=== PATIENT | male | born 1960 | race American Indian/Alaskan Native ===

== ENCOUNTER 2016-07-24 11:13 | Emergency (ER) | payer OTHER ==
[2016-07-24 11:13] VITALS: BMI 23.3
[2016-07-24 11:39] VITALS: BP 124/74; PULSE 81; RESP 16; TEMP 97; O2SAT 98
--- NOTE | 2016-07-24 11:40 | ED PDOC ---
HPI: General Adult Time Seen by Provider: 07/24/16 11:40 Chief Complaint (Nursing): Abnormal Skin Integrity Chief Complaint (Provider): rash History Per: Patient Additional Complaint(s): 56-year-old male with no past medical history presents to emergency department with itchy rash to both arms that he first noticed yesterday. 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 Patient states he has been using this new chemical for the past month and only developed a rash as of yesterday. Patient denies any use of any new soaps, lotions, detergents, perfumes, no new foods or dietary changes. No associated fever or chills, no associated shortness of breath or throat discomfort. Patient denies history of similar symptoms. Denies any recent travel. Past Medical History Reviewed: Historical Data, Nursing Documentation, Vital Signs Vital Signs: Last Vital Signs Temp 97.0 F L 07/24/16 11:34 Pulse 81 07/24/16 11:34 Resp 16 07/24/16 11:34 BP 124/74 07/24/16 11:34 Pulse Ox 98 07/24/16 12:03 - Medical History PMH: Hypercholesterolemia - Surgical History Surgical History: Appendectomy (about 25 years ago) - Family History Family History: States: No Known Family Hx - Living Arrangements Living Arrangements: With Family - Social History Current smoker - smoking cessation education provided: Yes Alcohol: None Drugs: Denies, Other - Home Medications Home Medications: Ambulatory Orders Medication Instructions Recorded Azithromycin [Zithromax Z-Juan] 250 mg PO DAILY #4 tab 08/18/15 Diphenhydramine HCl/Zinc Acet 1 gm TP ASDIR PRN #1 packet 07/24/16 [Benadryl Itch Stopping Crm] Prednisone 50 mg PO DAILY #5 tablet 07/24/16 - Allergies Allergies/Adverse Reactions: Allergies Allergy/AdvReac Type Severity Reaction Status Date / Time No Known Allergies Allergy Verified 02/11/14 16:43 Review of Systems ROS Statement: Except As Marked, All Systems Reviewed And Found Negative Constitutional: Negative for: Fever ENT: Negative for: Throat Pain, Throat Swelling Cardiovascular: Negative for: Chest Pain Respiratory: Negative for: Shortness of Breath, SOB with Exertion Skin: Positive for: Rash Physical Exam - Reviewed Nursing Documentation Reviewed: Yes Vital Signs Reviewed: Yes - Physical Exam Appears: Positive for: Well, Non-toxic, No Acute Distress Skin: Positive for: Rash (Urticarial rash on erythematous base noted to bilateral arms, no acute infection) Cardiovascular/Chest: Positive for: Regular Rate, Rhythm Respiratory: Positive for: Normal Breath Sounds Neurologic/Psych: Positive for: Alert, Oriented - ECG O2 Sat by Pulse Oximetry: 98 Pulse Ox Interpretation: Normal Medical Decision Making Medical Decision Making: Impression: Allergic rash Plan: Rx benadryl cream and prednisone. Patient was instructed to take meds as directed and use caution with further exposure to chemical that may be causing reaction. Patient was advised to follow up with PMD and/or employee health. Disposition - Clinical Impression Clinical Impression: Allergic dermatitis - Patient ED Disposition Is Patient to be Admitted: No Counseled Patient/Family Regarding: Diagnosis, Need For Followup, Rx Given - Disposition Referrals: [facility] [Outside] Disposition: Routine/Home Disposition Time: 11:57 Condition: STABLE Additional Instructions: Take rx meds as directed. Follow up with employee health in 1-2 days. Prescriptions: Diphenhydramine HCl/Zinc Acet [Benadryl Itch Stopping Crm] 1 gm TP ASDIR PRN #1 packet PRN Reason: Itching / Pruritus Prednisone 50 mg PO DAILY #5 tablet Instructions: Urticaria (ED) Forms: [facility] ED School/Work Excuse
== END 2016-07-24 12:10 | disposition home or self-care (01) ==
LOC: H.ER 11:13
DX: L23.9 Allergic contact dermatitis, unspecified cause (principal); E78.00 Pure hypercholesterolemia, unspecified

== ENCOUNTER 2018-06-10 20:57 | Inpatient (IN) | payer BC, OTHER ==
[2018-06-10 20:57] VITALS: BMI 23.3
[2018-06-10 21:47] LABS: BASO % 0.8 % (0.0-2.0); EOS % 0.4 % (0.0-4.0); HEMOGLOBIN 13.3 g/dL (12.0-18.0); LYMPH # 1.4 K/uL (1.0-4.3); LYMPH % 24.6 % (20.0-40.0); MEAN CELL VOLUME 94.9 fl (80.0-94.0); MEAN CORPUSCULAR HEMOGLOBIN 32.6 pg (27.0-31.0); MEAN CORPUSCULAR HGB CONC 34.3 g/dL (33.0-37.0); MEAN PLATELET VOLUME 8.4 fl (7.2-11.7); MONO # 0.5 K/uL (0.0-0.8); MONO % 8.1 % (0.0-10.0); NEUT # 3.8 K/uL (1.8-7.0); NEUT % 66.1 % (50.0-75.0); NRBC % 0.1 % (0.0-0.0); RBC 4.09 Mil/uL (4.40-5.90); RED CELL DISTRIBUTION WIDTH 16.2 % (11.5-14.5); WHITE BLOOD COUNT 5.7 K/uL (4.8-10.8)
[2018-06-10 21:57] LABS: ALB/GLOB RATIO 1.2 (1.0-2.1); ALT/SGPT 24 U/L (21-72); AST/SGOT 30 U/L (17-59); BLOOD UREA NITROGEN 12 mg/dl (9-20); CALCIUM 9.6 mg/dL (8.4-10.2); GFR NON-AFRICAN AMERICAN > 60; LIPASE 49 U/L (23-300)
--- NOTE | 2018-06-10 22:20 | ED PDOC ---
HPI: Abdomen Time Seen by Provider: 06/10/18 21:09 Chief Complaint (Nursing): Abdominal Pain History Per: Patient History/Exam Limitations: no limitations Onset/Duration Of Symptoms: Days Outside of [place] travel?: No Current Symptoms Are (Timing): Still Present Location Of Pain/Discomfort: Diffuse Associated Symptoms: denies: Fever, Chills, Nausea, Vomiting, Diarrhea, Loss Of Appetite Additional Complaint(s): 58 year old with PMHx of HLD, colon/gastric CA? (patient is an extremely poor historian with poor insight into past medical history), active smoking (1/2 PPD), appendicitis presenting with diffuse abdominal pain. States that he was diagnosed with "stomach cancer" years ago and had a surgery to remove "ulcers and his appendix" and was told that he did not require chemo or radiation. States he has had diffuse abdominal pain since yesterday but has maintained his appetite, wants to eat but states the pain is too great. Denies nausea, vomiting, abnormal stools, fevers, urinary symptoms, or any other symptoms. PMD: Dr. Edith Mendoza Past Medical History Reviewed: Historical Data, Nursing Documentation, Vital Signs Vital Signs: Last Vital Signs Temp 98.0 F 06/10/18 21:00 Pulse 55 L 06/10/18 21:00 Resp 16 06/10/18 21:00 BP 150/86 06/10/18 21:00 Pulse Ox 99 06/10/18 21:00 - Medical History PMH: Hypercholesterolemia Denies: Depression, Chronic Kidney Disease - Surgical History Surgical History: Appendectomy (about 25 years ago) - Family History Family History: States: Unknown Family Hx - Immunization History Hx Influenza Vaccination: Yes Hx Pneumococcal Vaccination: Yes - Home Medications Home Medications: Ambulatory Orders Medication Instructions Recorded Azithromycin [Zithromax Z-Juan] 250 mg PO DAILY #4 tab 08/18/15 Diphenhydramine HCl/Zinc Acet 1 gm TP ASDIR PRN #1 packet 07/24/16 [Benadryl Itch Stopping Crm] Prednisone 50 mg PO DAILY #5 tablet 07/24/16 - Allergies Allergies/Adverse Reactions: Allergies Allergy/AdvReac Type Severity Reaction Status Date / Time No Known Allergies Allergy Verified 06/10/18 21:00 Review of Systems ROS Statement: Except As Marked, All Systems Reviewed And Found Negative Gastrointestinal: Positive for: Abdominal Pain Physical Exam - Reviewed Nursing Documentation Reviewed: Yes Vital Signs Reviewed: Yes - Physical Exam Appears: Positive for: Well, Non-toxic, No Acute Distress Head Exam: Positive for: ATRAUMATIC, NORMAL INSPECTION, NORMOCEPHALIC Skin: Positive for: Normal Color, Warm, DRY Eye Exam: Positive for: EOMI, Normal appearance, PERRL ENT: Positive for: Normal ENT Inspection Neck: Positive for: Normal, Painless ROM Cardiovascular/Chest: Positive for: Regular Rate, Rhythm Respiratory: Positive for: CNT, Normal Breath Sounds Gastrointestinal/Abdominal: Positive for: Normal Exam, Soft, Tenderness (Diffusely tender abdomen with voluntary guarding), Guarding (Voluntary), Other (Muliple lower abdominal surgical scars) Back: Positive for: Normal Inspection Extremity: Positive for: Normal ROM Neurological/Psych: Positive for: Awake, Alert, Normal Tone - Laboratory Results Result Diagrams: 06/10/18 21:44 06/10/18 21:44 Lab Results: Total Bilirubin 0.6 mg/dl (0.2-1.3) 06/10/18 21:44 AST 30 U/L (17-59) 06/10/18 21:44 ALT 24 U/L (21-72) 06/10/18 21:44 Alkaline Phosphatase 99 U/L (38-126) 06/10/18 21:44 Total Protein 7.3 G/DL (6.3-8.2) 06/10/18 21:44 Albumin 4.0 g/dL (3.5-5.0) 06/10/18 21:44 Globulin 3.3 gm/dL (2.2-3.9) 06/10/18 21:44 Albumin/Globulin Ratio 1.2 (1.0-2.1) 06/10/18 21:44 Lipase 49 U/L (23-300) 06/10/18 21:44 - ECG O2 Sat by Pulse Oximetry: 99 Pulse Ox Interpretation: Normal Medical Decision Making Medical Decision Making: A/P: Hx of HLD, CA status post surgery presenting with abdominal pain --Patient appears well, vitals are stable --Concerned for possible recurrence of CA v. colitis v. diverticular disease v. sbo --Will get labs, CT, toradol for pain --Will continue to monitor 1114PM Name: ISIDRO DARBY Exam Date: Jun 10, 2018 10:29:22 PM EDT Modality Type: CT Description: CT - ABDOMEN AND PELVIS WITH CORONAL AND SAGITTAL MPRS Gender: M Laterality: Not applicable : 62 Referring Physician: Emergency Room direct number EXAM: CT Abdomen and Pelvis with IV contrast CLINICAL HISTORY: Abd pain. Hx of colon/gastric ca TECHNIQUE: Axial computed tomography images of the abdomen and pelvis with intravenous contrast. 225.82 mGy-cm CONTRAST: With; [id number] 90ML COMPARISON: Comparison is made to previous examination dated 05/11/2014. FINDINGS: LUNG BASES: The lung bases appear clear. No pleural effusions are seen. LIVER: A radiographically stable 1.1 cm round hypodense lesion is seen in the posterior right hepatic lobe. This is thought likely compatible with a cyst. Otherwise, unremarkable. GALLBLADDER AND BILE DUCTS: The gallbladder appears within normal limits. No radioopaque gallstones are seen. No biliary ductal dilatation is evident. PANCREAS: Unremarkable. SPLEEN: Unremarkable. ADRENAL GLANDS: A 1.8 x 1.8 cm solid mass is seen in the left adrenal gland thought compatible with a cortical adenoma. This appears to have remained radiographically stable. Unremarkable right adrenal gland. KIDNEYS, URETERS, AND BLADDER: The kidneys appear within normal limits. There is no hydronephrosis or hydroureter. No urinary calculi are seen. The urinary bladder appeared normal in size and configuration. STOMACH AND BOWEL: There appears to have been partial gastrectomy with gastrojejunal anastomosis performed since the prior examination. Additionally, there appears to have been prior surgical resection of the mid-lower ascending colon. Correlation with past known abdominal surgical history is needed. Mucosal wall thickening seen in the gastric remnant suggestive of a gastritis. Multiple loops of fluid distended small intestine are seen; measuring up to 3.8 cm in transverse diameter. Possible identification of a transition zone in the anterior right lower quadrant. These findings are thought compatible with ev olving mechanical small intestinal obstruction. Surgical consultation could be considered. APPENDIX: No evidence of acute appendicitis on CT examination. PERITONEUM: No free fluid. No free air. LYMPH NODES: No lymphadenopathy is evident. REPRODUCTIVE: Unremarkable as visualized. VASCULATURE: No evidence of abdominal aortic aneurysm. Minor atherosclerotic vascular plaquing noted. BONES: No aggressive appearing osseous lesion. No acute osseous pathology evident. IMPRESSION: 1. Evidence of evolving mechanical small intestinal obstruction. Possible identification of a transition zone in the anterior right lower quadrant. 2. Status post partial gastrectomy with gastrojejunal anastomosis. 3. Apparent previous surgical resection of the lower-mid ascending colon. Correlation with past known surgical history needed. 4. Evidence of gastritis involving the gastric remnant. 5. 1.8 cm likely stable cortical adenoma in the left adrenal gland. Electronically signed on Jun 10, 2018 11:14:24 PM EDT by: Selvin Conteh M.D., MBA Certified By ABR & CBC[employer] Fellowship Trained MRI and CT Specialist --Case discussed with Dr. Armas who recommends NPO, IVF, and NGT for vomiting, will see patient in AM --Spoke with Dr. Coon who accepts admission --president/gm production & live experiences paged --Results given to patient, advised that he is NPO Disposition - Clinical Impression Clinical Impression: Small bowel obstruction - Patient ED Disposition Is Patient to be Admitted: Yes Discussed With : Shaheen Armas Doctor Will See Patient In The: Hospital Counseled Patient/Family Regarding: Studies Performed, Diagnosis, Smoking Cessation - Disposition Disposition Time: 23:15 Condition: FAIR Forms: [employer] (Malaysian)
[2018-06-10] MEDS ORDERED: Sodium Chloride 0.9% 50 ML IV ONE (22:26)
[2018-06-10] MEDS ORDERED: Iohexol 300 100 ML IJ ONE (22:26)
[2018-06-10] MEDS ORDERED: Sodium Chloride 0.9% 1,000 ML IV STA (23:34)
[2018-06-11 01:19] LABS: URINE BILIRUBIN NEGATIVE (NEGATIVE); URINE BLOOD NEGATIVE (NEGATIVE); URINE CLARITY CLEAR (Clear); URINE COLOR YELLOW (YELLOW); URINE GLUCOSE (UA) NEG (NEGATIVE); URINE LEUKOCYTE ESTERASE NEG Leu/uL (Negative); URINE PROTEIN NEGATIVE (NEGATIVE); URINE UROBILINOGEN 0.2-1.0 mg/dL (0.2-1.0)
--- NOTE | 2018-06-11 02:00 | CP.PCM.CON ---
<Amandeep Quintanilla - Last Filed: 06/11/18 02:01> History of Present Illness - History of Present Illness History of Present Illness: General Surgery Consult Note for Dr. Armas Reason for consult: SBO 58 M with PMH that includes gastric and colon CA s/p resections and HLD presents to [facility] for complaint of abdominal pain. Patient was seen and evaluated in the ED. Patient states that his pain began yesterday. He states that he could not bear the pain anymore so he decided to come into the hospital. Patient reports that he usually goes to [place] because he works here at [facility] but he the pain was too much at the time. He denies nausea/vomting or fever/chills. He reports a BM and flatus last around 830 pm yesterday. He rates pain as moderate located in RLQ. He describes it as constant and aching. He reports anorexia. Eating drinking aggravates symptoms while rest alleviates them. Denies cp, SON, diarrhea, constipation, incontinence, numbness/tingling, or urinary symptoms. PMD: Dr. Edith Mendoza PMH: gastric and colon CA s/p resections, HLD PSH: gastric and colon resection for CA, surgery for ulcers, appendectomy ALL: NKDA Meds: as per EMR Social: smokes 1/2 pack/day for years (20+ pack year history), denies EtOH/illicit drug use Review of Systems - Review of Systems All systems: reviewed and no additional remarkable complaints except (as per HPI) Past Patient History - Infectious Disease Hx of Infectious Diseases: None - Past Medical History & Family History Past Medical History?: Yes - Past Social History Smoking Status: Light Smoker < 10 Cigarettes Daily - CARDIAC Hx Hypercholesterolemia: Yes - PULMONARY Hx Respiratory Disorders: No - NEUROLOGICAL Hx Neurological Disorder: No - HEENT Hx HEENT Problems: No - RENAL Hx Chronic Kidney Disease: No - ENDOCRINE/METABOLIC Hx Endocrine Disorders: No - HEMATOLOGICAL/ONCOLOGICAL Hx Cancer: Yes (Colon cancer) - INTEGUMENTARY Hx Dermatological Problems: No - MUSCULOSKELETAL/RHEUMATOLOGICAL Hx Falls: No - GASTROINTESTINAL Hx Gastrointestinal Disorders: Yes Other/Comment: "TOOK PART OF MY STOMACH". Colon cancer - GENITOURINARY/GYNECOLOGICAL Hx Genitourinary Disorders: No - PSYCHIATRIC Hx Depression: No - SURGICAL HISTORY Hx Appendectomy: Yes (about 25 years ago) - ANESTHESIA Hx Anesthesia: Yes Hx Anesthesia Reactions: No Hx Malignant Hyperthermia: No Meds Allergies/Adverse Reactions: Allergies Allergy/AdvReac Type Severity Reaction Status Date / Time No Known Allergies Allergy Verified 06/10/18 21:00 - Medications Medications: Current Medications Acetaminophen (Tylenol 325mg Tab) 650 mg PO Q4 PRN PRN Reason: Pain, Mild (1-3) Sodium Chloride (Sodium Chloride 0.9%) 1,000 mls @ 250 mls/hr IV .Q4H [facility] Stop: 06/11/18 03:33 Last Admin: 06/11/18 00:46 Dose: 250 mls/hr Potassium Chloride/Dextrose/Sod Cl (Potassium Chl 20 Meq In D5-1/2ns) 1,000 mls @ 110 mls/hr IV .Q9H6M [facility] Stop: 06/12/18 01:01 Ketorolac Tromethamine (Toradol) 30 mg IVP Q6 PRN PRN Reason: Pain, severe (8-10) Ketorolac Tromethamine (Toradol) 15 mg IVP Q6 PRN PRN Reason: Pain, moderate (4-7) Physical Exam - Constitutional Appears: Well, Non-toxic, No Acute Distress - Head Exam Head Exam: ATRAUMATIC, NORMOCEPHALIC - Eye Exam Eye Exam: EOMI, Normal appearance Pupil Exam: PERRL - ENT Exam ENT Exam: Mucous Membranes Moist - Neck Exam Neck exam: Positive for: Full Rom - Respiratory Exam Respiratory Exam: NORMAL BREATHING PATTERN - Cardiovascular Exam Cardiovascular Exam: Bradycardia - GI/Abdominal Exam GI & Abdominal Exam: Hypoactive Bowel Sounds, Soft, Tenderness (RLQ). absent: Distended, Firm, Guarding, Hernia, Rebound, Rigid Additional comments: vertical midline scar and RLQ scar from appendectomy - Rectal Exam Rectal Exam: Deferred - Extremities Exam Extremities exam: Positive for: normal capillary refill, pedal pulses present. Negative for: calf tenderness - Back Exam Back exam: absent: CVA tenderness (L), CVA tenderness (R) - Neurological Exam Neurological exam: Alert, CN II-XII Intact, Oriented x3 - Psychiatric Exam Psychiatric exam: Normal Affect, Normal Mood - Skin Skin Exam: Dry, Intact, Normal Color, Warm Results - Vital Signs Recent Vital Signs: Last Vital Signs Temp 97.7 F 06/11/18 01:00 Pulse 49 L 06/11/18 01:00 Resp 17 06/11/18 01:00 BP 116/66 06/11/18 01:00 Pulse Ox 100 06/11/18 01:00 - Labs Result Diagrams: 06/10/18 21:44 06/10/18 21:44 Labs: Laboratory Results - last 24 hr 06/10/18 06/10/18 06/11/18 21:44 21:44 00:49 WBC 5.7 RBC 4.09 L Hgb 13.3 Hct 38.8 MCV 94.9 H D MCH 32.6 H MCHC 34.3 RDW 16.2 H Plt Count 216 MPV 8.4 Neut % (Auto) 66.1 Lymph % (Auto) 24.6 Cherry % (Auto) 8.1 Eos % (Auto) 0.4 Baso % (Auto) 0.8 Neut # (Auto) 3.8 Lymph # (Auto) 1.4 Cherry # (Auto) 0.5 Eos # (Auto) 0.0 Baso # (Auto) 0.0 Sodium 139 Potassium 3.8 Chloride 99 Carbon Dioxide 28 Anion Gap 16 BUN 12 Creatinine 1.1 Est GFR ( Amer) > 60 Est GFR (Non-Af Amer) > 60 Random Glucose 84 Calcium 9.6 Total Bilirubin 0.6 AST 30 ALT 24 Alkaline Phosphatase 99 Total Protein 7.3 Albumin 4.0 Globulin 3.3 Albumin/Globulin Ratio 1.2 Lipase 49 Urine Color Yellow Urine Clarity Clear Urine pH 7.0 Ur Specific [place] 1.044 H Urine Protein Negative Urine Glucose (UA) Neg Urine Ketones Negative Urine Blood Negative Urine Nitrate Negative Urine Bilirubin Negative Urine Urobilinogen 0.2-1.0 Ur Leukocyte Esterase Neg Urine RBC (Auto) 2 Urine Microscopic WBC < 1 Assessment & Plan - Assessment and Plan (Free Text) Assessment: 58M with PMH that includes gastric and colon resection for CA and appendectomy presents for SBO Plan: -NPO -IVF -Pain control -Serial abd exams -Monitor for bowel function -NGT if develops nausea/vomiting -Discussed with Dr. Pawel Quintanilla PGY2 - Date & Time Date: 06/11/18 Time: 02:10 <Han Domínguez - Last Filed: 06/11/18 13:06> History of Present Illness - History of Present Illness History of Present Illness: Patient was seen and examined at the bedside. Agree with resident's note above. Patient reports flatus and a large bowel movement this morning, states that feels better. No nausea no vomiting. Meds - Medications Medications: Current Medications Acetaminophen (Tylenol 325mg Tab) 650 mg PO Q4 PRN PRN Reason: Pain, Mild (1-3) Last Admin: 06/11/18 12:32 Dose: 650 mg Potassium Chloride/Dextrose/Sod Cl (Potassium Chl 20 Meq In D5-1/2ns) 1,000 mls @ 110 mls/hr IV .Q9H6M [facility] Stop: 06/12/18 01:01 Last Admin: 06/11/18 12:23 Dose: 110 mls/hr Ketorolac Tromethamine (Toradol) 30 mg IVP Q6 PRN PRN Reason: Pain, severe (8-10) Last Admin: 06/11/18 06:43 Dose: 30 mg Ketorolac Tromethamine (Toradol) 15 mg IVP Q6 PRN PRN Reason: Pain, moderate (4-7) Pantoprazole Sodium (Protonix Inj) 40 mg IVP DAILY [facility] Last Admin: 06/11/18 08:19 Dose: 40 mg Physical Exam - GI/Abdominal Exam Additional comments: soft, NT, ND, BS+, no rebound, no guarding, well healed incisions from prior surgeries Results - Vital Signs Recent Vital Signs: Last Vital Signs Temp 98.1 F 06/11/18 11:54 Pulse 42 L 06/11/18 11:54 Resp 18 06/11/18 11:54 BP 151/77 H 06/11/18 11:54 Pulse Ox 100 06/11/18 11:54 - Labs Result Diagrams: 06/11/18 05:35 06/11/18 05:35 Labs: Laboratory Results - last 24 hr 06/10/18 06/10/18 06/11/18 21:44 21:44 00:49 WBC 5.7 RBC 4.09 L Hgb 13.3 Hct 38.8 MCV 94.9 H D MCH 32.6 H MCHC 34.3 RDW 16.2 H Plt Count 216 MPV 8.4 Neut % (Auto) 66.1 Lymph % (Auto) 24.6 Cherry % (Auto) 8.1 Eos % (Auto) 0.4 Baso % (Auto) 0.8 Neut # (Auto) 3.8 Lymph # (Auto) 1.4 Cherry # (Auto) 0.5 Eos # (Auto) 0.0 Baso # (Auto) 0.0 Sodium 139 Potassium 3.8 Chloride 99 Carbon Dioxide 28 Anion Gap 16 BUN 12 Creatinine 1.1 Est GFR ( Amer) > 60 Est GFR (Non-Af Amer) > 60 Random Glucose 84 Calcium 9.6 Phosphorus Magnesium Total Bilirubin 0.6 AST 30 ALT 24 Alkaline Phosphatase 99 Total Protein 7.3 Albumin 4.0 Globulin 3.3 Albumin/Globulin Ratio 1.2 Lipase 49 Urine Color Yellow Urine Clarity Clear Urine pH 7.0 Ur Specific [place] 1.044 H Urine Protein Negative Urine Glucose (UA) Neg Urine Ketones Negative Urine Blood Negative Urine Nitrate Negative Urine Bilirubin Negative Urine Urobilinogen 0.2-1.0 Ur Leukocyte Esterase Neg Urine RBC (Auto) 2 Urine Microscopic WBC < 1 06/11/18 06/11/18 05:35 05:35 WBC 5.0 RBC 4.03 L Hgb 13.1 Hct 39.0 MCV 96.7 H MCH 32.4 H MCHC 33.6 RDW 16.1 H Plt Count 200 MPV 8.6 Neut % (Auto) 58.7 Lymph % (Auto) 29.1 Cherry % (Auto) 10.2 H Eos % (Auto) 1.1 Baso % (Auto) 0.9 Neut # (Auto) 2.9 Lymph # (Auto) 1.5 Cherry # (Auto) 0.5 Eos # (Auto) 0.1 Baso # (Auto) 0.0 Sodium 139 Potassium 4.1 Chloride 103 Carbon Dioxide 24 Anion Gap 16 BUN 12 Creatinine 1.0 Est GFR ( Amer) > 60 Est GFR (Non-Af Amer) > 60 Random Glucose 93 Calcium 9.1 Phosphorus 3.1 Magnesium 2.2 Total Bilirubin 0.8 AST 25 ALT 20 L Alkaline Phosphatase 92 Total Protein 6.9 Albumin 3.7 Globulin 3.3 Albumin/Globulin Ratio 1.1 Lipase Urine Color Urine Clarity Urine pH Ur Specific [place] Urine Protein Urine Glucose (UA) Urine Ketones Urine Blood Urine Nitrate Urine Bilirubin Urine Urobilinogen Ur Leukocyte Esterase Urine RBC (Auto) Urine Microscopic WBC - Imaging and Cardiology CT scan - abdomen Status: Image reviewed by me, Report reviewed by me Assessment & Plan - Assessment and Plan (Free Text) Plan: - start clear liquid diet - IV fluids - Repeat labs in am - Will follow
[2018-06-11] MEDS: Potassium Ch 20mEq in D5-1/2NS 1,000 ML IV SCH ×2 (03:50→12:23)
--- NOTE | 2018-06-11 05:26 | CP.PCM.HP ---
<Renny Shepard - Last Filed: 06/11/18 05:10> History of Present Illness - History of Present Illness History of Present Illness: 58 y/o M with a PMHx of Colon cancer and S/P colon resection presented to ED complaining of severe kylie-umbilical abdominal pain that began last night (on 06/09/18). Pain is decribed as sharp/stabbing, was 8-9/10 intensity this morning, radiates to lower abdomen, aggravates with PO intake and NOT associated with nausea, vomiting or change in bowel movement. Last bowel movement last night which was soft ad normal. Pt tried [place]; however, pt was not able to tolerate pain and decided to come to ED. Pt afebrile, able to tolerate PO and passing gasses. Pt denies fever, chills, chest pain, SOB, diarrhea, constipation, rash. PCP: Dr. Edith Mendoza NKJOSE CARLOS Meds: none -PMHx: gastric and colon CA. Denies other chronic conditions. -PSHx: gastric and colon resection for CA. -SHx: smokes 1/2 ppd for many years. Denies alcohol or rec drugs. ED Course: --Vital signs: WNL except for bradycardia. --CBC, CMP and U/A unremarkable --CT Abdomen: evidence of evolving mechanical small intestinal obstruction, s/p resection od lower-mid ascending colon, gastritis. --Toradol 15mg given with improvement of pain. Present on Admission - Present on Admission Any Indicators Present on Admission: No Review of Systems - Constitutional Constitutional: absent: Anorexia, Chills, Headache - EENT Eyes: absent: Change in Vision Nose/Mouth/Throat: absent: Nasal Congestion, Nasal Discharge, Mouth Pain, Sore Throat, Neck Pain, Neck Mass - Cardiovascular Cardiovascular: absent: Chest Pain, Dyspnea, Edema, Palpitations - Respiratory Respiratory: absent: Cough, Dyspnea, Hemoptysis, Dyspnea on Exertion - Gastrointestinal Gastrointestinal: Abdominal Pain. absent: Constipation, Diarrhea, Dysphagia, Hematochezia, Nausea, Vomiting - Genitourinary Genitourinary: absent: Dysuria, Flank Pain, Hematuria - Neurological Neurological: absent: Abnormal Gait Past Patient History - Infectious Disease Hx of Infectious Diseases: None - Past Medical History & Family History Past Medical History?: Yes - Past Social History Smoking Status: Light Smoker < 10 Cigarettes Daily - CARDIAC Hx Hypercholesterolemia: Yes - PULMONARY Hx Respiratory Disorders: No - NEUROLOGICAL Hx Neurological Disorder: No - HEENT Hx HEENT Problems: No - RENAL Hx Chronic Kidney Disease: No - ENDOCRINE/METABOLIC Hx Endocrine Disorders: No - HEMATOLOGICAL/ONCOLOGICAL Hx Cancer: Yes (Colon cancer) - INTEGUMENTARY Hx Dermatological Problems: No - MUSCULOSKELETAL/RHEUMATOLOGICAL Hx Falls: No - GASTROINTESTINAL Hx Gastrointestinal Disorders: Yes Other/Comment: "TOOK PART OF MY STOMACH". Colon cancer - GENITOURINARY/GYNECOLOGICAL Hx Genitourinary Disorders: No - PSYCHIATRIC Hx Depression: No - SURGICAL HISTORY Hx Appendectomy: Yes (about 25 years ago) - ANESTHESIA Hx Anesthesia: Yes Hx Anesthesia Reactions: No Hx Malignant Hyperthermia: No Meds Allergies/Adverse Reactions: Allergies Allergy/AdvReac Type Severity Reaction Status Date / Time No Known Allergies Allergy Verified 06/10/18 21:00 Physical Exam - Constitutional Appears: Well, No Acute Distress - Head Exam Head Exam: ATRAUMATIC, NORMAL INSPECTION - Eye Exam Eye Exam: EOMI, Normal appearance - ENT Exam ENT Exam: Mucous Membranes Moist, Normal Oropharynx - Neck Exam Neck exam: Positive for: Full Rom, Normal Inspection. Negative for: Lymphadenopathy, Tenderness - Respiratory Exam Respiratory Exam: Clear to Auscultation Bilateral, NORMAL BREATHING PATTERN. absent: Rhonchi, Wheezes, Respiratory Distress, Stridor - Cardiovascular Exam Cardiovascular Exam: Bradycardia, +S1, +S2 - GI/Abdominal Exam GI & Abdominal Exam: Normal Bowel Sounds, Soft, Tenderness (on kylie-umbilical and lower quadrants. ). absent: Distended, Firm, Guarding, Rebound, Rigid - Extremities Exam Extremities exam: Positive for: full ROM, normal inspection. Negative for: calf tenderness - Back Exam Back exam: absent: CVA tenderness (L), CVA tenderness (R) - Neurological Exam Neurological exam: Alert, Oriented x3 Results - Vital Signs Recent Vital Signs: Last Vital Signs Temp 97.7 F 06/11/18 02:24 Pulse 43 L 06/11/18 02:24 Resp 18 06/11/18 02:24 BP 141/79 06/11/18 02:24 Pulse Ox 100 06/11/18 02:24 - Labs Result Diagrams: 06/10/18 21:44 06/10/18 21:44 Labs: Laboratory Results - last 24 hr 06/10/18 06/10/18 06/11/18 21:44 21:44 00:49 WBC 5.7 RBC 4.09 L Hgb 13.3 Hct 38.8 MCV 94.9 H D MCH 32.6 H MCHC 34.3 RDW 16.2 H Plt Count 216 MPV 8.4 Neut % (Auto) 66.1 Lymph % (Auto) 24.6 Andrew % (Auto) 8.1 Eos % (Auto) 0.4 Baso % (Auto) 0.8 Neut # (Auto) 3.8 Lymph # (Auto) 1.4 Andrew # (Auto) 0.5 Eos # (Auto) 0.0 Baso # (Auto) 0.0 Sodium 139 Potassium 3.8 Chloride 99 Carbon Dioxide 28 Anion Gap 16 BUN 12 Creatinine 1.1 Est GFR ( Amer) > 60 Est GFR (Non-Af Amer) > 60 Random Glucose 84 Calcium 9.6 Total Bilirubin 0.6 AST 30 ALT 24 Alkaline Phosphatase 99 Total Protein 7.3 Albumin 4.0 Globulin 3.3 Albumin/Globulin Ratio 1.2 Lipase 49 Urine Color Yellow Urine Clarity Clear Urine pH 7.0 Ur Specific [place] 1.044 H Urine Protein Negative Urine Glucose (UA) Neg Urine Ketones Negative Urine Blood Negative Urine Nitrate Negative Urine Bilirubin Negative Urine Urobilinogen 0.2-1.0 Ur Leukocyte Esterase Neg Urine RBC (Auto) 2 Urine Microscopic WBC < 1 Assessment & Plan - Assessment and Plan (Free Text) Assessment: 58 y/o M with a PMHx of Colon cancer and S/P colon resection was admitted for evaluation and management of partial SBO. --CT Abdomen: evidence of evolving mechanical smal intestinal obstruction, s/p resection od lower-mid ascending colon, gastritis. PLAN: >Partial SBO --Acute, afebrile with NO nausea. --Hx of colon resection --Pain management: Tylenol for mild, Toradol for moderate and severe. --NPO --IVF: D5-1/2NS-KCl 20mEQ at maintenance. --General surgery consult. --F/U recommendations from Gen Surgery. --F/U labs >DVT Prophylaxis --SCD's --No anticoagulation for now as per possible surgical procedure. Case discussed with Dr Shaggy Shepard PGY-2 - Date & Time Date: 06/11/18 Time: 01:55 <ClintKareen - Last Filed: 06/11/18 15:19> Results - Vital Signs Recent Vital Signs: Last Vital Signs Temp 98.1 F 06/11/18 11:54 Pulse 42 L 06/11/18 11:54 Resp 18 06/11/18 11:54 BP 151/77 H 06/11/18 11:54 Pulse Ox 100 06/11/18 11:54 - Labs Result Diagrams: 06/11/18 05:35 06/11/18 05:35 Labs: Laboratory Results - last 24 hr 06/10/18 06/10/18 06/11/18 21:44 21:44 00:49 WBC 5.7 RBC 4.09 L Hgb 13.3 Hct 38.8 MCV 94.9 H D MCH 32.6 H MCHC 34.3 RDW 16.2 H Plt Count 216 MPV 8.4 Neut % (Auto) 66.1 Lymph % (Auto) 24.6 Andrew % (Auto) 8.1 Eos % (Auto) 0.4 Baso % (Auto) 0.8 Neut # (Auto) 3.8 Lymph # (Auto) 1.4 Andrew # (Auto) 0.5 Eos # (Auto) 0.0 Baso # (Auto) 0.0 Sodium 139 Potassium 3.8 Chloride 99 Carbon Dioxide 28 Anion Gap 16 BUN 12 Creatinine 1.1 Est GFR ( Amer) > 60 Est GFR (Non-Af Amer) > 60 Random Glucose 84 Calcium 9.6 Phosphorus Magnesium Total Bilirubin 0.6 AST 30 ALT 24 Alkaline Phosphatase 99 Total Protein 7.3 Albumin 4.0 Globulin 3.3 Albumin/Globulin Ratio 1.2 Lipase 49 Urine Color Yellow Urine Clarity Clear Urine pH 7.0 Ur Specific [place] 1.044 H Urine Protein Negative Urine Glucose (UA) Neg Urine Ketones Negative Urine Blood Negative Urine Nitrate Negative Urine Bilirubin Negative Urine Urobilinogen 0.2-1.0 Ur Leukocyte Esterase Neg Urine RBC (Auto) 2 Urine Microscopic WBC < 1 06/11/18 06/11/18 05:35 05:35 WBC 5.0 RBC 4.03 L Hgb 13.1 Hct 39.0 MCV 96.7 H MCH 32.4 H MCHC 33.6 RDW 16.1 H Plt Count 200 MPV 8.6 Neut % (Auto) 58.7 Lymph % (Auto) 29.1 Andrew % (Auto) 10.2 H Eos % (Auto) 1.1 Baso % (Auto) 0.9 Neut # (Auto) 2.9 Lymph # (Auto) 1.5 Andrew # (Auto) 0.5 Eos # (Auto) 0.1 Baso # (Auto) 0.0 Sodium 139 Potassium 4.1 Chloride 103 Carbon Dioxide 24 Anion Gap 16 BUN 12 Creatinine 1.0 Est GFR ( Amer) > 60 Est GFR (Non-Af Amer) > 60 Random Glucose 93 Calcium 9.1 Phosphorus 3.1 Magnesium 2.2 Total Bilirubin 0.8 AST 25 ALT 20 L Alkaline Phosphatase 92 Total Protein 6.9 Albumin 3.7 Globulin 3.3 Albumin/Globulin Ratio 1.1 Lipase Urine Color Urine Clarity Urine pH Ur Specific [place] Urine Protein Urine Glucose (UA) Urine Ketones Urine Blood Urine Nitrate Urine Bilirubin Urine Urobilinogen Ur Leukocyte Esterase Urine RBC (Auto) Urine Microscopic WBC Addendum Addendum: 06/11/18 15:18 Pt seen and examined with resident Abd Pain better , still with some tenderness, no N/V, pt had BM this am Will; start Clear Liquid diet this afternoon will observe overnight , poss d/c in am if pt tolerates diet
[2018-06-11 06:12] LABS: BASO % 0.9 % (0.0-2.0); EOS # 0.1 K/uL (0.0-0.7); EOS % 1.1 % (0.0-4.0); HEMOGLOBIN 13.1 g/dL (12.0-18.0); LYMPH # 1.5 K/uL (1.0-4.3); LYMPH % 29.1 % (20.0-40.0); MEAN CELL VOLUME 96.7 fl (80.0-94.0); MEAN CORPUSCULAR HEMOGLOBIN 32.4 pg (27.0-31.0); MEAN CORPUSCULAR HGB CONC 33.6 g/dL (33.0-37.0); MEAN PLATELET VOLUME 8.6 fl (7.2-11.7); MONO # 0.5 K/uL (0.0-0.8); MONO % 10.2 % (0.0-10.0); NEUT # 2.9 K/uL (1.8-7.0); NEUT % 58.7 % (50.0-75.0); NRBC % 0.1 % (0.0-0.0); RBC 4.03 Mil/uL (4.40-5.90); RED CELL DISTRIBUTION WIDTH 16.1 % (11.5-14.5)
[2018-06-11 06:35] LABS: ALB/GLOB RATIO 1.1 (1.0-2.1); ALBUMIN 3.7 g/dL (3.5-5.0); ALT/SGPT 20 U/L (21-72); AST/SGOT 25 U/L (17-59); BLOOD UREA NITROGEN 12 mg/dl (9-20); CALCIUM 9.1 mg/dL (8.4-10.2); GFR NON-AFRICAN AMERICAN > 60
--- NOTE | 2018-06-11 17:39 | CT ---
Date of service: 06/10/2018 PROCEDURE: CT Abdomen and Pelvis with contrast HISTORY: hx of colon/gastric CA presenting with abd pain COMPARISON: 05/11/2014 TECHNIQUE: Contrast dose: 90 mL Omnipaque 300 Radiation dose: Total exam DLP = 225.82 mGy-cm. This CT exam was performed using one or more of the following dose reduction techniques: Automated exposure control, adjustment of the mA and/or kV according to patient size, and/or use of iterative reconstruction technique. FINDINGS: LOWER THORAX: Unremarkable. LIVER: Normal size, contour and attenuation. Stable 12 mm low-density mass posterior right lobe of liver. No biliary dilatation. GALLBLADDER AND BILE DUCTS: Unremarkable. PANCREAS: Unremarkable. No gross lesion or ductal dilatation. SPLEEN: Unremarkable. ADRENALS: Unremarkable. No mass. KIDNEYS AND URETERS: Two small rounded low-density masses in left kidney, 1.3 cm upper pole and 1.1 cm mid renal. Likely cysts. No right renal mass. No calculus or hydronephrosis. VASCULATURE: Unremarkable. No aortic aneurysm. There is atherosclerotic calcification of the abdominal aorta. BOWEL: Status post partial gastrectomy with gastrojejunostomy. Evidence of prior small bowel anastomosis in the left upper quadrant of the abdomen. Dilated loops of small bowel are seen possibly reflecting mechanical bowel obstruction. There are collapsed loops of distal ileum identified. Questionable point of transition in the midline abdomen at the level of the umbilicus, series 3, image 85. However, this is not certain on the basis of this examination. APPENDIX: Not identified. No secondary findings. PERITONEUM: Trace ascites. No pneumoperitoneum. LYMPH NODES: Unremarkable. No enlarged lymph nodes. BLADDER: Unremarkable. REPRODUCTIVE: Unremarkable prostate. BONES: No acute fracture. OTHER FINDINGS: None. IMPRESSION: Suspected mechanical small-bowel obstruction. Questionable point of transition is identified as above at the level of the umbilicus in the midline abdomen. Status post partial gastrectomy with gastrojejunostomy and additional small bowel anastomosis in the left upper quadrant. Additional minor findings as above. The preliminary findings for this examination were reported by [facility] at 11:14 p.m. on 06/10/2018. There is concurrence of this report with the preliminary findings. However, there is no evidence of adrenal adenoma on the basis of this examination.
[2018-06-12] MEDS: Potassium Ch 20mEq in D5-1/2NS 1,000 ML IV SCH (00:20)
[2018-06-12] MEDS ORDERED: EnalaprilAT 1.25 mg/ml Inj IVP ONE (05:22)
[2018-06-12 06:34] LABS: BLOOD UREA NITROGEN 8 mg/dl (9-20); GFR NON-AFRICAN AMERICAN > 60
[2018-06-12 06:46] LABS: BASO % 0.3 % (0.0-2.0); EOS % 0.5 % (0.0-4.0); HEMOGLOBIN 14.2 g/dL (12.0-18.0); LYMPH # 0.8 K/uL (1.0-4.3); LYMPH % 20.1 % (20.0-40.0); MEAN CELL VOLUME 96.4 fl (80.0-94.0); MEAN CORPUSCULAR HEMOGLOBIN 32.5 pg (27.0-31.0); MEAN CORPUSCULAR HGB CONC 33.7 g/dL (33.0-37.0); MEAN PLATELET VOLUME 8.9 fl (7.2-11.7); MONO # 0.5 K/uL (0.0-0.8); MONO % 11.6 % (0.0-10.0); NEUT # 2.8 K/uL (1.8-7.0); NEUT % 67.5 % (50.0-75.0); NRBC % 0.3 % (0.0-0.0); RBC 4.36 Mil/uL (4.40-5.90); RED CELL DISTRIBUTION WIDTH 16.2 % (11.5-14.5); WHITE BLOOD COUNT 4.2 K/uL (4.8-10.8)
--- NOTE | 2018-06-12 07:04 | CP.PCM.PCO ---
Addendum Addendum: 06/12/18 06:57 58 y/o M developed nausea at 1 am, Zofran was administered. The newswriter was again called around 5:45am due to patient vomiting clear yellow liquid, non-bloody. Pt complained of nausea but denied abdominal pain, epigastric burning pain or acid reflux. Vital signs showed bradycardia and elevated BP. On physical exam, abdomen is distended, tender diffusely, decreased bowel sounds. Another dose of IV Zofran administered, NPO ordered, and Obstructive series ordered. Considering NGT placement if abnormal x-rays.
[2018-06-12] MEDS ORDERED: Chlorhexidine Gluconate 1 APPL/PKT TP ONE ×3 (07:52→18:58)
[2018-06-12] MEDS: Lactated Ringer's 1,000 ML IV SCH (09:45)
[2018-06-12] MEDS: EnalaprilAT 1.25 mg/ml Inj IV SCH ×2 (09:45→21:46)
--- NOTE | 2018-06-12 09:58 | RAD ---
Date of service: 06/12/2018 HISTORY: nausea/vomting, SBO COMPARISON: 06/10/2018 CT abdomen and pelvis report noted tower director image noted. FINDINGS: BOWEL: Interval increased in number of small bowel dilated loops for example now in the right lower abdomen. The number and conspicuity of small bowel dilated loops in the left upper abdomen and left lateral abdomen have also increased with the prior tower director image. The prior right upper quadrant dilated small bowel loop is similar. Surgical clips in the epigastric region noted in the right upper quadrant. BONES: Right lateral bridging osteophyte L3-4. OTHER FINDINGS: Multiple central pelvic high [id number] some may be phleboliths. Their origin and clinical significance of all of them is however unclear. Nasogastric tube with more vertical course--likely relating to prior history of gas partial gastrectomy and gastrojejunostomy. IMPRESSION: Interval progressive number of dilated small bowel loops-a progressive small-bowel obstruction is suspect. Please note the prior CT abdomen and pelvic report regarding mention of this. Comments: Study marked for PA review .
--- NOTE | 2018-06-12 10:04 | CP.PCM.PN ---
Subjective - Date & Time of Evaluation Date of Evaluation: 06/12/18 Time of Evaluation: 10:00 - Subjective Subjective: pt seen at bedside, resting comfortably in no acute distress. Pt was started on clear liquids but overnight pt developed multiple episodes of bilious vomiting. Pt made NPO currently with NGT in place with bilous drainage. Pt reports abd ominal discomfort, nausea but is passing flatus and had BM this morning. GEN: awake, alert, NAD HEENT: NC/AT, EOMI, NGT in place with bilious drainage resp: no acute respiratory distress abd: soft, mild distention, minimal discomfort to mid abdomen on deep palpation, no rebound or guarding, no hernias or mass -NPO -IVF -monitor NGT output -repeat KUB in am -repeat labs in am -will continue to monitor clinically no acute intervention Objective - Vital Signs/Intake and Output Vital Signs (last 24 hours): Temp Pulse Resp BP Pulse Ox 97.1 F L 49 L 18 177/81 H 100 06/12/18 08:27 06/12/18 08:27 06/12/18 08:27 06/12/18 09:45 06/12/18 08:27 - Medications Medications: Current Medications Acetaminophen (Tylenol 325mg Tab) 650 mg PO Q4 PRN PRN Reason: Pain, Mild (1-3) Last Admin: 06/11/18 12:32 Dose: 650 mg Enalaprilat (Vasotec Iv) 2.5 mg IV Q12 [facility] Last Admin: 06/12/18 09:45 Dose: 2.5 mg Lactated Ringer's (Lactated Ringer's) 1,000 mls @ 125 mls/hr IV .Q8H [facility] Last Admin: 06/12/18 09:45 Dose: 125 mls/hr Morphine Sulfate (Morphine) 2 mg IVP Q4 PRN PRN Reason: Pain, Mild (1-3) Last Admin: 06/12/18 09:45 Dose: 2 mg Morphine Sulfate (Morphine) 4 mg IVP Q4 PRN PRN Reason: Pain, moderate (4-7) Morphine Sulfate (Morphine) 6 mg IVP Q4 PRN PRN Reason: Pain, severe (8-10) Pantoprazole Sodium (Protonix Inj) 40 mg IVP DAILY [facility] Last Admin: 06/12/18 09:46 Dose: 40 mg - Labs Labs: 06/12/18 05:45 06/12/18 05:45
--- NOTE | 2018-06-12 11:19 | CP.PCM.PN ---
<KayKelsey - Last Filed: 06/12/18 11:53> Subjective - Date & Time of Evaluation Date of Evaluation: 06/12/18 Time of Evaluation: 11:17 - Subjective Subjective: 58 y/o M with a PMHx of Colon cancer and S/P colon resection seen and evaluated at bedside complaining of severe kylie-umbilical abdominal pain that began on 06/09/18. Patient states the pain is now controlled with pain medications. Last bowel movement was this morning and states it was regular. States he had a cup of tea yesterday and had expericing vomiting after. Denies any other complains. Objective - Vital Signs/Intake and Output Vital Signs (last 24 hours): Temp Pulse Resp BP Pulse Ox 97.1 F L 49 L 18 177/81 H 100 06/12/18 08:27 06/12/18 08:27 06/12/18 08:27 06/12/18 09:45 06/12/18 08:27 - Medications Medications: Current Medications Acetaminophen (Tylenol 325mg Tab) 650 mg PO Q4 PRN PRN Reason: Pain, Mild (1-3) Last Admin: 06/11/18 12:32 Dose: 650 mg Enalaprilat (Vasotec Iv) 2.5 mg IV Q12 [facility] Last Admin: 06/12/18 09:45 Dose: 2.5 mg Lactated Ringer's (Lactated Ringer's) 1,000 mls @ 125 mls/hr IV .Q8H [facility] Last Admin: 06/12/18 09:45 Dose: 125 mls/hr Morphine Sulfate (Morphine) 2 mg IVP Q4 PRN PRN Reason: Pain, Mild (1-3) Last Admin: 06/12/18 09:45 Dose: 2 mg Morphine Sulfate (Morphine) 4 mg IVP Q4 PRN PRN Reason: Pain, moderate (4-7) Morphine Sulfate (Morphine) 6 mg IVP Q4 PRN PRN Reason: Pain, severe (8-10) Pantoprazole Sodium (Protonix Inj) 40 mg IVP DAILY [facility] Last Admin: 06/12/18 09:46 Dose: 40 mg - Labs Labs: 06/12/18 05:45 06/12/18 05:45 - Constitutional Appears: Well, Non-toxic, No Acute Distress - Head Exam Head Exam: ATRAUMATIC, NORMOCEPHALIC - Eye Exam Eye Exam: Normal appearance Pupil Exam: NORMAL ACCOMODATION - ENT Exam ENT Exam: Mucous Membranes Moist Additional comments: NG tube noted - Respiratory Exam Respiratory Exam: NORMAL BREATHING PATTERN - Cardiovascular Exam Cardiovascular Exam: REGULAR RHYTHM, +S1, +S2 - Neurological Exam Neurological Exam: Alert, Awake, Oriented x3 - Psychiatric Exam Psychiatric exam: Normal Affect - Skin Skin Exam: Normal Color Assessment and Plan - Assessment and Plan (Free Text) Assessment: 58 y/o M with a PMHx of Colon cancer and S/P colon resection was admitted for evaluation and management of partial SBO. --CT Abdomen: evidence of evolving mechanical smal intestinal obstruction, s/p resection old lower-mid ascending colon, gastritis. Patient advised to start with clear liquids after a period of NPO. However, patient had experienced vomitng and NG tube was placed. Plan: >Partial SBO --Acute, afebrile with vomiting --Hx of colon resection --Pain management: Tylenol for mild, Toradol for moderate and severe. -- X-ray of abdomen:progressive small bowel obstruction --CT Abdomen: evidence of evolving mechanical small intestinal obstruction, s/p resection od lower-mid ascending colon, gastritis. --NPO --IVF: D5-1/2NS-KCl 20mEQ at maintenance. --General surgery consult.; appreciate recs --NG tube intact --f/u on obstructive series Hypertension --IV vasotec >DVT Prophylaxis --SCD's <Kareen Jaramillo - Last Filed: 06/12/18 17:23> Objective - Vital Signs/Intake and Output Vital Signs (last 24 hours): Temp Pulse Resp BP Pulse Ox 97.3 F L 51 L 18 168/79 H 99 06/12/18 16:20 06/12/18 16:20 06/12/18 16:20 06/12/18 16:20 06/12/18 16:20 - Medications Medications: Current Medications Acetaminophen (Tylenol 325mg Tab) 650 mg PO Q4 PRN PRN Reason: Pain, Mild (1-3) Last Admin: 06/11/18 12:32 Dose: 650 mg Enalaprilat (Vasotec Iv) 2.5 mg IV Q12 [facility] Last Admin: 06/12/18 09:45 Dose: 2.5 mg Hydralazine HCl (Apresoline) 10 mg IV Q6 PRN PRN Reason: Systolic Blood Pressure Lactated Ringer's (Lactated Ringer's) 1,000 mls @ 125 mls/hr IV .Q8H [facility] Last Admin: 06/12/18 09:45 Dose: 125 mls/hr Morphine Sulfate (Morphine) 2 mg IVP Q4 PRN PRN Reason: Pain, Mild (1-3) Last Admin: 06/12/18 09:45 Dose: 2 mg Morphine Sulfate (Morphine) 4 mg IVP Q4 PRN PRN Reason: Pain, moderate (4-7) Morphine Sulfate (Morphine) 6 mg IVP Q4 PRN PRN Reason: Pain, severe (8-10) Ondansetron HCl (Zofran Inj) 4 mg IVP Q4 PRN PRN Reason: Nausea/Vomiting Pantoprazole Sodium (Protonix Inj) 40 mg IVP DAILY [facility] Last Admin: 06/12/18 09:46 Dose: 40 mg - Labs Labs: 06/12/18 05:45 06/12/18 05:45 Attending/Attestation - Attestation I have personally seen and examined this patient.: Yes I have fully participated in the care of the patient.: Yes I have reviewed all pertinent clinical information, including history, physical exam and plan: Yes Notes (Text): Diagnoses: 1.SBO 2. HTN - Pt vomited this am - unable to tolerate PO diet though had BM yesterday - worsening SBO on KUB - Keep NPO - NGT inserted this am -Hydralazine 10 mg IV for BP greater than 175 syst - start Vasotec IV Bid
[2018-06-12] MEDS: Morphine 4 MG/ML VIAL IVP PRN ×2 (17:33→22:53)
[2018-06-12] MEDS ORDERED: Benzocaine/Menthol (Cepacol) Lozenge PO PRN (19:05)
[2018-06-12] MEDS ORDERED: Phenol 1.4% Throat Spray MT PRN (19:05)
[2018-06-13] MEDS: Lactated Ringer's 1,000 ML IV SCH ×3 (02:55→16:52)
[2018-06-13 06:04] LABS: INR 1.2; PROTHROMBIN TIME 13.5 Seconds (9.8-13.1)
[2018-06-13 06:07] LABS: PARTIAL THROMBOPLASTIN TIME 33.6 Seconds (25.6-37.1)
[2018-06-13 06:16] LABS: BASO % 0.2 % (0.0-2.0); LYMPH # 0.3 K/uL (1.0-4.3); MEAN CELL VOLUME 95.8 fl (80.0-94.0); MEAN CORPUSCULAR HEMOGLOBIN 32.7 pg (27.0-31.0); MEAN CORPUSCULAR HGB CONC 34.1 g/dL (33.0-37.0); MEAN PLATELET VOLUME 9.1 fl (7.2-11.7); MONO # 0.7 K/uL (0.0-0.8); NEUT # 2.2 K/uL (1.8-7.0); NEUT % 69.1 % (50.0-75.0); NRBC % 0.1 % (0.0-0.0); PLATELET COUNT 227 K/uL (130-400); RBC 4.59 Mil/uL (4.40-5.90); RED CELL DISTRIBUTION WIDTH 16.1 % (11.5-14.5)
[2018-06-13 06:18] LABS: BLOOD UREA NITROGEN 12 mg/dl (9-20); CALCIUM 9.4 mg/dL (8.4-10.2); GFR NON-AFRICAN AMERICAN > 60
[2018-06-13 06:19] LABS: LYMPH % 9.6 % (20.0-40.0); MONO % 21.1 % (0.0-10.0); WHITE BLOOD COUNT 3.2 K/uL (4.8-10.8)
[2018-06-13 08:57] LABS: BANDS 7 % (0-2); BASOPHIL 1 % (0-2); LYMPHOCYTE 11 % (20-50); MONOCYTE 22 % (0-10); NEUTROPHIL 59 % (42-75); TOTAL CELLS COUNTED 100
[2018-06-13 08:58] LABS: PLATELET ESTIMATE NORMAL (NORMAL)
[2018-06-13] MEDS: EnalaprilAT 1.25 mg/ml Inj IV SCH (09:00)
[2018-06-13 09:06] LABS: ANISOCYTOSIS SLIGHT; LARGE PLATELETS PRESENT; TEARDROP CELLS SLIGHT
--- NOTE | 2018-06-13 09:54 | CP.PCM.PN ---
Subjective - Date & Time of Evaluation Date of Evaluation: 06/13/18 Time of Evaluation: 09:47 - Subjective Subjective: pt seen at bedside, pt continues to report abdominal pain more localized to right lower quadrant. Pt remains NPO with NGT in place draining bilious output. Pt afebrle, hemodynamically stable. PT states he is passing flatus. NGT: 1100cc/bilious gen: awake, alert, NAD, afebrile HEENT: NC/AT, EOMI, PERRLA no acute respiratory distress abd: soft, distended, tenderness to RLQ, no peritoneal signs a/p 58yo M with abdominal distention with partial sbo -clinically pts abdominal exam is benign -cont NGT -will order SBS - check for transition point - Objective - Vital Signs/Intake and Output Vital Signs (last 24 hours): Temp Pulse Resp BP Pulse Ox 98.4 F 71 20 176/83 H 96 06/13/18 08:38 06/13/18 08:38 06/13/18 08:38 06/13/18 09:00 06/13/18 08:38 - Medications Medications: Current Medications Acetaminophen (Tylenol 325mg Tab) 650 mg PO Q4 PRN PRN Reason: Pain, Mild (1-3) Last Admin: 06/11/18 12:32 Dose: 650 mg Benzocaine/Menthol (Cepacol Sore Throat) 1 patt PO Q2 PRN PRN Reason: Sore Throat Enalaprilat (Vasotec Iv) 2.5 mg IV Q12 [facility] Last Admin: 06/13/18 09:00 Dose: 2.5 mg Hydralazine HCl (Apresoline) 10 mg IV Q6 PRN PRN Reason: Systolic Blood Pressure Lactated Ringer's (Lactated Ringer's) 1,000 mls @ 125 mls/hr IV .Q8H [facility] Last Admin: 06/13/18 08:56 Dose: Not Given Morphine Sulfate (Morphine) 2 mg IVP Q4 PRN PRN Reason: Pain, Mild (1-3) Last Admin: 06/12/18 09:45 Dose: 2 mg Morphine Sulfate (Morphine) 4 mg IVP Q4 PRN PRN Reason: Pain, moderate (4-7) Last Admin: 06/12/18 22:53 Dose: 4 mg Morphine Sulfate (Morphine) 6 mg IVP Q4 PRN PRN Reason: Pain, severe (8-10) Ondansetron HCl (Zofran Inj) 4 mg IVP Q4 PRN PRN Reason: Nausea/Vomiting Last Admin: 06/12/18 17:34 Dose: 4 mg Pantoprazole Sodium (Protonix Inj) 40 mg IVP DAILY [facility] Last Admin: 06/13/18 08:58 Dose: 40 mg Phenol/Menthol (Phenaseptic 1.4% Throat [place]) 1 spry MT Q2 PRN PRN Reason: Sore Throat - Labs Labs: 06/13/18 05:20 06/13/18 05:20 PT 13.5 Seconds (9.8-13.1) H 06/13/18 05:20 INR 1.2 06/13/18 05:20 APTT 33.6 Seconds (25.6-37.1) 06/13/18 05:20
[2018-06-13] MEDS ORDERED: Barium Sulfate Susp 0.1% w/v, 0.1% w/w 450 mL Bottle PO ONE (10:09)
--- NOTE | 2018-06-13 10:51 | RAD ---
Date of service: 06/13/2018 HISTORY: Partial SBO COMPARISON: Comparison made with abdominal radiographs 06/12/2018. FINDINGS: BOWEL: Distal aspect in situ NGT is visible within the mid abdomen. There are multiple loops of distended air-filled small bowel which may represent partial and or intermittent small bowel obstruction. There are multiple metallic clips seen in the mid abdomen. BONES: Normal. OTHER FINDINGS: None. IMPRESSION: Findings consistent with partial and or intermittent small bowel obstruction.. In situ NGT.
--- NOTE | 2018-06-13 12:10 | CP.PCM.PN ---
Subjective - Date & Time of Evaluation Date of Evaluation: 06/13/18 Time of Evaluation: 12:08 - Subjective Subjective: 58 y/o M with a PMHx of Colon cancer and S/P colon resection seen and evaluated at bedside complaining of severe kylie-umbilical abdominal pain that began on 06/09/18. Patient states the pain is now controlled with pain medications. Adm its to being NPO. Objective - Vital Signs/Intake and Output Vital Signs (last 24 hours): Temp Pulse Resp BP Pulse Ox 98.4 F 71 20 176/83 H 96 06/13/18 08:38 06/13/18 08:38 06/13/18 08:38 06/13/18 09:00 06/13/18 08:38 - Medications Medications: Current Medications Acetaminophen (Tylenol 325mg Tab) 650 mg PO Q4 PRN PRN Reason: Pain, Mild (1-3) Last Admin: 06/11/18 12:32 Dose: 650 mg Benzocaine/Menthol (Cepacol Sore Throat) 1 patt PO Q2 PRN PRN Reason: Sore Throat Enalaprilat (Vasotec) 2.5 mg IV Q12 [facility] Hydralazine HCl (Apresoline) 10 mg IV Q6 PRN PRN Reason: Systolic Blood Pressure Lactated Ringer's (Lactated Ringer's) 1,000 mls @ 125 mls/hr IV .Q8H [facility] Last Admin: 06/13/18 08:56 Dose: Not Given Morphine Sulfate (Morphine) 2 mg IVP Q4 PRN PRN Reason: Pain, Mild (1-3) Last Admin: 06/12/18 09:45 Dose: 2 mg Morphine Sulfate (Morphine) 4 mg IVP Q4 PRN PRN Reason: Pain, moderate (4-7) Last Admin: 06/12/18 22:53 Dose: 4 mg Morphine Sulfate (Morphine) 6 mg IVP Q4 PRN PRN Reason: Pain, severe (8-10) Ondansetron HCl (Zofran Inj) 4 mg IVP Q4 PRN PRN Reason: Nausea/Vomiting Last Admin: 06/12/18 17:34 Dose: 4 mg Pantoprazole Sodium (Protonix Inj) 40 mg IVP DAILY [facility] Last Admin: 06/13/18 08:58 Dose: 40 mg Phenol/Menthol (Phenaseptic 1.4% Throat [place]) 1 spry MT Q2 PRN PRN Reason: Sore Throat - Labs Labs: 06/13/18 05:20 06/13/18 05:20 PT 13.5 Seconds (9.8-13.1) H 06/13/18 05:20 INR 1.2 06/13/18 05:20 APTT 33.6 Seconds (25.6-37.1) 06/13/18 05:20 - Constitutional Appears: Well, Non-toxic, No Acute Distress - Head Exam Head Exam: ATRAUMATIC, NORMOCEPHALIC - Eye Exam Eye Exam: Normal appearance Pupil Exam: NORMAL ACCOMODATION - ENT Exam ENT Exam: Mucous Membranes Moist - Respiratory Exam Respiratory Exam: NORMAL BREATHING PATTERN - Cardiovascular Exam Cardiovascular Exam: REGULAR RHYTHM, +S1, +S2 - GI/Abdominal Exam GI & Abdominal Exam: Tenderness, Normal Bowel Sounds - Neurological Exam Neurological Exam: Alert, Awake - Psychiatric Exam Psychiatric exam: Normal Affect Assessment and Plan - Assessment and Plan (Free Text) Assessment: 58 y/o M with a PMHx of Colon cancer and S/P colon resection was admitted for evaluation and management of partial SBO. --CT Abdomen: evidence of evolving mechanical smal intestinal obstruction, s/p resection old lower-mid ascending colon, gastritis. Patient advised to start with clear liquids after a period of NPO. However, patient had experienced vomitng and NG tube was placed. Plan: >Partial SBO --Acute, afebrile with vomiting --Hx of colon resection --Pain management: Tylenol for mild, Toradol for moderate and severe. -- X-ray of abdomen:progressive small bowel obstruction --CT Abdomen: evidence of evolving mechanical small intestinal obstruction, s/p resection od lower-mid ascending colon, gastritis. --NPO --IVF: D5-1/2NS-KCl 20mEQ at maintenance. --General surgery consult.; appreciate recs -->clinically pts abdominal exam is benign, cont NGT, will order SBS - check for transition point --NG tube intact --f/u on obstructive series , KUB Hypertension --IV vasotec >DVT Prophylaxis --SCD's
[2018-06-13] MEDS: Enalaprilat 2.5 MG/2 ML IV SCH (21:37)
[2018-06-14] MEDS: Lactated Ringer's 1,000 ML IV SCH ×4 (01:27→19:43)
[2018-06-14 06:38] LABS: BLOOD UREA NITROGEN 20 mg/dl (9-20); CALCIUM 9.6 mg/dL (8.4-10.2); GFR NON-AFRICAN AMERICAN > 60
--- NOTE | 2018-06-14 06:46 | CP.PCM.PN ---
Subjective - Date & Time of Evaluation Date of Evaluation: 06/14/18 Time of Evaluation: 08:53 - Subjective Subjective: Patient seen and examined this morning at bedside. Patient reported hiccups that interrupted sleep but resolved w/ medication. Patient also reports improvement of abdominal pain and distension. Patient reporting gas and bowel movements. NGT remains in place and drained 1150 overnight. Patient denies headaches, chest pain, or dyspnea. Objective - Vital Signs/Intake and Output Vital Signs (last 24 hours): Temp Pulse Resp BP Pulse Ox 99 F 104 H 18 138/80 97 06/14/18 05:27 06/14/18 05:27 06/14/18 05:27 06/14/18 05:27 06/14/18 05:27 Intake and Output: 06/13/18 06/14/18 18:59 06:59 Intake Total 2310 Output Total 2925 Balance -615 - Medications Medications: Current Medications Acetaminophen (Tylenol 325mg Tab) 650 mg PO Q4 PRN PRN Reason: Pain, Mild (1-3) Last Admin: 06/11/18 12:32 Dose: 650 mg Acetaminophen (Tylenol 325mg Tab) 650 mg PO Q4 PRN PRN Reason: Fever >100.4 F Last Admin: 06/13/18 21:38 Dose: 650 mg Benzocaine/Menthol (Cepacol Sore Throat) 1 patt PO Q2 PRN PRN Reason: Sore Throat Last Admin: 06/14/18 04:39 Dose: 1 patt Enalaprilat (Vasotec) 2.5 mg IV Q12 [facility] Last Admin: 06/13/18 21:37 Dose: 2.5 mg Hydralazine HCl (Apresoline) 10 mg IV Q6 PRN PRN Reason: Systolic Blood Pressure Lactated Ringer's (Lactated Ringer's) 1,000 mls @ 125 mls/hr IV .Q8H [facility] Last Admin: 06/14/18 01:27 Dose: 125 mls/hr Morphine Sulfate (Morphine) 2 mg IVP Q4 PRN PRN Reason: Pain, Mild (1-3) Last Admin: 06/12/18 09:45 Dose: 2 mg Morphine Sulfate (Morphine) 4 mg IVP Q4 PRN PRN Reason: Pain, moderate (4-7) Last Admin: 06/12/18 22:53 Dose: 4 mg Morphine Sulfate (Morphine) 6 mg IVP Q4 PRN PRN Reason: Pain, severe (8-10) Ondansetron HCl (Zofran Inj) 4 mg IVP Q4 PRN PRN Reason: Nausea/Vomiting Last Admin: 06/12/18 17:34 Dose: 4 mg Pantoprazole Sodium (Protonix Inj) 40 mg IVP DAILY [facility] Last Admin: 06/13/18 08:58 Dose: 40 mg Phenol/Menthol (Phenaseptic 1.4% Throat [place]) 1 spry MT Q2 PRN PRN Reason: Sore Throat - Labs Labs: 06/13/18 05:20 06/14/18 04:30 PT 13.5 Seconds (9.8-13.1) H 06/13/18 05:20 INR 1.2 06/13/18 05:20 APTT 33.6 Seconds (25.6-37.1) 06/13/18 05:20 - Constitutional Appears: Non-toxic, No Acute Distress - Head Exam Head Exam: ATRAUMATIC, NORMAL INSPECTION, NORMOCEPHALIC - Eye Exam Eye Exam: EOMI, Normal appearance, PERRL - ENT Exam ENT Exam: Mucous Membranes Moist - Respiratory Exam Respiratory Exam: Clear to Ausculation Bilateral, NORMAL BREATHING PATTERN. absent: Decreased Breath Sounds, Rales, Rhonchi, Wheezes, Respiratory Distress - Cardiovascular Exam Cardiovascular Exam: REGULAR RHYTHM, RRR, +S1, +S2. absent: Tachycardia - GI/Abdominal Exam GI & Abdominal Exam: Soft, Tenderness (on deep palpation), Hypoactive Bowel Sounds (improved). absent: Distended, Firm, Guarding, Rigid - Extremities Exam Extremities Exam: absent: Calf Tenderness, Pedal Edema, Tenderness - Neurological Exam Neurological Exam: Alert, Awake, Oriented x3 - Skin Skin Exam: Dry, Intact, Normal Color, Warm Assessment and Plan - Assessment and Plan (Free Text) Assessment: 58 y/o man w/ PMH of gastric and colon cancer and S/P partial gastrectomy (gastro-jejunal) w/ brian-en-y reconstruction admitted for evaluation and management of partial SBO Plan: Partial SBO - afebrile but had temperature of 101 F last night, - Hx of colon resection - XR abdomen 06/14/2018: residual but dilute oral contrast material is present within distended proximal small bowel consistent w/ small bowel obstruction - f/u small bowel series - XR abdomen 06/12/2018:progressive small bowel obstruction - CT Abdomen 06/10/2018: evidence of evolving mechanical small intestinal obstruction, s/p resection of lower-mid ascending colon, gastritis - maintain NPO - IVF: LR @ 125 mL/hr - General surgery consult, Dr. Armas, recommendations appreciated - NG tube intact and in place, monitor output - zofran 4 mg Iv Q4h prn for nausea - protonix 40 mg IV daily - monitor for acute changes Pain management - morphine 2 mg IV Q4h prn for mild - morphine 4 mg IV Q4h prn for moderate - morphine 6 mg IV Q4h prn for severe Hypertension - Vasotec 2.5 mg IV Q12h - hydralazine 10 mg Iv Q6h prn DVT Prophylaxis - SCDs
[2018-06-14 06:56] LABS: BASO % 0.1 % (0.0-2.0); HEMOGLOBIN 15.1 g/dL (12.0-18.0); LYMPH # 0.3 K/uL (1.0-4.3); LYMPH % 6.3 % (20.0-40.0); MEAN CELL VOLUME 94.8 fl (80.0-94.0); MEAN CORPUSCULAR HEMOGLOBIN 32.8 pg (27.0-31.0); MEAN CORPUSCULAR HGB CONC 34.5 g/dL (33.0-37.0); MEAN PLATELET VOLUME 9.6 fl (7.2-11.7); MONO % 23.4 % (0.0-10.0); NEUT # 2.9 K/uL (1.8-7.0); NEUT % 70.2 % (50.0-75.0); NRBC % 0.4 % (0.0-0.0); PLATELET COUNT 215 K/uL (130-400); RBC 4.62 Mil/uL (4.40-5.90); RED CELL DISTRIBUTION WIDTH 16.1 % (11.5-14.5); WHITE BLOOD COUNT 4.1 K/uL (4.8-10.8)
--- NOTE | 2018-06-14 07:14 | CP.PCM.PN ---
<Willis Sparks - Last Filed: 06/14/18 07:12> Subjective - Date & Time of Evaluation Date of Evaluation: 06/14/18 Time of Evaluation: 07:12 - Subjective Subjective: General Surgery Progress Note For Dr. Domínguez This 58M was seen and examined this AM at bedside, overnight the pt had a tmax of 101. His NGT was slighly displaced during transport to imaging and the nurse readvanced the NGT to 60cm. Overnight NGT output was 1000c. He denies chest pain or SOB. He reports that he had multiple BM and flatus. He reports less distentio n of his abdomen. Objective - Vital Signs/Intake and Output Vital Signs (last 24 hours): Temp Pulse Resp BP Pulse Ox 99 F 104 H 18 138/80 97 06/14/18 05:27 06/14/18 05:27 06/14/18 05:27 06/14/18 05:27 06/14/18 05:27 Intake and Output: 06/14/18 06/14/18 06:59 18:59 Intake Total 2310 Output Total 2925 Balance -615 - Medications Medications: Current Medications Acetaminophen (Tylenol 325mg Tab) 650 mg PO Q4 PRN PRN Reason: Pain, Mild (1-3) Last Admin: 06/11/18 12:32 Dose: 650 mg Acetaminophen (Tylenol 325mg Tab) 650 mg PO Q4 PRN PRN Reason: Fever >100.4 F Last Admin: 06/13/18 21:38 Dose: 650 mg Benzocaine/Menthol (Cepacol Sore Throat) 1 patt PO Q2 PRN PRN Reason: Sore Throat Last Admin: 06/14/18 04:39 Dose: 1 patt Enalaprilat (Vasotec) 2.5 mg IV Q12 [facility] Last Admin: 06/13/18 21:37 Dose: 2.5 mg Hydralazine HCl (Apresoline) 10 mg IV Q6 PRN PRN Reason: Systolic Blood Pressure Lactated Ringer's (Lactated Ringer's) 1,000 mls @ 125 mls/hr IV .Q8H [facility] Last Admin: 06/14/18 01:27 Dose: 125 mls/hr Morphine Sulfate (Morphine) 2 mg IVP Q4 PRN PRN Reason: Pain, Mild (1-3) Last Admin: 06/12/18 09:45 Dose: 2 mg Morphine Sulfate (Morphine) 4 mg IVP Q4 PRN PRN Reason: Pain, moderate (4-7) Last Admin: 06/12/18 22:53 Dose: 4 mg Morphine Sulfate (Morphine) 6 mg IVP Q4 PRN PRN Reason: Pain, severe (8-10) Ondansetron HCl (Zofran Inj) 4 mg IVP Q4 PRN PRN Reason: Nausea/Vomiting Last Admin: 06/12/18 17:34 Dose: 4 mg Pantoprazole Sodium (Protonix Inj) 40 mg IVP DAILY [facility] Last Admin: 06/13/18 08:58 Dose: 40 mg Phenol/Menthol (Phenaseptic 1.4% Throat [place]) 1 spry MT Q2 PRN PRN Reason: Sore Throat - Labs Labs: 06/13/18 05:20 06/14/18 04:30 PT 13.5 Seconds (9.8-13.1) H 06/13/18 05:20 INR 1.2 06/13/18 05:20 APTT 33.6 Seconds (25.6-37.1) 06/13/18 05:20 - Constitutional Appears: Non-toxic, Toxic - Head Exam Head Exam: ATRAUMATIC, NORMOCEPHALIC - Eye Exam Eye Exam: EOMI - ENT Exam ENT Exam: Mucous Membranes Moist - Respiratory Exam Respiratory Exam: NORMAL BREATHING PATTERN - Cardiovascular Exam Cardiovascular Exam: REGULAR RHYTHM - GI/Abdominal Exam GI & Abdominal Exam: Soft. absent: Distended, Firm, Guarding, Rigid, Tenderness - Neurological Exam Neurological Exam: Alert, Awake - Psychiatric Exam Psychiatric exam: Normal Affect, Normal Mood - Skin Skin Exam: Dry, Intact Assessment and Plan - Assessment and Plan (Free Text) Assessment: 58M with partial SBO NPO KUB IVF Repleat electrolytes PRN F/U AM labs Monitor NGT Output Further recs per Dr. Domínguez <Han Domínguez - Last Filed: 06/14/18 19:44> Subjective - Date & Time of Evaluation Time of Evaluation: 19:00 - Subjective Subjective: Patient was seen and examined at the bedside. Agree with resident's note above. Currently denies any abdominal pain, passing flatus and having bowel movements as per patient. Small bowel series results noted. Objective - Vital Signs/Intake and Output Vital Signs (last 24 hours): Temp Pulse Resp BP Pulse Ox 99.9 F H 119 H 20 133/78 96 06/14/18 17:00 06/14/18 16:49 06/14/18 16:49 06/14/18 16:49 06/14/18 16:49 - Medications Medications: Current Medications Acetaminophen (Tylenol 325mg Tab) 650 mg PO Q4 PRN PRN Reason: Fever >100.4 F Last Admin: 06/13/18 21:38 Dose: 650 mg Benzocaine/Menthol (Cepacol Sore Throat) 1 patt PO Q2 PRN PRN Reason: Sore Throat Last Admin: 06/14/18 04:39 Dose: 1 patt Enalaprilat (Vasotec) 2.5 mg IV Q12 [facility] Last Admin: 06/14/18 10:27 Dose: 2.5 mg Hydralazine HCl (Apresoline) 10 mg IV Q6 PRN PRN Reason: Systolic Blood Pressure Lactated Ringer's (Lactated Ringer's) 1,000 mls @ 125 mls/hr IV .Q8H [facility] Last Admin: 06/14/18 10:24 Dose: 125 mls/hr Meropenem 1 gm/ Sodium (Chloride) 100 mls @ 100 mls/hr IVPB Q8 [facility]; Protocol Last Admin: 06/14/18 16:58 Dose: 100 mls/hr Morphine Sulfate (Morphine) 2 mg IVP Q4 PRN PRN Reason: Pain, Mild (1-3) Last Admin: 06/12/18 09:45 Dose: 2 mg Morphine Sulfate (Morphine) 4 mg IVP Q4 PRN PRN Reason: Pain, moderate (4-7) Last Admin: 06/14/18 16:12 Dose: 4 mg Morphine Sulfate (Morphine) 6 mg IVP Q4 PRN PRN Reason: Pain, severe (8-10) Ondansetron HCl (Zofran Inj) 4 mg IVP Q4 PRN PRN Reason: Nausea/Vomiting Last Admin: 06/12/18 17:34 Dose: 4 mg Pantoprazole Sodium (Protonix Inj) 40 mg IVP DAILY [facility] Last Admin: 06/14/18 10:25 Dose: 40 mg Phenol/Menthol (Phenaseptic 1.4% Throat [place]) 1 spry MT Q2 PRN PRN Reason: Sore Throat - Labs Labs: 06/14/18 04:30 06/14/18 04:30 PT 13.5 Seconds (9.8-13.1) H 06/13/18 05:20 INR 1.2 06/13/18 05:20 APTT 33.6 Seconds (25.6-37.1) 06/13/18 05:20 - GI/Abdominal Exam Additional comments: soft, NT, distended, BS+, no rebound, no guarding, well healed scars from prior surgeries Assessment and Plan - Assessment and Plan (Free Text) Plan: - Keep NPO - IV fluid hydration - NG tube to wall suction - Repeat KUB in am - Repeat labs in am - If no improvement will do Exploratory Laparotomy on 06/16/18 - Will follow closely
[2018-06-14 09:48] LABS: ANISOCYTOSIS SLIGHT; BANDS 3 % (0-2); LARGE PLATELETS PRESENT; LYMPHOCYTE 8 % (20-50); MONOCYTE 24 % (0-10); MYELOCYTE 1 % (0-0); NEUTROPHIL 64 % (42-75); PLATELET ESTIMATE NORMAL (NORMAL); TOTAL CELLS COUNTED 100; TOXIC GRANULATION PRESENT
--- NOTE | 2018-06-14 10:22 | RAD ---
Date of service: 06/14/2018 HISTORY: SBO COMPARISON: Correlation made with small-bowel series 06/13/2018 TECHNIQUE: 1 view obtained. FINDINGS: BOWEL: Residual but dilute oral contrast material is present within distended proximal small bowel consistent with small-bowel obstruction.. Also again seen is a distended comma shaped air-filled loop of bowel in the right mid abdomen in situ NGT tip is again seen overlying the mid abdomen BONES: Normal. OTHER FINDINGS: None. IMPRESSION: Residual but dilute oral contrast material is present within distended proximal small bowel consistent with small-bowel obstruction.. Also again seen is a distended comma shaped air-filled loop of bowel in the right mid abdomen. In situ NGT as above
--- NOTE | 2018-06-14 10:24 | RAD ---
Date of service: 06/14/2018 HISTORY: fever, NGT COMPARISON: Comparison chest 09/16/2015 TECHNIQUE: 1 view obtained. FINDINGS: In situ NGT, tip of which lies left parasagittal mid abdomen. LUNGS: No active pulmonary disease. PLEURA: No significant pleural effusion identified, no pneumothorax apparent. CARDIOVASCULAR: No aortic atherosclerotic calcification present. Normal cardiac size. No pulmonary vascular congestion. OSSEOUS STRUCTURES: No significant abnormalities. VISUALIZED UPPER ABDOMEN: Residual but dilute oral contrast material is present within distended loops of proximal small bowel OTHER FINDINGS: None. IMPRESSION: No active disease.
[2018-06-14] MEDS: Enalaprilat 2.5 MG/2 ML IV SCH ×2 (10:27→21:23)
[2018-06-14] MEDS ORDERED: Piperacillin/Tazobact 3.375 GM in Sodium Chloride 0.9% 100 ML IVPB SCH (15:00)
--- NOTE | 2018-06-14 15:51 | RAD ---
Date of service: 06/13/2018 PROCEDURE: Small-bowel series HISTORY: Bowel obstruction COMPARISON: Following professor of kinesiology films of the abdomen, are oral contrast material was TECHNIQUE: Infrastructure Architect films of the abdomen performed. Limited study as patient vomited some of the oral barium suspension. Multiple interval overhead radiographic images were obtained. This study was carried out for 1 hr and 30 min and portable films performed at 4 hr 40 min (at 3 p.m.) and additional delayed portable images at nearly 10 hr (at 10 p.m.). FINDINGS: Apparent partial gastrectomy with distention of the residual gastric remnant. Significant reflux of contrast material into the esophagus noted on overhead radiographic images.. Early imaging demonstrates distended proximal loops of jejunum within the left abdomen. Delayed imaging demonstrated no further passage of diluted contrast material into the distal small bowel or colon consistent with small-bowel obstruction. IMPRESSION: Partial gastrectomy. Findings consistent with small-bowel obstruction as above
[2018-06-14] MEDS: Morphine 4 MG/ML VIAL IVP PRN (16:12)
[2018-06-14] MEDS: Meropenem 1 GM in Sodium Chloride 0.9% 100 ML IVPB SCH (16:58)
[2018-06-15] MEDS: Morphine 4 MG/ML VIAL IVP PRN ×2 (00:08→04:21)
[2018-06-15] MEDS: Meropenem 1 GM in Sodium Chloride 0.9% 100 ML IVPB SCH ×2 (00:10→09:16)
[2018-06-15] MEDS: Lactated Ringer's 1,000 ML IV SCH ×8 (04:24→19:59)
[2018-06-15 06:44] LABS: HEMOGLOBIN 14.8 g/dL (12.0-18.0); MEAN CELL VOLUME 95.3 fl (80.0-94.0); MEAN CORPUSCULAR HEMOGLOBIN 32.7 pg (27.0-31.0); MEAN CORPUSCULAR HGB CONC 34.3 g/dL (33.0-37.0); RBC 4.52 Mil/uL (4.40-5.90); WHITE BLOOD COUNT 3.3 K/uL (4.8-10.8)
[2018-06-15 06:58] LABS: ALB/GLOB RATIO 1.1 (1.0-2.1); ALBUMIN 3.7 g/dL (3.5-5.0); ALT/SGPT 25 U/L (21-72); AST/SGOT 61 U/L (17-59); BLOOD UREA NITROGEN 23 mg/dl (9-20); CALCIUM 9.1 mg/dL (8.4-10.2); GFR NON-AFRICAN AMERICAN 57
--- NOTE | 2018-06-15 06:58 | CP.PCM.PCO ---
Physician Communication Note - Physician Communication Note Physician Communication Note: possible OR this afternoon, keep NPO, hold AC
--- NOTE | 2018-06-15 08:27 | CP.PCM.PN ---
Subjective - Date & Time of Evaluation Date of Evaluation: 06/15/18 Time of Evaluation: 08:00 - Subjective Subjective: Patient seen and examined this morning at bedside. Patient reports no flatus and increased abdominal distension and discomfort. Patient reporting gas and bowel movements. NGT remains in place and drained 1450 overnight. Patient seen by surgery, plan for OR today. Patient denies headaches, chest pain, or dyspnea. Objective - Vital Signs/Intake and Output Vital Signs (last 24 hours): Temp Pulse Resp BP Pulse Ox 99.7 F H 130 H 18 128/83 95 06/15/18 05:28 06/15/18 05:28 06/15/18 05:28 06/15/18 05:28 06/15/18 05:28 Intake and Output: 06/15/18 06/15/18 06:59 18:59 Intake Total 3700 Output Total 3925 Balance -225 - Medications Medications: Current Medications Acetaminophen (Tylenol 325mg Tab) 650 mg PO Q4 PRN PRN Reason: Fever >100.4 F Last Admin: 06/13/18 21:38 Dose: 650 mg Benzocaine/Menthol (Cepacol Sore Throat) 1 patt PO Q2 PRN PRN Reason: Sore Throat Last Admin: 06/14/18 04:39 Dose: 1 patt Enalaprilat (Vasotec) 2.5 mg IV Q12 [facility] Last Admin: 06/14/18 21:23 Dose: 2.5 mg Hydralazine HCl (Apresoline) 10 mg IV Q6 PRN PRN Reason: Systolic Blood Pressure Lactated Ringer's (Lactated Ringer's) 1,000 mls @ 125 mls/hr IV .Q8H [facility] Last Admin: 06/15/18 04:24 Dose: 125 mls/hr Meropenem 1 gm/ Sodium (Chloride) 100 mls @ 100 mls/hr IVPB Q8 [facility]; Protocol Last Admin: 06/15/18 00:10 Dose: 100 mls/hr Lactated Ringer's (Lactated Ringer's) 1,000 mls @ 999 mls/hr IV .Q1H1M [facility] Last Admin: 06/15/18 06:17 Dose: 999 mls/hr Morphine Sulfate (Morphine) 2 mg IVP Q4 PRN PRN Reason: Pain, Mild (1-3) Last Admin: 06/12/18 09:45 Dose: 2 mg Morphine Sulfate (Morphine) 4 mg IVP Q4 PRN PRN Reason: Pain, moderate (4-7) Last Admin: 06/15/18 04:21 Dose: 4 mg Morphine Sulfate (Morphine) 6 mg IVP Q4 PRN PRN Reason: Pain, severe (8-10) Ondansetron HCl (Zofran Inj) 4 mg IVP Q4 PRN PRN Reason: Nausea/Vomiting Last Admin: 06/12/18 17:34 Dose: 4 mg Pantoprazole Sodium (Protonix Inj) 40 mg IVP DAILY [facility] Last Admin: 06/14/18 10:25 Dose: 40 mg Phenol/Menthol (Phenaseptic 1.4% Throat [place]) 1 spry MT Q2 PRN PRN Reason: Sore Throat - Labs Labs: 06/15/18 06:00 06/15/18 06:00 PT 13.5 Seconds (9.8-13.1) H 06/13/18 05:20 INR 1.2 06/13/18 05:20 APTT 33.6 Seconds (25.6-37.1) 06/13/18 05:20 - Constitutional Appears: Non-toxic, No Acute Distress - Head Exam Head Exam: ATRAUMATIC, NORMAL INSPECTION, NORMOCEPHALIC - Eye Exam Eye Exam: EOMI, Normal appearance, PERRL - ENT Exam ENT Exam: Mucous Membranes Moist - Neck Exam Neck Exam: Full ROM. absent: Tenderness - Respiratory Exam Respiratory Exam: Clear to Ausculation Bilateral, NORMAL BREATHING PATTERN. absent: Decreased Breath Sounds, Rales, Rhonchi, Wheezes, Respiratory Distress - Cardiovascular Exam Cardiovascular Exam: Tachycardia, REGULAR RHYTHM, +S1, +S2 - GI/Abdominal Exam GI & Abdominal Exam: Distended, Guarding, Tenderness, Hypoactive Bowel Sounds. absent: Rigid - Extremities Exam Extremities Exam: absent: Calf Tenderness, Pedal Edema, Tenderness - Neurological Exam Neurological Exam: Alert, Awake, Oriented x3 - Skin Skin Exam: Dry, Intact, Normal Color, Warm Assessment and Plan - Assessment and Plan (Free Text) Assessment: 58 y/o man w/ PMH of gastric and colon cancer and S/P partial gastrectomy (gastro-jejunal) w/ brian-en-y reconstruction admitted for evaluation and management of partial SBO Plan: Partial SBO - had low grade fever temperatures yesterday and this morning - Hx of colon resection - XR abdomen 06/14/2018: residual but dilute oral contrast material is present within distended proximal small bowel consistent w/ small bowel obstruction - f/u small bowel series - XR abdomen 06/12/2018:progressive small bowel obstruction - CT Abdomen 06/10/2018: evidence of evolving mechanical small intestinal obstruction, s/p resection of lower-mid ascending colon, gastritis - maintain NPO - IVF: LR @ 125 mL/hr - General surgery consult, Dr. Armas, recommendations appreciated - NG tube intact and in place, monitor output - zofran 4 mg Iv Q4h prn for nausea - protonix 40 mg IV daily - monitor for acute changes - Plan for OR today Pain management - morphine 2 mg IV Q4h prn for mild - morphine 4 mg IV Q4h prn for moderate - morphine 6 mg IV Q4h prn for severe Hypertension - Vasotec 2.5 mg IV Q12h - hydralazine 10 mg Iv Q6h prn DVT Prophylaxis - SCDs
[2018-06-15] MEDS: Enalaprilat 2.5 MG/2 ML IV SCH ×2 (09:28→22:17)
--- NOTE | 2018-06-15 10:56 | RAD ---
Date of service: 06/15/2018 HISTORY: sbo COMPARISON: None available. TECHNIQUE: 1 view obtained. FINDINGS: BOWEL: Further dilution of oral contrast material within distended loop of small bowel left abdomen. Additional distended air-filled loops are present. Findings consistent with small-bowel obstruction. In situ NGT. BONES: Normal. OTHER FINDINGS: None. IMPRESSION: Findings consistent with small-bowel obstruction.
[2018-06-15] MEDS ORDERED: Bupivacaine 0.5% Inj(30mL) ONE (11:32)
[2018-06-15] MEDS ORDERED: Succinylcholine Chloride 20 mg/ml Syr (5 ml) IV ONE (11:38)
[2018-06-15] MEDS ORDERED: Etomidate 20 mg/10ml Inj IV ONE (11:38)
[2018-06-15] MEDS ORDERED: Rocuronium 10 mg/ml (5 ml) ONE (11:55)
[2018-06-15] MEDS ORDERED: Phenylephrine 10 mg/ml Inj ONE (12:45)
--- NOTE | 2018-06-15 13:40 | PCM.SURG1 ---
Surgeon's Initial Post Op Note - Surgeon's Notes Surgeon: Dr Domínguez Commercial Door Installer: Dr Napoles [id number] Type of Anesthesia: General Endo Anesthesia Administered By: Dr Cain Pre-Operative Diagnosis: small bowel obstruction Operative Findings: multiple adhesions, transition point in RLQ Post-Operative Diagnosis: adhesive small bowel obstruction Operation Performed: exploratory laparotomy. lysis of adhesions. small bowel resection w/ primary anastamosis Specimen/Specimens Removed: small bowel w/ stricture Estimated Blood Loss: EBL {In ML}: 25 Blood Products Given: N/A Drains Used: No Drains Post-Op Condition: Good Date of Surgery/Procedure: 06/15/18 Time of Surgery/Procedure: 13:41
[2018-06-15] MEDS ORDERED: Neostigmine 1:1000 (1 mg/ml) Inj ONE (13:44)
[2018-06-15] MEDS ORDERED: HYDROmorphone 0.5 mg/0.5 ml ISec IVP PRN (14:03)
[2018-06-15] MEDS ORDERED: DiphenhydrAMINE 50 mg/ml Inj IVP PRN (14:06)
[2018-06-15] MEDS ORDERED: Naloxone 0.4 mg/ml Inj (Adult) IVP PRN (14:06)
--- NOTE | 2018-06-15 14:12 | CP.PCM.CON ---
History of Present Illness - History of Present Illness History of Present Illness: 58 M with PMH that includes gastric and colon CA s/p resections and HLD presents to [facility] for complaint of abdominal pain. He was taken to the OR this am Results noted - s/p lysis of adhesions PMH: gastric and colon CA s/p resections, HLD PSH: gastric and colon resection for CA, surgery for ulcers, appendectomy ALL: NKDA Meds: as per EMR Social: smokes 1/2 pack/day for years (20+ pack year history), denies EtOH/illicit drug use Review of Systems - Review of Systems All systems: reviewed and no additional remarkable complaints except - Constitutional Constitutional: As Per HPI - EENT Eyes: absent: As Per HPI, Blind Spots, Blurred Vision, Change in Vision, Decreased Night Vision, Diplopia, Discharge, Dry Eye, Exophthalmos, Floaters, Irritation, Itchy Eyes, Loss of Peripheral Vision, Pain, Photophobia, Requires Corrective Lenses, Sees Flashes, Spots in Vision, Tunnel Vision, Other Visual Disturbances, Loss of Vision, Other Ears: absent: As Per HPI, Decreased Hearing, Ear Discharge, Ear Pain, Tinnitus, Abnormal Hearing, Disequilibrium, Dizziness, Other Nose/Mouth/Throat: absent: As Per HPI, Epistaxis, Nasal Congestion, Nasal Discharge, Nasal Obstruction, Nasal Trauma, Nose Pain, Post Nasal Drip, Sinus Pain, Sinus Pressure, Bleeding Gums, Change in Voice, Dental Pain, Dry Mouth, Dysphagia, Halitosis, Hoarsness, Lip Swelling, Mouth Lesions, Mouth Pain, Odynophagia, Sore Throat, Throat Swelling, Tongue Swelling, Facial Pain, Neck Pain, Neck Mass, Other - Cardiovascular Cardiovascular: absent: As Per HPI, Acrocyanosis, Chest Pain, Chest Pain at Rest, Chest Pain with Activity, Claudication, Diaphoresis, Dyspnea, Dyspnea on Exertion, Edema, Irregular Heart Rhythm, Pain Radiating to Arm/Neck/Jaw, Leg Edema, Leg Ulcers, Lightheadedness, Orthopnea, Palpitations, Paroxysmal Noct urnal Dyspnea, Pedal Edema, Radiating Pain, Rapid Heart Rate, Slow Heart Rate, Syncope, Other - Respiratory Respiratory: absent: As Per HPI, Cough, Dyspnea, Hemoptysis, Dyspnea on Exertion, Wheezing, Snoring, Stridor, Pain on Inspiration, Chest Congestion, Excessive Mucous Production, Change in Mucous Color, Pain with Coughing, Other - Gastrointestinal Gastrointestinal: As Per HPI, Abdominal Pain - Genitourinary Genitourinary: absent: As Per HPI, Change in Urinary Stream, Difficulty Urinating, Dysuria, Flank Pain, Hematuria, Pyuria, Nocturia, Urinary Incontinence, Urinary Frequency, Urinary Hesitance, Urinary Urgency, Voiding Freq/Small Amts, Freq UTI, Hx Renal/Bladder Calculi, Hx /Renal Surgery, Bladder Distension, Other - Musculoskeletal Musculoskeletal: absent: As Per HPI, Abnormal Gait, Arthralgias, Atrophy, Back Pain, Deformity, Joint Swelling, Limited Range of Motion, Loss of Height, Muscle Cramps, Muscle Weakness, Myalgias, Neck Pain, Numbness, Radiating Pain into Limb, Stiffness, Tingling, Other - Integumentary Integumentary: absent: As Per HPI, Acne, Alopecia, Bleeding Lesions, Change in Hair, Change in Nails, Change in Pigmentation, Changing Lesions, Dry Skin, Erythema, Furuncle, Hirsutism, Lesions, New Lesions, Non-Healing Lesions, Photosensitivity, Pruritus, Rash, Skin Pain, Skin Ulcer, Sores, Striae, Swelling, Unusual Bruising, Wounds, Jaundice, Other - Neurological Neurological: absent: As Per HPI, Abnormal Gait, Abnormal Hearing, Abnormal Movements, Abnormal Speech, Behavioral Changes, Burning Sensations, Confusion, Convulsions, Disequilibrium, Dizziness, Numbness, Focal Weakness, Frequent Falls, Headaches, Lack of Coordination, Loss of Vision, Memory Loss, Paresthesias, Radicular Pain, Restless Legs, Sensory Deficit, Syncope, Tingling, Tremor, Vertigo, Weakness, Other Visual Disturbances, Other - Psychiatric Psychiatric: absent: As Per HPI, Abnormal Sleep Pattern, Anhedonia, Anxiety, Auditory Hallucinations, Behavioral Changes, Change in Appetite, Change in Libido, Confusion, Depression, Difficulty Concentrating, Hallucinations, Homicidal Ideation, Hopelessness, Irritability, Memory Loss, Mood Swings, Panic Attacks, Paranoia, Suicidal Ideation, Visual Hallucinations, Tactile Hallucinations, Other - Endocrine Endocrine: absent: As Per HPI, Change in Body Appearance, Change in Libido, Cold Intolorance, Deepening of Voice, Excessive Sweating, Fatigue, Flushing, Heat Intolorance, Increase in Ring/Shoe/Hat Size, Palpitations, Polydipsia, Polyphagia, Polyuria, Other - Hematologic/Lymphatic Hematologic: absent: As Per HPI, Easy Bleeding, Easy Bruising, Lymphadenopathy, Other Past Patient History - Infectious Disease Hx of Infectious Diseases: None - Past Medical History & Family History Past Medical History?: Yes - Past Social History Smoking Status: Light Smoker < 10 Cigarettes Daily - CARDIAC Hx Hypercholesterolemia: Yes - PULMONARY Hx Respiratory Disorders: No - NEUROLOGICAL Hx Neurological Disorder: No - HEENT Hx HEENT Problems: No - RENAL Hx Chronic Kidney Disease: No - ENDOCRINE/METABOLIC Hx Endocrine Disorders: No - HEMATOLOGICAL/ONCOLOGICAL Hx Cancer: Yes (Colon cancer) - INTEGUMENTARY Hx Dermatological Problems: No - MUSCULOSKELETAL/RHEUMATOLOGICAL Hx Falls: No - GASTROINTESTINAL Hx Gastrointestinal Disorders: Yes Other/Comment: "TOOK PART OF MY STOMACH". Colon cancer - GENITOURINARY/GYNECOLOGICAL Hx Genitourinary Disorders: No - PSYCHIATRIC Hx Depression: No - SURGICAL HISTORY Hx Appendectomy: Yes (about 25 years ago) - ANESTHESIA Hx Anesthesia: Yes Hx Anesthesia Reactions: No Hx Malignant Hyperthermia: No Meds Allergies/Adverse Reactions: Allergies Allergy/AdvReac Type Severity Reaction Status Date / Time No Known Allergies Allergy Verified 06/10/18 21:00 - Medications Medications: Current Medications Acetaminophen (Tylenol 325mg Tab) 650 mg PO Q4 PRN PRN Reason: Fever >100.4 F Last Admin: 06/13/18 21:38 Dose: 650 mg Benzocaine/Menthol (Cepacol Sore Throat) 1 patt PO Q2 PRN PRN Reason: Sore Throat Last Admin: 06/14/18 04:39 Dose: 1 patt Diphenhydramine HCl (Benadryl) 25 mg IVP Q6 PRN PRN Reason: Itching / Pruritus Enalaprilat (Vasotec) 2.5 mg IV Q12 [facility] Last Admin: 06/15/18 09:28 Dose: 2.5 mg Hydralazine HCl (Apresoline) 10 mg IV Q6 PRN PRN Reason: Systolic Blood Pressure Hydromorphone HCl (Dilaudid) 0.5 mg IVP Q10M PRN PRN Reason: Pain, severe (8-10) Stop: 06/15/18 16:04 Hydromorphone HCl (Dilaudid 0.2 Mg/Ml Pillowcase Cutter) 0 mg IV PRN PRN; Protocol PRN Reason: Pain, severe (8-10) Lactated Ringer's (Lactated Ringer's) 1,000 mls @ 125 mls/hr IV .Q8H [facility] Last Admin: 06/15/18 09:14 Dose: 125 mls/hr Meropenem 1 gm/ Sodium (Chloride) 100 mls @ 100 mls/hr IVPB Q8 [facility]; Protocol Last Admin: 06/15/18 09:16 Dose: 100 mls/hr Lactated Ringer's (Lactated Ringer's) 1,000 mls @ 999 mls/hr IV .Q1H1M [facility] Last Admin: 06/15/18 12:01 Dose: Not Given Lactated Ringer's (Lactated Ringer's) 1,000 mls @ 100 mls/hr IV .Q10H [facility] Meperidine HCl (Demerol) 12.5 mg IVP Q5M PRN PRN Reason: Shivering/Rigor Naloxone HCl (Narcan) 0.1 mg IVP Q2M PRN PRN Reason: Excess sedation Ondansetron HCl (Zofran Inj) 4 mg IVP Q4 PRN PRN Reason: Nausea/Vomiting Last Admin: 06/12/18 17:34 Dose: 4 mg Ondansetron HCl (Zofran Inj) 4 mg IVP ONCE PRN PRN Reason: Nausea/Vomiting Stop: 06/15/18 16:04 Ondansetron HCl (Zofran Inj) 4 mg IVP Q8 PRN PRN Reason: Nausea/Vomiting Pantoprazole Sodium (Protonix Inj) 40 mg IVP DAILY [facility] Last Admin: 06/15/18 09:18 Dose: 40 mg Phenol/Menthol (Phenaseptic 1.4% Throat Veyo) 1 spry MT Q2 PRN PRN Reason: Sore Throat Physical Exam - Constitutional Appears: Chronically Ill - Head Exam Head Exam: NORMOCEPHALIC - Eye Exam Eye Exam: absent: Scleral icterus - ENT Exam ENT Exam: Mucous Membranes Dry - Neck Exam Neck exam: Negative for: Lymphadenopathy - Respiratory Exam Respiratory Exam: Decreased Breath Sounds - Cardiovascular Exam Cardiovascular Exam: REGULAR RHYTHM, +S1, +S2 - GI/Abdominal Exam GI & Abdominal Exam: Diminished Bowel Sounds, Distended, Guarding - Rectal Exam Rectal Exam: Deferred - Exam Exam: NORMAL INSPECTION - Extremities Exam Extremities exam: Negative for: pedal edema - Back Exam Back exam: absent: CVA tenderness (L), CVA tenderness (R) - Neurological Exam Neurological exam: Alert, CN II-XII Intact - Skin Skin Exam: Dry Results - Vital Signs Recent Vital Signs: Last Vital Signs Temp 99.5 F 06/15/18 08:31 Pulse 114 H 06/15/18 08:31 Resp 21 06/15/18 08:31 BP 131/81 06/15/18 08:31 Pulse Ox 94 L 06/15/18 08:31 - Labs Result Diagrams: 06/15/18 19:37 06/15/18 19:37 Labs: Laboratory Results - last 24 hr 06/15/18 06/15/18 06:00 06:00 WBC 3.3 L RBC 4.52 Hgb 14.8 Hct 43.1 MCV 95.3 H MCH 32.7 H MCHC 34.3 RDW 16.0 H Plt Count 234 Sodium 138 Potassium 3.7 Chloride 99 Carbon Dioxide 27 Anion Gap 16 BUN 23 H Creatinine 1.3 Est GFR ( Amer) > 60 Est GFR (Non-Af Amer) 57 Random Glucose 102 Calcium 9.1 Phosphorus 2.8 Magnesium 2.2 Total Bilirubin 2.4 H AST 61 H D ALT 25 Alkaline Phosphatase 77 Total Protein 7.1 Albumin 3.7 Globulin 3.4 Albumin/Globulin Ratio 1.1 Assessment & Plan (1) Small bowel obstruction Status: Acute - Assessment and Plan (Free Text) Assessment: s/p lysis of adhesions IV antibiotics, wound care and nutritional support await Path
[2018-06-15] MEDS ORDERED: Lactated Ringer's 1,000 ML IV SCH (14:15)
[2018-06-15] MEDS ORDERED: Metoprolol 1 mg/ml Inj ONE (14:38)
[2018-06-15] MEDS ORDERED: Metoprolol 1 mg/ml Inj IVP STA (14:40)
[2018-06-15] MEDS ORDERED: Lactated Ringer's 1,000 ML IV ONE (16:10)
[2018-06-15] MEDS ORDERED: Amiodarone 150mg/3 ml vial ONE (16:58)
[2018-06-15] MEDS ORDERED: Amiodarone 900 MG in Dextrose 5% In Water 500 ML IV SCH (17:00)
--- NOTE | 2018-06-15 17:08 | CP.PCM.PCO ---
Additional Comments - Additional Comments Additional Comments: Patient seen s/p ex-lap, adhesion removal, resection. Patient on DENT[facility] CERAMIST for pain. Patient lethargic from anesthesia. Patient found to be tachy in 160s and febrile. Patient SVT on tele monitor. Patient given tylenol [place]. Patient given 6 adenosine with no abation of SVT, given another 6 mg adenosine w/o change, remains in 160s. Patient given adenosine 12 mg with momentary decrease of heart rate to 90s but then returned to 160s in a few seconds. patient then given bolus of amiodarone 150 mg. Heart raate remained elevated. Patient to be started on amiodarone drip and transferred to ICU.
--- NOTE | 2018-06-15 17:58 | CP.CCUPN ---
CCU Subjective - Physician Review Events Since Last Encounter (Free Text): 58 male with history of gastric and colon cancer s/p partial gastrectomy with brian -en- y resection was admitted with SBO, patient s/p exploratory laprotomy today with lysis of adhesions, small bowel resection with primary anastomosis. Patient with fever and tachycardia post op. CCU Objective - Vital Signs / Intake & Output Vital Signs (Last 4 hours): Vital Signs Temp Pulse Resp BP Pulse Ox 06/15/18 16:10 100.1 F H 147 H 18 121/79 98 06/15/18 15:55 148 H 18 123/77 99 06/15/18 15:40 143 H 18 121/76 99 06/15/18 15:25 136 H 18 113/71 98 06/15/18 15:10 133 H 18 117/73 97 06/15/18 14:55 125 H 18 128/77 98 06/15/18 14:40 152 H 18 136/77 99 06/15/18 14:25 153 H 18 138/80 98 06/15/18 14:10 160 H 16 117/53 L 98 06/15/18 13:55 96.0 F L 16 120/77 97 Intake and Output (Last 8hrs): Intake & Output 06/15/18 06/15/18 06/15/18 06:59 14:59 22:59 Intake Total 2350 2375 700 Output Total 2150 575 310 Balance 200 1800 390 Intake: IV 2250 2375 700 Intake, Piggyback 100 Output: Gastric Drainage 10 Gastric Amount 1450 250 Nares 1450 250 Urine 700 325 300 Urine, Voided 700 175 - Physical Exam Head: Positive for: Atraumatic, Normocephalic Pupils: Positive for: PERRL Extroacular Muscles: Positive for: EOMI Conjunctiva: Positive for: Normal Mouth: Positive for: Dry Pharnyx: Positive for: Normal Nose (External): Positive for: Atraumatic Neck: Positive for: Normal Range of Motion Respiratory/Chest: Positive for: Clear to Auscultation Cardiovascular: Positive for: Tachycardic Abdomen: Positive for: Other (dressing) Upper Extremity: Positive for: Normal Inspection Lower Extremity: Positive for: Normal Inspection Psychiatric: Positive for: Alert - Medications Active Medications: Active Medications Generic Name Dose Route Start Last Admin Trade Name Freq PRN Reason Stop Dose Admin Acetaminophen 650 mg 06/13/18 20:56 06/13/18 21:38 Tylenol 325mg Tab PO 650 mg Q4 PRN Administration Fever >100.4 F Acetaminophen 650 mg 06/15/18 16:42 Tylenol 650 Mg Supp RI ONCE PRN Fever >100.4 F Benzocaine/Menthol 1 patt 06/12/18 19:05 06/14/18 04:39 Cepacol Sore Throat PO 1 patt Q2 PRN Administration Sore Throat Diphenhydramine HCl 25 mg 06/15/18 14:06 Benadryl IVP Q6 PRN Itching / Pruritus Enalaprilat 2.5 mg 06/13/18 21:00 06/15/18 09:28 Vasotec IV 2.5 mg Q12 [facility] Administration Hydralazine HCl 10 mg 06/12/18 17:12 Apresoline IV Q6 PRN Systolic Blood Pressure Hydromorphone HCl 0 mg 06/15/18 14:06 06/15/18 15:53 Dilaudid 0.2 Mg/Ml Lumber Press Operator IV 0 mg PRN PRN Administration Pain, severe (8-10) Protocol Lactated Ringer's 1,000 mls @ 125 mls/hr 06/12/18 09:15 06/15/18 15:30 Lactated Ringer's IV 500 mls .Q8H [facility] Administration Meropenem 1 gm/ Sodium 100 mls @ 100 mls/hr 06/14/18 15:13 06/15/18 09:16 Chloride IVPB 100 mls/hr Q8 [facility] Administration Protocol Amiodarone HCl 150 mg/ 103 mls @ 618 mls/hr 06/15/18 16:56 Dextrose IVPB 06/15/18 17:05 ONCE ONE Protocol 15 MG/MIN Amiodarone HCl 900 mg/ 518 mls @ 34.53 mls/hr 06/15/18 17:06 Dextrose IVPB .Q15H1M [facility] Protocol 1 MG/MIN Amiodarone HCl 150 mg/ 103 mls @ 618 mls/hr 06/15/18 17:00 Dextrose IVPB 06/15/18 17:09 ONCE ONE Protocol 15 MG/MIN Amiodarone HCl 900 mg/ 518 mls @ 34.53 mls/hr 06/15/18 17:00 Dextrose IV .Q15H1M [facility] Protocol 1 MG/MIN Naloxone HCl 0.1 mg 06/15/18 14:06 Narcan IVP Q2M PRN Excess sedation Ondansetron HCl 4 mg 06/15/18 14:06 Zofran Inj IVP Q8 PRN Nausea/Vomiting Pantoprazole Sodium 40 mg 06/11/18 09:00 06/15/18 09:18 Protonix Inj IVP 40 mg DAILY [facility] Administration Phenol/Menthol 1 spry 06/12/18 19:05 Phenaseptic 1.4% Throat Leblanc MT Q2 PRN Sore Throat - Patient Studies Lab Studies: Microbiology Studies 06/13/18 06:00 Blood Culture - Preliminary Blood Gram Negative Shun Gram Stain - Final Lab Studies 06/15/18 06/15/18 Range/Units 06:00 06:00 WBC 3.3 L (4.8-10.8) K/uL RBC 4.52 (4.40-5.90) Mil/uL Hgb 14.8 (12.0-18.0) g/dL Hct 43.1 (35.0-51.0) % MCV 95.3 H (80.0-94.0) fl MCH 32.7 H (27.0-31.0) pg MCHC 34.3 (33.0-37.0) g/dL RDW 16.0 H (11.5-14.5) % Plt Count 234 (130-400) K/uL Sodium 138 (132-148) mmol/l Potassium 3.7 (3.6-5.0) MMOL/L Chloride 99 (98-107) mmol/L Carbon Dioxide 27 (22-30) mmol/L Anion Gap 16 (10-20) BUN 23 H (9-20) mg/dl Creatinine 1.3 (0.8-1.5) mg/dl Est GFR ( Amer) > 60 Est GFR (Non-Af Amer) 57 Random Glucose 102 (75-110) mg/dL Calcium 9.1 (8.4-10.2) mg/dL Phosphorus 2.8 (2.5-4.5) mg/dl Magnesium 2.2 (1.6-2.3) MG/DL Total Bilirubin 2.4 H (0.2-1.3) mg/dl AST 61 H D (17-59) U/L ALT 25 (21-72) U/L Alkaline Phosphatase 77 (38-126) U/L Total Protein 7.1 (6.3-8.2) G/DL Albumin 3.7 (3.5-5.0) g/dL Globulin 3.4 (2.2-3.9) gm/dL Albumin/Globulin Ratio 1.1 (1.0-2.1) Laboratory Results - last 24 hr 06/15/18 06/15/18 06:00 06:00 WBC 3.3 L RBC 4.52 Hgb 14.8 Hct 43.1 MCV 95.3 H MCH 32.7 H MCHC 34.3 RDW 16.0 H Plt Count 234 Sodium 138 Potassium 3.7 Chloride 99 Carbon Dioxide 27 Anion Gap 16 BUN 23 H Creatinine 1.3 Est GFR ( Amer) > 60 Est GFR (Non-Af Amer) 57 Random Glucose 102 Calcium 9.1 Phosphorus 2.8 Magnesium 2.2 Total Bilirubin 2.4 H AST 61 H D ALT 25 Alkaline Phosphatase 77 Total Protein 7.1 Albumin 3.7 Globulin 3.4 Albumin/Globulin Ratio 1.1 Radiology Impressions: Radiology Impressions Abdomen X-Ray 06/15/18 07:00 IMPRESSION: Findings consistent with small-bowel obstruction. Critical Care Progress Note - Nutrition Nutrition: Nutrition Category Date Time Status NPO Diet [DIET] Diets 06/12/18 Breakfast Active Assessment/Plan - Assessment and Plan (Free Text) Assessment: A/P 58 male with history of gastric and colon cancer s/p partial gastrectomy with brian -en- y resection was admitted with SBO, patient s/p exploratory laprotomy today with lysis of adhesions, small bowel resection with primary anastomosis. Patient with fever and tachycardia post op, sepsis, respiratory insufficiency - IV fluid - Antibiotics - ID follow up - Pain control - Fever control - Surgery follow up - DVT prophylaxis Critical care 35 min
[2018-06-15 20:12] LABS: BASO % 0.2 % (0.0-2.0); EOS % 0.7 % (0.0-4.0); HEMOGLOBIN 14.9 g/dL (12.0-18.0); LYMPH # 0.5 K/uL (1.0-4.3); LYMPH % 9.8 % (20.0-40.0); MEAN CELL VOLUME 94.1 fl (80.0-94.0); MEAN CORPUSCULAR HEMOGLOBIN 32.5 pg (27.0-31.0); MEAN CORPUSCULAR HGB CONC 34.5 g/dL (33.0-37.0); MEAN PLATELET VOLUME 8.9 fl (7.2-11.7); MONO % 0.5 % (0.0-10.0); NEUT # 4.1 K/uL (1.8-7.0); NEUT % 88.8 % (50.0-75.0); NRBC % 0.2 % (0.0-0.0); RBC 4.57 Mil/uL (4.40-5.90); RED CELL DISTRIBUTION WIDTH 16.2 % (11.5-14.5); WHITE BLOOD COUNT 4.6 K/uL (4.8-10.8)
[2018-06-15 20:23] LABS: ALBUMIN 2.9 g/dL (3.5-5.0); CALCIUM 8.7 mg/dL (8.4-10.2)
[2018-06-15] MEDS: Amiodarone 450 MG in Sodium Chloride 0.9% 250 ML IVPB SCH (20:33)
[2018-06-15 20:34] LABS: CK-MB 3.19 ng/mL (0.0-3.38); TROPONIN I 0.027 ng/mL (0.00-0.120)
--- NOTE | 2018-06-16 01:19 | OP ---
PROCEDURE DATE: 06/15/2018 PREOPERATIVE DIAGNOSIS: Small bowel obstruction. POSTOPERATIVE DIAGNOSES: Small bowel obstruction, intra-abdominal adhesions, and internal hernia. PROCEDURE: Exploratory laparotomy, extensive lysis of adhesions, and small bowel resection. SURGEON: Han Domínguez MD. MODELING AGENT: Yosvany Napoles DO, surgical pathologist. ANESTHESIA: General endotracheal intubation. IV FLUIDS: Crystalloids. ESTIMATED BLOOD LOSS: 25 mL. INTRAOPERATIVE FINDINGS: Small bowel obstruction secondary to adhesive band causing internal hernia. SPECIMEN: Small bowel. BRIEF HISTORY: Mr. Hanley is a very pleasant 58-year-old gentleman who came to the hospital, complaining of nausea, vomiting, and abdominal pain, and upon further investigation, the patient was found to have small bowel obstruction. However, during the time of hospitalization, the patient kept on passing flatus and having bowel movements. So the small bowel series were obtained. Small bowel series showed failure of propagation of the contrast to the colon. Subsequent to that, the patient's status began to deteriorate. So he was taken to the operating room for above-stated procedure. All the risks and benefits of the procedure were explained to the patient. With the patient having a full understanding of all the risks and benefits involved, informed consent was obtained, and the patient was taken to the operating room for above-stated procedure. DESCRIPTION OF PROCEDURE: The patient was brought into the operating room and placed supine on the operating room table. Bilateral Flowtron boots were applied to the patient's lower extremities. After successful induction of anesthesia and successful endotracheal intubation by the anesthesia team, the patient's abdomen was prepped with ChloraPrep stick and draped in a standard surgical fashion. Prior to that, a Amado catheter was inserted into the patient's urinary bladder. Once the patient was prepped and draped in a standard surgical fashion, time-out was called in the room, and everyone in the room were in agreement. Using a #10 blade scalpel knife, approximately 15 cm incision was made in a midline in longitudinal fashion going straight through the prior scar from prior surgery. Subsequent to that, dissection was carried down with electrical cautery until the fascial layer was encountered. Fascia was transected with electrocautery and the peritoneal layer was encountered. Peritoneum was clamped with two clamps and transected with Metzenbaum scissors. At this point in time, the patient's abdominal cavity was entered. Upon entrance to the abdominal cavity, we encountered multiple adhesions of the small bowel to the anterior abdominal wall that were taken bluntly with finger dissection as well as sharply with Metzenbaum scissors. Once the small bowel was freed up, we began to inspect the small bowel coming all the way from the ligament of Treitz. We encountered jejunal duodenal anastomosis from prior reconstruction after the gastrectomy, and subsequent to that, we encountered area of multiple intra-abdominal adhesions that were taken down once again bluntly with finger dissection and sharply with Metzenbaum scissors as well as with impact LigaSure device. We spent about 40 minutes on lysis of adhesions. Once this was accomplished and his whole bowel was freed up, there appear to be an adhesive band that cause an internal hernia that was freed up. Bowel was freed up, there appear to be a pretty significant rent on the small bowel that appeared to be necrotic. So at this point in time, the area was decided to be resected. Two small nicks were made in mesentery proximal to this area and distal, and Gini clamp was placed through the proximal mesenteric defect, and subsequent to that, blue load 75 mm BISHNU stapler was inserted through the mesenteric defect and the staple was fired. Now attention was turned to the distal end of the area of interest. Gini clamp was placed through prior mesenteric defect, and another 75 mm blue load BISHNU was inserted through the mesenteric defect and the staple was fired as well. The piece of the small bowel that was resected measured about 3 cm, and the mesentery of the small bowel was taken with impact LigaSure device, and once the piece of small bowel was completely freed up, it was passed off to the [facility] as a specimen. At this point in time, the bowel was run all the way down to the ileocecal valve releasing adhesive bands on the way of getting to the ileocecal valve. Once the entire small bowel was inspected, the two ends of the bowel proximal and distal were approximated in the [id number] fashion with 3-0 silk suture on SH needle. Once this was accomplished, two enterotomies were made, one in the proximal and one in the distal end. Subsequent to that, two Allis clamps were placed inside the lumen of the bowel, and another 75 mm blue load BISHNU stapler was fired across the bowel. At this point in time, the defect of the bowel was closed with TA 60 blue load, and at this point in time, an anastomosis was inspected. It appeared to be satisfactory. There appeared to be no oozing or blood at the anastomotic line. At this point in time, the bowel was reduced back to the abdominal cavity. The patient's abdominal cavity was copiously irrigated and the fluid was suctioned out in the right lower quadrant, right side of the abdomen and left lower quadrant, left side of the abdomen. Once this was accomplished, two Wellington clamps were placed on both ends of the fascia and fascial layer was closed with #1 loop PDS, one from above, one from below, and tight in the middle. At this point in time, the patient's wound was washed and dried and skin was approximated with petros. The patient was successfully extubated by the anesthesia team, transferred to a stretcher, and taken to the recovery room in a stable condition. At the end of the procedure, all instrument counts, needles, and sponges were correct. Han Domínguez MD MTDD
[2018-06-16] MEDS: Meropenem 1 GM in Sodium Chloride 0.9% 100 ML IVPB SCH ×3 (02:28→17:01)
[2018-06-16] MEDS: Amiodarone 450 MG in Sodium Chloride 0.9% 250 ML IVPB SCH ×2 (02:36→09:25)
[2018-06-16 05:44] LABS: HEMOGLOBIN 14.3 g/dL (12.0-18.0); MEAN CELL VOLUME 95.1 fl (80.0-94.0); MEAN CORPUSCULAR HGB CONC 34.7 g/dL (33.0-37.0); RBC 4.32 Mil/uL (4.40-5.90); RED CELL DISTRIBUTION WIDTH 16.3 % (11.5-14.5)
[2018-06-16 05:57] LABS: ALBUMIN 2.9 g/dL (3.5-5.0); CALCIUM 8.4 mg/dL (8.4-10.2)
[2018-06-16 06:25] LABS: WHITE BLOOD COUNT 9.2 K/uL (4.8-10.8)
[2018-06-16] MEDS: Lactated Ringer's 1,000 ML IV SCH ×3 (06:33→21:16)
--- NOTE | 2018-06-16 08:23 | CP.PCM.PN ---
<Amandeep Quintanilla - Last Filed: 06/16/18 08:27> Subjective - Date & Time of Evaluation Date of Evaluation: 06/16/18 Time of Evaluation: 08:23 - Subjective Subjective: General Surgery Note for Dr. Domínguez Patient seen and examined at bedside in ICU. No acute event overnight. Patient is s/p ex-lap with lysis of adhesions, small bowel resection an dprimary anastamosis POD#1. Patient states pain is controlled. Denies fever/chills or nausea/vomiting. Patient had SVT yesterday after OR. He was given metoprolol and amiodarone. He remains tachycardic in 100s. NGT with 700cc of thick bilious output. urine output was ~2000 cc/24hrs. He reports passing flatus but no BM. Objective - Vital Signs/Intake and Output Vital Signs (last 24 hours): Temp Pulse Resp BP Pulse Ox 98.5 F 99 H 14 121/66 98 06/16/18 08:00 06/16/18 08:00 06/16/18 08:00 06/16/18 08:00 06/16/18 08:00 Intake and Output: 06/16/18 06/16/18 06:59 18:59 Intake Total 3100 Output Total 900 Balance 2200 - Medications Medications: Current Medications Acetaminophen (Tylenol 325mg Tab) 650 mg PO Q4 PRN PRN Reason: Fever >100.4 F Last Admin: 06/13/18 21:38 Dose: 650 mg Acetaminophen (Tylenol 650 Mg Supp) 650 mg [place] ONCE PRN PRN Reason: Fever >100.4 F Benzocaine/Menthol (Cepacol Sore Throat) 1 patt PO Q2 PRN PRN Reason: Sore Throat Last Admin: 06/14/18 04:39 Dose: 1 patt Diphenhydramine HCl (Benadryl) 25 mg IVP Q6 PRN PRN Reason: Itching / Pruritus Enalaprilat (Vasotec) 2.5 mg IV Q12 [facility] Last Admin: 06/15/18 22:17 Dose: Not Given Hydralazine HCl (Apresoline) 10 mg IV Q6 PRN PRN Reason: Systolic Blood Pressure Hydromorphone HCl (Dilaudid 0.2 Mg/Ml Cinnamon Grinder) 0 mg IV PRN PRN; Protocol PRN Reason: Pain, severe (8-10) Last Admin: 06/15/18 15:53 Dose: 0 mg Lactated Ringer's (Lactated Ringer's) 1,000 mls @ 125 mls/hr IV .Q8H [facility] Last Admin: 06/16/18 06:33 Dose: 125 mls/hr Meropenem 1 gm/ Sodium (Chloride) 100 mls @ 100 mls/hr IVPB Q8 [facility]; Protocol Last Admin: 06/16/18 02:28 Dose: 100 mls/hr Amiodarone HCl 450 mg/ Sodium (Chloride) 259 mls @ 34.53 mls/hr IVPB .Q7H31M [facility]; Protocol Last Admin: 06/16/18 02:36 Dose: 34.53 mls/hr Naloxone HCl (Narcan) 0.1 mg IVP Q2M PRN PRN Reason: Excess sedation Ondansetron HCl (Zofran Inj) 4 mg IVP Q8 PRN PRN Reason: Nausea/Vomiting Pantoprazole Sodium (Protonix Inj) 40 mg IVP DAILY [facility] Last Admin: 06/15/18 09:18 Dose: 40 mg Phenol/Menthol (Phenaseptic 1.4% Throat Reeder) 1 spry MT Q2 PRN PRN Reason: Sore Throat - Labs Labs: 06/16/18 05:31 06/16/18 05:31 PT 13.5 Seconds (9.8-13.1) H 06/13/18 05:20 INR 1.2 06/13/18 05:20 APTT 33.6 Seconds (25.6-37.1) 06/13/18 05:20 - Constitutional Appears: No Acute Distress - Head Exam Head Exam: ATRAUMATIC, NORMOCEPHALIC - Eye Exam Eye Exam: EOMI, Normal appearance Pupil Exam: PERRL - ENT Exam ENT Exam: Mucous Membranes Moist - Respiratory Exam Respiratory Exam: NORMAL BREATHING PATTERN - Cardiovascular Exam Cardiovascular Exam: Tachycardia - GI/Abdominal Exam GI & Abdominal Exam: Distended (mild), Soft, Tenderness, Normal Bowel Sounds. absent: Firm, Guarding, Rigid, Rebound Additional comments: dressing clean dry and intact - Extremities Exam Extremities Exam: Normal Capillary Refill - Back Exam Back Exam: absent: CVA tenderness (L), CVA tenderness (R) - Neurological Exam Neurological Exam: Alert, Awake, CN II-XII Intact, Oriented x3 - Psychiatric Exam Psychiatric exam: Normal Affect, Normal Mood - Skin Skin Exam: Dry, Intact, Normal Color, Warm Assessment and Plan - Assessment and Plan (Free Text) Assessment: 58 M who presented with SBO s/p ex-lap with lysis of adhesions, small bowel resection an dprimary anastamosis POD#1 Plan: -NPO may have small sips and chips to wet mouth -Gum and hard candy for bowel stimulation -IVF -IV antibiotics -Pain control -NGT to low intermittent suction -Strict I's & O's -Anti-emetics PRN -Monitor for bowel function -Replace NGT output 1:1 with LR -amiodarone drip -Further recommendations as per Dr. Sang Quintanilla PGY2 <Han Domínguez - Last Filed: 06/16/18 10:28> Subjective - Date & Time of Evaluation Time of Evaluation: 09:35 - Subjective Subjective: Patient was seen and examined at the bedside. Agree with resident's note above. Objective - Vital Signs/Intake and Output Vital Signs (last 24 hours): Temp Pulse Resp BP Pulse Ox 98.5 F 103 H 22 127/78 98 06/16/18 08:00 06/16/18 10:00 06/16/18 10:00 06/16/18 10:00 06/16/18 10:00 Intake and Output: 06/16/18 06/16/18 06:59 18:59 Intake Total 3100 287 Output Total 900 1025 Balance 2200 -738 - Medications Medications: Current Medications Acetaminophen (Tylenol 325mg Tab) 650 mg PO Q4 PRN PRN Reason: Fever >100.4 F Last Admin: 06/13/18 21:38 Dose: 650 mg Acetaminophen (Tylenol 650 Mg Supp) 650 mg [place] ONCE PRN PRN Reason: Fever >100.4 F Benzocaine/Menthol (Cepacol Sore Throat) 1 patt PO Q2 PRN PRN Reason: Sore Throat Last Admin: 06/14/18 04:39 Dose: 1 patt Diphenhydramine HCl (Benadryl) 25 mg IVP Q6 PRN PRN Reason: Itching / Pruritus Enalaprilat (Vasotec) 2.5 mg IV Q12 [facility] Last Admin: 06/15/18 22:17 Dose: Not Given Enoxaparin Sodium (Lovenox) 40 mg SC DAILY [facility]; Protocol Hydralazine HCl (Apresoline) 10 mg IV Q6 PRN PRN Reason: Systolic Blood Pressure Hydromorphone HCl (Dilaudid 0.2 Mg/Ml Cinnamon Grinder) 0 mg IV PRN PRN; Protocol PRN Reason: Pain, severe (8-10) Last Admin: 06/15/18 15:53 Dose: 0 mg Lactated Ringer's (Lactated Ringer's) 1,000 mls @ 125 mls/hr IV .Q8H [facility] Last Admin: 06/16/18 06:33 Dose: 125 mls/hr Meropenem 1 gm/ Sodium (Chloride) 100 mls @ 100 mls/hr IVPB Q8 [facility]; Protocol Last Admin: 06/16/18 02:28 Dose: 100 mls/hr Amiodarone HCl 450 mg/ Sodium (Chloride) 259 mls @ 34.53 mls/hr IVPB .Q7H31M [facility]; Protocol Last Admin: 06/16/18 09:25 Dose: Not Given Naloxone HCl (Narcan) 0.1 mg IVP Q2M PRN PRN Reason: Excess sedation Ondansetron HCl (Zofran Inj) 4 mg IVP Q8 PRN PRN Reason: Nausea/Vomiting Pantoprazole Sodium (Protonix Inj) 40 mg IVP DAILY [facility] Last Admin: 06/16/18 09:05 Dose: 40 mg Phenol/Menthol (Phenaseptic 1.4% Throat Reeder) 1 spry MT Q2 PRN PRN Reason: Sore Throat - Labs Labs: 06/16/18 05:31 06/16/18 05:31 PT 13.5 Seconds (9.8-13.1) H 06/13/18 05:20 INR 1.2 06/13/18 05:20 APTT 33.6 Seconds (25.6-37.1) 06/13/18 05:20 - GI/Abdominal Exam Additional comments: soft, kylie-incisional tenderness, distended, hypoactive bowel sounds, no rebound, no guarding, dressing dry, clean, intact, well healed scar from prior appendectomy Assessment and Plan - Assessment and Plan (Free Text) Plan: - NG tube continuous wall suction - IV fluid resuscitation - Repeat labs in am - Continue care as per medical and ICU teams - Will follow
--- NOTE | 2018-06-16 09:31 | CARD ---
APPROVED REPORT Date of service: 06/16/2018 EKG Measurement Heart [id number] <Conclusion> Normal sinus rhythm Poor R wave progression in Precordial leads Abnormal ECG
[2018-06-16] MEDS ORDERED: Enoxaparin 40 mg Syringe SC SCH (09:45)
--- NOTE | 2018-06-16 11:05 | CP.PCM.PN ---
Subjective - Date & Time of Evaluation Date of Evaluation: 06/16/18 Time of Evaluation: 08:00 - Subjective Subjective: awake alert c/o pain ngt in place Objective - Vital Signs/Intake and Output Vital Signs (last 24 hours): Temp Pulse Resp BP Pulse Ox 98.5 F 103 H 22 127/78 98 06/16/18 08:00 06/16/18 10:00 06/16/18 10:00 06/16/18 10:00 06/16/18 10:00 Intake and Output: 06/16/18 06/16/18 06:59 18:59 Intake Total 3100 287 Output Total 900 1025 Balance 2200 -738 - Medications Medications: Current Medications Acetaminophen (Tylenol 325mg Tab) 650 mg PO Q4 PRN PRN Reason: Fever >100.4 F Last Admin: 06/13/18 21:38 Dose: 650 mg Acetaminophen (Tylenol 650 Mg Supp) 650 mg [place] ONCE PRN PRN Reason: Fever >100.4 F Benzocaine/Menthol (Cepacol Sore Throat) 1 patt PO Q2 PRN PRN Reason: Sore Throat Last Admin: 06/14/18 04:39 Dose: 1 patt Diphenhydramine HCl (Benadryl) 25 mg IVP Q6 PRN PRN Reason: Itching / Pruritus Enalaprilat (Vasotec) 2.5 mg IV Q12 [facility] Last Admin: 06/15/18 22:17 Dose: Not Given Enoxaparin Sodium (Lovenox) 40 mg SC DAILY [facility]; Protocol Hydralazine HCl (Apresoline) 10 mg IV Q6 PRN PRN Reason: Systolic Blood Pressure Hydromorphone HCl (Dilaudid 0.2 Mg/Ml Crtt) 0 mg IV PRN PRN; Protocol PRN Reason: Pain, severe (8-10) Last Admin: 06/15/18 15:53 Dose: 0 mg Lactated Ringer's (Lactated Ringer's) 1,000 mls @ 125 mls/hr IV .Q8H [facility] Last Admin: 06/16/18 06:33 Dose: 125 mls/hr Meropenem 1 gm/ Sodium (Chloride) 100 mls @ 100 mls/hr IVPB Q8 [facility]; Protocol Last Admin: 06/16/18 02:28 Dose: 100 mls/hr Amiodarone HCl 450 mg/ Sodium (Chloride) 259 mls @ 34.53 mls/hr IVPB .Q7H31M [facility]; Protocol Last Admin: 06/16/18 09:25 Dose: Not Given Naloxone HCl (Narcan) 0.1 mg IVP Q2M PRN PRN Reason: Excess sedation Ondansetron HCl (Zofran Inj) 4 mg IVP Q8 PRN PRN Reason: Nausea/Vomiting Pantoprazole Sodium (Protonix Inj) 40 mg IVP DAILY [facility] Last Admin: 06/16/18 09:05 Dose: 40 mg Phenol/Menthol (Phenaseptic 1.4% Throat [place]) 1 spry MT Q2 PRN PRN Reason: Sore Throat - Labs Labs: 06/16/18 05:31 06/16/18 05:31 PT 13.5 Seconds (9.8-13.1) H 06/13/18 05:20 INR 1.2 06/13/18 05:20 APTT 33.6 Seconds (25.6-37.1) 06/13/18 05:20 - Constitutional Appears: Non-toxic, No Acute Distress - Head Exam Head Exam: NORMOCEPHALIC - Eye Exam Eye Exam: absent: Scleral icterus - ENT Exam ENT Exam: Mucous Membranes Dry - Respiratory Exam Respiratory Exam: Decreased Breath Sounds - Cardiovascular Exam Cardiovascular Exam: REGULAR RHYTHM - GI/Abdominal Exam GI & Abdominal Exam: Distended, Tenderness - Rectal Exam Rectal Exam: Deferred - Exam Exam: NORMAL INSPECTION Assessment and Plan (1) Small bowel obstruction Status: Acute - Assessment and Plan (Free Text) Assessment: s/p lysis of adhesions await path report Plan: Blood cultures + for Enterobacter
--- NOTE | 2018-06-16 11:07 | CP.PCM.PN ---
<KayKelsey - Last Filed: 06/16/18 11:05> Subjective - Date & Time of Evaluation Date of Evaluation: 06/16/18 Time of Evaluation: 11:05 - Subjective Subjective: Patient seen and examined this morning at bedside. Patient reports no flatus and increased abdominal distension and discomfort. Patient reporting gas, denies bowel movement. NGT remains in place and drained 900cc overnight. Patient denies headaches, chest pain, or dyspnea. Objective - Vital Signs/Intake and Output Vital Signs (last 24 hours): Temp Pulse Resp BP Pulse Ox 98.5 F 103 H 22 127/78 98 06/16/18 08:00 06/16/18 10:00 06/16/18 10:00 06/16/18 10:00 06/16/18 10:00 Intake and Output: 06/16/18 06/16/18 06:59 18:59 Intake Total 3100 287 Output Total 900 1025 Balance 2200 -738 - Medications Medications: Current Medications Acetaminophen (Tylenol 325mg Tab) 650 mg PO Q4 PRN PRN Reason: Fever >100.4 F Last Admin: 06/13/18 21:38 Dose: 650 mg Acetaminophen (Tylenol 650 Mg Supp) 650 mg [place] ONCE PRN PRN Reason: Fever >100.4 F Benzocaine/Menthol (Cepacol Sore Throat) 1 patt PO Q2 PRN PRN Reason: Sore Throat Last Admin: 06/14/18 04:39 Dose: 1 patt Diphenhydramine HCl (Benadryl) 25 mg IVP Q6 PRN PRN Reason: Itching / Pruritus Enalaprilat (Vasotec) 2.5 mg IV Q12 [facility] Last Admin: 06/15/18 22:17 Dose: Not Given Enoxaparin Sodium (Lovenox) 40 mg SC DAILY [facility]; Protocol Hydralazine HCl (Apresoline) 10 mg IV Q6 PRN PRN Reason: Systolic Blood Pressure Hydromorphone HCl (Dilaudid 0.2 Mg/Ml [employer]) 0 mg IV PRN PRN; Protocol PRN Reason: Pain, severe (8-10) Last Admin: 06/15/18 15:53 Dose: 0 mg Lactated Ringer's (Lactated Ringer's) 1,000 mls @ 125 mls/hr IV .Q8H [facility] Last Admin: 06/16/18 06:33 Dose: 125 mls/hr Meropenem 1 gm/ Sodium (Chloride) 100 mls @ 100 mls/hr IVPB Q8 [facility]; Protocol Last Admin: 06/16/18 02:28 Dose: 100 mls/hr Amiodarone HCl 450 mg/ Sodium (Chloride) 259 mls @ 34.53 mls/hr IVPB .Q7H31M [facility]; Protocol Last Admin: 06/16/18 09:25 Dose: Not Given Naloxone HCl (Narcan) 0.1 mg IVP Q2M PRN PRN Reason: Excess sedation Ondansetron HCl (Zofran Inj) 4 mg IVP Q8 PRN PRN Reason: Nausea/Vomiting Pantoprazole Sodium (Protonix Inj) 40 mg IVP DAILY [facility] Last Admin: 06/16/18 09:05 Dose: 40 mg Phenol/Menthol (Phenaseptic 1.4% Throat [place]) 1 spry MT Q2 PRN PRN Reason: Sore Throat - Labs Labs: 06/16/18 05:31 06/16/18 05:31 PT 13.5 Seconds (9.8-13.1) H 06/13/18 05:20 INR 1.2 06/13/18 05:20 APTT 33.6 Seconds (25.6-37.1) 06/13/18 05:20 - Constitutional Appears: Well, Non-toxic, No Acute Distress - Head Exam Head Exam: ATRAUMATIC, NORMOCEPHALIC - Eye Exam Eye Exam: Normal appearance Pupil Exam: NORMAL ACCOMODATION - ENT Exam ENT Exam: Mucous Membranes Moist - Respiratory Exam Respiratory Exam: NORMAL BREATHING PATTERN - Cardiovascular Exam Cardiovascular Exam: REGULAR RHYTHM, +S1, +S2 - GI/Abdominal Exam GI & Abdominal Exam: Distended, Hypoactive Bowel Sounds - Neurological Exam Neurological Exam: Alert, Awake, Oriented x3 - Psychiatric Exam Psychiatric exam: Normal Affect Assessment and Plan - Assessment and Plan (Free Text) Assessment: 58 y/o man w/ PMH of gastric and colon cancer and S/P partial gastrectomy (gastro-jejunal) w/ brian-en-y reconstruction admitted for evaluation and management of partial SB Plan: Partial SBO - afebrile - Hx of colon resection - XR abdomen 06/14/2018: residual but dilute oral contrast material is present within distended proximal small bowel consistent w/ small bowel obstruction - f/u small bowel series - XR abdomen 06/12/2018:progressive small bowel obstruction - CT Abdomen 06/10/2018: evidence of evolving mechanical small intestinal obstruction, s/p resection of lower-mid ascending colon, gastritis - maintain NPO - IVF: LR @ 125 mL/hr - General surgery consult, Dr. Armas, recommendations appreciated - NG tube intact and in place, monitor output-900 cc this morning - zofran 4 mg Iv Q4h prn for nausea - protonix 40 mg IV daily - monitor for acute changes - Incentive spirometer Pain management - morphine 2 mg IV Q4h prn for mild - morphine 4 mg IV Q4h prn for moderate - morphine 6 mg IV Q4h prn for severe Hypertension - Vasotec 2.5 mg IV Q12h - hydralazine 10 mg Iv Q6h prn DVT Prophylaxis - lovenox 40 mg SC QD <Kareen Jaramillo - Last Filed: 06/16/18 17:30> Objective - Vital Signs/Intake and Output Vital Signs (last 24 hours): Temp Pulse Resp BP Pulse Ox 99.1 F 102 H 20 145/85 99 06/16/18 16:00 06/16/18 16:00 06/16/18 16:00 06/16/18 16:00 06/16/18 16:00 Intake and Output: 06/16/18 06/16/18 06:59 18:59 Intake Total 3100 1237 Output Total 900 1235 Balance 2200 2 - Medications Medications: Current Medications Acetaminophen (Tylenol 325mg Tab) 650 mg PO Q4 PRN PRN Reason: Fever >100.4 F Last Admin: 06/13/18 21:38 Dose: 650 mg Acetaminophen (Tylenol 650 Mg Supp) 650 mg [place] ONCE PRN PRN Reason: Fever >100.4 F Benzocaine/Menthol (Cepacol Sore Throat) 1 patt PO Q2 PRN PRN Reason: Sore Throat Last Admin: 06/14/18 04:39 Dose: 1 patt Diphenhydramine HCl (Benadryl) 25 mg IVP Q6 PRN PRN Reason: Itching / Pruritus Enalaprilat (Vasotec) 2.5 mg IV Q12 [facility] Last Admin: 06/15/18 22:17 Dose: Not Given Enoxaparin Sodium (Lovenox) 40 mg SC DAILY [facility]; Protocol Hydralazine HCl (Apresoline) 10 mg IV Q6 PRN PRN Reason: Systolic Blood Pressure Lactated Ringer's (Lactated Ringer's) 1,000 mls @ 125 mls/hr IV .Q8H [facility] Last Admin: 06/16/18 11:12 Dose: 125 mls/hr Meropenem 1 gm/ Sodium (Chloride) 100 mls @ 100 mls/hr IVPB Q8 [facility]; Protocol Last Admin: 06/16/18 17:01 Dose: 100 mls/hr Amiodarone HCl 450 mg/ Sodium (Chloride) 259 mls @ 34.53 mls/hr IVPB .Q7H31M [facility] ; Protocol Last Admin: 06/16/18 09:25 Dose: Not Given Naloxone HCl (Narcan) 0.1 mg IVP Q2M PRN PRN Reason: Excess sedation Ondansetron HCl (Zofran Inj) 4 mg IVP Q8 PRN PRN Reason: Nausea/Vomiting Pantoprazole Sodium (Protonix Inj) 40 mg IVP DAILY [facility] Last Admin: 06/16/18 09:05 Dose: 40 mg Phenol/Menthol (Phenaseptic 1.4% Throat [place]) 1 spry MT Q2 PRN PRN Reason: Sore Throat - Labs Labs: 06/16/18 05:31 06/16/18 05:31 PT 13.5 Seconds (9.8-13.1) H 06/13/18 05:20 INR 1.2 06/13/18 05:20 APTT 33.6 Seconds (25.6-37.1) 06/13/18 05:20 Attending/Attestation - Attestation I have personally seen and examined this patient.: Yes I have fully participated in the care of the patient.: Yes I have reviewed all pertinent clinical information, including history, physical exam and plan: Yes Notes (Text): Diagnoses: 1. SBO sec to Adhesions s/p Adhesiolysis and Bowel Resection 2. Sinus Tachycardia 3. Sepsis due to SBO with Enterobacter bacteremia - HR better today -still with large amount of drainage from the NGT -NPO - cont IV Meropenem, ID following pt
[2018-06-16] MEDS ORDERED: Enoxaparin 60 mg Syringe SC SCH (15:00)
--- NOTE | 2018-06-16 16:18 | CP.CCUPN ---
CCU Subjective - Physician Review Events Since Last Encounter (Free Text): 06/16/18 16:17 alert, feels weak, has post-op pain. CCU Objective - Vital Signs / Intake & Output Vital Signs (Last 4 hours): Vital Signs Pulse Resp BP Pulse Ox 06/16/18 15:00 96 H 06/16/18 14:00 100 H 18 138/79 98 06/16/18 13:00 99 H 23 128/70 98 Intake and Output (Last 8hrs): Intake & Output 06/16/18 06/16/18 06/16/18 06:59 14:59 22:59 Intake Total 1999 1237 Output Total 900 1235 Balance 1100 2 Weight 140 lb 12.8 oz Intake: IV 1750 1037 Intake, Piggyback 250 200 Output: Gastric Amount 300 Nares 300 Drainage 700 Right Lower Abdomen 700 Urine 600 535 Urine, Voided 600 535 - Physical Exam Head: Positive for: Atraumatic, Normocephalic Pupils: Positive for: PERRL Extroacular Muscles: Positive for: EOMI Conjunctiva: Positive for: Normal Mouth: Positive for: Dry Pharnyx: Positive for: Normal Nose (External): Positive for: Atraumatic Neck: Positive for: Normal Range of Motion Respiratory/Chest: Positive for: Clear to Auscultation Cardiovascular: Positive for: Tachycardic Abdomen: Positive for: Tenderness, Other (dressing). Negative for: Distention, Normal Bowel Sounds (decreased), Rebound, Guarding Upper Extremity: Positive for: Normal Inspection Lower Extremity: Positive for: Normal Inspection Skin: Positive for: Warm Psychiatric: Positive for: Alert - Medications Active Medications: Active Medications Generic Name Dose Route Start Last Admin Trade Name Freq PRN Reason Stop Dose Admin Acetaminophen 650 mg 06/13/18 20:56 06/13/18 21:38 Tylenol 325mg Tab PO 650 mg Q4 PRN Administration Fever >100.4 F Acetaminophen 650 mg 06/15/18 16:42 Tylenol 650 Mg Supp [place] ONCE PRN Fever >100.4 F Benzocaine/Menthol 1 patt 06/12/18 19:05 06/14/18 04:39 Cepacol Sore Throat PO 1 patt Q2 PRN Administration Sore Throat Diphenhydramine HCl 25 mg 06/15/18 14:06 Benadryl IVP Q6 PRN Itching / Pruritus Enalaprilat 2.5 mg 06/13/18 21:00 06/15/18 22:17 Vasotec IV Not Given Q12 [facility] Enoxaparin Sodium 40 mg 06/16/18 15:00 Lovenox SC DAILY [facility] Protocol Hydralazine HCl 10 mg 06/12/18 17:12 Apresoline IV Q6 PRN Systolic Blood Pressure Lactated Ringer's 1,000 mls @ 125 mls/hr 06/12/18 09:15 06/16/18 11:12 Lactated Ringer's IV 125 mls/hr .Q8H [facility] Administration Meropenem 1 gm/ Sodium 100 mls @ 100 mls/hr 06/14/18 15:13 06/16/18 11:11 Chloride IVPB 100 mls/hr Q8 [facility] Administration Protocol Amiodarone HCl 450 mg/ Sodium 259 mls @ 34.53 mls/hr 06/15/18 17:06 06/16/18 09:25 Chloride IVPB Not Given .Q7H31M [facility] Protocol 1 MG/MIN Naloxone HCl 0.1 mg 06/15/18 14:06 Narcan IVP Q2M PRN Excess sedation Ondansetron HCl 4 mg 06/15/18 14:06 Zofran Inj IVP Q8 PRN Nausea/Vomiting Pantoprazole Sodium 40 mg 06/11/18 09:00 06/16/18 09:05 Protonix Inj IVP 40 mg DAILY [facility] Administration Phenol/Menthol 1 spry 06/12/18 19:05 Phenaseptic 1.4% Throat [place] Q2 PRN Sore Throat - Patient Studies Lab Studies: Microbiology Studies 06/13/18 06:00 Blood Culture - Final Blood Enterobacter Aerogenes Gram Stain - Final 06/14/18 10:00 Urine Culture - Final Urine,Clean Catch No Growth (<1,000 CFU/ML) Lab Studies 06/16/18 06/16/18 06/16/18 Range/Units 05:35 05:31 05:31 WBC 9.2 D (4.8-10.8) K/uL RBC 4.32 L (4.40-5.90) Mil/uL Hgb 14.3 (12.0-18.0) g/dL Hct 41.1 (35.0-51.0) % MCV 95.1 H (80.0-94.0) fl MCH 33.0 H (27.0-31.0) pg MCHC 34.7 (33.0-37.0) g/dL RDW 16.3 H (11.5-14.5) % Plt Count 263 (130-400) K/uL MPV (7.2-11.7) fl Neut % (Auto) (50.0-75.0) % Lymph % (Auto) (20.0-40.0) % [place] % (Auto) (0.0-10.0) % Eos % (Auto) (0.0-4.0) % Baso % (Auto) (0.0-2.0) % Neut # (Auto) (1.8-7.0) K/uL Lymph # (Auto) (1.0-4.3) K/uL [place] # (Auto) (0.0-0.8) K/uL Eos # (Auto) (0.0-0.7) K/uL Baso # (Auto) (0.0-0.2) K/uL Sodium 141 (132-148) mmol/l Potassium 4.0 (3.6-5.0) MMOL/L Chloride 102 (98-107) mmol/L Carbon Dioxide 29 (22-30) mmol/L Anion Gap 14 (10-20) BUN 28 H (9-20) mg/dl Creatinine 1.5 (0.8-1.5) mg/dl Est GFR ( Amer) 58 Est GFR (Non-Af Amer) 48 Random Glucose 95 (75-110) mg/dL Lactic Acid 4.1 H* (0.7-2.1) mmol/L Calcium 8.4 (8.4-10.2) mg/dL Phosphorus 3.8 (2.5-4.5) mg/dl Magnesium 2.4 H (1.6-2.3) MG/DL Total Bilirubin 3.9 H (0.2-1.3) mg/dl AST 92 H D (17-59) U/L ALT 27 (21-72) U/L Alkaline Phosphatase 71 (38-126) U/L CK-MB (Mass) (0.0-3.38) ng/mL Troponin I (0.00-0.120) ng/mL Total Protein 6.0 L (6.3-8.2) G/DL Albumin 2.9 L (3.5-5.0) g/dL Globulin 3.1 (2.2-3.9) gm/dL Albumin/Globulin Ratio 1.0 (1.0-2.1) 06/15/18 06/15/18 06/15/18 Range/Units 19:37 19:37 19:37 WBC 4.6 L (4.8-10.8) K/uL RBC 4.57 (4.40-5.90) Mil/uL Hgb 14.9 (12.0-18.0) g/dL Hct 43.0 (35.0-51.0) % MCV 94.1 H (80.0-94.0) fl MCH 32.5 H (27.0-31.0) pg MCHC 34.5 (33.0-37.0) g/dL RDW 16.2 H (11.5-14.5) % Plt Count 253 (130-400) K/uL MPV 8.9 (7.2-11.7) fl Neut % (Auto) 88.8 H (50.0-75.0) % Lymph % (Auto) 9.8 L (20.0-40.0) % [place] % (Auto) 0.5 (0.0-10.0) % Eos % (Auto) 0.7 (0.0-4.0) % Baso % (Auto) 0.2 (0.0-2.0) % Neut # (Auto) 4.1 (1.8-7.0) K/uL Lymph # (Auto) 0.5 L (1.0-4.3) K/uL [place] # (Auto) 0.0 (0.0-0.8) K/uL Eos # (Auto) 0.0 (0.0-0.7) K/uL Baso # (Auto) 0.0 (0.0-0.2) K/uL Sodium 139 (132-148) mmol/l Potassium 3.9 (3.6-5.0) MMOL/L Chloride 103 (98-107) mmol/L Carbon Dioxide 27 (22-30) mmol/L Anion Gap 13 (10-20) BUN 29 H (9-20) mg/dl Creatinine 1.6 H (0.8-1.5) mg/dl Est GFR ( Amer) 54 Est GFR (Non-Af Amer) 45 Random Glucose 103 (75-110) mg/dL Lactic Acid (0.7-2.1) mmol/L Calcium 8.7 (8.4-10.2) mg/dL Phosphorus (2.5-4.5) mg/dl Magnesium (1.6-2.3) MG/DL Total Bilirubin 3.9 H (0.2-1.3) mg/dl AST 69 H (17-59) U/L ALT 25 (21-72) U/L Alkaline Phosphatase 56 (38-126) U/L CK-MB (Mass) 3.19 (0.0-3.38) ng/mL Troponin I 0.0270 (0.00-0.120) ng/mL Total Protein 5.8 L (6.3-8.2) G/DL Albumin 2.9 L D (3.5-5.0) g/dL Globulin 2.9 (2.2-3.9) gm/dL Albumin/Globulin Ratio 1.0 (1.0-2.1) Laboratory Results - last 24 hr 06/15/18 06/15/18 06/15/18 19:37 19:37 19:37 WBC 4.6 L RBC 4.57 Hgb 14.9 Hct 43.0 MCV 94.1 H MCH 32.5 H MCHC 34.5 RDW 16.2 H Plt Count 253 MPV 8.9 Neut % (Auto) 88.8 H Lymph % (Auto) 9.8 L [place] % (Auto) 0.5 Eos % (Auto) 0.7 Baso % (Auto) 0.2 Neut # (Auto) 4.1 Lymph # (Auto) 0.5 L [place] # (Auto) 0.0 Eos # (Auto) 0.0 Baso # (Auto) 0.0 Sodium 139 Potassium 3.9 Chloride 103 Carbon Dioxide 27 Anion Gap 13 BUN 29 H Creatinine 1.6 H Est GFR ( Amer) 54 Est GFR (Non-Af Amer) 45 Random Glucose 103 Lactic Acid Calcium 8.7 Phosphorus Magnesium Total Bilirubin 3.9 H AST 69 H ALT 25 Alkaline Phosphatase 56 CK-MB (Mass) 3.19 Troponin I 0.0270 Total Protein 5.8 L Albumin 2.9 L D Globulin 2.9 Albumin/Globulin Ratio 1.0 06/16/18 06/16/18 06/16/18 05:31 05:31 05:35 WBC 9.2 D RBC 4.32 L Hgb 14.3 Hct 41.1 MCV 95.1 H MCH 33.0 H MCHC 34.7 RDW 16.3 H Plt Count 263 MPV Neut % (Auto) Lymph % (Auto) [place] % (Auto) Eos % (Auto) Baso % (Auto) Neut # (Auto) Lymph # (Auto) [place] # (Auto) Eos # (Auto) Baso # (Auto) Sodium 141 Potassium 4.0 Chloride 102 Carbon Dioxide 29 Anion Gap 14 BUN 28 H Creatinine 1.5 Est GFR ( Amer) 58 Est GFR (Non-Af Amer) 48 Random Glucose 95 Lactic Acid 4.1 H* Calcium 8.4 Phosphorus 3.8 Magnesium 2.4 H Total Bilirubin 3.9 H AST 92 H D ALT 27 Alkaline Phosphatase 71 CK-MB (Mass) Troponin I Total Protein 6.0 L Albumin 2.9 L Globulin 3.1 Albumin/Globulin Ratio 1.0 EKG/Cardiology Studies: Cardiology / EKG Studies 06/16/18 EKG [ELECTROCARDIOGRAM] Routine Comment: Mode Of Transportation: Reason For Exam: tachycardia Review of Systems - Review of Systems All systems: reviewed and no additional remarkable complaints except - Gastrointestinal Gastrointestinal: Abdominal Pain Critical Care Progress Note - Nutrition Nutrition: Nutrition Category Date Time Status NPO Diet [DIET] Diets 06/12/18 Breakfast Active Assessment/Plan (1) Small bowel obstruction Assessment and plan: 58yo M. PMHx of gastric CA s/p partial gastrectomy with brian-en-y, colon CA s/p resection. p/w SBO, underwent ex-lap with CHUCK and SBR with primary anastamosis. Neuro: alert and oriented. Pulm: no acute issues, breathing spontaneously on room air CV: hemodynamically stable Hem: no acute issues Renal: no acute issues, urine output wnl. lactate high, will monitor. LR@125, adequate for NGT output. Endo: no acute issues GI: NPO ID: sepsis from recent SBO, continue Meropenem. DVT proph - lovenox GI proph - protonix IV love for strict I/O's during acute illness Code status - full code Critical Care time spent 35 minutes Multi-disciplinary rounds were performed with house staff, nursing, speech therapy, respiratory therapy, pharmacy and nutrition with integrated input from the primary team/attending and other consulting services. The documented time is cumulative and includes review of patient data/exams/labs/chart review and examination of the patient on rounds and throughout the day; time is exclusive of any procedures or teaching time. Current Visit: Yes Status: Acute
[2018-06-16] MEDS: Enoxaparin 40 mg Syringe SC SCH (17:43)
[2018-06-16] MEDS ORDERED: DiphenhydrAMINE 50 mg/ml Inj IVP STA (21:01)
[2018-06-16] MEDS ORDERED: DiphenhydrAMINE 50 mg/ml Inj ONE (21:02)
[2018-06-17] MEDS: Meropenem 1 GM in Sodium Chloride 0.9% 100 ML IVPB SCH ×3 (00:48→16:15)
[2018-06-17 05:17] LABS: MEAN CELL VOLUME 93.6 fl (80.0-94.0); MEAN CORPUSCULAR HEMOGLOBIN 32.3 pg (27.0-31.0); MEAN CORPUSCULAR HGB CONC 34.6 g/dL (33.0-37.0); RBC 3.65 Mil/uL (4.40-5.90); RED CELL DISTRIBUTION WIDTH 16.6 % (11.5-14.5); WHITE BLOOD COUNT 8.9 K/uL (4.8-10.8)
[2018-06-17 05:32] LABS: ALBUMIN 2.7 g/dL (3.5-5.0); ALT/SGPT 45 U/L (21-72); AST/SGOT 123 U/L (17-59); BLOOD UREA NITROGEN 21 mg/dl (9-20); CALCIUM 8.8 mg/dL (8.4-10.2); GFR NON-AFRICAN AMERICAN > 60
[2018-06-17 05:48] LABS: HEMOGLOBIN 11.8 g/dL (12.0-18.0)
[2018-06-17] MEDS: Lactated Ringer's 1,000 ML IV SCH ×2 (06:19→16:14)
--- NOTE | 2018-06-17 07:59 | CP.PCM.PN ---
<Amandeep Quintanilla - Last Filed: 06/17/18 08:31> Subjective - Date & Time of Evaluation Date of Evaluation: 06/17/18 Time of Evaluation: 07:00 - Subjective Subjective: eneral Surgery Note for Dr. Domínguez Patient seen and examined at bedside in ICU. No acute event overnight. Patient is s/p ex-lap with lysis of adhesions, small bowel resection and primary anastamosis POD#2. Patient states pain is controlled. Denies fever/chills or nausea/vomiting. He is NPO still with NGT to low intermittent suction. NGT with 300cc/24hr of bilious output. Urine output was 1450 cc/24hrs. He continues to pass flatus but no BM yet. Objective - Vital Signs/Intake and Output Vital Signs (last 24 hours): Temp Pulse Resp BP Pulse Ox 99.5 F 86 21 139/77 100 06/17/18 04:00 06/17/18 06:00 06/17/18 06:00 06/17/18 06:00 06/17/18 06:00 Intake and Output: 06/17/18 06/17/18 06:59 18:59 Intake Total 1225 250 Output Total 950 1750 Balance 275 -1500 - Medications Medications: Current Medications Acetaminophen (Tylenol 325mg Tab) 650 mg PO Q4 PRN PRN Reason: Fever >100.4 F Last Admin: 06/13/18 21:38 Dose: 650 mg Acetaminophen (Tylenol 650 Mg Supp) 650 mg [place] ONCE PRN PRN Reason: Fever >100.4 F Benzocaine/Menthol (Cepacol Sore Throat) 1 patt PO Q2 PRN PRN Reason: Sore Throat Last Admin: 06/14/18 04:39 Dose: 1 patt Diphenhydramine HCl (Benadryl) 25 mg IVP Q6 PRN PRN Reason: Itching / Pruritus Enalaprilat (Vasotec) 2.5 mg IV Q12 [facility] Last Admin: 06/15/18 22:17 Dose: Not Given Enoxaparin Sodium (Lovenox) 40 mg SC DAILY [facility]; Protocol Last Admin: 06/16/18 17:43 Dose: 40 mg Hydralazine HCl (Apresoline) 10 mg IV Q6 PRN PRN Reason: Systolic Blood Pressure Lactated Ringer's (Lactated Ringer's) 1,000 mls @ 125 mls/hr IV .Q8H ON LICENSE OF [facility] Last Admin: 06/17/18 06:19 Dose: 125 mls/hr Meropenem 1 gm/ Sodium (Chloride) 100 mls @ 100 mls/hr IVPB Q8 ON LICENSE OF [facility]; Protocol Last Admin: 06/17/18 00:48 Dose: 100 mls/hr Amiodarone HCl 450 mg/ Sodium (Chloride) 259 mls @ 34.53 mls/hr IVPB .Q7H31M ON LICENSE OF [facility]; Protocol Last Admin: 06/16/18 09:25 Dose: Not Given Morphine Sulfate (Morphine) 2 mg IVP Q6 PRN PRN Reason: Pain, moderate (4-7) Last Admin: 06/17/18 07:43 Dose: 2 mg Naloxone HCl (Narcan) 0.1 mg IVP Q2M PRN PRN Reason: Excess sedation Ondansetron HCl (Zofran Inj) 4 mg IVP Q8 PRN PRN Reason: Nausea/Vomiting Last Admin: 06/17/18 03:57 Dose: 4 mg Pantoprazole Sodium (Protonix Inj) 40 mg IVP DAILY ON [facility] OF [facility] Last Admin: 06/16/18 09:05 Dose: 40 mg Phenol/Menthol (Phenaseptic 1.4% Throat [place]) 1 spry MT Q2 PRN PRN Reason: Sore Throat - Labs Labs: 06/17/18 05:08 06/17/18 05:08 PT 13.5 Seconds (9.8-13.1) H 06/13/18 05:20 INR 1.2 06/13/18 05:20 APTT 33.6 Seconds (25.6-37.1) 06/13/18 05:20 - Additional Findings Additional findings: - Constitutional Appears: No Acute Distress - Head Exam Head Exam: ATRAUMATIC, NORMOCEPHALIC - Eye Exam Eye Exam: EOMI, Normal appearance Pupil Exam: PERRL - ENT Exam ENT Exam: Mucous Membranes Moist - Respiratory Exam Respiratory Exam: NORMAL BREATHING PATTERN - Cardiovascular Exam Cardiovascular Exam: RRR - GI/Abdominal Exam GI & Abdominal Exam: Distended (mild), Soft, Tenderness, Normal Bowel Sounds. absent: Firm, Guarding, Rigid, Rebound Additional comments: dressing clean dry and intact - Extremities Exam Extremities Exam: Normal Capillary Refill - Back Exam Back Exam: absent: CVA tenderness (L), CVA tenderness (R) - Neurological Exam Neurological Exam: Alert, Awake, CN II-XII Intact, Oriented x3 - Psychiatric Exam Psychiatric exam: Normal Affect, Normal Mood - Skin Skin Exam: Dry, Intact, Normal Color, Warm Assessment and Plan - Assessment and Plan (Free Text) Assessment: 58 M who presented with SBO s/p ex-lap with lysis of adhesions, small bowel resection an dprimary anastamosis POD#2 Plan: -NPO may have small sips and chips to wet mouth -Gum and hard candy for bowel stimulation -IVF -IV antibiotics -Pain control -NGT to low intermittent suction -Strict I's & O's -Anti-emetics PRN -Monitor for bowel function -Replace NGT output 1:1 with LR -Medical management as per ICU -Further recommendations as per Dr. Sang Quintanilla PGY2 <Todd Reynaga - Last Filed: 06/17/18 11:22> Objective - Vital Signs/Intake and Output Vital Signs (last 24 hours): Temp Pulse Resp BP Pulse Ox 99.0 F 95 H 12 139/81 96 06/17/18 08:00 06/17/18 10:00 06/17/18 10:00 06/17/18 10:00 06/17/18 10:00 Intake and Output: 06/17/18 06/17/18 06:59 18:59 Intake Total 1225 520 Output Total 950 1750 Balance 275 -1230 - Medications Medications: Current Medications Acetaminophen (Tylenol 325mg Tab) 650 mg PO Q4 PRN PRN Reason: Fever >100.4 F Last Admin: 06/13/18 21:38 Dose: 650 mg Acetaminophen (Tylenol 650 Mg Supp) 650 mg [place] ONCE PRN PRN Reason: Fever >100.4 F Benzocaine/Menthol (Cepacol Sore Throat) 1 patt PO Q2 PRN PRN Reason: Sore Throat Last Admin: 06/14/18 04:39 Dose: 1 patt Diphenhydramine HCl (Benadryl) 25 mg IVP Q6 PRN PRN Reason: Itching / Pruritus Enalaprilat (Vasotec) 2.5 mg IV Q12 [facility] Last Admin: 06/15/18 22:17 Dose: Not Given Enoxaparin Sodium (Lovenox) 40 mg SC DAILY ON LICENSE OF [facility]; Protocol Last Admin: 06/17/18 10:04 Dose: 40 mg Hydralazine HCl (Apresoline) 10 mg IV Q6 PRN PRN Reason: Systolic Blood Pressure Lactated Ringer's (Lactated Ringer's) 1,000 mls @ 125 mls/hr IV .Q8H ON LICENSE OF [facility] Last Admin: 06/17/18 06:19 Dose: 125 mls/hr Meropenem 1 gm/ Sodium (Chloride) 100 mls @ 100 mls/hr IVPB Q8 [facility]; Protocol Last Admin: 06/17/18 08:22 Dose: 100 mls/hr Amiodarone HCl 450 mg/ Sodium (Chloride) 259 mls @ 34.53 mls/hr IVPB .Q7H31M ON LICENSE OF [facility]; Protocol Last Admin: 06/16/18 09:25 Dose: Not Given Potassium Chloride (Potassium Chloride 20 Meq/100 Ml) 100 mls @ 50 mls/hr IVPB Q2 ON LICENSE OF [facility] Stop: 06/17/18 13:59 Last Admin: 06/17/18 10:04 Dose: 50 mls/hr Morphine Sulfate (Morphine) 2 mg IVP Q6 PRN PRN Reason: Pain, moderate (4-7) Last Admin: 06/17/18 07:43 Dose: 2 mg Naloxone HCl (Narcan) 0.1 mg IVP Q2M PRN PRN Reason: Excess sedation Ondansetron HCl (Zofran Inj) 4 mg IVP Q8 PRN PRN Reason: Nausea/Vomiting Last Admin: 06/17/18 03:57 Dose: 4 mg Pantoprazole Sodium (Protonix Inj) 40 mg IVP DAILY ON LICENSE OF [facility] Last Admin: 06/17/18 08:22 Dose: 40 mg Phenol/Menthol (Phenaseptic 1.4% Throat [place]) 1 spry MT Q2 PRN PRN Reason: Sore Throat - Labs Labs: 06/17/18 05:08 06/17/18 05:08 PT 13.5 Seconds (9.8-13.1) H 06/13/18 05:20 INR 1.2 06/13/18 05:20 APTT 33.6 Seconds (25.6-37.1) 06/13/18 05:20 Assessment and Plan - Assessment and Plan (Free Text) Plan: pt seen at bedside, no overnight events. Pt remains NPO with NGT in place draining about 2400cc in 24hrs. Adequate urine output. abd: soft, mild distention, midline incision with petros in place c/d/i, appropriate incisional tenderness, -pain control -IVF -NGT -ice chips ok -IV abx -monitor urine output -replete K -repeat labs in am
[2018-06-17] MEDS: Enoxaparin 40 mg Syringe SC SCH (10:04)
[2018-06-17] MEDS: Potassium Chloride 20 mEq 100 ML IVPB SCH ×3 (10:04→13:10)
--- NOTE | 2018-06-17 10:53 | CP.PCM.PN ---
<Kelsey Kay - Last Filed: 06/17/18 10:37> Subjective - Date & Time of Evaluation Date of Evaluation: 06/17/18 Time of Evaluation: 10:37 - Subjective Subjective: Patient seen and examined this morning at bedside. Patient reports no flatus and increased abdominal distension and discomfort. Patient reporting gas, denies bowel movement. NGT remains in place and drained 400cc overnight. Patient denies headaches, chest pain, or dyspnea Objective - Vital Signs/Intake and Output Vital Signs (last 24 hours): Temp Pulse Resp BP Pulse Ox 99.0 F 80 16 131/79 99 06/17/18 08:00 06/17/18 08:00 06/17/18 08:00 06/17/18 08:00 06/17/18 08:00 Intake and Output: 06/17/18 06/17/18 06:59 18:59 Intake Total 1225 250 Output Total 950 1750 Balance 275 -1500 - Medications Medications: Current Medications Acetaminophen (Tylenol 325mg Tab) 650 mg PO Q4 PRN PRN Reason: Fever >100.4 F Last Admin: 06/13/18 21:38 Dose: 650 mg Acetaminophen (Tylenol 650 Mg Supp) 650 mg [place] ONCE PRN PRN Reason: Fever >100.4 F Benzocaine/Menthol (Cepacol Sore Throat) 1 patt PO Q2 PRN PRN Reason: Sore Throat Last Admin: 06/14/18 04:39 Dose: 1 patt Diphenhydramine HCl (Benadryl) 25 mg IVP Q6 PRN PRN Reason: Itching / Pruritus Enalaprilat (Vasotec) 2.5 mg IV Q12 [facility] Last Admin: 06/15/18 22:17 Dose: Not Given Enoxaparin Sodium (Lovenox) 40 mg SC DAILY [facility]; Protocol Last Admin: 06/17/18 10:04 Dose: 40 mg Hydralazine HCl (Apresoline) 10 mg IV Q6 PRN PRN Reason: Systolic Blood Pressure Lactated Ringer's (Lactated Ringer's) 1,000 mls @ 125 mls/hr IV .Q8H [facility] Last Admin: 06/17/18 06:19 Dose: 125 mls/hr Meropenem 1 gm/ Sodium (Chloride) 100 mls @ 100 mls/hr IVPB Q8 [facility]; Protocol Last Admin: 06/17/18 08:22 Dose: 100 mls/hr Amiodarone HCl 450 mg/ Sodium (Chloride) 259 mls @ 34.53 mls/hr IVPB .Q7H31M [facility]; Protocol Last Admin: 06/16/18 09:25 Dose: Not Given Potassium Chloride (Potassium Chloride 20 Meq/100 Ml) 100 mls @ 50 mls/hr IVPB Q2 [facility] Stop: 06/17/18 13:59 Last Admin: 06/17/18 10:04 Dose: 50 mls/hr Morphine Sulfate (Morphine) 2 mg IVP Q6 PRN PRN Reason: Pain, moderate (4-7) Last Admin: 06/17/18 07:43 Dose: 2 mg Naloxone HCl (Narcan) 0.1 mg IVP Q2M PRN PRN Reason: Excess sedation Ondansetron HCl (Zofran Inj) 4 mg IVP Q8 PRN PRN Reason: Nausea/Vomiting Last Admin: 06/17/18 03:57 Dose: 4 mg Pantoprazole Sodium (Protonix Inj) 40 mg IVP DAILY [facility] Last Admin: 06/17/18 08:22 Dose: 40 mg Phenol/Menthol (Phenaseptic 1.4% Throat [place]) 1 spry [place] Q2 PRN PRN Reason: Sore Throat - Labs Labs: 06/17/18 05:08 06/17/18 05:08 PT 13.5 Seconds (9.8-13.1) H 06/13/18 05:20 INR 1.2 06/13/18 05:20 APTT 33.6 Seconds (25.6-37.1) 06/13/18 05:20 - Constitutional Appears: Well, Non-toxic, No Acute Distress - Head Exam Head Exam: ATRAUMATIC, NORMOCEPHALIC - Eye Exam Eye Exam: Normal appearance Pupil Exam: NORMAL ACCOMODATION - ENT Exam ENT Exam: Mucous Membranes Moist Additional comments: NG tube intact - Neurological Exam Neurological Exam: Alert, Awake, Oriented x3 Assessment and Plan - Assessment and Plan (Free Text) Assessment: 58 y/o man w/ PMH of gastric and colon cancer and S/P partial gastrectomy (gastro-jejunal) w/ brian-en-y reconstruction admitted for evaluation and management of partial SB. S/p ex-lap with lysis of adhesions, small bowel resection and primary anastamosis POD#2 Plan: Partial SBO - afebrile - Hx of colon resection - XR abdomen 06/14/2018: residual but dilute oral contrast material is present within distended proximal small bowel consistent w/ small bowel obstruction - f/u small bowel series - XR abdomen 06/12/2018:progressive small bowel obstruction - CT Abdomen 06/10/2018: evidence of evolving mechanical small intestinal obstruction, s/p resection of lower-mid ascending colon, gastritis - maintain NPO - IVF: LR @ 125 mL/hr - General surgery consult, Dr. Armas, recommendations appreciated-s/p ex-lap with lysis of adhesions, small bowel resection and primary anastamosis POD#2. Continue NPO small sips of ice to wet mouth, gum and candy for bowel movement - NG tube intact and in place, monitor output-400 cc this morning - zofran 4 mg Iv Q4h prn for nausea - protonix 40 mg IV daily - monitor for acute changes - Incentive spirometer - love catheter d/c Pain management - morphine 2 mg IV Q4h prn for mild - morphine 4 mg IV Q4h prn for moderate - morphine 6 mg IV Q4h prn for severe Hypertension - Vasotec 2.5 mg IV Q12h - hydralazine 10 mg Iv Q6h prn DVT Prophylaxis - lovenox 40 mg SC QD <Kareen Jaramillo - Last Filed: 06/17/18 15:29> Objective - Vital Signs/Intake and Output Vital Signs (last 24 hours): Temp Pulse Resp BP Pulse Ox 98.9 F 93 H 16 140/78 100 06/17/18 12:00 06/17/18 14:00 06/17/18 14:00 06/17/18 14:00 06/17/18 14:00 Intake and Output: 06/17/18 06/17/18 06:59 18:59 Intake Total 1225 1695 Output Total 950 1950 Balance 275 -255 - Medications Medications: Current Medications Acetaminophen (Tylenol 325mg Tab) 650 mg PO Q4 PRN PRN Reason: Fever >100.4 F Last Admin: 06/13/18 21:38 Dose: 650 mg Acetaminophen (Tylenol 650 Mg Supp) 650 mg [place] ONCE PRN PRN Reason: Fever >100.4 F Benzocaine/Menthol (Cepacol Sore Throat) 1 patt PO Q2 PRN PRN Reason: Sore Throat Last Admin: 06/14/18 04:39 Dose: 1 patt Diphenhydramine HCl (Benadryl) 25 mg IVP Q6 PRN PRN Reason: Itching / Pruritus Enalaprilat (Vasotec) 2.5 mg IV Q12 [facility] Last Admin: 06/15/18 22:17 Dose: Not Given Enoxaparin Sodium (Lovenox) 40 mg SC DAILY [facility]; Protocol Last Admin: 06/17/18 10:04 Dose: 40 mg Hydralazine HCl (Apresoline) 10 mg IV Q6 PRN PRN Reason: Systolic Blood Pressure Lactated Ringer's (Lactated Ringer's) 1,000 mls @ 125 mls/hr IV .Q8H [facility] Last Admin: 06/17/18 06:19 Dose: 125 mls/hr Meropenem 1 gm/ Sodium (Chloride) 100 mls @ 100 mls/hr IVPB Q8 [facility]; Protocol Last Admin: 06/17/18 08:22 Dose: 100 mls/hr Amiodarone HCl 450 mg/ Sodium (Chloride) 259 mls @ 34.53 mls/hr IVPB .Q7H31M [facility]; Protocol Last Admin: 06/16/18 09:25 Dose: Not Given Potassium Chloride (Potassium Chloride 10 Meq/100 Ml) 100 mls @ 100 mls/hr IVPB Q1 [facility] Stop: 06/17/18 15:59 Morphine Sulfate (Morphine) 2 mg IVP Q6 PRN PRN Reason: Pain, moderate (4-7) Last Admin: 06/17/18 07:43 Dose: 2 mg Naloxone HCl (Narcan) 0.1 mg IVP Q2M PRN PRN Reason: Excess sedation Ondansetron HCl (Zofran Inj) 4 mg IVP Q8 PRN PRN Reason: Nausea/Vomiting Last Admin: 06/17/18 03:57 Dose: 4 mg Pantoprazole Sodium (Protonix Inj) 40 mg IVP DAILY [facility] Last Admin: 06/17/18 08:22 Dose: 40 mg Phenol/Menthol (Phenaseptic 1.4% Throat Castor) 1 spry MT Q2 PRN PRN Reason: Sore Throat - Labs Labs: 06/17/18 05:08 06/17/18 05:08 PT 13.5 Seconds (9.8-13.1) H 06/13/18 05:20 INR 1.2 06/13/18 05:20 APTT 33.6 Seconds (25.6-37.1) 06/13/18 05:20 Attending/Attestation - Attestation I have personally seen and examined this patient.: Yes I have fully participated in the care of the patient.: Yes I have reviewed all pertinent clinical information, including history, physical exam and plan: Yes Notes (Text): Diagnoses: 1. SBO sec to Adhesions s/p Adhesiolysis and Bowel Resection 2. Sinus Tachycardia 3. Sepsis due to SBO with Enterobacter bacteremia - HR controlled -350 ml drainage from the NGT overnight -NPO - cont IV Meropenem, ID and Surgery following pt - rpt Blood c/s
[2018-06-17] MEDS: Potassium CL 10mEq/100ml 100 ML IVPB SCH ×2 (14:05→15:00)
--- NOTE | 2018-06-17 23:38 | PN ---
DATE: 06/17/2018 SUBJECTIVE: The patient is in ICU bed 432. Time spent 35 minutes. The patient is seen and evaluated at the bedside. Past medical, surgical, family and social history are reviewed. Case was discussed in multidisciplinary ICU rounds this morning. A 58-year-old male with history of gastric CA, status post partial gastrectomy with Rachel-en-Y colon CA, status post resection, admitted with a small bowel obstruction. Underwent exploratory laparotomy with lysis of adhesions and small bowel resection with primary anastomosis, extubated in the recovery room. Postop day 1. Overnight normotensive, afebrile. Telemetry sinus rhythm. This morning alert, awake, out of bed to chair. NG tube in place draining bilious drainage, oxygen supplement 2 liters, pulse oximetry over 94%. PHYSICAL EXAMINATION: VITAL SIGNS: Temperature 99.4, heart rate 90 regular, blood pressure 153/87, mean arterial pressure 109, respiratory rate 17, thoracoabdominal. Intake 1270, output 1750, negative balance -480. HEAD, EYES, EARS, NOSE, THROAT: Pupils are reactive. Conjunctivae pink. Sclerae white. Oral mucosa moist. NECK: Supple. CHEST: Bilateral breath sounds, diminished in intensity. Clear to auscultation. HEART: Rhythm regular. S1, S2 normal. ABDOMEN: Bowel sounds present. Mild tenderness at the site of incision. EXTREMITIES: Trace edema. DP palpable. Capillary refill less than 2 seconds. NEUROLOGIC: Nonfocal. LABORATORY DATA: WBC 8.9, hemoglobin 11.8, hematocrit 34.2, platelet count at 217. PT 13.5, INR 1.2, PTT 33.6. SMA-7: Sodium 145, potassium 3.5, chloride 103, CO2 of 31, blood urea nitrogen 21, creatinine 1.1, random glucose 79, lactic acid of 0.8, calcium 8.8, total bilirubin 5, AST 123, ALT 45, alkaline phosphatase 69, total protein 5.6, albumin at 2.7. Urinalysis negative. Microbiology blood culture positive for Enterobacter aerogenes. Nasal smear MRSA negative. Urine culture no growth reported. EKG done on 06/16/2018, heart rate 97, normal sinus rhythm, poor R-wave progression in the precordial leads. IMPRESSION: Neuro: Alert and awake, oriented to name, place and time. Pulmonary: No acute issues, on oxygen supplement, bibasilar atelectasis. Continue incentive spirometry. Cardiovascular: Hemodynamically stable, tachycardia resolved. Hematology: Hemoglobin and hematocrit within normal limits. No leukocytosis. Normal platelet count. Renal: Elevated BUN secondary to intravascular volume depletion, hypokalemia, on potassium supplement. Endo: No acute issues. Gastrointestinal: Start clear liquids as tolerated. The patient has flatus, but normal movement. Continue feeding as tolerated. Infectious Disease: Likely peritonitis with blood culture positive for Enterobacter, sensitive to meropenem. Continue deep venous thrombosis prophylaxis. Gastrointestinal prophylaxis with Protonix. Maintain [place] for strict intake output. CODE STATUS: FULL. Encourage incentive spirometry to prevent postop atelectasis. Abdulkadir Ochoa MD
[2018-06-18] MEDS: Meropenem 1 GM in Sodium Chloride 0.9% 100 ML IVPB SCH ×2 (00:31→12:11)
[2018-06-18] MEDS: Lactated Ringer's 1,000 ML IV SCH (01:30)
[2018-06-18 06:04] LABS: HEMOGLOBIN 11.7 g/dL (12.0-18.0); MEAN CORPUSCULAR HEMOGLOBIN 32.5 pg (27.0-31.0); MEAN CORPUSCULAR HGB CONC 35.5 g/dL (33.0-37.0); RBC 3.59 Mil/uL (4.40-5.90); RED CELL DISTRIBUTION WIDTH 16.3 % (11.5-14.5); WHITE BLOOD COUNT 8.3 K/uL (4.8-10.8)
[2018-06-18 06:11] LABS: MEAN CELL VOLUME 91.5 fl (80.0-94.0)
[2018-06-18 06:39] LABS: ALB/GLOB RATIO 0.9 (1.0-2.1); ALBUMIN 2.9 g/dL (3.5-5.0); ALT/SGPT 46 U/L (21-72); AST/SGOT 109 U/L (17-59); BLOOD UREA NITROGEN 20 mg/dl (9-20); GFR NON-AFRICAN AMERICAN > 60
[2018-06-18] MEDS ORDERED: Potassium Phosphate 30 MMOLE in Sodium Chloride 0.9% 250 ML IV ONE (09:25)
[2018-06-18] MEDS: Enoxaparin 40 mg Syringe SC SCH (09:33)
--- NOTE | 2018-06-18 09:55 | CP.PCM.PN ---
<PhillipLeslie Kenroy - Last Filed: 06/18/18 11:25> Subjective - Date & Time of Evaluation Date of Evaluation: 06/18/18 Time of Evaluation: 09:49 - Subjective Subjective: General Surgery Pt seen and examined this AM. He reports he began to have hiccups today but otherwise feels like he is getting better. (-) Chest pain. He continues to have a NGT in place and denies any n/v. (+) flatus, (+) small soft dark BM yesterday. He would like to have the NGT removed today if possible. Pt reports being OOB yesterday. He has not been using his IS. Afebrile. Labs and vitals noted. Low Phos noted, corrected by medicine. T bili remains elevated. Total NGT output in 24 hours 1250ml as per documentation. Additional 100ml this AM of bilious output over the last 2.5 hours at bedside. PE Gen: Pt laying in bed in NAD Skin: warm and dry HENT: (+) NGT, bilious drainage is thick and not draining sufficiently in cannister. Cardio: s1s2 RRR Lungs: CTA bilaterally in anterior lung thibodeaux Abd: Soft, (+) distended, (+) stapled incision c/d/i, (-) rebound A/P SBO s/p ex-lap with lysis of adhesions, small bowel resection and primary anastamosis POD#3 Keep NGT today Order entered for abdominal xray to evaluate tip of NGT Monitor bowel function Continue IVF Monitor labs Phos corrected by medicine Objective - Vital Signs/Intake and Output Vital Signs (last 24 hours): Temp Pulse Resp BP Pulse Ox 98.4 F 80 18 148/77 95 06/18/18 08:15 06/18/18 08:15 06/18/18 08:15 06/18/18 08:15 06/18/18 08:15 Intake and Output: 06/18/18 06/18/18 06:59 18:59 Intake Total 1875 Output Total 2150 Balance -275 - Medications Medications: Current Medications Acetaminophen (Tylenol 325mg Tab) 650 mg PO Q4 PRN PRN Reason: Fever >100.4 F Last Admin: 06/13/18 21:38 Dose: 650 mg Acetaminophen (Tylenol 650 Mg Supp) 650 mg [place] ONCE PRN PRN Reason: Fever >100.4 F Benzocaine/Menthol (Cepacol Sore Throat) 1 patt PO Q2 PRN PRN Reason: Sore Throat Last Admin: 06/14/18 04:39 Dose: 1 patt Diphenhydramine HCl (Benadryl) 25 mg IVP Q6 PRN PRN Reason: Itching / Pruritus Enalaprilat (Vasotec) 2.5 mg IV Q12 [facility] Last Admin: 06/15/18 22:17 Dose: Not Given Enoxaparin Sodium (Lovenox) 40 mg SC DAILY [facility]; Protocol Last Admin: 06/18/18 09:33 Dose: 40 mg Hydralazine HCl (Apresoline) 10 mg IV Q6 PRN PRN Reason: Systolic Blood Pressure Lactated Ringer's (Lactated Ringer's) 1,000 mls @ 125 mls/hr IV .Q8H [facility] Last Admin: 06/18/18 01:30 Dose: 125 mls/hr Meropenem 1 gm/ Sodium (Chloride) 100 mls @ 100 mls/hr IVPB Q8 [facility]; Protocol Last Admin: 06/18/18 00:31 Dose: 100 mls/hr Potassium Phosphate 30 mmole/ (Sodium Chloride) 260 mls @ 65 mls/hr IV ONCE ONE Stop: 06/18/18 13:24 Morphine Sulfate (Morphine) 2 mg IVP Q6 PRN PRN Reason: Pain, moderate (4-7) Last Admin: 06/18/18 04:08 Dose: 2 mg Naloxone HCl (Narcan) 0.1 mg IVP Q2M PRN PRN Reason: Excess sedation Ondansetron HCl (Zofran Inj) 4 mg IVP Q8 PRN PRN Reason: Nausea/Vomiting Last Admin: 06/18/18 00:38 Dose: 4 mg Pantoprazole Sodium (Protonix Inj) 40 mg IVP DAILY [facility] Last Admin: 06/18/18 09:33 Dose: 40 mg Phenol/Menthol (Phenaseptic 1.4% Throat [place]) 1 spry MT Q2 PRN PRN Reason: Sore Throat - Labs Labs: 06/18/18 05:25 06/18/18 05:25 PT 13.5 Seconds (9.8-13.1) H 06/13/18 05:20 INR 1.2 06/13/18 05:20 APTT 33.6 Seconds (25.6-37.1) 06/13/18 05:20 <Han Domínguez - Last Filed: 06/18/18 11:30> Subjective - Date & Time of Evaluation Time of Evaluation: 11:00 - Subjective Subjective: Patient was seen and examined at the bedside. Agree with note above. Objective - Vital Signs/Intake and Output Vital Signs (last 24 hours): Temp Pulse Resp BP Pulse Ox 98.4 F 80 18 148/77 95 06/18/18 08:15 06/18/18 08:15 06/18/18 08:15 06/18/18 08:15 06/18/18 08:15 Intake and Output: 06/18/18 06/18/18 06:59 18:59 Intake Total 1875 Output Total 2150 Balance -275 - Medications Medications: Current Medications Acetaminophen (Tylenol 325mg Tab) 650 mg PO Q4 PRN PRN Reason: Fever >100.4 F Last Admin: 06/13/18 21:38 Dose: 650 mg Acetaminophen (Tylenol 650 Mg Supp) 650 mg FL ONCE PRN PRN Reason: Fever >100.4 F Benzocaine/Menthol (Cepacol Sore Throat) 1 patt PO Q2 PRN PRN Reason: Sore Throat Last Admin: 06/14/18 04:39 Dose: 1 patt Diphenhydramine HCl (Benadryl) 25 mg IVP Q6 PRN PRN Reason: Itching / Pruritus Enalaprilat (Vasotec) 2.5 mg IV Q12 [facility] Last Admin: 06/15/18 22:17 Dose: Not Given Enoxaparin Sodium (Lovenox) 40 mg SC DAILY [facility]; Protocol Last Admin: 06/18/18 09:33 Dose: 40 mg Hydralazine HCl (Apresoline) 10 mg IV Q6 PRN PRN Reason: Systolic Blood Pressure Lactated Ringer's (Lactated Ringer's) 1,000 mls @ 125 mls/hr IV .Q8H [facility] Last Admin: 06/18/18 01:30 Dose: 125 mls/hr Meropenem 1 gm/ Sodium (Chloride) 100 mls @ 100 mls/hr IVPB Q8 [facility]; Protocol Last Admin: 06/18/18 00:31 Dose: 100 mls/hr Potassium Phosphate 30 mmole/ (Sodium Chloride) 260 mls @ 65 mls/hr IV ONCE ONE Stop: 06/18/18 13:24 Morphine Sulfate (Morphine) 2 mg IVP Q6 PRN PRN Reason: Pain, moderate (4-7) Last Admin: 06/18/18 04:08 Dose: 2 mg Naloxone HCl (Narcan) 0.1 mg IVP Q2M PRN PRN Reason: Excess sedation Ondansetron HCl (Zofran Inj) 4 mg IVP Q8 PRN PRN Reason: Nausea/Vomiting Last Admin: 06/18/18 00:38 Dose: 4 mg Pantoprazole Sodium (Protonix Inj) 40 mg IVP DAILY [facility] Last Admin: 06/18/18 09:33 Dose: 40 mg Phenol/Menthol (Phenaseptic 1.4% Throat [place]) 1 spry MT Q2 PRN PRN Reason: Sore Throat - Labs Labs: 06/18/18 05:25 06/18/18 05:25 PT 13.5 Seconds (9.8-13.1) H 06/13/18 05:20 INR 1.2 06/13/18 05:20 APTT 33.6 Seconds (25.6-37.1) 06/13/18 05:20
--- NOTE | 2018-06-18 11:15 | CP.PCM.PN ---
<Kelsey Kay - Last Filed: 06/18/18 11:11> Subjective - Date & Time of Evaluation Date of Evaluation: 06/18/18 Time of Evaluation: 11:11 - Subjective Subjective: Patient seen and examined this morning at bedside. Patient reports no flatus and increased abdominal distension and discomfort. Patient reporting gas, denies bowel movement. Patient states he has been having hiccups. NGT remains in place and drained 400cc overnight. Patient denies headaches, chest pain, or dyspnea Objective - Vital Signs/Intake and Output Vital Signs (last 24 hours): Temp Pulse Resp BP Pulse Ox 98.4 F 80 18 148/77 95 06/18/18 08:15 06/18/18 08:15 06/18/18 08:15 06/18/18 08:15 06/18/18 08:15 Intake and Output: 06/18/18 06/18/18 06:59 18:59 Intake Total 1875 Output Total 2150 Balance -275 - Medications Medications: Current Medications Acetaminophen (Tylenol 325mg Tab) 650 mg PO Q4 PRN PRN Reason: Fever >100.4 F Last Admin: 06/13/18 21:38 Dose: 650 mg Acetaminophen (Tylenol 650 Mg Supp) 650 mg [place] ONCE PRN PRN Reason: Fever >100.4 F Benzocaine/Menthol (Cepacol Sore Throat) 1 patt PO Q2 PRN PRN Reason: Sore Throat Last Admin: 06/14/18 04:39 Dose: 1 patt Diphenhydramine HCl (Benadryl) 25 mg IVP Q6 PRN PRN Reason: Itching / Pruritus Enalaprilat (Vasotec) 2.5 mg IV Q12 [facility] Last Admin: 06/15/18 22:17 Dose: Not Given Enoxaparin Sodium (Lovenox) 40 mg SC DAILY [facility]; Protocol Last Admin: 06/18/18 09:33 Dose: 40 mg Hydralazine HCl (Apresoline) 10 mg IV Q6 PRN PRN Reason: Systolic Blood Pressure Lactated Ringer's (Lactated Ringer's) 1,000 mls @ 125 mls/hr IV .Q8H [facility] Last Admin: 06/18/18 01:30 Dose: 125 mls/hr Meropenem 1 gm/ Sodium (Chloride) 100 mls @ 100 mls/hr IVPB Q8 [facility]; Protocol Last Admin: 06/18/18 00:31 Dose: 100 mls/hr Potassium Phosphate 30 mmole/ (Sodium Chloride) 260 mls @ 65 mls/hr IV ONCE ONE Stop: 06/18/18 13:24 Morphine Sulfate (Morphine) 2 mg IVP Q6 PRN PRN Reason: Pain, moderate (4-7) Last Admin: 06/18/18 04:08 Dose: 2 mg Naloxone HCl (Narcan) 0.1 mg IVP Q2M PRN PRN Reason: Excess sedation Ondansetron HCl (Zofran Inj) 4 mg IVP Q8 PRN PRN Reason: Nausea/Vomiting Last Admin: 06/18/18 00:38 Dose: 4 mg Pantoprazole Sodium (Protonix Inj) 40 mg IVP DAILY [facility] Last Admin: 06/18/18 09:33 Dose: 40 mg Phenol/Menthol (Phenaseptic 1.4% Throat [place]) 1 spry MT Q2 PRN PRN Reason: Sore Throat - Labs Labs: 06/18/18 05:25 06/18/18 05:25 PT 13.5 Seconds (9.8-13.1) H 06/13/18 05:20 INR 1.2 06/13/18 05:20 APTT 33.6 Seconds (25.6-37.1) 06/13/18 05:20 - Constitutional Appears: Well, Non-toxic, No Acute Distress - Head Exam Head Exam: ATRAUMATIC, NORMOCEPHALIC - Eye Exam Eye Exam: Normal appearance Pupil Exam: NORMAL ACCOMODATION - ENT Exam ENT Exam: Mucous Membranes Moist Additional comments: NG tube intact- 400 cc output - Respiratory Exam Respiratory Exam: Clear to Ausculation Bilateral, NORMAL BREATHING PATTERN - Cardiovascular Exam Cardiovascular Exam: REGULAR RHYTHM, +S1, +S2 - GI/Abdominal Exam GI & Abdominal Exam: Hypoactive Bowel Sounds - Neurological Exam Neurological Exam: Alert, Awake, Oriented x3 - Psychiatric Exam Psychiatric exam: Normal Affect Assessment and Plan - Assessment and Plan (Free Text) Assessment: 58 y/o man w/ PMH of gastric and colon cancer and S/P partial gastrectomy (gastro-jejunal) w/ brian-en-y reconstruction admitted for evaluation and managem ent of partial SB. S/p ex-lap with lysis of adhesions, small bowel resection and primary anastamosis POD#3 Plan: Partial SBO - afebrile - Hx of colon resection - XR abdomen 06/14/2018: residual but dilute oral contrast material is present within distended proximal small bowel consistent w/ small bowel obstruction - f/u small bowel series - XR abdomen 06/12/2018:progressive small bowel obstruction - CT Abdomen 06/10/2018: evidence of evolving mechanical small intestinal obstruction, s/p resection of lower-mid ascending colon, gastritis - maintain NPO - IVF: LR @ 125 mL/hr - General surgery consult, Dr. Armas, recommendations appreciated-s/p ex-lap with lysis of adhesions, small bowel resection and primary anastamosis POD#3. Continue NPO small sips of ice to wet mouth, gum and candy for bowel movement - NG tube intact and in place, monitor output-400 cc this morning - zofran 4 mg Iv Q4h prn for nausea - protonix 40 mg IV daily - monitor for acute changes - Incentive spirometer - love catheter d/c Pain management - morphine 2 mg IV Q4h prn for mild - morphine 4 mg IV Q4h prn for moderate - morphine 6 mg IV Q4h prn for severe Hypertension - Vasotec 2.5 mg IV Q12h - hydralazine 10 mg Iv Q6h prn DVT Prophylaxis - lovenox 40 mg SC QD <Kareen Jaramillo - Last Filed: 06/18/18 13:14> Objective - Vital Signs/Intake and Output Vital Signs (last 24 hours): Temp Pulse Resp BP Pulse Ox 99.2 F 78 18 155/75 H 96 06/18/18 12:01 06/18/18 12:01 06/18/18 12:01 06/18/18 12:01 06/18/18 12:01 Intake and Output: 06/18/18 06/18/18 06:59 18:59 Intake Total 1875 Output Total 2150 Balance -275 - Medications Medications: Current Medications Acetaminophen (Tylenol 325mg Tab) 650 mg PO Q4 PRN PRN Reason: Fever >100.4 F Last Admin: 06/13/18 21:38 Dose: 650 mg Acetaminophen (Tylenol 650 Mg Supp) 650 mg [place] ONCE PRN PRN Reason: Fever >100.4 F Benzocaine/Menthol (Cepacol Sore Throat) 1 patt PO Q2 PRN PRN Reason: Sore Throat Last Admin: 06/14/18 04:39 Dose: 1 patt Diphenhydramine HCl (Benadryl) 25 mg IVP Q6 PRN PRN Reason: Itching / Pruritus Enalaprilat (Vasotec) 2.5 mg IV Q12 [facility] Last Admin: 06/15/18 22:17 Dose: Not Given Enoxaparin Sodium (Lovenox) 40 mg SC DAILY [facility]; Protocol Last Admin: 06/18/18 09:33 Dose: 40 mg Hydralazine HCl (Apresoline) 10 mg IV Q6 PRN PRN Reason: Systolic Blood Pressure Lactated Ringer's (Lactated Ringer's) 1,000 mls @ 125 mls/hr IV .Q8H [facility] Last Admin: 06/18/18 01:30 Dose: 125 mls/hr Meropenem 1 gm/ Sodium (Chloride) 100 mls @ 100 mls/hr IVPB Q8 [facility]; Protocol Last Admin: 06/18/18 12:11 Dose: 100 mls/hr Potassium Phosphate 30 mmole/ (Sodium Chloride) 260 mls @ 65 mls/hr IV ONCE ONE Stop: 06/18/18 13:24 Last Admin: 06/18/18 12:11 Dose: 65 mls/hr Morphine Sulfate (Morphine) 2 mg IVP Q6 PRN PRN Reason: Pain, moderate (4-7) Last Admin: 06/18/18 12:11 Dose: 2 mg Naloxone HCl (Narcan) 0.1 mg IVP Q2M PRN PRN Reason: Excess sedation Ondansetron HCl (Zofran Inj) 4 mg IVP Q8 PRN PRN Reason: Nausea/Vomiting Last Admin: 06/18/18 00:38 Dose: 4 mg Pantoprazole Sodium (Protonix Inj) 40 mg IVP DAILY [facility] Last Admin: 06/18/18 09:33 Dose: 40 mg Phenol/Menthol (Phenaseptic 1.4% Throat [place]) 1 spry MT Q2 PRN PRN Reason: Sore Throat - Labs Labs: 06/18/18 05:25 06/18/18 05:25 PT 13.5 Seconds (9.8-13.1) H 03/22/19 05:20 INR 1.2 06/13/18 05:20 APTT 33.6 Seconds (25.6-37.1) 06/13/18 05:20 Attending/Attestation - Attestation I have personally seen and examined this patient.: Yes I have fully participated in the care of the patient.: Yes I have reviewed all pertinent clinical information, including history, physical exam and plan: Yes Notes (Text): Diagnoses: 1. SBO sec to Adhesions s/p Adhesiolysis and Bowel Resection 2. Sinus Tachycardia 3. Sepsis due to SBO with Enterobacter bacteremia 4. Hypophosphatemia - HR controlled -1250ml drainage from the NGT 24 hrs -keep NPO - cont IV Meropenem - ID and Surgery following pt - rpt Blood c/s -replete KPhos 30mmol IV
--- NOTE | 2018-06-18 11:26 | CP.PCM.PN ---
Subjective - Date & Time of Evaluation Date of Evaluation: 06/18/18 Time of Evaluation: 08:00 - Subjective Subjective: alert awake NGT in place Objective - Vital Signs/Intake and Output Vital Signs (last 24 hours): Temp Pulse Resp BP Pulse Ox 98.4 F 80 18 148/77 95 06/18/18 08:15 06/18/18 08:15 06/18/18 08:15 06/18/18 08:15 06/18/18 08:15 Intake and Output: 06/18/18 06/18/18 06:59 18:59 Intake Total 1875 Output Total 2150 Balance -275 - Medications Medications: Current Medications Acetaminophen (Tylenol 325mg Tab) 650 mg PO Q4 PRN PRN Reason: Fever >100.4 F Last Admin: 06/13/18 21:38 Dose: 650 mg Acetaminophen (Tylenol 650 Mg Supp) 650 mg DE ONCE PRN PRN Reason: Fever >100.4 F Benzocaine/Menthol (Cepacol Sore Throat) 1 patt PO Q2 PRN PRN Reason: Sore Throat Last Admin: 06/14/18 04:39 Dose: 1 patt Diphenhydramine HCl (Benadryl) 25 mg IVP Q6 PRN PRN Reason: Itching / Pruritus Enalaprilat (Vasotec) 2.5 mg IV Q12 [facility] Last Admin: 06/15/18 22:17 Dose: Not Given Enoxaparin Sodium (Lovenox) 40 mg SC DAILY [facility]; Protocol Last Admin: 06/18/18 09:33 Dose: 40 mg Hydralazine HCl (Apresoline) 10 mg IV Q6 PRN PRN Reason: Systolic Blood Pressure Lactated Ringer's (Lactated Ringer's) 1,000 mls @ 125 mls/hr IV .Q8H [facility] Last Admin: 06/18/18 01:30 Dose: 125 mls/hr Meropenem 1 gm/ Sodium (Chloride) 100 mls @ 100 mls/hr IVPB Q8 [facility]; Protocol Last Admin: 06/18/18 00:31 Dose: 100 mls/hr Potassium Phosphate 30 mmole/ (Sodium Chloride) 260 mls @ 65 mls/hr IV ONCE ONE Stop: 06/18/18 13:24 Morphine Sulfate (Morphine) 2 mg IVP Q6 PRN PRN Reason: Pain, moderate (4-7) Last Admin: 06/18/18 04:08 Dose: 2 mg Naloxone HCl (Narcan) 0.1 mg IVP Q2M PRN PRN Reason: Excess sedation Ondansetron HCl (Zofran Inj) 4 mg IVP Q8 PRN PRN Reason: Nausea/Vomiting Last Admin: 06/18/18 00:38 Dose: 4 mg Pantoprazole Sodium (Protonix Inj) 40 mg IVP DAILY [facility] Last Admin: 06/18/18 09:33 Dose: 40 mg Phenol/Menthol (Phenaseptic 1.4% Throat [place]) 1 spry MT Q2 PRN PRN Reason: Sore Throat - Labs Labs: 06/18/18 05:25 06/18/18 05:25 PT 13.5 Seconds (9.8-13.1) H 06/13/18 05:20 INR 1.2 06/13/18 05:20 APTT 33.6 Seconds (25.6-37.1) 06/13/18 05:20 - Constitutional Appears: No Acute Distress - Head Exam Head Exam: ATRAUMATIC, NORMAL INSPECTION, NORMOCEPHALIC - Eye Exam Eye Exam: EOMI, Normal appearance, PERRL Pupil Exam: NORMAL ACCOMODATION, PERRL - ENT Exam ENT Exam: Mucous Membranes Moist, Normal Exam - Neck Exam Neck Exam: Full ROM, Normal Inspection. absent: Lymphadenopathy - Respiratory Exam Respiratory Exam: Clear to Ausculation Bilateral, NORMAL BREATHING PATTERN - Cardiovascular Exam Cardiovascular Exam: REGULAR RHYTHM, +S1, +S2. absent: Murmur - GI/Abdominal Exam GI & Abdominal Exam: Distended, Soft, Tenderness, Diminished Bowel Sounds - Rectal Exam Rectal Exam: Deferred - Exam Exam: NORMAL INSPECTION - Extremities Exam Extremities Exam: Full ROM, Normal Capillary Refill, Normal Inspection. absent: Joint Swelling, Pedal Edema - Back Exam Back Exam: NORMAL INSPECTION - Neurological Exam Neurological Exam: Alert, Awake, CN II-XII Intact, Normal Gait, Oriented x3 - Psychiatric Exam Psychiatric exam: Normal Affect, Normal Mood - Skin Skin Exam: Dry, Intact, Normal Color, Warm Assessment and Plan (1) Small bowel obstruction Status: Acute - Assessment and Plan (Free Text) Assessment: await path report Bacteremia- cont IV antiibiotics
[2018-06-19] MEDS: Meropenem 1 GM in Sodium Chloride 0.9% 100 ML IVPB SCH ×4 (01:11→17:26)
[2018-06-19] MEDS: Lactated Ringer's 1,000 ML IV SCH (01:12)
[2018-06-19 05:42] LABS: HEMOGLOBIN 12.2 g/dL (12.0-18.0); MEAN CELL VOLUME 92.5 fl (80.0-94.0); MEAN CORPUSCULAR HEMOGLOBIN 32.4 pg (27.0-31.0); MEAN CORPUSCULAR HGB CONC 35.1 g/dL (33.0-37.0); MEAN PLATELET VOLUME 8.8 fl (7.2-11.7); PLATELET COUNT 269 K/uL (130-400); RBC 3.78 Mil/uL (4.40-5.90); RED CELL DISTRIBUTION WIDTH 16.3 % (11.5-14.5); WHITE BLOOD COUNT 9.3 K/uL (4.8-10.8)
[2018-06-19 05:43] LABS: BASO % 0.2 % (0.0-2.0); EOS % 0.5 % (0.0-4.0); LYMPH # 0.7 K/uL (1.0-4.3); LYMPH % 7.2 % (20.0-40.0); MONO # 0.4 K/uL (0.0-0.8); MONO % 4.7 % (0.0-10.0); NEUT # 8.1 K/uL (1.8-7.0); NEUT % 87.4 % (50.0-75.0); NRBC % 0.1 % (0.0-0.0)
[2018-06-19 05:48] LABS: ALBUMIN 3.1 g/dL (3.5-5.0); ALT/SGPT 51 U/L (21-72); AST/SGOT 81 U/L (17-59); BLOOD UREA NITROGEN 20 mg/dl (9-20); GFR NON-AFRICAN AMERICAN > 60
[2018-06-19 06:18] LABS: LYMPHOCYTE 7 % (20-50); MONOCYTE 6 % (0-10); NEUTROPHIL 87 % (42-75); PLATELET ESTIMATE NORMAL (NORMAL); TOTAL CELLS COUNTED 100
[2018-06-19] MEDS ORDERED: Sodium Chloride 0.9% 50 ML IV ONE (08:45)
[2018-06-19] MEDS ORDERED: Iodixanol 320 MG/ML 100 ML BOTTLE IV ONE (08:45)
--- NOTE | 2018-06-19 09:23 | CT ---
Date of service: 06/19/2018 PROCEDURE: CT HEAD WITHOUT CONTRAST. HISTORY: [employer] COMPARISON: Noncontrast Head CT 04/07/2015. TECHNIQUE: Axial computed tomography images were obtained through the head/brain without intravenous contrast. Radiation dose: Total exam DLP = 852.98 mGy-cm. This CT exam was performed using one or more of the following dose reduction techniques: Automated exposure control, adjustment of the mA and/or kV according to patient size, and/or use of iterative reconstruction technique. FINDINGS: HEMORRHAGE: No intracranial hemorrhage. BRAIN: Good corticomedullary differentiation is seen. Proportional, diffuse expansion of the ventriculosulcal and cisternal spaces is appreciated with white matter lucency compatible with diffuse cerebral atrophy and chronic microangiopathy. No suspicious extra-axial fluid collection is identified and the midline brain anatomy appears grossly nonfocal as imaged. Bifrontal chronic infarcts reiterated once again, right greater than left. There is no mass effect throughout. VENTRICLES: Unremarkable. No hydrocephalus. CALVARIUM: Unremarkable. PARANASAL SINUSES: Unremarkable as visualized. No significant inflammatory changes. MASTOID AIR CELLS: Unremarkable as visualized. No inflammatory changes. OTHER FINDINGS: None. IMPRESSION: Stable noncontrast CT of the Head. 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
--- NOTE | 2018-06-19 09:24 | PCM.TLSTRK ---
TeleStroke Consultation - Consultation This telehealth visit and patient is being seen on: 06/19/18 Telehealth services using bi-directional audio/video at [employer] [facility]: [facility] - History of Present Illness Chief/Complaint/History of Present of Illness: The patient is a 58-year-old man, who underwent ex-lap on Saturday for SBO and is in the ICU for post-op care and management of complications. He was last able to speak normally last night at around 11 PM according to his fiance. This morning, when she saw him at 6 AM, he was not speaking and not conversant. He was noted at around 8 AM to have generalized weakness as well. Non-contrast CT scan of the head was done and showed a chronic right frontal lobe infarct and a subacute to chronic left frontal lobe infarct as well. He was not a candidate for IV tPA since he was outside the 4.5 hour time window. Last known well date: 06/18/18 Last known well time: 23:00 TeleStroke Patient History - Past Family History Pertinent Family History: Problem Relation Age of Onset - Past Social History Smoking Status: Light Smoker < 10 Cigarettes Daily - CARDIAC Hx Hypercholesterolemia: Yes - PULMONARY Hx Respiratory Disorders: No - NEUROLOGICAL Hx Neurological Disorder: No - HEENT Hx HEENT Problems: No - RENAL Hx Chronic Kidney Disease: No - ENDOCRINE/METABOLIC Hx Endocrine Disorders: No - HEMATOLOGICAL/ONCOLOGICAL Hx Cancer: Yes (Colon cancer) - INTEGUMENTARY Hx Dermatological Problems: No - MUSCULOSKELETAL/RHEUMATOLOGICAL Hx Falls: No - GASTROINTESTINAL Hx Gastrointestinal Disorders: Yes Other/Comment: "TOOK PART OF MY STOMACH". Colon cancer - GENITOURINARY/GYNECOLOGICAL Hx Genitourinary Disorders: No - PSYCHIATRIC Hx Depression: No - SURGICAL HISTORY Hx Appendectomy: Yes (about 25 years ago) - ANESTHESIA Hx Anesthesia: Yes Hx Anesthesia Reactions: No Hx Malignant Hyperthermia: No Meds Allergies/Adverse Reactions: Allergies Allergy/AdvReac Type Severity Reaction Status Date / Time No Known Allergies Allergy Verified 06/10/18 21:00 - Medications Medications: Current Medications Acetaminophen (Tylenol 325mg Tab) 650 mg PO Q4 PRN PRN Reason: Fever >100.4 F Last Admin: 06/13/18 21:38 Dose: 650 mg Acetaminophen (Tylenol 650 Mg Supp) 650 mg [place] ONCE PRN PRN Reason: Fever >100.4 F Benzocaine/Menthol (Cepacol Sore Throat) 1 patt PO Q2 PRN PRN Reason: Sore Throat Last Admin: 06/14/18 04:39 Dose: 1 patt Diphenhydramine HCl (Benadryl) 25 mg IVP Q6 PRN PRN Reason: Itching / Pruritus Enalaprilat (Vasotec) 2.5 mg IV Q12 [facility] Last Admin: 06/15/18 22:17 Dose: Not Given Enoxaparin Sodium (Lovenox) 40 mg SC DAILY [facility]; Protocol Last Admin: 06/18/18 09:33 Dose: 40 mg Hydralazine HCl (Apresoline) 10 mg IV Q6 PRN PRN Reason: Systolic Blood Pressure Lactated Ringer's (Lactated Ringer's) 1,000 mls @ 125 mls/hr IV .Q8H [facility] Last Admin: 06/19/18 01:12 Dose: 125 mls/hr Meropenem 1 gm/ Sodium (Chloride) 100 mls @ 100 mls/hr IVPB Q8 [facility]; Protocol Last Admin: 06/19/18 01:11 Dose: 100 mls/hr Morphine Sulfate (Morphine) 2 mg IVP Q6 PRN PRN Reason: Pain, moderate (4-7) Last Admin: 06/18/18 21:47 Dose: 2 mg Naloxone HCl (Narcan) 0.1 mg IVP Q2M PRN PRN Reason: Excess sedation Ondansetron HCl (Zofran Inj) 4 mg IVP Q8 PRN PRN Reason: Nausea/Vomiting Last Admin: 06/18/18 21:42 Dose: 4 mg Pantoprazole Sodium (Protonix Inj) 40 mg IVP DAILY [facility] Last Admin: 06/18/18 09:33 Dose: 40 mg Phenol/Menthol (Phenaseptic 1.4% Throat [place]) 1 spry MT Q2 PRN PRN Reason: Sore Throat Review of Systems - Review of Systems Systems not reviewed;Unavailable: Altered Mental Status NIHSS Stroke Scale - Date/Time Evaluation Performed Date Performed: 06/19/18 Time Performed: 09:00 When Was NIHSS Performed: Code Stroke - How Severe is the Stroke Level of Consciousness: 1=Drowsy LOC to Questions: 2=Neither correct LOC to commands: 2=Neither correct Best Gaze: 0=Normal Visual: 0=No visual loss Facial: 1=Minor asymmetry Motor Arm - Left: 3=No effort against gravity (falls immediately) Motor Arm - Right: 3=No effort against gravity (falls immediately) Motor Leg - Left: 3=No effort against gravity (falls immediately) Motor Leg - Right: 4=No movement Limb Ataxia: 0=Absent Sensory: 1=Mild to moderate loss Best Language: 3=Mute Dysarthia: 2=Severe, near unintelligible or worse Extinction & Inattention (Neglect): 0=Normal, no object Score: 25 TeleStroke Exam - General Medical Examination Vital Signs (last 24 hours): Vital Signs - 24 hr 06/18/18 06/18/18 06/18/18 12:01 16:33 19:46 Temperature 99.2 F 98.7 F 98.4 F Pulse Rate 78 75 80 Respiratory 18 18 18 Rate Blood Pressure 155/75 H 150/78 157/81 H O2 Sat by Pulse 96 99 98 Oximetry 06/19/18 06/19/18 06/19/18 00:15 04:51 08:00 Temperature 98.4 F 99.2 F 98.9 F Pulse Rate 68 87 80 Respiratory 16 16 13 Rate Blood Pressure 161/80 H 148/80 O2 Sat by Pulse 98 97 99 Oximetry Weight in kilograms: 58.676904 TeleStroke Plan - Review Patient's current medication list, allergies and medical problems were verified by the following method: Facility medical record I have reviewed all pertinent labs: Yes - Impression Impression: Likely a left MCA ischemic stroke, or could have complex seizure due to prior stroke and current medical condition. Toxic-metabolic encephalopathy is also possible. - IV-tPA Administration Patient is a candidate for thrombolytic therapy: No If not a candidate for thrombolytic,contraindication include: Outside the 4.5 hour time window tPA total dose in mg (MAX: 90 mg): [id number] Initiate post-TPA pathway: No Plan: 1. STAT CTA of the head/neck to evaluate for LVO 2. Q 1 hour neuro-check in ICU 3. NS at 100 mL/hr 4. Permissive HTN, treat BP higher than 220/110 mm Hg, keep HOB at 30 degrees 5. EEG for one hour 6. MRI brain without contrast 7. Load with Plavix 300 mg once, and Aspirin 81 mg. Continue dual antiplatelet threrapy with Plavix 75 mg daily and aspirin 81 mg daily for 21 days, then continue only Plavix 75 mg daily 8. PT/OT eval and treatment 9. Lipitor 40 mg 10. Check HbA1c, lipid panel, B12, folate, TSH, vitamin D level 11. Case management consult Thank you for this consultation. TeleStroke Disposition - Call Call Start Date: 06/19/18 Phone Call Start Time: 08:30 Call End Date: 06/19/18 Phone Call Stop Time: 08:40 - Video Video Start Date: 06/19/18 Video Start Time: 09:00 Video End Date: 06/19/18 Video Stop Time: 09:10 - Evaluation Total Evaluation Time Spent (minutes): 20
--- NOTE | 2018-06-19 09:43 | CP.CCUPN ---
CCU Subjective - Physician Review Subjective (Free Text): Transfer to ICU post INTERCHANGE AGENT eval for acute unresponsiveness. s/o SBO with Ex Lap and CHUCK and SBR, POD 4 today. Had self-removed NGT overnight, no other distress nor new symptoms / complaints reported by nursing beyond mild post-op pain. Mild periods of hypertension noted, with SBP into the 160s, less tachycardia noted. Now, eyes intermittently open, but not interactive, nonverbal, with flaccid extremities and no response nor abnormal posturing to deep pain stimuli. Irregular respirations noted and ABG during INTERCHANGE AGENT did not reveal any significant hypercarbia. ROS: No other pertinent negs or positive on 10+ system review obtainable due to lethargic status Other PMSFH: All other Nursing and physician documentation reviewed to date; no new pertinent info noted relevant to current medical problems. EXAM- HEENT: no icterus, pupils equal, 3 mm and reactive, no nystagmus, +disconjugate, divergent upward gaze noted. Absent gag. NECK: no visible JVD, supple, carotids equal upstroke bilat/no bruits CHEST: decreased BS bases, no wheezes audible HEART: regular, distant, tachy S1S2, no murmur audible, no rubs. ABD: soft, no distention, no focal tenderness, abdominal wound intact and dry, BS not audible. EXT: no edema, no mottling, warm, no cyanosis, no calf tenderness or palpable cords, distal pulses intact and symmetrical NEURO: no tone, flaccid x 4 SKIN: no rashes LABS: WBC= 9.3 HGB= 12.2 PLTs = 269K Na= 146 K= 4.2 Cl= 107 HCO3= 29 BUN/Cr= 20/0.9 BS= 80 Lactate = 0.9 CXR: (my interp)- clear bilat IMPRESSION / MAJOR PROBLEMS NOW: 1. Coma, r/o Acute CVA, Non-convulsive Seizure event with post-ictal state 2. s/p ExLap for SBO 3. Accelerated HTN 4. h/o Gastric CA PLAN: 1. STAT CT Brain, Neurochecks, Seizure precautions, HOB elevation, watch for need for airway protection, NPO, consider EEG. 2. Watch BP response, pending CT brain findings, prn Labetalol if sustained MAP level exceeds 110. 3. Replace NGT. 4. IVF hydration with NSS for now. 5. No Advance Directives noted, full support for now.
[2018-06-19] MEDS ORDERED: Chlorhexidine Gluconate 1 APPL/PKT TP ONE ×2 (09:58→14:08)
--- NOTE | 2018-06-19 10:09 | CT ---
Date of service: 06/19/2018 PROCEDURE: CT Angiography of the Brain and Neck. HISTORY: ams, r/o bleed vs thrombosis COMPARISON: None available. TECHNIQUE: CT angiography of the head and neck was performed following intravenous contrast administration. Coronal and sagittal maximum intensity projection reformatted images were generated. Contrast Dose: Visipaque 320, 99 cc Radiation dose: Total exam DLP = 505.68 mGy-cm. This CT exam was performed using one or more of the following dose reduction techniques: Automated exposure control, adjustment of the mA and/or kV according to patient size, and/or use of iterative reconstruction technique. FINDINGS: INTERNAL CEREBRAL ARTERIES: Note is made of partially calcified atherosclerosis of the bilateral cavernous internal carotid artery segments without significant stenosis. The skull base, petrous, and supraclinoid segments are bilaterally widely patent. ANTERIOR CEREBRAL ARTERIES: Unremarkable. A1 and A2 segments are widely patent. Smaller distal branches unremarkable, as visualized. MIDDLE CEREBRAL ARTERIES: Unremarkable. M1 and M2 segments are widely patent. Perisylvian branches grossly symmetric. POSTERIOR CIRCULATION: Basilar Artery: Unremarkable. 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 Distal Vertebral Arteries: There is co-dominance of the vertebrobasilar system. Posterior Cerebral Arteries: Unremarkable. Posterior Inferior Cerebellar Arteries: Unremarkable. NECK CTA: Aortic Arch: Normal three vessel arch identified. Common Carotid arteries: The bilateral common carotid appear widely patent from their origins to their bifurcations with no significant stenosis appreciated. No evidence to suggest common carotid artery dissection. Internal Carotid arteries: No significant stenosis is appreciated throughout the cervical internal carotid artery segments bilaterally and there is no evidence of dissection either. External Carotid arteries: Appear unremarkable bilaterally. Vertebral arteries: The bilateral vertebral arteries appear normal in caliber from their origins to their distal cervical segments. No significant stenosis or definite pattern of dissection. ANEURYSM/ VASCULAR MALFORMATIONS: None. OTHER FINDINGS: Trace biapical pleural fibrosis. Gas seen distending the upper esophagus mildly. IMPRESSION: No suspicious findings on CT Angiography of the Brain and Neck. No definite large vessel occlusion appreciable.
--- NOTE | 2018-06-19 10:29 | CP.PCM.PN ---
<Amandeep Quintanilla - Last Filed: 06/19/18 11:29> Subjective - Date & Time of Evaluation Date of Evaluation: 06/19/18 Time of Evaluation: 11:29 - Subjective Subjective: General Surgery Note for Dr. Domínguez/Dr. Reynaga Patient seen and examined at bedside. This morning, patient was found obtunded. Patient was opening eyes but nonverbal and not following commands. GCS was initially 9. WASTEWATER T[employer]ATMENT PLANT ATTENDANT was called. CXR, STAT labs, ABG, and CT head were ordered. As per girlfriend, patient was last normal when she saw him at 11pm. This morning, he was not speaking when she was present in the room at 6 am. Patient was transferred to ICU after WASTEWATER TREATMENT PLANT ATTENDANT. GCS was 10 at this time because patient followed intermittent commands. Neurology was consulted, . He requested CTA head/Neck were done as well. As per neurology, patient appears to have new stroke in left frontal region. ASA and Plavix were ordered. Objective - Vital Signs/Intake and Output Vital Signs (last 24 hours): Temp Pulse Resp BP Pulse Ox 98.9 F 80 13 148/80 99 06/19/18 08:00 06/19/18 08:00 06/19/18 08:00 06/19/18 04:51 06/19/18 08:00 Intake and Output: 06/19/18 06/19/18 06:59 18:59 Intake Total 1350 Output Total 1700 Balance -350 - Medications Medications: Current Medications Acetaminophen (Tylenol 650 Mg Supp) 650 mg [place] ONCE PRN PRN Reason: Fever >100.4 F Aspirin (Aspirin Chewable) 81 mg PO DAILY [facility] Clopidogrel Bisulfate (Plavix) 75 mg PO DAILY [facility] Diphenhydramine HCl (Benadryl) 25 mg IVP Q6 PRN PRN Reason: Itching / Pruritus Enalaprilat (Vasotec) 2.5 mg IV Q12 [facility] Last Admin: 06/15/18 22:17 Dose: Not Given Meropenem 1 gm/ Sodium (Chloride) 100 mls @ 100 mls/hr IVPB Q8 [facility]; Protocol Last Admin: 06/19/18 01:11 Dose: 100 mls/hr Sodium Chloride (Sodium Chloride 0.9%) 1,000 mls @ 100 mls/hr IV .Q10H [facility] Stop: 06/20/18 09:14 Naloxone HCl (Narcan) 0.1 mg IVP Q2M PRN PRN Reason: Excess sedation Pantoprazole Sodium (Protonix Inj) 40 mg IVP DAILY [facility] Last Admin: 06/18/18 09:33 Dose: 40 mg - Labs Labs: 06/19/18 05:17 06/19/18 05:17 PT 13.5 Seconds (9.8-13.1) H 06/13/18 05:20 INR 1.2 06/13/18 05:20 APTT 33.6 Seconds (25.6-37.1) 06/13/18 05:20 - Constitutional Appears: Confused, Other (obtunded, AMS) - Head Exam Head Exam: ATRAUMATIC, NORMOCEPHALIC - Eye Exam Additional comments: miosis, contralateraql gaze, arcus senalis - ENT Exam ENT Exam: Mucous Membranes Dry - Respiratory Exam Respiratory Exam: absent: Accessory Muscle Use, Decreased Breath Sounds, Respiratory Distress - Cardiovascular Exam Cardiovascular Exam: REGULAR RHYTHM - GI/Abdominal Exam GI & Abdominal Exam: Soft. absent: Distended, Firm, Guarding, Rigid, Rebound - Extremities Exam Extremities Exam: Normal Capillary Refill - Neurological Exam Neurological Exam: Altered - Psychiatric Exam Psychiatric exam: Flat Affect - Skin Skin Exam: Dry, Intact, Warm Assessment and Plan - Assessment and Plan (Free Text) Assessment: 58 M s/p ex-lap with CHUCK and small bowel resection POD#4 Plan: -NPO -NGT to wall suction -May give meds and clamp NGT -f/u Neurology recommendations, help appreciated -Strict I's & O's -IVF -HOB 30 degrees -ASA/Plavix daily -Medical management as per ICU -Discussed with Dr. Domínguez/Dr. Ronnell Quintanilla PGY2 <Todd Reynaga - Last Filed: 06/19/18 11:45> Objective - Vital Signs/Intake and Output Vital Signs (last 24 hours): Temp Pulse Resp BP Pulse Ox 98.9 F 80 13 148/80 99 06/19/18 08:00 06/19/18 08:00 06/19/18 08:00 06/19/18 04:51 06/19/18 08:00 Intake and Output: 06/19/18 06/19/18 06:59 18:59 Intake Total 1350 Output Total 1700 Balance -350 - Medications Medications: Current Medications Acetaminophen (Tylenol 650 Mg Supp) 650 mg [place] ONCE PRN PRN Reason: Fever >100.4 F Aspirin (Aspirin Chewable) 81 mg PO DAILY [facility] Clopidogrel Bisulfate (Plavix) 75 mg PO DAILY [facility] Diphenhydramine HCl (Benadryl) 25 mg IVP Q6 PRN PRN Reason: Itching / Pruritus Enalaprilat (Vasotec) 2.5 mg IV Q12 [facility] Last Admin: 06/15/18 22:17 Dose: Not Given Meropenem 1 gm/ Sodium (Chloride) 100 mls @ 100 mls/hr IVPB Q8 [facility]; Protocol Last Admin: 06/19/18 01:11 Dose: 100 mls/hr Sodium Chloride (Sodium Chloride 0.9%) 1,000 mls @ 100 mls/hr IV .Q10H [facility] Stop: 06/20/18 09:14 Naloxone HCl (Narcan) 0.1 mg IVP Q2M PRN PRN Reason: Excess sedation Pantoprazole Sodium (Protonix Inj) 40 mg IVP DAILY [facility] Last Admin: 06/18/18 09:33 Dose: 40 mg - Labs Labs: 06/19/18 05:17 06/19/18 05:17 PT 13.5 Seconds (9.8-13.1) H 06/13/18 05:20 INR 1.2 06/13/18 05:20 APTT 33.6 Seconds (25.6-37.1) 06/13/18 05:20 Assessment and Plan - Assessment and Plan (Free Text) Plan: 58yo M found to have acute change in status, obtunded this morning. Neurology consulted pt found to have new left frontal stroke. Pt seen in ICU unable to obtain any history gen: awake, poorly responsive to painful stimuli HEENT: NC/AT, no acute respiratory distress abd: soft, ND, midline incision c/d/i -NPO -NGT to LWS, may clamp for meds -f/u neuro -cont medical management
--- NOTE | 2018-06-19 11:24 | RAD ---
Date of service: 06/18/2018 HISTORY: SBO, NGT placement COMPARISON: 06/15/2018. TECHNIQUE: 1 view obtained. FINDINGS: BOWEL: Interval improvement with respect to ileus. Removal of support apparatus since the prior study: Nasogastric tube. BONES: Normal. OTHER FINDINGS: Surgical clips anterior abdominal wall a new finding compared to the prior study. IMPRESSION: Improving postoperative status.
--- NOTE | 2018-06-19 11:31 | RAD ---
Date of service: 06/19/2018 HISTORY: MASTER OF CEREMONIES COMPARISON: Frontal chest radiograph 06/14/2018. TECHNIQUE: 1 view obtained. FINDINGS: LUNGS: Limited patchy density seen at both bases which could reflect limited atelectasis though early infiltrates are not excluded bilaterally. Prior nasogastric tube is been removed. PLEURA: No significant pleural effusion identified, no pneumothorax apparent. CARDIOVASCULAR: No aortic atherosclerotic calcification present. Normal cardiac size. No pulmonary vascular congestion. OSSEOUS STRUCTURES: No significant abnormalities. VISUALIZED UPPER ABDOMEN: Normal. OTHER FINDINGS: None. IMPRESSION: Trace bilateral basilar atelectasis or infiltrate developing. Exam otherwise unchanged in the interval with exception of removal of nasogastric tube.
--- NOTE | 2018-06-19 12:14 | RAD ---
Date of service: 06/19/2018 PROCEDURE: CHEST RADIOGRAPH, 1 VIEW HISTORY: s/p ngt COMPARISON: 06/19/2018. FINDINGS: LUNGS: Clear. PLEURA: No pneumothorax or pleural fluid seen. CARDIOVASCULAR: No aortic atherosclerotic calcification present. Normal. OSSEOUS STRUCTURES: No significant abnormalities. VISUALIZED UPPER ABDOMEN: Satisfactory position of recently placed nasogastric tube. OTHER FINDINGS: None. IMPRESSION: No active disease. Recently placed NG tube in satisfactory position.
[2018-06-19] MEDS ORDERED: Potassium & Sodium Phosphate PO SCH (12:15)
--- NOTE | 2018-06-19 12:16 | CP.PCM.PN ---
Subjective - Date & Time of Evaluation Date of Evaluation: 06/19/18 Time of Evaluation: 12:11 - Subjective Subjective: Patient seen and examined this morning at bedside. Early this morning, patient was found unresponsive at 7 and TABLE SETTER was called. As per girlfriend, patient was normal when she saw him last night however when she saw him this morning he was unresponsive. Patient was then transferred to ICU. Weakness of the extremity was noted R>L. Objective - Vital Signs/Intake and Output Vital Signs (last 24 hours): Temp Pulse Resp BP Pulse Ox 98.9 F 80 13 148/80 99 06/19/18 08:00 06/19/18 08:00 06/19/18 08:00 06/19/18 04:51 06/19/18 08:00 Intake and Output: 06/19/18 06/19/18 06:59 18:59 Intake Total 1350 Output Total 1700 Balance -350 - Medications Medications: Current Medications Acetaminophen (Tylenol 650 Mg Supp) 650 mg [place] ONCE PRN PRN Reason: Fever >100.4 F Aspirin (Aspirin Chewable) 81 mg PO DAILY [facility] Clopidogrel Bisulfate (Plavix) 75 mg PO DAILY [facility] Diphenhydramine HCl (Benadryl) 25 mg IVP Q6 PRN PRN Reason: Itching / Pruritus Enalaprilat (Vasotec) 2.5 mg IV Q12 [facility] Last Admin: 06/15/18 22:17 Dose: Not Given Meropenem 1 gm/ Sodium (Chloride) 100 mls @ 100 mls/hr IVPB Q8 [facility]; Protocol Last Admin: 06/19/18 01:11 Dose: 100 mls/hr Sodium Chloride (Sodium Chloride 0.9%) 1,000 mls @ 100 mls/hr IV .Q10H [facility] Stop: 06/20/18 09:14 Naloxone HCl (Narcan) 0.1 mg IVP Q2M PRN PRN Reason: Excess sedation Pantoprazole Sodium (Protonix Inj) 40 mg IVP DAILY [facility] Last Admin: 06/18/18 09:33 Dose: 40 mg Potassium Phos/Sodium Phos (Neutra-Phos) 1 pkt PO BID [facility] Stop: 06/19/18 17:01 - Labs Labs: 06/19/18 05:17 06/19/18 05:17 PT 13.5 Seconds (9.8-13.1) H 06/13/18 05:20 INR 1.2 06/13/18 05:20 APTT 33.6 Seconds (25.6-37.1) 06/13/18 05:20 - Constitutional Appears: Well, In Acute Distress - Head Exam Head Exam: ATRAUMATIC, NORMOCEPHALIC - Eye Exam Eye Exam: Normal appearance Pupil Exam: Miosis - ENT Exam ENT Exam: Mucous Membranes Moist - Respiratory Exam Respiratory Exam: absent: Rhonchi, Wheezes, Respiratory Distress - Cardiovascular Exam Cardiovascular Exam: REGULAR RHYTHM - Extremities Exam Extremities Exam: Normal Capillary Refill - Neurological Exam Neurological Exam: Alert Assessment and Plan - Assessment and Plan (Free Text) Assessment: 58 y/o man w/ PMH of gastric and colon cancer and S/P partial gastrectomy (gastro-jejunal) w/ brian-en-y reconstruction admitted for evaluation and management of partial SB. S/p ex-lap with lysis of adhesions, small bowel resection and primary anastamosis POD#4. Plan: Unresponsiveness due to unclear etiology - CT head/neck ordered - Neuro consult ordered - prolactin levels ordered - Acute respiratory failure: 70% oxygen saturation with seizures - ASA/plavix - Patient transferred to ICU Partial SBO - afebrile - Hx of colon resection - XR abdomen 06/14/2018: residual but dilute oral contrast material is present within distended proximal small bowel consistent w/ small bowel obstruction - f/u small bowel series - XR abdomen 06/12/2018:progressive small bowel obstruction - CT Abdomen 06/10/2018: evidence of evolving mechanical small intestinal obstruction, s/p resection of lower-mid ascending colon, gastritis - maintain NPO - IVF: LR @ 125 mL/hr - General surgery consult, Dr. Armas, recommendations appreciated-s/p ex-lap wi th lysis of adhesions, small bowel resection and primary anastamosis POD#3. Continue NPO small sips of ice to wet mouth, gum and candy for bowel movement - NG tube intact and in place, monitor output-400 cc this morning - zofran 4 mg Iv Q4h prn for nausea - protonix 40 mg IV daily - monitor for acute changes - Incentive spirometer - love catheter d/c Pain management - morphine 2 mg IV Q4h prn for mild - morphine 4 mg IV Q4h prn for moderate - morphine 6 mg IV Q4h prn for severe Hypertension - Vasotec 2.5 mg IV Q12h - hydralazine 10 mg Iv Q6h prn DVT Prophylaxis - lovenox 40 mg SC QD
[2018-06-19] MEDS: Potassium & Sodium Phosphate PO SCH ×2 (12:56→17:28)
[2018-06-19] MEDS: Sodium Chloride 0.9% 1,000 ML IV SCH ×2 (12:58→21:46)
--- NOTE | 2018-06-19 13:23 | PCM.RRT ---
SPEEDBOAT DRIVER Nurse Assessment - Situation SPEEDBOAT DRIVER Responder Arrival Time: 06:50 Location: [address] [place] [address] Room Number: 411 SPEEDBOAT DRIVER Reason for Call: Change in Mental Status SPEEDBOAT DRIVER Called By: RN - IV IV Inserted during SPEEDBOAT DRIVER?: No IV Fluids Initiated During SPEEDBOAT DRIVER?: No - Respiratory Oxygen Delivery Method: Nasal Cannula Received Nebulizer Treatments: No Was the Patient Ventilated with Bag/Mask 100% O2?: No Secretions Suctioned?: No Was the Patient Intubated?: No Was the Patient Placed on a Ventilator?: No - Diagnostic Test Ordered EKG: Yes Chest X-Ray: Yes CT Scan: Yes (CT of the Head) - Stat Labs Ordered SPEEDBOAT DRIVER Stat Labs Ordered: CBC, BMP, TROPONIN, ABG SPEEDBOAT DRIVER Other Labs Ordered: Magnesium, Phosphorus CPR started during SPEEDBOAT DRIVER?: No - Vital Signs Vital Signs: Rapid Response Vital Sign Blood Pressure 151/91 Pulse Rate 62 Respiratory Rate 18 Temperature 99.1 F Oxygen Saturation 99 - Time SPEEDBOAT DRIVER Ended Time SPEEDBOAT DRIVER Ended: 07:32 - Vital Signs at end of SPEEDBOAT DRIVER Vital Signs at end of SPEEDBOAT DRIVER: Rapid Response End Vital Sign Blood Pressure 158/86 Pulse Rate 90 Respiratory Rate 18 Temperature 99.1 F O2 Sat by Pulse Oximetry 99 - Recommendations SPEEDBOAT DRIVER Level of Care Recommendations: Transfer to ICU I.Reason for SPEEDBOAT DRIVER - A) Acute Change in Patient: Subjective: 58 yo man with PMH of Gastric and colon cancer and S/P partial gastrectomy (gastro-Jejunal) with brian-en-y reconstruction admitted for evaluation and management of partial SB. S/p ex-lap with lysis of adhesions, small bowel resection and primary anastamosis POD#4. SPEEDBOAT DRIVER was called today due to patient confused/unresponsive with NG tube pulled out of place with normal vitals. Intervention EKG chest X-ray CT scan head ABG IV fluid Result EKG no ST/T elevation, normal sinus rhythm ABG WNL CT head + for chronic right frontal lobe infarct and subacute to chronic left frontal lobe infarct. tPA is not given due to window hour have passed. Patient was examined, he was able to follow command but was not able to communicate. Patient was transferred to ICU For further treatment and management. - Neurological Status (Select all that apply): Disoriented, Confused. absent: Verbal - Constitutional Appears: No Acute Distress - Head Head Exam: ATRAUMATIC, NORMAL INSPECTION, NORMOCEPHALIC - Eyes Eye Exam: EOMI, Normal appearance, PERRL - Respiratory Exam Respiratory Exam: Clear to Ausculation Bilateral, NORMAL BREATHING PATTERN - Cardiovascular Exam Cardiovascular Exam: REGULAR RHYTHM, +S1, +S2 - GI/Abdominal Exam GI & Abdominal Exam: Soft, Normal Bowel Sounds - Neurological Exam Neurological Exam: Altered - Extremities Exam Extremities Exam: Full ROM, Normal Capillary Refill, Normal Inspection
[2018-06-19] MEDS ORDERED: levETIRAcetam 1,000 MG in Sodium Chloride 0.9% 100 ML IVPB ONE (15:15)
--- NOTE | 2018-06-19 17:21 | CARD ---
APPROVED REPORT Date of service: 06/19/2018 EKG Measurement Heart [id number] <Conclusion> Normal sinus rhythm Normal ECG
--- NOTE | 2018-06-19 18:09 | CARD ---
APPROVED REPORT Date of service: 06/19/2018 EXAM: Two-dimensional and M-mode echocardiogram with Doppler and color Doppler. Other Information Quality : GoodRhythm : NSR INDICATION Abnormal EKG/Arrhythmia Hypertension/HCVD 2D DIMENSIONS IVSd1.06 (0.7-1.1cm)LVDd4.34 (3.9-5.9cm) LVOT Diameter2.22 (1.8-2.4cm)PWd0.98 (0.7-1.1cm) IVSs1.21 (0.8-1.2cm)LVDs3.03 (2.5-4.0cm) FS (%) 30.2 %PWs1.30 (0.8-1.2cm) M-Mode DIMENSIONS Left Atrium (MM)2.70 (2.5-4.0cm)IVSd0.84 (0.7-1.1cm) Aortic Root3.06 (2.2-3.7cm)LVDd5.57 (4.0-5.6cm) Aortic Cusp Exc.2.01 (1.5-2.0cm)PWd0.93 (0.7-1.1cm) IVSs1.19 cmFS (%) 23 % LVDs4.28 (2.0-3.8cm)PWs1.00 cm Aortic Valve AoV Peak Fjvcashn62.7cm/sAoV VTI18.4cmAO Peak GR.3mmHg LVOT Peak Jtalkzyf93.2cm/sLVOT VTI12.97cmAO Mean GR.2mmHg EL (VMAX)1.38ew4GKF (VTI)1.68cm2 Mitral Valve MV E Pvdhqnhy35.7cm/sMV DECEL [id number] A Crlcqupl44.8cm/s MV QSN79ilT/A ratio0.5MVA (PHT)6.10cm2 TDI Lateral E' Peak V12.83cm/sMedial E' Peak V8.07cm/sE/Lateral E'2.9 E/Medial E'4.5 LEFT VENTRICLE The left ventricle is normal size. There is normal left ventricular wall thickness. The left ventricular systolic function is normal. The estimated ejection fraction is 50-55% No regional wall motion abnormalities noted.. Transmitral Doppler flow pattern is Grade I-abnormal relaxation pattern. No left ventricle thrombus noted on this study. There is no ventricular septal defect visualized. There is no left ventricular aneurysm. There is no mass noted in the left ventricle. RIGHT VENTRICLE The right ventricle is normal size. There is normal right ventricular wall thickness. The right ventricular systolic function is normal. ATRIA The left atrium size is normal. The right atrium size is normal. The interatrial septum is intact with no evidence for an atrial septal defect. AORTIC VALVE The aortic valve is normal in structure. No aortic regurgitation is present. There is no aortic valvular stenosis. There is no aortic valvular vegetation. MITRAL VALVE The mitral valve is normal in structure. There is no evidence of mitral valve prolapse. There is no mitral valve stenosis. There is no mitral valve regurgitation noted. TRICUSPID VALVE The tricuspid valve is normal in structure. There is no tricuspid valve regurgitation noted. There is no tricuspid valve prolapse or vegetation. There is no tricuspid valve stenosis. PULMONIC VALVE The pulmonary valve is normal in structure. There is no pulmonic valvular regurgitation. There is no pulmonic valvular stenosis. GREAT VESSELS The aortic root is normal in size. The ascending aorta is normal in size. The pulmonary artery is normal. The IVC is normal in size and collapses >50% with inspiration. PERICARDIAL EFFUSION There is no pericardial effusion. There is no pleural effusion. <Conclusion> The estimated ejection fraction is 50-55% Transmitral Doppler flow pattern is Grade I-abnormal relaxation pattern. The left atrium size is normal. There is no tricuspid valve regurgitation noted.
[2018-06-19] MEDS ORDERED: Dextrose 5%/0.45% NS 1,000 ML IV SCH (20:30)
[2018-06-20] MEDS: Meropenem 1 GM in Sodium Chloride 0.9% 100 ML IVPB SCH ×4 (01:30→17:18)
[2018-06-20] MEDS: levETIRAcetam 500 MG in Sodium Chloride 0.9% 100 ML IVPB SCH ×2 (03:45→17:17)
[2018-06-20 05:57] LABS: HEMOGLOBIN 12.4 g/dL (12.0-18.0); MEAN CELL VOLUME 92.9 fl (80.0-94.0); MEAN CORPUSCULAR HEMOGLOBIN 32.3 pg (27.0-31.0); MEAN CORPUSCULAR HGB CONC 34.8 g/dL (33.0-37.0); RBC 3.82 Mil/uL (4.40-5.90); RED CELL DISTRIBUTION WIDTH 16.2 % (11.5-14.5); WHITE BLOOD COUNT 8.5 K/uL (4.8-10.8)
[2018-06-20 06:12] LABS: LDL CHOLESTEROL 82 mg/dL (0-129)
[2018-06-20 06:55] LABS: ALB/GLOB RATIO 0.9 (1.0-2.1); ALT/SGPT 49 U/L (21-72); AST/SGOT 81 U/L (17-59); BLOOD UREA NITROGEN 22 mg/dl (9-20); CALCIUM 8.7 mg/dL (8.4-10.2); GFR NON-AFRICAN AMERICAN > 60; HDL CHOLESTEROL 15 MG/DL (30-70)
[2018-06-20] MEDS ORDERED: Lactated Ringer's 1,000 ML IV SCH (08:00)
[2018-06-20] MEDS ORDERED: Sodium Chloride 0.9% 1,000 ML IV SCH (08:00)
--- NOTE | 2018-06-20 09:10 | CP.PCM.PN ---
<Amandeep Quintanilla - Last Filed: 06/20/18 10:00> Subjective - Date & Time of Evaluation Date of Evaluation: 06/20/18 Time of Evaluation: 09:19 - Subjective Subjective: General Surgery Note for Dr. Domínguez/Dr. Reynaga Patient seen and examined at bedside. Patient had to be restrained yesterday due to pulling lines. GCS is 14 today. Patient still has weakness right worse than left. NGT in place on low intermittent suction with 700cc/24hrs. Urine output is rose in color. Patient was able to sit up briefly with PT today. Objective - Vital Signs/Intake and Output Vital Signs (last 24 hours): Temp Pulse Resp BP Pulse Ox 97.3 F L 65 16 128/81 100 06/20/18 01:00 06/20/18 05:00 06/20/18 05:00 06/20/18 05:00 06/20/18 05:00 - Medications Medications: Current Medications Acetaminophen (Tylenol 650 Mg Supp) 650 mg OR ONCE PRN PRN Reason: Fever >100.4 F Aspirin (Aspirin Chewable) 81 mg PO DAILY [facility] Atorvastatin Calcium (Lipitor) 40 mg PO DAILY [facility] Last Admin: 06/19/18 17:24 Dose: 40 mg Clopidogrel Bisulfate (Plavix) 75 mg PO DAILY [facility] Diphenhydramine HCl (Benadryl) 25 mg IVP Q6 PRN PRN Reason: Itching / Pruritus Enalaprilat (Vasotec) 2.5 mg IV Q12 [facility] Last Admin: 06/15/18 22:17 Dose: Not Given Enoxaparin Sodium (Lovenox) 40 mg SC DAILY [facility]; Protocol Meropenem 1 gm/ Sodium (Chloride) 100 mls @ 100 mls/hr IVPB Q8 [facility]; Protocol Last Admin: 06/20/18 01:30 Dose: 100 mls/hr Levetiracetam 500 mg/ Sodium (Chloride) 105 mls @ 210 mls/hr IVPB Q12@0330,1530 [facility] Last Admin: 06/20/18 03:45 Dose: 210 mls/hr Sodium Chloride (Sodium Chloride 0.9%) 1,000 mls @ 100 mls/hr IV .Q10H [facility] Stop: 06/21/18 07:53 Last Admin: 06/20/18 08:04 Dose: 100 mls/hr Naloxone HCl (Narcan) 0.1 mg IVP Q2M PRN PRN Reason: Excess sedation Pantoprazole Sodium (Protonix Inj) 40 mg IVP DAILY [facility] Last Admin: 06/19/18 12:58 Dose: 40 mg - Labs Labs: 06/20/18 05:33 06/20/18 05:33 PT 13.5 Seconds (9.8-13.1) H 06/13/18 05:20 INR 1.2 06/13/18 05:20 APTT 33.6 Seconds (25.6-37.1) 06/13/18 05:20 - Additional Findings Additional findings: - Constitutional Appears: lethargic - Head Exam Head Exam: ATRAUMATIC, NORMOCEPHALIC - Eye Exam Additional comments: miosis, contralateral gaze, arcus senalis - ENT Exam ENT Exam: Mucous Membranes Dry - Respiratory Exam Respiratory Exam: absent: Accessory Muscle Use, Decreased Breath Sounds, Respiratory Distress - Cardiovascular Exam Cardiovascular Exam: REGULAR RHYTHM - GI/Abdominal Exam GI & Abdominal Exam: Soft. absent: Distended, Firm, Guarding, Rigid, Rebound - Extremities Exam Extremities Exam: Normal Capillary Refill - Neurological Exam Neurological Exam: Altered Additional comments: GCS14 - Psychiatric Exam Psychiatric exam: Flat Affect - Skin Skin Exam: Dry, Intact, Warm Assessment and Plan - Assessment and Plan (Free Text) Assessment: 58 M s/p ex-lap with CHUCK and small bowel resection POD#5 Plan: -NPO -NGT to wall suction -May give meds and clamp NGT -f/u Neurology recommendations, help appreciated -Strict I's & O's -Isotonic IVF - NS 100cc/hr -HOB 30 degrees -ASA/Plavix daily -Medical management as per ICU -Discussed with Dr. Domínguez/Dr. Ronnell Quintanilla PGY2 <Todd Reynaga - Last Filed: 06/20/18 10:14> Objective - Vital Signs/Intake and Output Vital Signs (last 24 hours): Temp Pulse Resp BP Pulse Ox 97.3 F L 65 16 128/81 100 06/20/18 01:00 06/20/18 05:00 06/20/18 05:00 06/20/18 05:00 06/20/18 05:00 - Medications Medications: Current Medications Acetaminophen (Tylenol 650 Mg Supp) 650 mg OR ONCE PRN PRN Reason: Fever >100.4 F Aspirin (Aspirin Chewable) 81 mg PO DAILY [facility] Last Admin: 06/20/18 10:04 Dose: 81 mg Atorvastatin Calcium (Lipitor) 40 mg PO DAILY [facility] Last Admin: 06/20/18 10:04 Dose: 40 mg Clopidogrel Bisulfate (Plavix) 75 mg PO DAILY [facility] Last Admin: 06/20/18 10:07 Dose: 75 mg Diphenhydramine HCl (Benadryl) 25 mg IVP Q6 PRN PRN Reason: Itching / Pruritus Enalaprilat (Vasotec) 2.5 mg IV Q12 [facility] Last Admin: 06/15/18 22:17 Dose: Not Given Enoxaparin Sodium (Lovenox) 40 mg SC DAILY [facility]; Protocol Last Admin: 06/20/18 10:04 Dose: 40 mg Meropenem 1 gm/ Sodium (Chloride) 100 mls @ 100 mls/hr IVPB Q8 [facility]; Protocol Last Admin: 06/20/18 10:06 Dose: 100 mls/hr Levetiracetam 500 mg/ Sodium (Chloride) 105 mls @ 210 mls/hr IVPB Q12@0330,1530 [facility] Last Admin: 06/20/18 03:45 Dose: 210 mls/hr Dextrose/Sodium Chloride (Dextrose 5%/0.45% Ns 1000 Ml) 1,000 mls @ 100 mls/hr IV .Q10H [facility] Stop: 06/21/18 09:11 Last Admin: 06/20/18 10:04 Dose: 100 mls/hr Naloxone HCl (Narcan) 0.1 mg IVP Q2M PRN PRN Reason: Excess sedation Pantoprazole Sodium (Protonix Inj) 40 mg IVP DAILY [facility] Last Admin: 06/20/18 10:07 Dose: 40 mg - Labs Labs: 06/20/18 05:33 06/20/18 05:33 PT 13.5 Seconds (9.8-13.1) H 06/13/18 05:20 INR 1.2 06/13/18 05:20 APTT 33.6 Seconds (25.6-37.1) 06/13/18 05:20 Assessment and Plan - Assessment and Plan (Free Text) Plan: pt seen and examined at bedside, no overnight events. Pt is awake, more responsive today. Pt is following command, pt remains NPO with NGT in place draining bilious material. Pt states he is passing flatus no reported BM. NGT: 700cc/24 bilious U/O: 750cc gen: awake, alert, NAD no acute respiratory distress abd: soft, mild distention, minimal incisional tenderness, incision with petros in place c/d/i neuro: following commands, right sided weakness a/p -cont NGT to LWS -NPO -IVF -will start PPN
[2018-06-20] MEDS ORDERED: Dextrose 5%/0.45% NS 1,000 ML IV SCH (09:15)
[2018-06-20] MEDS: Enoxaparin 40 mg Syringe SC SCH (10:04)
--- NOTE | 2018-06-20 11:02 | CARD ---
APPROVED REPORT Date of service: 06/11/2018 EKG Measurement Heart [id number] <Conclusion> Marked sinus bradycardia Left axis deviation Abnormal ECG
--- NOTE | 2018-06-20 11:09 | CP.PCM.PN ---
Subjective - Date & Time of Evaluation Date of Evaluation: 06/20/18 Time of Evaluation: 11:09 - Subjective Subjective: Patient seen and examined this morning at bedside. Patient still has weakness. NG tube is noted be intact. No acute overnight events. Objective - Vital Signs/Intake and Output Vital Signs (last 24 hours): Temp Pulse Resp BP Pulse Ox 97.3 F L 65 16 128/81 100 06/20/18 01:00 06/20/18 05:00 06/20/18 05:00 06/20/18 05:00 06/20/18 05:00 - Medications Medications: Current Medications Acetaminophen (Tylenol 650 Mg Supp) 650 mg DC ONCE PRN PRN Reason: Fever >100.4 F Aspirin (Aspirin Chewable) 81 mg PO DAILY [facility] Last Admin: 06/20/18 10:04 Dose: 81 mg Atorvastatin Calcium (Lipitor) 40 mg PO DAILY [facility] Last Admin: 06/20/18 10:04 Dose: 40 mg Clopidogrel Bisulfate (Plavix) 75 mg PO DAILY [facility] Last Admin: 06/20/18 10:07 Dose: 75 mg Diphenhydramine HCl (Benadryl) 25 mg IVP Q6 PRN PRN Reason: Itching / Pruritus Enalaprilat (Vasotec) 2.5 mg IV Q12 [facility] Last Admin: 06/15/18 22:17 Dose: Not Given Enoxaparin Sodium (Lovenox) 40 mg SC DAILY [facility]; Protocol Last Admin: 06/20/18 10:04 Dose: 40 mg Meropenem 1 gm/ Sodium (Chloride) 100 mls @ 100 mls/hr IVPB Q8 [facility]; Protocol Last Admin: 06/20/18 10:06 Dose: 100 mls/hr Levetiracetam 500 mg/ Sodium (Chloride) 105 mls @ 210 mls/hr IVPB Q12@0330,1530 [facility] Last Admin: 06/20/18 03:45 Dose: 210 mls/hr Dextrose/Sodium Chloride (Dextrose 5%/0.45% Ns 1000 Ml) 1,000 mls @ 100 mls/hr IV .Q10H [facility] Stop: 06/21/18 09:11 Last Admin: 06/20/18 10:04 Dose: 100 mls/hr Naloxone HCl (Narcan) 0.1 mg IVP Q2M PRN PRN Reason: Excess sedation Pantoprazole Sodium (Protonix Inj) 40 mg IVP DAILY [facility] Last Admin: 06/20/18 10:07 Dose: 40 mg - Labs Labs: 06/20/18 05:33 06/20/18 05:33 PT 13.5 Seconds (9.8-13.1) H 06/13/18 05:20 INR 1.2 06/13/18 05:20 APTT 33.6 Seconds (25.6-37.1) 06/13/18 05:20 - Constitutional Appears: Well, No Acute Distress - Head Exam Head Exam: ATRAUMATIC, NORMOCEPHALIC - Eye Exam Eye Exam: Normal appearance Pupil Exam: NORMAL ACCOMODATION - ENT Exam ENT Exam: Mucous Membranes Moist - Respiratory Exam Respiratory Exam: NORMAL BREATHING PATTERN - Cardiovascular Exam Cardiovascular Exam: Tachycardia, REGULAR RHYTHM, +S1, +S2 - GI/Abdominal Exam GI & Abdominal Exam: Soft, Hypoactive Bowel Sounds, Normal Bowel Sounds - Extremities Exam Additional comments: weakness to b/l extremities - Neurological Exam Neurological Exam: Alert, Awake - Psychiatric Exam Psychiatric exam: Normal Affect - Skin Skin Exam: Normal Color Assessment and Plan - Assessment and Plan (Free Text) Assessment: 58 y/o male with PMH gastric and colon cancer , S/P partial gastrectomy (ga stro-jejunal) w/ brian-en-y reconstruction admitted for evaluation and management of partial SBO. He is S/p ex-lap with lysis of adhesions, small bowel resection and primary anastamosis POD#5. Plan: 1.SBO s/p exploratory laparatomy with adhenolysis , bowel resection and primary anastomosis Day # 4--- keep NPO. Surgery following Start D5/1/2 NS @ 100 cc/hr Check Accucecks Q6 hours NGT low intermittent suction Continue Meropenem empirically 2.AMS of unclear etiology Ammonia -wnl, Prolactin -normal, afebrile CT head showed no acute CVA and [employer] head and neck showed no stenosis MRI head- no acute intracranial abnormality, no evidence for acute infarction. Multifocal cystic encephalomalacia and gliosis in both frontal lobes. CXR- NG tube in place. Echo - EF 50-55%, Left atrium normal, no regurgitation Neuro consult ordered; on board - continue dual antiplatelet therapy with plavix, and aspirin for 21 days and then plavix daily, lipitor f/u on Hba1c, lipid panel, b12, folate, TSH, vitamin D Avoid sedation ; Maintain and protect airway Keep HOB elevated 3.Hypertension - Vasotec 2.5 mg IV Q12h - hydralazine 10 mg Iv Q6h prn
--- NOTE | 2018-06-20 11:13 | MRI ---
Date of service: 06/19/2018 PROCEDURE: MRI BRAIN WITHOUT CONTRAST HISTORY: new frontal stroke COMPARISON: The the the the TECHNIQUE: Multiplanar, multisequence MR images of the brain were obtained without intravenous contrast enhancement. FINDINGS: HEMORRHAGE: None DWI: No evidence of an acute or early subacute infarction. BRAIN PARENCHYMA: There is cystic encephalomalacia and gliosis in the right paramedian frontal lobe and smaller areas of cystic encephalomalacia and gliosis in the left paramedian frontal lobe. There is no mass, mass effect or abnormal extra-axial fluid collection. VENTRICLES: There is mild age-related global parenchymal volume loss and proportionate enlargement of the ventricles and cortical sulci. CRANIUM: There is normal bone marrow signal pattern. ORBITS: Grossly unremarkable. PARANASAL SINUSES/MASTOIDS: There is mild mucosal thickening in the paranasal sinuses with polypoid mucosal thickening in the right maxillary sinus. There are bilateral large mastoid effusions. VASCULAR SYSTEM: There are normal signal voids in the larger intracranial arteries. OTHER FINDINGS: None. IMPRESSION: 1. No acute intracranial abnormality. Specifically, no evidence for acute infarction. 2. Multifocal cystic encephalomalacia and gliosis in both frontal lobes, worse on the right. 3. Bilateral mastoid effusions.
--- NOTE | 2018-06-20 12:55 | CP.CCUPN ---
CCU Subjective - Physician Review Subjective (Free Text): Now moving all extremities, resolving neurodeficits started clearing by midafternoon yesterday with return of speech by evening time. Still disoriented to time and place, but this has improved as well with re-orientation. Afebrile, hemodynamics have been unremarkable. SPO2 100% on NC. ROS: No other pertinent negs or positive on 10+ system review obtainable due to lethargic status Other PMSFH: All other Nursing and physician documentation reviewed to date; no new pertinent info noted relevant to current medical problems. EXAM- HEENT: no icterus, pupils equal, 3 mm and reactive, no nystagmus, +disconjugate, divergent upward gaze noted. Absent gag. NECK: no visible JVD, supple, carotids equal upstroke bilat/no bruits CHEST: decreased BS bases, no wheezes audible HEART: regular, distant, tachy S1S2, no murmur audible, no rubs. ABD: soft, no distention, no focal tenderness, abdominal wound intact and dry, BS hypoactive. EXT: no edema, no mottling, warm, no cyanosis, no calf tenderness or palpable cords, distal pulses intact and symmetrical NEURO: Motor 4/5 bilaterally SKIN: no rashes LABS: WBC= 8.5 HGB= 12.4 PLTs = 288K Na= 147 K= 4.0 Cl= 108 HCO3= 34 BUN/Cr= 21/1.0 BS= 122 CXR: (my interp)- clear bilat IMPRESSION / MAJOR PROBLEMS NOW: 1. s/p Coma, ??Acute CVA, with Non-convulsive Seizure event and post-ictal state 2. s/p ExLap for SBO 3. Accelerated HTN 4. h/o Gastric CA PLAN: 1. Recent infarct mentioned on Brain MRI; on AED therapy as well. ASA, Plavix, Statin to continue for now. 2. Maintain neurochecks, and seizure precautions. 3. Nutritional support needs to be addressed. 4. Watch BP response, would use prn Labetalol if sustained MAP level exceeds 110.
--- NOTE | 2018-06-20 13:02 | CP.PCM.PN ---
Subjective - Date & Time of Evaluation Date of Evaluation: 06/20/18 Time of Evaluation: 08:00 - Subjective Subjective: nad afeb Objective - Vital Signs/Intake and Output Vital Signs (last 24 hours): Temp Pulse Resp BP Pulse Ox 97.3 F L 65 16 128/81 100 06/20/18 01:00 06/20/18 05:00 06/20/18 05:00 06/20/18 05:00 06/20/18 05:00 - Medications Medications: Current Medications Acetaminophen (Tylenol 650 Mg Supp) 650 mg IN ONCE PRN PRN Reason: Fever >100.4 F Aspirin (Aspirin Chewable) 81 mg PO DAILY [facility] Last Admin: 06/20/18 10:04 Dose: 81 mg Atorvastatin Calcium (Lipitor) 40 mg PO DAILY [facility] Last Admin: 06/20/18 10:04 Dose: 40 mg Clopidogrel Bisulfate (Plavix) 75 mg PO DAILY [facility] Last Admin: 06/20/18 10:07 Dose: 75 mg Diphenhydramine HCl (Benadryl) 25 mg IVP Q6 PRN PRN Reason: Itching / Pruritus Enalaprilat (Vasotec) 2.5 mg IV Q12 [facility] Last Admin: 06/15/18 22:17 Dose: Not Given Enoxaparin Sodium (Lovenox) 40 mg SC DAILY [facility]; Protocol Last Admin: 06/20/18 10:04 Dose: 40 mg Meropenem 1 gm/ Sodium (Chloride) 100 mls @ 100 mls/hr IVPB Q8 [facility]; Protocol Last Admin: 06/20/18 10:06 Dose: 100 mls/hr Levetiracetam 500 mg/ Sodium (Chloride) 105 mls @ 210 mls/hr IVPB Q12@0330,1530 [facility] Last Admin: 06/20/18 03:45 Dose: 210 mls/hr Dextrose/Sodium Chloride (Dextrose 5%/0.45% Ns 1000 Ml) 1,000 mls @ 100 mls/hr IV .Q10H [facility] Stop: 06/21/18 09:11 Last Admin: 06/20/18 10:04 Dose: 100 mls/hr Naloxone HCl (Narcan) 0.1 mg IVP Q2M PRN PRN Reason: Excess sedation Pantoprazole Sodium (Protonix Inj) 40 mg IVP DAILY [facility] Last Admin: 06/20/18 10:07 Dose: 40 mg - Labs Labs: 06/20/18 05:33 06/20/18 05:33 PT 13.5 Seconds (9.8-13.1) H 06/13/18 05:20 INR 1.2 06/13/18 05:20 APTT 33.6 Seconds (25.6-37.1) 06/13/18 05:20 - Constitutional Appears: Non-toxic, Cachectic, Chronically Ill Assessment and Plan (1) Small bowel obstruction Status: Acute - Assessment and Plan (Free Text) Assessment: iv rx renewed
[2018-06-20 13:04] LABS: FOLATE 4.5 ng/mL
--- NOTE | 2018-06-20 13:47 | CP.PCM.PN ---
Subjective - Date & Time of Evaluation Date of Evaluation: 06/20/18 Time of Evaluation: 08:00 - Subjective Subjective: s/p CVA weak on right alert confused nad afebrile Objective - Vital Signs/Intake and Output Vital Signs (last 24 hours): Temp Pulse Resp BP Pulse Ox 97.3 F L 65 16 128/81 100 06/20/18 01:00 06/20/18 05:00 06/20/18 05:00 06/20/18 05:00 06/20/18 05:00 - Medications Medications: Current Medications Acetaminophen (Tylenol 650 Mg Supp) 650 mg AL ONCE PRN PRN Reason: Fever >100.4 F Aspirin (Aspirin Chewable) 81 mg PO DAILY [facility] Last Admin: 06/20/18 10:04 Dose: 81 mg Atorvastatin Calcium (Lipitor) 40 mg PO DAILY [facility] Last Admin: 06/20/18 10:04 Dose: 40 mg Clopidogrel Bisulfate (Plavix) 75 mg PO DAILY [facility] Last Admin: 06/20/18 10:07 Dose: 75 mg Diphenhydramine HCl (Benadryl) 25 mg IVP Q6 PRN PRN Reason: Itching / Pruritus Enalaprilat (Vasotec) 2.5 mg IV Q12 [facility] Last Admin: 06/15/18 22:17 Dose: Not Given Enoxaparin Sodium (Lovenox) 40 mg SC DAILY [facility]; Protocol Last Admin: 06/20/18 10:04 Dose: 40 mg Meropenem 1 gm/ Sodium (Chloride) 100 mls @ 100 mls/hr IVPB Q8 [facility]; Protocol Last Admin: 06/20/18 10:06 Dose: 100 mls/hr Levetiracetam 500 mg/ Sodium (Chloride) 105 mls @ 210 mls/hr IVPB Q12@0330,1530 [facility] Last Admin: 06/20/18 03:45 Dose: 210 mls/hr Dextrose/Sodium Chloride (Dextrose 5%/0.45% Ns 1000 Ml) 1,000 mls @ 100 mls/hr IV .Q10H [facility] Stop: 06/21/18 09:11 Last Admin: 06/20/18 10:04 Dose: 100 mls/hr Naloxone HCl (Narcan) 0.1 mg IVP Q2M PRN PRN Reason: Excess sedation Pantoprazole Sodium (Protonix Inj) 40 mg IVP DAILY [facility] Last Admin: 06/20/18 10:07 Dose: 40 mg - Labs Labs: 06/20/18 05:33 06/20/18 05:33 PT 13.5 Seconds (9.8-13.1) H 06/13/18 05:20 INR 1.2 06/13/18 05:20 APTT 33.6 Seconds (25.6-37.1) 06/13/18 05:20 - Constitutional Appears: Cachectic, Chronically Ill - Head Exam Head Exam: NORMOCEPHALIC - Eye Exam Eye Exam: absent: Scleral icterus - ENT Exam ENT Exam: Mucous Membranes Dry - Neck Exam Neck Exam: absent: Lymphadenopathy - Respiratory Exam Respiratory Exam: Decreased Breath Sounds - Cardiovascular Exam Cardiovascular Exam: REGULAR RHYTHM - GI/Abdominal Exam GI & Abdominal Exam: Distended, Soft. absent: Tenderness - Rectal Exam Rectal Exam: Deferred - Exam Exam: NORMAL INSPECTION - Extremities Exam Extremities Exam: absent: Pedal Edema - Back Exam Back Exam: NORMAL INSPECTION. absent: CVA tenderness (L), CVA tenderness (R) - Neurological Exam Neurological Exam: Altered Neuro motor strength exam: Left Upper Extremity: 4, Right Upper Extremity: 2/1, Left Lower Extremity: 4, Right Lower Extremity: 2/1 - Psychiatric Exam Psychiatric exam: Depressed Assessment and Plan (1) Small bowel obstruction Status: Acute - Assessment and Plan (Free Text) Assessment: sepsis- gram neg bacteremia s/p SBO wounds healing acute CVA cont IV antibiotics and wound care surgical follow up
[2018-06-21] MEDS: Meropenem 1 GM in Sodium Chloride 0.9% 100 ML IVPB SCH ×3 (01:26→17:10)
[2018-06-21] MEDS ORDERED: Dextrose 5%/0.45% NS 1,000 ML IV SCH (02:57)
[2018-06-21] MEDS: levETIRAcetam 500 MG in Sodium Chloride 0.9% 100 ML IVPB SCH ×2 (03:30→14:37)
[2018-06-21 05:16] LABS: HEMOGLOBIN 12.5 g/dL (12.0-18.0); MEAN CELL VOLUME 94.2 fl (80.0-94.0); MEAN CORPUSCULAR HGB CONC 33.9 g/dL (33.0-37.0); RBC 3.89 Mil/uL (4.40-5.90); RED CELL DISTRIBUTION WIDTH 16.5 % (11.5-14.5); WHITE BLOOD COUNT 12.2 K/uL (4.8-10.8)
[2018-06-21 05:32] LABS: ALB/GLOB RATIO 0.8 (1.0-2.1); ALT/SGPT 44 U/L (21-72); AST/SGOT 80 U/L (17-59); BLOOD UREA NITROGEN 22 mg/dl (9-20); GFR NON-AFRICAN AMERICAN > 60
--- NOTE | 2018-06-21 07:10 | CP.PCM.PN ---
Subjective - Date & Time of Evaluation Date of Evaluation: 06/21/18 Time of Evaluation: 09:30 - Subjective Subjective: Patient seen and examined this morning at bedside. Patient reports flatus and mild abdominal pain. Patient was OOB to chair yesterday. NG tube draining scant bilious output of 200 cc. Patient denies headaches, chest pain, or dyspnea. Objective - Vital Signs/Intake and Output Vital Signs (last 24 hours): Temp Pulse Resp BP Pulse Ox 98.8 F 79 17 127/76 100 06/20/18 21:00 06/21/18 06:00 06/21/18 06:00 06/21/18 06:00 06/21/18 06:00 - Medications Medications: Current Medications Acetaminophen (Tylenol 650 Mg Supp) 650 mg [place] ONCE PRN PRN Reason: Fever >100.4 F Aspirin (Aspirin Chewable) 81 mg PO DAILY [facility] Last Admin: 06/20/18 10:04 Dose: 81 mg Atorvastatin Calcium (Lipitor) 40 mg PO DAILY [facility] Last Admin: 06/20/18 10:04 Dose: 40 mg Clopidogrel Bisulfate (Plavix) 75 mg PO DAILY [facility] Last Admin: 06/20/18 10:07 Dose: 75 mg Diphenhydramine HCl (Benadryl) 25 mg IVP Q6 PRN PRN Reason: Itching / Pruritus Enalaprilat (Vasotec) 2.5 mg IV Q12 [facility] Last Admin: 06/15/18 22:17 Dose: Not Given Enoxaparin Sodium (Lovenox) 40 mg SC DAILY [facility]; Protocol Last Admin: 06/20/18 10:04 Dose: 40 mg Fat Emulsion Intravenous (Intralipid 20%) 250 ml IV DAILY [facility] Last Admin: 06/20/18 22:12 Dose: 250 ml Meropenem 1 gm/ Sodium (Chloride) 100 mls @ 100 mls/hr IVPB Q8 [facility]; Protocol Last Admin: 06/21/18 01:26 Dose: 100 mls/hr Levetiracetam 500 mg/ Sodium (Chloride) 105 mls @ 210 mls/hr IVPB Q12@0330,1530 [facility] Last Admin: 06/21/18 03:30 Dose: 210 mls/hr Amino Acids (Clinimix 4.25/5 % "E" (1000 Ml)) 1,000 mls @ 83 mls/hr IV .Q12H3M [facility] Stop: 06/21/18 18:32 Last Admin: 06/21/18 06:37 Dose: 83 mls/hr Dextrose/Sodium Chloride (Dextrose 5%/0.45% Ns 1000 Ml) 1,000 mls @ 50 mls/hr IV .Q20H [facility] Stop: 06/21/18 09:11 Last Admin: 06/21/18 01:00 Dose: 50 mls/hr Insulin Human Regular (Humulin R) 0 units SC Q6 [facility]; Protocol Naloxone HCl (Narcan) 0.1 mg IVP Q2M PRN PRN Reason: Excess sedation Pantoprazole Sodium (Protonix Inj) 40 mg IVP DAILY [facility] Last Admin: 06/20/18 10:07 Dose: 40 mg - Labs Labs: 06/21/18 04:31 06/21/18 04:31 PT 13.5 Seconds (9.8-13.1) H 06/13/18 05:20 INR 1.2 06/13/18 05:20 APTT 33.6 Seconds (25.6-37.1) 06/13/18 05:20 - Constitutional Appears: Non-toxic, No Acute Distress - Head Exam Head Exam: ATRAUMATIC, NORMAL INSPECTION, NORMOCEPHALIC - Eye Exam Eye Exam: Normal appearance - ENT Exam ENT Exam: Mucous Membranes Moist - Neck Exam Neck Exam: absent: Tenderness - Respiratory Exam Respiratory Exam: Clear to Ausculation Bilateral, NORMAL BREATHING PATTERN. absent: Rales, Rhonchi, Wheezes, Respiratory Distress - Cardiovascular Exam Cardiovascular Exam: REGULAR RHYTHM, RRR, +S1, +S2. absent: Tachycardia - GI/Abdominal Exam GI & Abdominal Exam: Soft, Tenderness (at surgical site), Hypoactive Bowel Sounds - Extremities Exam Extremities Exam: absent: Calf Tenderness, Pedal Edema - Neurological Exam Neurological Exam: Alert, Awake - Skin Skin Exam: Normal Color, Warm Assessment and Plan - Assessment and Plan (Free Text) Assessment: 58 y/o male with PMH gastric and colon cancer , S/P partial gastrectomy (ga stro-jejunal) w/ brian-en-y reconstruction admitted for evaluation and management of partial SBO. He is S/p ex-lap with lysis of adhesions, small bowel resection and primary anastamosis POD#6. Plan: AMS of unclear etiology - CT and MRI head showed no acute stroke - Suspected seizure activity with postictal state - Neuro consult, recommendations appreciated - c/w Keppra 500 mg IV Q12h - c/w ASA, statin - close monitoring with neurochecks - f/u bedside EEG report SBO s/p exploratory laparatomy with adhesiolysis, bowel resection and primary anastomosis - POD# 6 - NGT in place to slow intermittent suction, draining scant bilious output - Abdomen is soft and with hypoactive BS - NPO for now, consider starting on CLD - Surgery consult, Dr. Armas, recommendations appreciated - currently on PPN, @83mL/hr - Check Accuchecks - On Meropenem IV empirically Sepsis secondary to enterobacter aerogenes - ID consult, Dr. Prasad, recommendations appreciated - c/w Meropenem 1 gm IV Q8h Sinus Tachycardia- resolved - Most likely related to volume depletion and fever
--- NOTE | 2018-06-21 08:15 | CP.PCM.PN ---
<Daljit Mccain - Last Filed: 06/21/18 08:16> Subjective - Date & Time of Evaluation Date of Evaluation: 06/21/18 Time of Evaluation: 07:45 - Subjective Subjective: Patient seen and examined. No acute events over night. Reports feeling better. Passing some flatus. Scant bilious output from NGT. Objective - Vital Signs/Intake and Output Vital Signs (last 24 hours): Temp Pulse Resp BP Pulse Ox 98.8 F 79 17 127/76 100 06/20/18 21:00 06/21/18 06:00 06/21/18 06:00 06/21/18 06:00 06/21/18 06:00 Intake and Output: 06/21/18 06/21/18 06:59 18:59 Intake Total 1450 Output Total 1400 Balance 50 - Medications Medications: Current Medications Acetaminophen (Tylenol 650 Mg Supp) 650 mg [place] ONCE PRN PRN Reason: Fever >100.4 F Aspirin (Aspirin Chewable) 81 mg PO DAILY [facility] Last Admin: 06/20/18 10:04 Dose: 81 mg Atorvastatin Calcium (Lipitor) 40 mg PO DAILY [facility] Last Admin: 06/20/18 10:04 Dose: 40 mg Clopidogrel Bisulfate (Plavix) 75 mg PO DAILY [facility] Last Admin: 06/20/18 10:07 Dose: 75 mg Diphenhydramine HCl (Benadryl) 25 mg IVP Q6 PRN PRN Reason: Itching / Pruritus Enalaprilat (Vasotec) 2.5 mg IV Q12 [facility] Last Admin: 06/15/18 22:17 Dose: Not Given Enoxaparin Sodium (Lovenox) 40 mg SC DAILY [facility]; Protocol Last Admin: 06/20/18 10:04 Dose: 40 mg Fat Emulsion Intravenous (Intralipid 20%) 250 ml IV DAILY [facility] Last Admin: 06/20/18 22:12 Dose: 250 ml Meropenem 1 gm/ Sodium (Chloride) 100 mls @ 100 mls/hr IVPB Q8 [facility]; Protocol Last Admin: 06/21/18 01:26 Dose: 100 mls/hr Levetiracetam 500 mg/ Sodium (Chloride) 105 mls @ 210 mls/hr IVPB Q12@0330,1530 [facility] Last Admin: 06/21/18 03:30 Dose: 210 mls/hr Amino Acids (Clinimix 4.25/5 % "E" (1000 Ml)) 1,000 mls @ 83 mls/hr IV .Q12H3M [facility] Stop: 06/21/18 18:32 Last Admin: 06/21/18 06:37 Dose: 83 mls/hr Dextrose/Sodium Chloride (Dextrose 5%/0.45% Ns 1000 Ml) 1,000 mls @ 50 mls/hr IV .Q20H [facility] Stop: 06/21/18 09:11 Last Admin: 06/21/18 01:00 Dose: 50 mls/hr Insulin Human Regular (Humulin R) 0 units SC Q6 [facility]; Protocol Naloxone HCl (Narcan) 0.1 mg IVP Q2M PRN PRN Reason: Excess sedation Pantoprazole Sodium (Protonix Inj) 40 mg IVP DAILY [facility] Last Admin: 06/20/18 10:07 Dose: 40 mg - Labs Labs: 06/21/18 04:31 06/21/18 04:31 PT 13.5 Seconds (9.8-13.1) H 06/13/18 05:20 INR 1.2 06/13/18 05:20 APTT 33.6 Seconds (25.6-37.1) 06/13/18 05:20 - Constitutional Appears: No Acute Distress - Head Exam Head Exam: NORMOCEPHALIC - Eye Exam Eye Exam: Normal appearance - ENT Exam ENT Exam: Mucous Membranes Moist - Respiratory Exam Respiratory Exam: NORMAL BREATHING PATTERN - Cardiovascular Exam Cardiovascular Exam: +S1, +S2 - GI/Abdominal Exam GI & Abdominal Exam: Soft, Tenderness Additional comments: incision site tenderness - Neurological Exam Neurological Exam: Alert, Awake - Skin Skin Exam: Normal Color, Warm Assessment and Plan - Assessment and Plan (Free Text) Assessment: 58 M s/p ex-lap with CHUCK and small bowel resection POD#6 Plan: -NPO -IVF -NGT to wall suction, If output remains low will d/c NGT on 06/22 and start CLD -May give meds and clamp NGT -f/u Neurology recommendations, help appreciated -Strict I's & O's -HOB 30 degrees -ASA/Plavix daily -Medical management as per ICU -Discussed with Dr. Ronnell Oreilly PGY3 <Todd Reynaga - Last Filed: 06/21/18 18:14> Objective - Vital Signs/Intake and Output Vital Signs (last 24 hours): Temp Pulse Resp BP Pulse Ox 97.4 F L 78 13 129/72 100 06/21/18 16:00 06/21/18 18:00 06/21/18 18:00 06/21/18 18:00 06/21/18 18:00 Intake and Output: 06/21/18 06/21/18 06:59 18:59 Intake Total 3500 Output Total 2050 Balance 1450 - Medications Medications: Current Medications Acetaminophen (Tylenol 650 Mg Supp) 650 mg NV ONCE PRN PRN Reason: Fever >100.4 F Aspirin (Aspirin Chewable) 81 mg PO DAILY [facility] Last Admin: 06/21/18 09:31 Dose: 81 mg Atorvastatin Calcium (Lipitor) 40 mg PO DAILY [facility] Last Admin: 06/21/18 09:31 Dose: 40 mg Clopidogrel Bisulfate (Plavix) 75 mg PO DAILY [facility] Last Admin: 06/21/18 09:32 Dose: 75 mg Diphenhydramine HCl (Benadryl) 25 mg IVP Q6 PRN PRN Reason: Itching / Pruritus Enalaprilat (Vasotec) 2.5 mg IV Q12 [facility] Last Admin: 06/15/18 22:17 Dose: Not Given Enoxaparin Sodium (Lovenox) 40 mg SC DAILY [facility]; Protocol Last Admin: 06/21/18 09:31 Dose: 40 mg Fat Emulsion Intravenous (Intralipid 20%) 250 ml IV DAILY [facility] Last Admin: 06/21/18 14:36 Dose: 250 ml Meropenem 1 gm/ Sodium (Chloride) 100 mls @ 100 mls/hr IVPB Q8 [facility]; Protocol Last Admin: 06/21/18 17:10 Dose: 100 mls/hr Levetiracetam 500 mg/ Sodium (Chloride) 105 mls @ 210 mls/hr IVPB Q12@0330,1530 [facility] Last Admin: 06/21/18 14:37 Dose: 210 mls/hr Amino Acids (Clinimix 4.25/5 % "E" (1000 Ml)) 1,000 mls @ 83 mls/hr IV .Q12H3M [facility] Stop: 06/21/18 18:32 Last Admin: 06/21/18 06:37 Dose: 83 mls/hr Multivitamins/Vitamin C 10 ml/Chromium/Copper/Manganese/Zinc 3 ml/ Amino Acids 1,013 mls @ 83 mls/hr IV .[id number] [facility] Stop: 06/22/18 06:42 Amino Acids (Clinimix 4.25/5 % "E" (1000 Ml)) 1,000 mls @ 83 mls/hr IV .Q12H3M [facility] Stop: 06/22/18 18:32 Insulin Human Regular (Humulin R) 0 units SC Q6 [facility]; Protocol Last Admin: 06/21/18 17:07 Dose: Not Given Naloxone HCl (Narcan) 0.1 mg IVP Q2M PRN PRN Reason: Excess sedation Pantoprazole Sodium (Protonix Inj) 40 mg IVP DAILY [facility] Last Admin: 06/21/18 09:33 Dose: 40 mg - Labs Labs: 06/21/18 04:31 06/21/18 04:31 PT 13.5 Seconds (9.8-13.1) H 06/13/18 05:20 INR 1.2 06/13/18 05:20 APTT 33.6 Seconds (25.6-37.1) 06/13/18 05:20 Assessment and Plan - Assessment and Plan (Free Text) Plan: pt seen at bedside, more responsive today and following command. Pt states he is passing flatus, NGT output decrease. Pt remains afebrile. gen: awake, alert, following command abd: soft, mild distention, appropriate incisional tenderness, healing midline scar, no peritoneal signs -cont NGT -PPN if NGT remains low, will dc and start CLD in AM.
--- NOTE | 2018-06-21 08:32 | CP.CCUPN ---
CCU Subjective - Physician Review Subjective (Free Text): No reported gross seizure activity, denies any new weaknesses, has tolerated being OOB with assistance. NGT remains with approx. 200ml bilious drainage over the last day. Afebrile, SBP 120s, HR 70-80s. SPO2 100% on NC. ROS: No other pertinent negs or positive on 10+ system review obtainable due to lethargic status Other PMSFH: All other Nursing and physician documentation reviewed to date; no new pertinent info noted relevant to current medical problems. EXAM- HEENT: no icterus, pupils equal, 3 mm and reactive, no nystagmus NECK: no visible JVD, supple, carotids equal upstroke bilat/no bruits CHEST: decreased BS bases, no wheezes audible HEART: regular, distant, tachy S1S2, no murmur audible, no rubs. ABD: soft, no distention, no focal tenderness, abdominal wound intact and dry, BS hypoactive. EXT: no edema, no mottling, warm, no cyanosis, no calf tenderness or palpable cords, distal pulses intact and symmetrical NEURO: Motor 4/5 bilaterally SKIN: no rashes LABS: WBC= 12.2 HGB= 12.5 PLTs = 260K Na= 143 K= 4.2 Cl= 105 HCO3= 32 BUN/Cr= 22/0.9 BS= 138 IMPRESSION / MAJOR PROBLEMS NOW: 1. s/p Coma, ??Acute CVA, with Non-convulsive Seizure event and post-ictal state 2. s/p ExLap for SBO 3. Accelerated HTN 4. h/o Gastric CA PLAN: 1. Continue to mobilize OOB. 2. AED, ASA, Plavix, statin 3. NGT drainage, Surg team to start PPN. 4. BP levels much improved. 5. Stable for Tele bed.
[2018-06-21] MEDS: Enoxaparin 40 mg Syringe SC SCH (09:31)
[2018-06-21] MEDS: Insulin Regular 100 units/ml SC SCH ×3 (12:25→22:20)
[2018-06-22] MEDS: Meropenem 1 GM in Sodium Chloride 0.9% 100 ML IVPB SCH ×3 (00:11→16:08)
[2018-06-22] MEDS: levETIRAcetam 500 MG in Sodium Chloride 0.9% 100 ML IVPB SCH ×2 (02:34→16:07)
[2018-06-22] MEDS: Insulin Regular 100 units/ml SC SCH ×4 (05:00→22:43)
[2018-06-22 05:22] LABS: HEMOGLOBIN 12.7 g/dL (12.0-18.0); MEAN CELL VOLUME 93.2 fl (80.0-94.0); MEAN CORPUSCULAR HGB CONC 34.3 g/dL (33.0-37.0); RBC 3.97 Mil/uL (4.40-5.90); RED CELL DISTRIBUTION WIDTH 16.4 % (11.5-14.5); WHITE BLOOD COUNT 8.2 K/uL (4.8-10.8)
[2018-06-22 05:40] LABS: ALB/GLOB RATIO 0.8 (1.0-2.1); ALT/SGPT 52 U/L (21-72); AST/SGOT 84 U/L (17-59); BLOOD UREA NITROGEN 20 mg/dl (9-20); CALCIUM 8.8 mg/dL (8.4-10.2); GFR NON-AFRICAN AMERICAN > 60
--- NOTE | 2018-06-22 07:05 | PCM.EEG ---
Electroencephalogram Report - Electroencephalogram Report Procedure Date: 06/20/18 Medication: Palvix, keppra, Lipitor Interpretation: Technical Information: This was a 16 -channel EEG, 1-channel EKG routine EEG performed using an [place] machine. Electrodes were applied using the 10/20 international placement system. Start; 15;06 End; 15;50 Total; 44 min Clinical Information: seizures During resting wakefulness there was a symmetric posterior dominant rhythm at 8.5-9.5 Hz, 30-50 uV, which was reactive to eye opening and closing. Drowsiness (15;20) was associated with fragmentation of the posterior dominant rhythm and with slow roving eye movements. Hyperventilation was not performed. Photic stimulation was performed and there were no changes on the record. Focal abnormality; none Impression: Impression: This is a normal awake and drowsy electroencephalogram.
--- NOTE | 2018-06-22 07:08 | CP.PCM.PN ---
Subjective - Date & Time of Evaluation Date of Evaluation: 06/22/18 Time of Evaluation: 08:27 - Subjective Subjective: Patient seen and examined this morning at bedside. Patient reports flatus and mild abdominal pain at surgical site. Patient had 2 bowel movements overnight. Patient was OOB to chair yesterday. NG tube removed. Patient denies headaches, chest pain, or dyspnea. Objective - Vital Signs/Intake and Output Vital Signs (last 24 hours): Temp Pulse Resp BP Pulse Ox 97.9 F 84 14 121/89 100 06/22/18 04:00 06/22/18 06:00 06/22/18 06:00 06/22/18 06:00 06/22/18 06:00 Intake and Output: 06/22/18 06/22/18 06:59 18:59 Intake Total 2280 Output Total 1410 Balance 870 - Medications Medications: Current Medications Acetaminophen (Tylenol 650 Mg Supp) 650 mg SC ONCE PRN PRN Reason: Fever >100.4 F Aspirin (Aspirin Chewable) 81 mg PO DAILY [facility] Last Admin: 06/21/18 09:31 Dose: 81 mg Atorvastatin Calcium (Lipitor) 40 mg PO DAILY [facility] Last Admin: 06/21/18 09:31 Dose: 40 mg Clopidogrel Bisulfate (Plavix) 75 mg PO DAILY [facility] Last Admin: 06/21/18 09:32 Dose: 75 mg Diphenhydramine HCl (Benadryl) 25 mg IVP Q6 PRN PRN Reason: Itching / Pruritus Enalaprilat (Vasotec) 2.5 mg IV Q12 [facility] Last Admin: 06/15/18 22:17 Dose: Not Given Enoxaparin Sodium (Lovenox) 40 mg SC DAILY [facility]; Protocol Last Admin: 06/21/18 09:31 Dose: 40 mg Fat Emulsion Intravenous (Intralipid 20%) 250 ml IV DAILY [facility] Last Admin: 06/21/18 14:36 Dose: 250 ml Meropenem 1 gm/ Sodium (Chloride) 100 mls @ 100 mls/hr IVPB Q8 [facility]; Protocol Last Admin: 06/22/18 00:11 Dose: 100 mls/hr Levetiracetam 500 mg/ Sodium (Chloride) 105 mls @ 210 mls/hr IVPB Q12@0330,1530 [facility] Last Admin: 03/31/19 02:34 Dose: 210 mls/hr Amino Acids (Clinimix 4.25/5 % "E" (1000 Ml)) 1,000 mls @ 83 mls/hr IV .Q12H3M [facility] Stop: 06/22/18 18:32 Last Admin: 06/22/18 06:47 Dose: 83 mls/hr Insulin Human Regular (Humulin R) 0 units SC Q6 [facility]; Protocol Last Admin: 06/22/18 05:00 Dose: Not Given Naloxone HCl (Narcan) 0.1 mg IVP Q2M PRN PRN Reason: Excess sedation Pantoprazole Sodium (Protonix Inj) 40 mg IVP DAILY [facility] Last Admin: 06/21/18 09:33 Dose: 40 mg - Labs Labs: 06/22/18 04:21 06/22/18 04:21 PT 13.5 Seconds (9.8-13.1) H 06/13/18 05:20 INR 1.2 06/13/18 05:20 APTT 33.6 Seconds (25.6-37.1) 06/13/18 05:20 - Constitutional Appears: Non-toxic, No Acute Distress - Head Exam Head Exam: ATRAUMATIC, NORMAL INSPECTION, NORMOCEPHALIC - Eye Exam Eye Exam: Normal appearance, PERRL - ENT Exam ENT Exam: Mucous Membranes Moist - Respiratory Exam Respiratory Exam: Clear to Ausculation Bilateral, NORMAL BREATHING PATTERN. absent: Decreased Breath Sounds, Rales, Rhonchi, Wheezes, Respiratory Distress - Cardiovascular Exam Cardiovascular Exam: REGULAR RHYTHM, RRR, +S1, +S2. absent: Tachycardia - GI/Abdominal Exam GI & Abdominal Exam: Soft, Tenderness (at surgical site), Hypoactive Bowel Sounds. absent: Distended - Extremities Exam Extremities Exam: Normal Inspection. absent: Calf Tenderness, Pedal Edema, Tenderness - Neurological Exam Neurological Exam: Alert, Awake - Skin Skin Exam: Dry, Normal Color, Warm Assessment and Plan - Assessment and Plan (Free Text) Assessment: 58 y/o male with PMH gastric and colon cancer , S/P partial gastrectomy (gastro-jejunal) w/ brian-en-y reconstruction admitted for evaluation and management of partial SBO. He is S/p ex-lap with lysis of adhesions, small bowel resection and primary anastamosis POD#7. Plan: AMS of unclear etiology - CT and MRI head showed no acute stroke - Suspected seizure activity with postictal state - Neuro consult, recommendations appreciated - c/w Keppra 500 mg IV Q12h - c/w ASA, statin - close monitoring with neurochecks - bedside EEG report: normal EEG SBO s/p exploratory laparatomy with adhesiolysis, bowel resection and primary anastomosis - POD# 7 - NGT removed - Abdomen is soft and with hypoactive BS, passing flatus - start on CLD - Surgery consult, Dr. Armas, recommendations appreciated - currently on PPN, @83mL/hr - start D5 NS @ 80mL/hr - Check Accuchecks - Empirically on Meropenem IV 1 gm Q8h day 9 - promote incentive spirometer use - OOB to chair Sepsis secondary to enterobacter aerogenes - ID consult, Dr. Prasad, recommendations appreciated - c/w Meropenem 1 gm IV Q8h day 9 Sinus Tachycardia- resolved - Most likely related to volume depletion and fever
--- NOTE | 2018-06-22 08:30 | CP.CCUPN ---
CCU Subjective - Physician Review Subjective (Free Text): Uneventful night, no reported observable seizure activity, has tolerated being OOB with assistance. Denies any new focal weakness. NGT remains with less than 100ml bilious drainage over the last 24H. Afebrile, SBP 120s, HR 70-80s. SPO2 100% on NC. ROS: No other pertinent negs or positive on 10+ system review Other PMSFH: All other Nursing and physician documentation reviewed to date; no new pertinent info noted relevant to current medical problems. EXAM- HEENT: no icterus, pupils equal, 3 mm and reactive, no nystagmus NECK: no visible JVD, supple, carotids equal upstroke bilat/no bruits CHEST: decreased BS bases, no wheezes audible HEART: regular, distant, tachy S1S2, no murmur audible, no rubs. ABD: soft, no distention, no focal tenderness, abdominal wound intact and dry, BS hypoactive. EXT: no edema, no mottling, warm, no cyanosis, no calf tenderness or palpable cords, distal pulses intact and symmetrical NEURO: Motor 4/5 bilaterally SKIN: no rashes LABS: WBC= 8.2 HGB= 12.7 PLTs = 284K Na= 138 K= 4.1 Cl= 103 HCO3= 29 BUN/Cr= 20/0.7 BS= 124 IMPRESSION / MAJOR PROBLEMS NOW: 1. s/p Coma, Recent CVA, with Non-convulsive Seizure event and post-ictal state 2. s/p ExLap for SBO 3. Accelerated HTN 4. h/o Gastric CA PLAN: 1. Continue to mobilize OOB. 2. AED, ASA, Plavix, statin 3. NGT drainage / mgmt. as per Surg team. Possible NGT removal and allowance for PO fluids today. 4. Stable, BP levels have normalized; no arrhythmias while awaiting for Tele bed in ICU over the past 24H; stable for downgrade to regular med/surg bed.
[2018-06-22] MEDS: Enoxaparin 40 mg Syringe SC SCH (09:08)
--- NOTE | 2018-06-22 09:09 | CP.PCM.PN ---
<Sharon Landa - Last Filed: 06/22/18 11:17> Subjective - Date & Time of Evaluation Date of Evaluation: 06/22/18 Time of Evaluation: 07:00 - Subjective Subjective: GENERAL SURGERY PROGRESS NOTE FOR DR. TOM Patient seen and examined at bedside in the ICU. He is OOB to chair and reports feeling better. He had 2 BMs overnight per nurse. He denies nausea or vomiting. Objective - Vital Signs/Intake and Output Vital Signs (last 24 hours): Temp Pulse Resp BP Pulse Ox 98.6 F 93 H 16 119/75 100 06/22/18 08:00 06/22/18 08:00 06/22/18 08:00 06/22/18 08:00 06/22/18 08:00 Intake and Output: 06/22/18 06/22/18 06:59 18:59 Intake Total 2280 Output Total 1410 Balance 870 - Medications Medications: Current Medications Acetaminophen (Tylenol 650 Mg Supp) 650 mg [place] ONCE PRN PRN Reason: Fever >100.4 F Aspirin (Aspirin Chewable) 81 mg PO DAILY [facility] Last Admin: 06/21/18 09:31 Dose: 81 mg Atorvastatin Calcium (Lipitor) 40 mg PO DAILY [facility] Last Admin: 06/21/18 09:31 Dose: 40 mg Clopidogrel Bisulfate (Plavix) 75 mg PO DAILY [facility] Last Admin: 06/21/18 09:32 Dose: 75 mg Diphenhydramine HCl (Benadryl) 25 mg IVP Q6 PRN PRN Reason: Itching / Pruritus Enalaprilat (Vasotec) 2.5 mg IV Q12 [facility] Last Admin: 06/15/18 22:17 Dose: Not Given Enoxaparin Sodium (Lovenox) 40 mg SC DAILY [facility]; Protocol Last Admin: 06/21/18 09:31 Dose: 40 mg Fat Emulsion Intravenous (Intralipid 20%) 250 ml IV DAILY [facility] Last Admin: 06/21/18 14:36 Dose: 250 ml Meropenem 1 gm/ Sodium (Chloride) 100 mls @ 100 mls/hr IVPB Q8 [facility]; Protocol Last Admin: 06/22/18 00:11 Dose: 100 mls/hr Levetiracetam 500 mg/ Sodium (Chloride) 105 mls @ 210 mls/hr IVPB Q12@0330,1530 [facility] Last Admin: 06/22/18 02:34 Dose: 210 mls/hr Amino Acids (Clinimix 4.25/5 % "E" (1000 Ml)) 1,000 mls @ 83 mls/hr IV .Q12H3M [facility] Stop: 06/22/18 18:32 Last Admin: 06/22/18 06:47 Dose: 83 mls/hr Insulin Human Regular (Humulin R) 0 units SC Q6 [facility]; Protocol Last Admin: 06/22/18 05:00 Dose: Not Given Naloxone HCl (Narcan) 0.1 mg IVP Q2M PRN PRN Reason: Excess sedation Pantoprazole Sodium (Protonix Inj) 40 mg IVP DAILY [facility] Last Admin: 06/21/18 09:33 Dose: 40 mg - Labs Labs: 06/22/18 04:21 06/22/18 04:21 PT 13.5 Seconds (9.8-13.1) H 06/13/18 05:20 INR 1.2 06/13/18 05:20 APTT 33.6 Seconds (25.6-37.1) 06/13/18 05:20 - Constitutional Appears: Non-toxic, No Acute Distress - Head Exam Head Exam: ATRAUMATIC, NORMAL INSPECTION - Eye Exam Eye Exam: EOMI, Normal appearance - Respiratory Exam Respiratory Exam: NORMAL BREATHING PATTERN. absent: Respiratory Distress - Cardiovascular Exam Cardiovascular Exam: +S1, +S2 - GI/Abdominal Exam GI & Abdominal Exam: Soft. absent: Distended, Firm, Guarding, Rigid, Tend erness, Rebound - Neurological Exam Neurological Exam: Alert, Awake Assessment and Plan - Assessment and Plan (Free Text) Assessment: 58 M s/p ex-lap with CHUCK and small bowel resection POD#7 Plan: - Had 2 BMs overnight and tolerated clamp trial of NG tube - DC NG tube - Start CLD today - F/u Neurology recommendations, help appreciated - Encouraged OOB and ambulation and IS use - ASA/Plavix daily - Medical management as per ICU - Discussed plan with Dr. Ronnell Landa PGY-4 <Todd Tom - Last Filed: 06/22/18 14:55> Objective - Vital Signs/Intake and Output Vital Signs (last 24 hours): Temp Pulse Resp BP Pulse Ox 98.6 F 92 H 17 121/77 100 06/22/18 12:00 06/22/18 14:00 06/22/18 14:00 06/22/18 14:00 06/22/18 14:00 Intake and Output: 06/22/18 06/22/18 06:59 18:59 Intake Total 2280 570 Output Total 1410 700 Balance 870 -130 - Medications Medications: Current Medications Acetaminophen (Tylenol 650 Mg Supp) 650 mg [place] ONCE PRN PRN Reason: Fever >100.4 F Aspirin (Aspirin Chewable) 81 mg PO DAILY [facility] Last Admin: 06/22/18 09:07 Dose: 81 mg Atorvastatin Calcium (Lipitor) 40 mg PO DAILY [facility] Last Admin: 06/22/18 09:08 Dose: 40 mg Clopidogrel Bisulfate (Plavix) 75 mg PO DAILY [facility] Last Admin: 06/22/18 09:09 Dose: 75 mg Diphenhydramine HCl (Benadryl) 25 mg IVP Q6 PRN PRN Reason: Itching / Pruritus Enalaprilat (Vasotec) 2.5 mg IV Q12 [facility] Last Admin: 06/15/18 22:17 Dose: Not Given Enoxaparin Sodium (Lovenox) 40 mg SC DAILY [facility]; Protocol Last Admin: 06/22/18 09:08 Dose: 40 mg Meropenem 1 gm/ Sodium (Chloride) 100 mls @ 100 mls/hr IVPB Q8 [facility]; Protocol Last Admin: 06/22/18 12:09 Dose: 100 mls/hr Levetiracetam 500 mg/ Sodium (Chloride) 105 mls @ 210 mls/hr IVPB Q12@0330,1530 [facility] Last Admin: 06/22/18 02:34 Dose: 210 mls/hr Amino Acids (Clinimix 4.25/5 % "E" (1000 Ml)) 1,000 mls @ 83 mls/hr IV .Q12H3M [facility] Stop: 06/22/18 18:32 Last Admin: 06/22/18 06:47 Dose: 83 mls/hr Dextrose/Sodium Chloride (Dextrose 5%/0.45% Ns 1000 Ml) 1,000 mls @ 80 mls/hr IV .[id number] [facility] Stop: 06/23/18 12:39 Insulin Human Regular (Humulin R) 0 units SC Q6 [facility]; Protocol Last Admin: 06/22/18 12:12 Dose: Not Given Naloxone HCl (Narcan) 0.1 mg IVP Q2M PRN PRN Reason: Excess sedation Pantoprazole Sodium (Protonix Inj) 40 mg IVP DAILY [facility] Last Admin: 06/22/18 09:10 Dose: 40 mg - Labs Labs: 06/22/18 04:21 06/22/18 04:21 PT 13.5 Seconds (9.8-13.1) H 06/13/18 05:20 INR 1.2 06/13/18 05:20 APTT 33.6 Seconds (25.6-37.1) 06/13/18 05:20 Assessment and Plan - Assessment and Plan (Free Text) Plan: seen at bedside, resting comfortably. NGT removed started on clears which the patient tolerated well. Denies any nausea or vomiting. Passing flatus and +BM. Gen: awake, alert, NAD, following commands abd: soft, ND, minimal incisional tenderness, midline incision c/d/i -prn pain control -advance to fulls, +ensure -PT f/u -if continues to tolerated diet will dc PPN in AM
[2018-06-22] MEDS ORDERED: Dextrose 5%/0.9% NS 1,000 ML IV SCH (10:45)
--- NOTE | 2018-06-22 13:38 | CP.PCM.PN ---
Subjective - Date & Time of Evaluation Date of Evaluation: 06/22/18 Time of Evaluation: 08:00 - Subjective Subjective: awake alert afebrile NAD tawnya fever less pain Objective - Vital Signs/Intake and Output Vital Signs (last 24 hours): Temp Pulse Resp BP Pulse Ox 98.6 F 87 16 135/81 100 06/22/18 12:00 06/22/18 12:00 06/22/18 12:00 06/22/18 12:00 06/22/18 12:00 Intake and Output: 06/22/18 06/22/18 06:59 18:59 Intake Total 2280 450 Output Total 1410 500 Balance 870 -50 - Medications Medications: Current Medications Acetaminophen (Tylenol 650 Mg Supp) 650 mg [place] ONCE PRN PRN Reason: Fever >100.4 F Aspirin (Aspirin Chewable) 81 mg PO DAILY [facility] Last Admin: 06/22/18 09:07 Dose: 81 mg Atorvastatin Calcium (Lipitor) 40 mg PO DAILY [facility] Last Admin: 06/22/18 09:08 Dose: 40 mg Clopidogrel Bisulfate (Plavix) 75 mg PO DAILY [facility] Last Admin: 06/22/18 09:09 Dose: 75 mg Diphenhydramine HCl (Benadryl) 25 mg IVP Q6 PRN PRN Reason: Itching / Pruritus Enalaprilat (Vasotec) 2.5 mg IV Q12 [facility] Last Admin: 06/15/18 22:17 Dose: Not Given Enoxaparin Sodium (Lovenox) 40 mg SC DAILY [facility]; Protocol Last Admin: 06/22/18 09:08 Dose: 40 mg Fat Emulsion Intravenous (Intralipid 20%) 250 ml IV DAILY [facility] Last Admin: 06/22/18 09:08 Dose: 250 ml Meropenem 1 gm/ Sodium (Chloride) 100 mls @ 100 mls/hr IVPB Q8 [facility]; Protocol Last Admin: 06/22/18 12:09 Dose: 100 mls/hr Levetiracetam 500 mg/ Sodium (Chloride) 105 mls @ 210 mls/hr IVPB Q12@0330,1530 [facility] Last Admin: 06/22/18 02:34 Dose: 210 mls/hr Amino Acids (Clinimix 4.25/5 % "E" (1000 Ml)) 1,000 mls @ 83 mls/hr IV .Q12H3M [facility] Stop: 06/22/18 18:32 Last Admin: 06/22/18 06:47 Dose: 83 mls/hr Dextrose/Sodium Chloride (Dextrose 5%/0.45% Ns 1000 Ml) 1,000 mls @ 80 mls/hr IV .[id number] [facility] Stop: 06/23/18 12:39 Insulin Human Regular (Humulin R) 0 units SC Q6 [facility]; Protocol Last Admin: 06/22/18 12:12 Dose: Not Given Naloxone HCl (Narcan) 0.1 mg IVP Q2M PRN PRN Reason: Excess sedation Pantoprazole Sodium (Protonix Inj) 40 mg IVP DAILY [facility] Last Admin: 06/22/18 09:10 Dose: 40 mg - Labs Labs: 06/22/18 04:21 06/22/18 04:21 PT 13.5 Seconds (9.8-13.1) H 06/13/18 05:20 INR 1.2 06/13/18 05:20 APTT 33.6 Seconds (25.6-37.1) 06/13/18 05:20 - Constitutional Appears: Younger Than Stated Age, Cachectic, Chronically Ill - Head Exam Head Exam: NORMOCEPHALIC - Eye Exam Eye Exam: absent: Scleral icterus - ENT Exam ENT Exam: Mucous Membranes Dry - Neck Exam Neck Exam: absent: Lymphadenopathy - Respiratory Exam Respiratory Exam: Decreased Breath Sounds - Cardiovascular Exam Cardiovascular Exam: REGULAR RHYTHM - GI/Abdominal Exam GI & Abdominal Exam: Distended, Soft, Tenderness - Rectal Exam Rectal Exam: Deferred - Exam Exam: NORMAL INSPECTION - Extremities Exam Extremities Exam: absent: Pedal Edema - Back Exam Back Exam: absent: CVA tenderness (L), CVA tenderness (R) - Neurological Exam Neurological Exam: Alert, Awake, CN II-XII Intact, Oriented x3 - Psychiatric Exam Psychiatric exam: Depressed - Skin Skin Exam: Dry Assessment and Plan (1) Small bowel obstruction Status: Acute (2) Sepsis Status: Acute (3) Enterobacter sepsis Assessment & Plan: cont iv rx for 14 days Status: Acute (4) CVA (cerebrovascular accident) Status: Acute - Assessment and Plan (Free Text) Assessment: s/p SBO secondary to adhesions - Enterobacter bacteremia / sepsis
[2018-06-22] MEDS: Dextrose 5%/0.45% NS 1,000 ML IV SCH (22:42)
[2018-06-23] MEDS: Meropenem 1 GM in Sodium Chloride 0.9% 100 ML IVPB SCH ×3 (00:37→16:57)
[2018-06-23] MEDS: levETIRAcetam 500 MG in Sodium Chloride 0.9% 100 ML IVPB SCH ×2 (03:03→14:47)
[2018-06-23 05:31] LABS: HEMOGLOBIN 12.9 g/dL (12.0-18.0); MEAN CELL VOLUME 93.2 fl (80.0-94.0); MEAN CORPUSCULAR HEMOGLOBIN 31.9 pg (27.0-31.0); MEAN CORPUSCULAR HGB CONC 34.2 g/dL (33.0-37.0); RBC 4.04 Mil/uL (4.40-5.90); RED CELL DISTRIBUTION WIDTH 16.2 % (11.5-14.5); WHITE BLOOD COUNT 6.8 K/uL (4.8-10.8)
[2018-06-23 05:55] LABS: ALB/GLOB RATIO 0.8 (1.0-2.1); ALBUMIN 3.2 g/dL (3.5-5.0); ALT/SGPT 85 U/L (21-72); AST/SGOT 122 U/L (17-59); BLOOD UREA NITROGEN 16 mg/dl (9-20); CALCIUM 8.8 mg/dL (8.4-10.2); GFR NON-AFRICAN AMERICAN > 60
[2018-06-23] MEDS: Insulin Regular 100 units/ml SC SCH ×4 (07:00→22:54)
--- NOTE | 2018-06-23 07:44 | CP.PCM.PN ---
Objective - Vital Signs/Intake and Output Vital Signs (last 24 hours): Temp Pulse Resp BP Pulse Ox 97.7 F 83 19 131/87 100 06/23/18 04:00 06/23/18 07:42 06/23/18 07:42 06/23/18 07:42 06/23/18 07:42 Intake and Output: 06/23/18 06/23/18 06:59 18:59 Intake Total 1410 Output Total 325 Balance 1085 - Medications Medications: Current Medications Acetaminophen (Tylenol 650 Mg Supp) 650 mg [place] ONCE PRN PRN Reason: Fever >100.4 F Aspirin (Aspirin Chewable) 81 mg PO DAILY [facility] Last Admin: 06/22/18 09:07 Dose: 81 mg Atorvastatin Calcium (Lipitor) 40 mg PO DAILY [facility] Last Admin: 06/22/18 09:08 Dose: 40 mg Clopidogrel Bisulfate (Plavix) 75 mg PO DAILY [facility] Last Admin: 06/22/18 09:09 Dose: 75 mg Diphenhydramine HCl (Benadryl) 25 mg IVP Q6 PRN PRN Reason: Itching / Pruritus Enalaprilat (Vasotec) 2.5 mg IV Q12 [facility] Last Admin: 06/15/18 22:17 Dose: Not Given Enoxaparin Sodium (Lovenox) 40 mg SC DAILY [facility]; Protocol Last Admin: 06/22/18 09:08 Dose: 40 mg Meropenem 1 gm/ Sodium (Chloride) 100 mls @ 100 mls/hr IVPB Q8 [facility]; Protocol Last Admin: 06/23/18 00:37 Dose: 100 mls/hr Levetiracetam 500 mg/ Sodium (Chloride) 105 mls @ 210 mls/hr IVPB Q12@0330,1530 [facility] Last Admin: 06/23/18 03:03 Dose: 210 mls/hr Dextrose/Sodium Chloride (Dextrose 5%/0.45% Ns 1000 Ml) 1,000 mls @ 80 mls/hr IV .[id number] [facility] Stop: 06/23/18 12:39 Last Admin: 06/22/18 22:42 Dose: 80 mls/hr Insulin Human Regular (Humulin R) 0 units SC Q6 [facility]; Protocol Last Admin: 06/22/18 22:43 Dose: Not Given Naloxone HCl (Narcan) 0.1 mg IVP Q2M PRN PRN Reason: Excess sedation Pantoprazole Sodium (Protonix Inj) 40 mg IVP DAILY [facility] Last Admin: 06/22/18 09:10 Dose: 40 mg - Labs Labs: 06/23/18 05:00 06/23/18 05:10 PT 13.5 Seconds (9.8-13.1) H 06/13/18 05:20 INR 1.2 06/13/18 05:20 APTT 33.6 Seconds (25.6-37.1) 06/13/18 05:20
--- NOTE | 2018-06-23 07:54 | CP.CCUPN ---
CCU Subjective - Physician Review Subjective (Free Text): 06/23/18 16:43 The patient was Seen/interviewed and examined by me at the bedside during ICU round, Medical records reviewed and Management issues were discussed and formulated with the house staff. Events reviewed Patient with Recent CVA, Admitted with Non-convulsive Seizure event and post- ictal state Pt also S/P exploratory laparotomy. lysis of adhesions. small bowel resection w/ primary anastamosis on 06/15 for small bowel obstruction Doing better today, tolerating Full Liquid diet Patient is comfortable, in no apparent distress No chest pain, SOB, nausea, vomiting Afebrile overnight NSR on the monitor CCU Objective - Vital Signs / Intake & Output Vital Signs (Last 4 hours): Vital Signs Temp Pulse Resp BP Pulse Ox 06/23/18 07:42 83 19 131/87 100 06/23/18 06:00 81 15 124/78 100 06/23/18 04:00 97.7 F 88 15 124/81 100 Intake and Output (Last 8hrs): Intake & Output 06/22/18 06/23/18 06/23/18 22:59 06:59 14:59 Intake Total 2320 990 Output Total 450 275 Balance 1870 715 Intake: IV 2020 640 Intake, Piggyback 200 200 Oral 100 150 Output: Urine 450 275 Urine, Voided 450 275 Other: # Bowel Movements 1 - Physical Exam Head: Positive for: Atraumatic, Normocephalic Pupils: Positive for: PERRL Extroacular Muscles: Positive for: EOMI Conjunctiva: Positive for: Normal Mouth: Positive for: Dry Pharnyx: Positive for: Normal Nose (External): Positive for: Atraumatic Neck: Positive for: Normal Range of Motion Respiratory/Chest: Positive for: Clear to Auscultation Cardiovascular: Positive for: Tachycardic Abdomen: Positive for: Tenderness, Other (dressing). Negative for: Distention, Normal Bowel Sounds (decreased), Rebound, Guarding Upper Extremity: Positive for: Normal Inspection Lower Extremity: Positive for: Normal Inspection Skin: Positive for: Warm Psychiatric: Positive for: Alert - Medications Active Medications: Active Medications Generic Name Dose Route Start Last Admin Trade Name Freq PRN Reason Stop Dose Admin Acetaminophen 650 mg 06/15/18 16:42 Tylenol 650 Mg Supp [place] ONCE PRN Fever >100.4 F Aspirin 81 mg 06/20/18 09:00 06/22/18 09:07 Aspirin Chewable PO 81 mg DAILY [facility] Administration Atorvastatin Calcium 40 mg 06/19/18 14:15 06/22/18 09:08 Lipitor PO 40 mg DAILY [facility] Administration Clopidogrel Bisulfate 75 mg 06/20/18 09:00 06/22/18 09:09 Plavix PO 75 mg DAILY [facility] Administration Diphenhydramine HCl 25 mg 06/15/18 14:06 Benadryl IVP Q6 PRN Itching / Pruritus Enalaprilat 2.5 mg 06/13/18 21:00 06/15/18 22:17 Vasotec IV Not Given Q12 [facility] Enoxaparin Sodium 40 mg 06/20/18 09:00 06/22/18 09:08 Lovenox SC 40 mg DAILY [facility] Administration Protocol Meropenem 1 gm/ Sodium 100 mls @ 100 mls/hr 06/14/18 15:13 06/23/18 00:37 Chloride IVPB 100 mls/hr Q8 [facility] Administration Protocol Levetiracetam 500 mg/ Sodium 105 mls @ 210 mls/hr 06/20/18 03:30 06/23/18 03:03 Chloride IVPB 210 mls/hr Q12@0330,1530 [facility] Administration Dextrose/Sodium Chloride 1,000 mls @ 80 mls/hr 06/22/18 12:45 06/22/18 22:42 Dextrose 5%/0.45% Ns 1000 Ml IV 06/23/18 12:39 80 mls/hr .[id number] [facility] Administration Insulin Human Regular 0 units 06/21/18 10:00 06/22/18 22:43 Humulin R SC Not Given Q6 [facility] Protocol Naloxone HCl 0.1 mg 06/15/18 14:06 Narcan IVP Q2M PRN Excess sedation Pantoprazole Sodium 40 mg 06/11/18 09:00 06/22/18 09:10 Protonix Inj IVP 40 mg DAILY [facility] Administration - Patient Studies Lab Studies: Microbiology Studies 06/17/18 05:08 Blood Culture - Final Blood NO GROWTH AFTER 5 DAYS Gram Stain - Final TEST NOT PERFORMED 06/17/18 05:08 Blood Culture - Final Blood NO GROWTH AFTER 5 DAYS Gram Stain - Final TEST NOT PERFORMED Lab Studies 06/23/18 06/23/18 06/23/18 Range/Units 06:59 05:10 05:00 WBC 6.8 (4.8-10.8) K/uL RBC 4.04 L (4.40-5.90) Mil/uL Hgb 12.9 (12.0-18.0) g/dL Hct 37.7 (35.0-51.0) % MCV 93.2 (80.0-94.0) fl MCH 31.9 H (27.0-31.0) pg MCHC 34.2 (33.0-37.0) g/dL RDW 16.2 H (11.5-14.5) % Plt Count 290 (130-400) K/uL Sodium 136 (132-148) mmol/l Potassium 4.2 (3.6-5.0) MMOL/L Chloride 101 (98-107) mmol/L Carbon Dioxide 30 (22-30) mmol/L Anion Gap 9 L (10-20) BUN 16 (9-20) mg/dl Creatinine 0.9 (0.8-1.5) mg/dl Est GFR ( Amer) > 60 Est GFR (Non-Af Amer) > 60 POC Glucose (mg/dL) 85 (65-110) mg/dL Random Glucose 100 (75-110) mg/dL Calcium 8.8 (8.4-10.2) mg/dL Total Bilirubin 1.6 H (0.2-1.3) mg/dl AST 122 H D (17-59) U/L ALT 85 H D (21-72) U/L Alkaline Phosphatase 132 H D (38-126) U/L Total Protein 7.0 (6.3-8.2) G/DL Albumin 3.2 L (3.5-5.0) g/dL Globulin 3.9 (2.2-3.9) gm/dL Albumin/Globulin Ratio 0.8 L (1.0-2.1) 06/22/18 06/22/18 06/22/18 Range/Units 21:00 17:00 11:19 WBC (4.8-10.8) K/uL RBC (4.40-5.90) Mil/uL Hgb (12.0-18.0) g/dL Hct (35.0-51.0) % MCV (80.0-94.0) fl MCH (27.0-31.0) pg MCHC (33.0-37.0) g/dL RDW (11.5-14.5) % Plt Count (130-400) K/uL Sodium (132-148) mmol/l Potassium (3.6-5.0) MMOL/L Chloride (98-107) mmol/L Carbon Dioxide (22-30) mmol/L Anion Gap (10-20) BUN (9-20) mg/dl Creatinine (0.8-1.5) mg/dl Est GFR ( Amer) Est GFR (Non-Af Amer) POC Glucose (mg/dL) 112 H 126 H 124 H (65-110) mg/dL Random Glucose (75-110) mg/dL Calcium (8.4-10.2) mg/dL Total Bilirubin (0.2-1.3) mg/dl AST (17-59) U/L ALT (21-72) U/L Alkaline Phosphatase (38-126) U/L Total Protein (6.3-8.2) G/DL Albumin (3.5-5.0) g/dL Globulin (2.2-3.9) gm/dL Albumin/Globulin Ratio (1.0-2.1) Laboratory Results - last 24 hr 06/22/18 06/22/18 06/22/18 11:19 17:00 21:00 WBC RBC Hgb Hct MCV MCH MCHC RDW Plt Count Sodium Potassium Chloride Carbon Dioxide Anion Gap BUN Creatinine Est GFR ( Amer) Est GFR (Non-Af Amer) POC Glucose (mg/dL) 124 H 126 H 112 H Random Glucose Calcium Total Bilirubin AST ALT Alkaline Phosphatase Total Protein Albumin Globulin Albumin/Globulin Ratio 06/23/18 06/23/18 06/23/18 05:00 05:10 06:59 WBC 6.8 RBC 4.04 L Hgb 12.9 Hct 37.7 MCV 93.2 MCH 31.9 H MCHC 34.2 RDW 16.2 H Plt Count 290 Sodium 136 Potassium 4.2 Chloride 101 Carbon Dioxide 30 Anion Gap 9 L BUN 16 Creatinine 0.9 Est GFR ( Amer) > 60 Est GFR (Non-Af Amer) > 60 POC Glucose (mg/dL) 85 Random Glucose 100 Calcium 8.8 Total Bilirubin 1.6 H AST 122 H D ALT 85 H D Alkaline Phosphatase 132 H D Total Protein 7.0 Albumin 3.2 L Globulin 3.9 Albumin/Globulin Ratio 0.8 L Fingerstick Blood Sugar Results: 85 Critical Care Progress Note - Extremities/Vascular Does the Patient have a Central Venous Catheter?: No Does the Patient need a Central Venous Catheter?: No Does the Patient have a Amado Catheter?: No Does the Patient need a Amado Catheter?: No - Nutrition Nutrition: Nutrition Category Date Time Status Liquid Diet [DIET] Diets 06/22/18 Dinner Active Assessment/Plan (1) Altered mental status Current Visit: Yes Status: Acute Priority: High (2) CVA (cerebrovascular accident) Current Visit: Yes Status: Acute Priority: High (3) Small bowel obstruction Current Visit: Yes Status: Acute Priority: High Comment: S/P exploratory laparotomy. lysis of adhesions. small bowel resection w/ primary anastamosis
[2018-06-23] MEDS: Enoxaparin 40 mg Syringe SC SCH (09:20)
--- NOTE | 2018-06-23 11:19 | CP.PCM.PN ---
Subjective - Date & Time of Evaluation Date of Evaluation: 06/23/18 Time of Evaluation: 11:17 - Subjective Subjective: General Surgery Pt seen and examined this AM with family at bedside. He reports he is tolerating PO and having BMs and passing gas. (-) N/V. Labs and vitals noted. PE Gen: Pt laying in bed in NAD Skin: warm and dry Cardio: s1s2 RRR Lungs: CTA bilaterally Abd: Soft, (+) NT, (-) mild distention. Stapled incision C/D/I Extr: (+) SCD boots in place, (-) calf tenderness bilaterally A/P SBO s/p ex-lap with lysis of adhesions, small bowel resection and primary anastamosis POD#8 Advance diet to soft consistency Monitor tolerance Monitor labs Encourage OOB. Objective - Vital Signs/Intake and Output Vital Signs (last 24 hours): Temp Pulse Resp BP Pulse Ox 98.1 F 94 H 17 103/71 100 06/23/18 08:00 06/23/18 08:00 06/23/18 08:00 06/23/18 08:00 06/23/18 08:00 Intake and Output: 06/23/18 06/23/18 06:59 18:59 Intake Total 1410 160 Output Total 325 Balance 1085 160 - Medications Medications: Current Medications Acetaminophen (Tylenol 650 Mg Supp) 650 mg [place] ONCE PRN PRN Reason: Fever >100.4 F Aspirin (Aspirin Chewable) 81 mg PO DAILY [facility] Last Admin: 06/23/18 09:21 Dose: 81 mg Atorvastatin Calcium (Lipitor) 40 mg PO DAILY [facility] Last Admin: 06/23/18 09:20 Dose: 40 mg Clopidogrel Bisulfate (Plavix) 75 mg PO DAILY [facility] Last Admin: 06/23/18 09:21 Dose: 75 mg Diphenhydramine HCl (Benadryl) 25 mg IVP Q6 PRN PRN Reason: Itching / Pruritus Enalaprilat (Vasotec) 2.5 mg IV Q12 [facility] Last Admin: 06/15/18 22:17 Dose: Not Given Enoxaparin Sodium (Lovenox) 40 mg SC DAILY [facility]; Protocol Last Admin: 06/23/18 09:20 Dose: 40 mg Meropenem 1 gm/ Sodium (Chloride) 100 mls @ 100 mls/hr IVPB Q8 [facility]; Protocol Last Admin: 06/23/18 09:22 Dose: 100 mls/hr Levetiracetam 500 mg/ Sodium (Chloride) 105 mls @ 210 mls/hr IVPB Q12@0330,1530 [facility] Last Admin: 06/23/18 03:03 Dose: 210 mls/hr Dextrose/Sodium Chloride (Dextrose 5%/0.45% Ns 1000 Ml) 1,000 mls @ 80 mls/hr IV .[id number] [facility] Stop: 06/23/18 12:39 Last Admin: 06/22/18 22:42 Dose: 80 mls/hr Insulin Human Regular (Humulin R) 0 units SC Q6 [facility]; Protocol Last Admin: 06/23/18 07:00 Dose: Not Given Naloxone HCl (Narcan) 0.1 mg IVP Q2M PRN PRN Reason: Excess sedation Pantoprazole Sodium (Protonix Inj) 40 mg IVP DAILY [facility] Last Admin: 06/23/18 09:21 Dose: 40 mg - Labs Labs: 06/23/18 05:00 06/23/18 05:10 PT 13.5 Seconds (9.8-13.1) H 06/13/18 05:20 INR 1.2 06/13/18 05:20 APTT 33.6 Seconds (25.6-37.1) 06/13/18 05:20
--- NOTE | 2018-06-23 11:30 | CP.PCM.PN ---
Subjective - Date & Time of Evaluation Date of Evaluation: 06/23/18 Time of Evaluation: 11:28 - Subjective Subjective: Neuro Follow-Up Note: Mr. Hanley was evaluated this morning in the ICU sitting in chair at bedside. Today he states that he is feeling much better than before. He verbalized being able to ambulate with PT this morning well. Denies any further episodes of difficulty speaking or any change in mentation. He attributes those symptoms from last week to the NGT and him having discomfort when speaking. He is POD #8 ex-lap with lysis of adhesions, small bowel resection and primary anastamosis. Currently denies h/a, dizziness, visual changes, chest pain, palpitations, sob, abd pain, n/v/d, fever/chills, paresthesias. Objective - Vital Signs/Intake and Output Vital Signs (last 24 hours): Temp Pulse Resp BP Pulse Ox 98.1 F 94 H 17 103/71 100 06/23/18 08:00 06/23/18 08:00 06/23/18 08:00 06/23/18 08:00 06/23/18 08:00 Intake and Output: 06/23/18 06/23/18 06:59 18:59 Intake Total 1410 160 Output Total 325 Balance 1085 160 - Medications Medications: Current Medications Acetaminophen (Tylenol 650 Mg Supp) 650 mg [place] ONCE PRN PRN Reason: Fever >100.4 F Aspirin (Aspirin Chewable) 81 mg PO DAILY [facility] Last Admin: 06/23/18 09:21 Dose: 81 mg Atorvastatin Calcium (Lipitor) 40 mg PO DAILY [facility] Last Admin: 06/23/18 09:20 Dose: 40 mg Clopidogrel Bisulfate (Plavix) 75 mg PO DAILY [facility] Last Admin: 06/23/18 09:21 Dose: 75 mg Diphenhydramine HCl (Benadryl) 25 mg IVP Q6 PRN PRN Reason: Itching / Pruritus Enalaprilat (Vasotec) 2.5 mg IV Q12 [facility] Last Admin: 06/15/18 22:17 Dose: Not Given Enoxaparin Sodium (Lovenox) 40 mg SC DAILY [facility]; Protocol Last Admin: 06/23/18 09:20 Dose: 40 mg Meropenem 1 gm/ Sodium (Chloride) 100 mls @ 100 mls/hr IVPB Q8 [facility]; Protocol Last Admin: 06/23/18 09:22 Dose: 100 mls/hr Levetiracetam 500 mg/ Sodium (Chloride) 105 mls @ 210 mls/hr IVPB Q12@0330,1530 [facility] Last Admin: 06/23/18 03:03 Dose: 210 mls/hr Dextrose/Sodium Chloride (Dextrose 5%/0.45% Ns 1000 Ml) 1,000 mls @ 80 mls/hr IV .[id number] [facility] Stop: 06/23/18 12:39 Last Admin: 06/22/18 22:42 Dose: 80 mls/hr Insulin Human Regular (Humulin R) 0 units SC Q6 [facility]; Protocol Last Admin: 06/23/18 07:00 Dose: Not Given Naloxone HCl (Narcan) 0.1 mg IVP Q2M PRN PRN Reason: Excess sedation Pantoprazole Sodium (Protonix Inj) 40 mg IVP DAILY [facility] Last Admin: 06/23/18 09:21 Dose: 40 mg - Labs Labs: 06/23/18 05:00 06/23/18 05:10 PT 13.5 Seconds (9.8-13.1) H 06/13/18 05:20 INR 1.2 06/13/18 05:20 APTT 33.6 Seconds (25.6-37.1) 06/13/18 05:20 - Constitutional Appears: Well, Non-toxic, No Acute Distress - Head Exam Head Exam: ATRAUMATIC, NORMAL INSPECTION, NORMOCEPHALIC - Eye Exam Eye Exam: EOMI, Normal appearance, PERRL Pupil Exam: NORMAL ACCOMODATION, PERRL - ENT Exam ENT Exam: Mucous Membranes Moist - Neck Exam Neck Exam: Full ROM, Normal Inspection - Respiratory Exam Respiratory Exam: NORMAL BREATHING PATTERN - Extremities Exam Extremities Exam: Full ROM, Normal Inspection. absent: Calf Tenderness, Pedal Edema Additional comments: generalized weakness 2/2 deconditioning noted - Neurological Exam Neurological Exam: Alert, Awake, CN II-XII Intact, Oriented x3, Reflexes Normal Neuro motor strength exam: Left Upper Extremity: 4 (sanding machine tender automatic 4/5), Right Upper Extremity: 4 (sanding machine tender automatic 4/5), Left Lower Extremity: 4 (plantar flexion 4/5), Right Lower Extremity: 4 (plantar flexion 4/5) Additional comments: Speech clear, fluid AAOx3 No focal motor or sensory deficits noted Does have some generalized weakness noted 2/2 deconditioning No tremors or abnormal movements - Psychiatric Exam Psychiatric exam: Normal Affect, Normal Mood - Skin Skin Exam: Normal Color Assessment and Plan (1) Altered mental status Assessment & Plan: Imaging reviewed: -EEG (06/22/18): normal awake and asleep EEG -Brain MRI (06/19/18): 1. No acute intracranial abnormality. Specifically, no evidence for acute infarction. 2. Multifocal cystic encephalomalacia and gliosis in both frontal lobes, worse on the right. 3. Bilateral mastoid effusions. -CTA Head and Neck (06/19/18): No suspicious findings on CT Angiography of the Brain and Neck. No definite large vessel occlusion appreciable. -CT Head (06/19/18): Stable noncontrast CT of the Head. 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 -Continue secondary stroke prevention, including BP control, statin, and dual anti platelet therapy with ASA 81 mg PO daily x21 days total (started on ; last day to be taken is 07/11/18) and Plavix 75 mg PO daily x21 days (also started on 06/20/18); after 07/11/18 continue only Plavix 75 mg PO daily. -Continue PT/OT -Stable to be down graded to medical floor. -F/u with neuro as outpatient after d/c. No further neuro recommendations. Reconsult prn. Thank you for this consultation. Maria A Elias, DNP, AUXILIARY POWER EQUIPMENT OPERATOR D/W Dr. Bay Status: Acute NIHSS Stroke Scale - Date/Time Evaluation Performed Date Performed: 06/23/18 Time Performed: 11:34 When Was NIHSS Performed: Re-evaluation - How Severe is the Stroke Level of Consciousness: 0=Alert LOC to Questions: 0=Both comments correct LOC to commands: 0=Obeys both correctly Best Gaze: 0=Normal Visual: 0=No visual loss Facial: 0=Normal Motor Arm - Left: 0=No drift Motor Arm - Right: 0=No drift Motor Leg - Left: 0=No drift Motor Leg - Right: 0=No drift Limb Ataxia: 0=Absent Sensory: 0=Normal Best Language: 0=No aphasia Dysarthia: 0=Normal articulation Extinction & Inattention (Neglect): 0=Normal, no object Score: 0
--- NOTE | 2018-06-23 11:35 | CP.PCM.PN ---
Subjective - Date & Time of Evaluation Date of Evaluation: 06/23/18 Time of Evaluation: 09:00 - Subjective Subjective: improving OOB to chair afebrile Objective - Vital Signs/Intake and Output Vital Signs (last 24 hours): Temp Pulse Resp BP Pulse Ox 98.1 F 94 H 17 103/71 100 06/23/18 08:00 06/23/18 08:00 06/23/18 08:00 06/23/18 08:00 06/23/18 08:00 Intake and Output: 06/23/18 06/23/18 06:59 18:59 Intake Total 1410 160 Output Total 325 Balance 1085 160 - Medications Medications: Current Medications Acetaminophen (Tylenol 650 Mg Supp) 650 mg [place] ONCE PRN PRN Reason: Fever >100.4 F Aspirin (Aspirin Chewable) 81 mg PO DAILY [facility] Last Admin: 06/23/18 09:21 Dose: 81 mg Atorvastatin Calcium (Lipitor) 40 mg PO DAILY [facility] Last Admin: 06/23/18 09:20 Dose: 40 mg Clopidogrel Bisulfate (Plavix) 75 mg PO DAILY [facility] Last Admin: 06/23/18 09:21 Dose: 75 mg Diphenhydramine HCl (Benadryl) 25 mg IVP Q6 PRN PRN Reason: Itching / Pruritus Enalaprilat (Vasotec) 2.5 mg IV Q12 [facility] Last Admin: 06/15/18 22:17 Dose: Not Given Enoxaparin Sodium (Lovenox) 40 mg SC DAILY [facility]; Protocol Last Admin: 06/23/18 09:20 Dose: 40 mg Meropenem 1 gm/ Sodium (Chloride) 100 mls @ 100 mls/hr IVPB Q8 [facility]; Protocol Last Admin: 06/23/18 09:22 Dose: 100 mls/hr Levetiracetam 500 mg/ Sodium (Chloride) 105 mls @ 210 mls/hr IVPB Q12@0330,1530 [facility] Last Admin: 06/23/18 03:03 Dose: 210 mls/hr Dextrose/Sodium Chloride (Dextrose 5%/0.45% Ns 1000 Ml) 1,000 mls @ 80 mls/hr IV .[id number] [facility] Stop: 06/23/18 12:39 Last Admin: 06/22/18 22:42 Dose: 80 mls/hr Insulin Human Regular (Humulin R) 0 units SC Q6 [facility]; Protocol Last Admin: 06/23/18 07:00 Dose: Not Given Naloxone HCl (Narcan) 0.1 mg IVP Q2M PRN PRN Reason: Excess sedation Pantoprazole Sodium (Protonix Inj) 40 mg IVP DAILY [facility] Last Admin: 06/23/18 09:21 Dose: 40 mg - Labs Labs: 06/23/18 05:00 06/23/18 05:10 PT 13.5 Seconds (9.8-13.1) H 06/13/18 05:20 INR 1.2 06/13/18 05:20 APTT 33.6 Seconds (25.6-37.1) 06/13/18 05:20 - Constitutional Appears: Non-toxic, Cachectic, Chronically Ill - Head Exam Head Exam: ATRAUMATIC, NORMAL INSPECTION, NORMOCEPHALIC - Eye Exam Eye Exam: EOMI, Normal appearance, PERRL Pupil Exam: NORMAL ACCOMODATION, PERRL - ENT Exam ENT Exam: Mucous Membranes Moist, Normal Exam - Neck Exam Neck Exam: Full ROM, Normal Inspection. absent: Lymphadenopathy - Respiratory Exam Respiratory Exam: Clear to Ausculation Bilateral, NORMAL BREATHING PATTERN - Cardiovascular Exam Cardiovascular Exam: REGULAR RHYTHM, +S1, +S2. absent: Murmur - GI/Abdominal Exam GI & Abdominal Exam: Soft, Normal Bowel Sounds. absent: Tenderness - Rectal Exam Rectal Exam: Deferred - Exam Exam: NORMAL INSPECTION - Extremities Exam Extremities Exam: Full ROM, Normal Capillary Refill, Normal Inspection. absent: Joint Swelling, Pedal Edema - Back Exam Back Exam: NORMAL INSPECTION - Neurological Exam Neurological Exam: Alert, Awake, CN II-XII Intact, Oriented x3. absent: Normal Gait - Psychiatric Exam Psychiatric exam: Normal Affect, Normal Mood - Skin Skin Exam: Dry, Intact, Normal Color, Warm Assessment and Plan (1) Small bowel obstruction Status: Acute (2) Sepsis Status: Acute (3) Enterobacter sepsis Status: Acute (4) CVA (cerebrovascular accident) Status: Acute - Assessment and Plan (Free Text) Assessment: cont iv antibiotic for 14 days for gram neg sepsis
--- NOTE | 2018-06-23 14:16 | CP.PCM.PN ---
<Josiane Diaz - Last Filed: 06/23/18 14:34> Subjective - Date & Time of Evaluation Date of Evaluation: 06/23/18 Time of Evaluation: 14:16 - Subjective Subjective: Patient seen and examined bedside with Dr Jaramillo. Admits to feeling better since NG tube removed - had 1 bowel movement and passing flatus. Physical therapy was bedside. Denies fever, nausea, dizziness and vomiting. Objective - Vital Signs/Intake and Output Vital Signs (last 24 hours): Temp Pulse Resp BP Pulse Ox 98.1 F 90 17 107/73 100 06/23/18 08:00 06/23/18 11:55 06/23/18 08:00 06/23/18 11:55 06/23/18 11:55 Intake and Output: 06/23/18 06/23/18 06:59 18:59 Intake Total 1410 160 Output Total 325 Balance 1085 160 - Medications Medications: Current Medications Acetaminophen (Tylenol 650 Mg Supp) 650 mg [place] ONCE PRN PRN Reason: Fever >100.4 F Aspirin (Aspirin Chewable) 81 mg PO DAILY [facility] Last Admin: 06/23/18 09:21 Dose: 81 mg Atorvastatin Calcium (Lipitor) 40 mg PO DAILY [facility] Last Admin: 06/23/18 09:20 Dose: 40 mg Clopidogrel Bisulfate (Plavix) 75 mg PO DAILY [facility] Last Admin: 06/23/18 09:21 Dose: 75 mg Diphenhydramine HCl (Benadryl) 25 mg IVP Q6 PRN PRN Reason: Itching / Pruritus Enalaprilat (Vasotec) 2.5 mg IV Q12 [facility] Last Admin: 06/15/18 22:17 Dose: Not Given Enoxaparin Sodium (Lovenox) 40 mg SC DAILY [facility]; Protocol Last Admin: 06/23/18 09:20 Dose: 40 mg Meropenem 1 gm/ Sodium (Chloride) 100 mls @ 100 mls/hr IVPB Q8 [facility]; Protocol Last Admin: 06/23/18 09:22 Dose: 100 mls/hr Levetiracetam 500 mg/ Sodium (Chloride) 105 mls @ 210 mls/hr IVPB Q12@0330,1530 [facility] Last Admin: 06/23/18 03:03 Dose: 210 mls/hr Insulin Human Regular (Humulin R) 0 units SC Q6 [facility]; Protocol Last Admin: 06/23/18 12:00 Dose: Not Given Naloxone HCl (Narcan) 0.1 mg IVP Q2M PRN PRN Reason: Excess sedation Pantoprazole Sodium (Protonix Inj) 40 mg IVP DAILY [facility] Last Admin: 06/23/18 09:21 Dose: 40 mg - Labs Labs: 06/23/18 05:00 06/23/18 05:10 PT 13.5 Seconds (9.8-13.1) H 06/13/18 05:20 INR 1.2 06/13/18 05:20 APTT 33.6 Seconds (25.6-37.1) 06/13/18 05:20 - Constitutional Appears: No Acute Distress - Head Exam Head Exam: NORMAL INSPECTION - Eye Exam Eye Exam: Normal appearance - Respiratory Exam Respiratory Exam: NORMAL BREATHING PATTERN - Cardiovascular Exam Cardiovascular Exam: REGULAR RHYTHM - GI/Abdominal Exam GI & Abdominal Exam: Soft. absent: Guarding, Tenderness - Neurological Exam Neurological Exam: Alert, Awake, Oriented x3 - Psychiatric Exam Psychiatric exam: Normal Affect, Normal Mood - Skin Skin Exam: Normal Color Assessment and Plan - Assessment and Plan (Free Text) Assessment: 58 y/o male with PMH gastric and colon cancer , S/P partial gastrectomy (gastro-jejunal) w/ brian-en-y reconstruction admitted for evaluation and management of partial SBO. He is S/p ex-lap with lysis of adhesions, small bowel resection and primary anastamosis POD#8. On Meropenem 1 gm IV Q8h, day#10 of 14 as per ID. Plan: AMS of unclear etiology - CT and MRI head showed no acute stroke - Suspected seizure activity with postictal state - Neuro consult, recommendations appreciated - c/w Keppra 500 mg IV Q12h - c/w ASA, statin - close monitoring with neurochecks - bedside EEG report: normal EEG SBO s/p exploratory laparatomy with adhesiolysis, bowel resection and primary anastomosis - POD# 8 - NGT removed - Abdomen is soft and with hypoactive BS, passing flatus - 1 BM - Advanced to regular diet - Surgery consult, Dr. Armas, recommendations appreciated - D5 NS @ 80mL/hr - Empirically on Meropenem IV 1 gm Q8h day 9 - Promote incentive spirometer use, OOB to chair - Continue PT Sepsis secondary to enterobacter aerogenes - ID consult, Dr. Prasad, recommendations appreciated - c/w Meropenem 1 gm IV Q8h (day 10 of 14) Sinus Tachycardia- resolved - Most likely related to volume depletion and fever <Kareen Jaramillo - Last Filed: 06/23/18 15:06> Objective - Vital Signs/Intake and Output Vital Signs (last 24 hours): Temp Pulse Resp BP Pulse Ox 98 F 95 H 23 129/84 100 06/23/18 12:00 06/23/18 14:00 06/23/18 14:00 06/23/18 14:00 06/23/18 14:00 Intake and Output: 06/23/18 06/23/18 06:59 18:59 Intake Total 1410 660 Output Total 325 300 Balance 1085 360 - Medications Medications: Current Medications Acetaminophen (Tylenol 650 Mg Supp) 650 mg [place] ONCE PRN PRN Reason: Fever >100.4 F Aspirin (Aspirin Chewable) 81 mg PO DAILY [facility] Last Admin: 06/23/18 09:21 Dose: 81 mg Atorvastatin Calcium (Lipitor) 40 mg PO DAILY [facility] Last Admin: 06/23/18 09:20 Dose: 40 mg Clopidogrel Bisulfate (Plavix) 75 mg PO DAILY [facility] Last Admin: 06/23/18 09:21 Dose: 75 mg Diphenhydramine HCl (Benadryl) 25 mg IVP Q6 PRN PRN Reason: Itching / Pruritus Enalaprilat (Vasotec) 2.5 mg IV Q12 [facility] Last Admin: 06/15/18 22:17 Dose: Not Given Enoxaparin Sodium (Lovenox) 40 mg SC DAILY [facility]; Protocol Last Admin: 06/23/18 09:20 Dose: 40 mg Meropenem 1 gm/ Sodium (Chloride) 100 mls @ 100 mls/hr IVPB Q8 [facility]; Protocol Last Admin: 06/23/18 09:22 Dose: 100 mls/hr Levetiracetam 500 mg/ Sodium (Chloride) 105 mls @ 210 mls/hr IVPB Q12@0330,1530 [facility] Last Admin: 06/23/18 14:47 Dose: 210 mls/hr Insulin Human Regular (Humulin R) 0 units SC Q6 [facility]; Protocol Last Admin: 06/23/18 12:00 Dose: Not Given Naloxone HCl (Narcan) 0.1 mg IVP Q2M PRN PRN Reason: Excess sedation Pantoprazole Sodium (Protonix Inj) 40 mg IVP DAILY [facility] Last Admin: 06/23/18 09:21 Dose: 40 mg - Labs Labs: 06/23/18 05:00 06/23/18 05:10 PT 13.5 Seconds (9.8-13.1) H 06/13/18 05:20 INR 1.2 06/13/18 05:20 APTT 33.6 Seconds (25.6-37.1) 06/13/18 05:20 Attending/Attestation - Attestation I have personally seen and examined this patient.: Yes I have fully participated in the care of the patient.: Yes I have reviewed all pertinent clinical information, including history, physical exam and plan: Yes Notes (Text): 1. Suspected Seizure 2. SBO sec to Adhesions s/p Adhesiolysis and Bowel Resection 3. Sepsis due to SBO with Enterobacter bacteremia 4. Abn LFT 5. Sinus Tachycardia -pt now awake, alert, oriented x3 - tolerating Full Liquid diet - cont IV Meropenem - cont Keppra - Physical Therapy - rpt blood c/s : negative - LFTs trending down
[2018-06-23] MEDS: Dextrose 5%/0.45% NS 1,000 ML IV SCH (14:48)
[2018-06-24 00:49] VITALS: O2SAT 100
[2018-06-24] MEDS: Meropenem 1 GM in Sodium Chloride 0.9% 100 ML IVPB SCH ×3 (01:46→17:37)
[2018-06-24] MEDS: levETIRAcetam 500 MG in Sodium Chloride 0.9% 100 ML IVPB SCH ×2 (04:05→14:41)
[2018-06-24] MEDS: Insulin Regular 100 units/ml SC SCH ×3 (04:09→16:00)
[2018-06-24 06:56] LABS: BASO # 0.1 K/uL (0.0-0.2); EOS % 0.7 % (0.0-4.0); HEMOGLOBIN 13.1 g/dL (12.0-18.0); LYMPH # 0.9 K/uL (1.0-4.3); MEAN CELL VOLUME 94.2 fl (80.0-94.0); MEAN PLATELET VOLUME 9.3 fl (7.2-11.7); MONO # 0.5 K/uL (0.0-0.8); MONO % 9.6 % (0.0-10.0); NEUT # 4.2 K/uL (1.8-7.0); NEUT % 73.7 % (50.0-75.0); NRBC % 0.1 % (0.0-0.0); RBC 4.09 Mil/uL (4.40-5.90); RED CELL DISTRIBUTION WIDTH 16.6 % (11.5-14.5); WHITE BLOOD COUNT 5.7 K/uL (4.8-10.8)
[2018-06-24 07:17] LABS: ALB/GLOB RATIO 0.8 (1.0-2.1); ALBUMIN 3.2 g/dL (3.5-5.0); ALT/SGPT 98 U/L (21-72); AST/SGOT 125 U/L (17-59); BLOOD UREA NITROGEN 17 mg/dl (9-20); CALCIUM 8.8 mg/dL (8.4-10.2); GFR NON-AFRICAN AMERICAN > 60
--- NOTE | 2018-06-24 07:28 | CP.PCM.PN ---
<Amandeep Quintanilla - Last Filed: 06/24/18 07:29> Subjective - Date & Time of Evaluation Date of Evaluation: 06/24/18 Time of Evaluation: 07:29 - Subjective Subjective: General Surgery Note for Dr. Domínguez Patient seen and examined at bedside. No acute event overnight. Pain is controlled. He is tolerating diet. He is OOB to chair this morning. He had already done his morning routine and planning to work with PT at 8:00. He reports that his strength has been improving. Admits to BMs and flatus. He denies fever/chills, nausea/vomiting, constipation, urinary symptoms. Objective - Vital Signs/Intake and Output Vital Signs (last 24 hours): Temp Pulse Resp BP Pulse Ox 97.6 F 93 H 18 124/84 100 06/24/18 00:48 06/24/18 00:48 06/24/18 00:48 06/24/18 00:48 06/24/18 00:48 - Medications Medications: Current Medications Acetaminophen (Tylenol 650 Mg Supp) 650 mg [place] ONCE PRN PRN Reason: Fever >100.4 F Aspirin (Aspirin Chewable) 81 mg PO DAILY [facility] Last Admin: 06/23/18 09:21 Dose: 81 mg Atorvastatin Calcium (Lipitor) 40 mg PO DAILY [facility] Last Admin: 06/23/18 09:20 Dose: 40 mg Clopidogrel Bisulfate (Plavix) 75 mg PO DAILY [facility] Last Admin: 06/23/18 09:21 Dose: 75 mg Diphenhydramine HCl (Benadryl) 25 mg IVP Q6 PRN PRN Reason: Itching / Pruritus Enalaprilat (Vasotec) 2.5 mg IV Q12 [facility] Last Admin: 06/15/18 22:17 Dose: Not Given Enoxaparin Sodium (Lovenox) 40 mg SC DAILY [facility]; Protocol Last Admin: 06/23/18 09:20 Dose: 40 mg Meropenem 1 gm/ Sodium (Chloride) 100 mls @ 100 mls/hr IVPB Q8 [facility]; Protocol Last Admin: 06/24/18 01:46 Dose: 100 mls/hr Levetiracetam 500 mg/ Sodium (Chloride) 105 mls @ 210 mls/hr IVPB Q12@0330,1530 [facility] Last Admin: 06/24/18 04:05 Dose: 210 mls/hr Insulin Human Regular (Humulin R) 0 units SC Q6 [facility]; Protocol Last Admin: 06/24/18 04:09 Dose: Not Given Naloxone HCl (Narcan) 0.1 mg IVP Q2M PRN PRN Reason: Excess sedation Pantoprazole Sodium (Protonix Inj) 40 mg IVP DAILY [facility] Last Admin: 06/23/18 09:21 Dose: 40 mg - Labs Labs: 06/24/18 06:12 06/24/18 06:12 PT 13.5 Seconds (9.8-13.1) H 06/13/18 05:20 INR 1.2 06/13/18 05:20 APTT 33.6 Seconds (25.6-37.1) 06/13/18 05:20 - Constitutional Appears: No Acute Distress - Head Exam Head Exam: ATRAUMATIC, NORMOCEPHALIC - Eye Exam Eye Exam: EOMI Pupil Exam: PERRL - ENT Exam ENT Exam: Mucous Membranes Moist - Respiratory Exam Respiratory Exam: NORMAL BREATHING PATTERN - Cardiovascular Exam Cardiovascular Exam: REGULAR RHYTHM - GI/Abdominal Exam GI & Abdominal Exam: Soft, Normal Bowel Sounds. absent: Distended, Firm, Guarding, Rigid, Tenderness, Rebound - Extremities Exam Extremities Exam: Normal Capillary Refill. absent: Calf Tenderness - Neurological Exam Neurological Exam: Alert, Awake, CN II-XII Intact, Oriented x3 - Psychiatric Exam Psychiatric exam: Normal Affect, Normal Mood - Skin Skin Exam: Dry, Intact, Warm Assessment and Plan - Assessment and Plan (Free Text) Assessment: 58 M s/p ex-lap with CHUCK and small bowel resection POD#9 Plan: - Diet as tolerated - Encouraged OOB/ambulation/IS use - ASA/Plavix daily - PT/OT - Medical management as per primary - Further recommendations as per Dr. Sang Quintanilla PGY2 <Han Domínguez - Last Filed: 06/24/18 09:47> Subjective - Date & Time of Evaluation Time of Evaluation: 09:30 - Subjective Subjective: Patient was seen and examined at the bedside. Agree with resident's note above. Passing flatus and having bowel movements, tolerating regular diet. Objective - Vital Signs/Intake and Output Vital Signs (last 24 hours): Temp Pulse Resp BP Pulse Ox 98.0 F 103 H 20 117/82 100 04/02/19 08:40 06/24/18 08:40 06/24/18 08:40 06/24/18 08:40 06/24/18 08:40 - Medications Medications: Current Medications Acetaminophen (Tylenol 650 Mg Supp) 650 mg [place] ONCE PRN PRN Reason: Fever >100.4 F Aspirin (Aspirin Chewable) 81 mg PO DAILY [facility] Last Admin: 06/23/18 09:21 Dose: 81 mg Atorvastatin Calcium (Lipitor) 40 mg PO DAILY [facility] Last Admin: 06/23/18 09:20 Dose: 40 mg Clopidogrel Bisulfate (Plavix) 75 mg PO DAILY [facility] Last Admin: 06/23/18 09:21 Dose: 75 mg Diphenhydramine HCl (Benadryl) 25 mg IVP Q6 PRN PRN Reason: Itching / Pruritus Enalaprilat (Vasotec) 2.5 mg IV Q12 [facility] Last Admin: 06/15/18 22:17 Dose: Not Given Enoxaparin Sodium (Lovenox) 40 mg SC DAILY [facility]; Protocol Last Admin: 06/23/18 09:20 Dose: 40 mg Meropenem 1 gm/ Sodium (Chloride) 100 mls @ 100 mls/hr IVPB Q8 [facility]; Protocol Last Admin: 06/24/18 01:46 Dose: 100 mls/hr Levetiracetam 500 mg/ Sodium (Chloride) 105 mls @ 210 mls/hr IVPB Q12@0330,1530 [facility] Last Admin: 06/24/18 04:05 Dose: 210 mls/hr Insulin Human Regular (Humulin R) 0 units SC Q6 [facility]; Protocol Last Admin: 06/24/18 04:09 Dose: Not Given Naloxone HCl (Narcan) 0.1 mg IVP Q2M PRN PRN Reason: Excess sedation Pantoprazole Sodium (Protonix Inj) 40 mg IVP DAILY [facility] Last Admin: 06/23/18 09:21 Dose: 40 mg - Labs Labs: 06/24/18 06:12 06/24/18 06:12 PT 13.5 Seconds (9.8-13.1) H 06/13/18 05:20 INR 1.2 06/13/18 05:20 APTT 33.6 Seconds (25.6-37.1) 06/13/18 05:20 - GI/Abdominal Exam Additional comments: soft, mild kylie-incisional tenderness, mildly distended, BS+, no rebound, no guarding, incision clean, no erythema, no drainage, petros in place Assessment and Plan - Assessment and Plan (Free Text) Plan: - Physical therapy - Continue care as per medical team - D/C planning
[2018-06-24 08:41] VITALS: RESP 20
[2018-06-24] MEDS: Enoxaparin 40 mg Syringe SC SCH (09:47)
--- NOTE | 2018-06-24 11:27 | CP.PCM.PN ---
Subjective - Date & Time of Evaluation Date of Evaluation: 06/24/18 Time of Evaluation: 08:00 - Subjective Subjective: c/o weakness no fever IV rtx renewed Objective - Vital Signs/Intake and Output Vital Signs (last 24 hours): Temp Pulse Resp BP Pulse Ox 98.0 F 103 H 20 117/82 100 06/24/18 08:40 06/24/18 08:40 06/24/18 08:40 06/24/18 08:40 06/24/18 08:40 - Medications Medications: Current Medications Acetaminophen (Tylenol 650 Mg Supp) 650 mg [place] ONCE PRN PRN Reason: Fever >100.4 F Aspirin (Aspirin Chewable) 81 mg PO DAILY [facility] Last Admin: 06/24/18 09:46 Dose: 81 mg Atorvastatin Calcium (Lipitor) 40 mg PO DAILY [facility] Last Admin: 06/24/18 09:46 Dose: 40 mg Clopidogrel Bisulfate (Plavix) 75 mg PO DAILY [facility] Last Admin: 06/24/18 09:46 Dose: 75 mg Diphenhydramine HCl (Benadryl) 25 mg IVP Q6 PRN PRN Reason: Itching / Pruritus Enalaprilat (Vasotec) 2.5 mg IV Q12 [facility] Last Admin: 06/15/18 22:17 Dose: Not Given Enoxaparin Sodium (Lovenox) 40 mg SC DAILY [facility]; Protocol Last Admin: 06/24/18 09:47 Dose: 40 mg Meropenem 1 gm/ Sodium (Chloride) 100 mls @ 100 mls/hr IVPB Q8 [facility]; Protocol Last Admin: 06/24/18 09:47 Dose: 100 mls/hr Levetiracetam 500 mg/ Sodium (Chloride) 105 mls @ 210 mls/hr IVPB Q12@0330,1530 [facility] Last Admin: 06/24/18 04:05 Dose: 210 mls/hr Insulin Human Regular (Humulin R) 0 units SC Q6 [facility]; Protocol Last Admin: 06/24/18 04:09 Dose: Not Given Naloxone HCl (Narcan) 0.1 mg IVP Q2M PRN PRN Reason: Excess sedation Pantoprazole Sodium (Protonix Inj) 40 mg IVP DAILY [facility] Last Admin: 06/24/18 09:48 Dose: 40 mg - Labs Labs: 06/24/18 06:12 06/24/18 06:12 PT 13.5 Seconds (9.8-13.1) H 06/13/18 05:20 INR 1.2 06/13/18 05:20 APTT 33.6 Seconds (25.6-37.1) 06/13/18 05:20 - Constitutional Appears: Non-toxic, Cachectic, Chronically Ill - Head Exam Head Exam: NORMOCEPHALIC - Eye Exam Eye Exam: absent: Scleral icterus - ENT Exam ENT Exam: Mucous Membranes Dry - Neck Exam Neck Exam: absent: Lymphadenopathy - Respiratory Exam Respiratory Exam: Decreased Breath Sounds - Cardiovascular Exam Cardiovascular Exam: REGULAR RHYTHM - GI/Abdominal Exam GI & Abdominal Exam: Distended, Soft - Rectal Exam Rectal Exam: Deferred - Exam Exam: NORMAL INSPECTION - Extremities Exam Extremities Exam: absent: Pedal Edema - Back Exam Back Exam: absent: CVA tenderness (L), CVA tenderness (R) - Neurological Exam Neurological Exam: Alert, Awake, CN II-XII Intact, Oriented x3 Neuro motor strength exam: Left Upper Extremity: 3, Right Upper Extremity: 3, Left Lower Extremity: 3, Right Lower Extremity: 3 - Psychiatric Exam Psychiatric exam: Depressed - Skin Skin Exam: Dry Assessment and Plan (1) Small bowel obstruction Status: Acute (2) Sepsis Status: Acute (3) Enterobacter sepsis Status: Acute (4) CVA (cerebrovascular accident) Status: Acute - Assessment and Plan (Free Text) Assessment: cont IV antibiotics 14 days
--- NOTE | 2018-06-24 13:12 | CP.PCM.PN ---
<Josiane Diaz - Last Filed: 06/24/18 13:19> Subjective - Date & Time of Evaluation Date of Evaluation: 06/24/18 Time of Evaluation: 13:11 - Subjective Subjective: Patient seen and examined bedside. Admits to feeling better, passing flatus and having BM. He admits to weakness and feels anxious about being discharged as he does not feel strong enough to go home. Denies fever, nausea, dizziness and vomiting. Objective - Vital Signs/Intake and Output Vital Signs (last 24 hours): Temp Pulse Resp BP Pulse Ox 98.0 F 103 H 20 117/82 100 06/24/18 08:40 06/24/18 08:40 06/24/18 08:40 06/24/18 08:40 06/24/18 08:40 - Medications Medications: Current Medications Acetaminophen (Tylenol 650 Mg Supp) 650 mg [place] ONCE PRN PRN Reason: Fever >100.4 F Aspirin (Aspirin Chewable) 81 mg PO DAILY [facility] Last Admin: 06/24/18 09:46 Dose: 81 mg Atorvastatin Calcium (Lipitor) 40 mg PO DAILY [facility] Last Admin: 06/24/18 09:46 Dose: 40 mg Clopidogrel Bisulfate (Plavix) 75 mg PO DAILY [facility] Last Admin: 06/24/18 09:46 Dose: 75 mg Diphenhydramine HCl (Benadryl) 25 mg IVP Q6 PRN PRN Reason: Itching / Pruritus Enalaprilat (Vasotec) 2.5 mg IV Q12 [facility] Last Admin: 06/15/18 22:17 Dose: Not Given Enoxaparin Sodium (Lovenox) 40 mg SC DAILY [facility]; Protocol Last Admin: 06/24/18 09:47 Dose: 40 mg Meropenem 1 gm/ Sodium (Chloride) 100 mls @ 100 mls/hr IVPB Q8 [facility]; Protocol Last Admin: 06/24/18 09:47 Dose: 100 mls/hr Levetiracetam 500 mg/ Sodium (Chloride) 105 mls @ 210 mls/hr IVPB Q12@0330,1530 [facility] Last Admin: 06/24/18 04:05 Dose: 210 mls/hr Insulin Human Regular (Humulin R) 0 units SC Q6 [facility]; Protocol Last Admin: 06/24/18 12:05 Dose: Not Given Naloxone HCl (Narcan) 0.1 mg IVP Q2M PRN PRN Reason: Excess sedation Pantoprazole Sodium (Protonix Inj) 40 mg IVP DAILY [facility] Last Admin: 06/24/18 09:48 Dose: 40 mg - Labs Labs: 06/24/18 06:12 06/24/18 06:12 PT 13.5 Seconds (9.8-13.1) H 06/13/18 05:20 INR 1.2 06/13/18 05:20 APTT 33.6 Seconds (25.6-37.1) 06/13/18 05:20 - Constitutional Appears: Non-toxic, No Acute Distress - Head Exam Head Exam: NORMAL INSPECTION - ENT Exam ENT Exam: Mucous Membranes Moist - Respiratory Exam Respiratory Exam: NORMAL BREATHING PATTERN. absent: Respiratory Distress - Cardiovascular Exam Cardiovascular Exam: REGULAR RHYTHM - GI/Abdominal Exam GI & Abdominal Exam: Soft. absent: Guarding, Rigid - Neurological Exam Neurological Exam: Alert, Awake, Oriented x3 - Psychiatric Exam Psychiatric exam: Normal Affect, Normal Mood - Skin Skin Exam: Dry, Intact, Normal Color, Warm Assessment and Plan - Assessment and Plan (Free Text) Assessment: 58 y/o male with PMH gastric and colon cancer , S/P partial gastrectomy (gastro-jejunal) w/ brian-en-y reconstruction admitted for evaluation and management of partial SBO. He is S/p ex-lap with lysis of adhesions, small bowel resection and primary anastamosis POD#8. On Meropenem 1 gm IV Q8h, day#11 of 14 as per ID. TCU placement pending insurance approval - social studies teacher on board. Plan: AMS of unclear etiology - CT and MRI head showed no acute stroke - Suspected seizure activity with postictal state - Neuro consult, recommendations appreciated - c/w Keppra 500 mg IV Q12h - c/w ASA, statin for 21 day course secondary stroke prevention - close monitoring with neurochecks - bedside EEG report: normal EEG SBO s/p exploratory laparatomy with adhesiolysis, bowel resection and primary anastomosis - POD# 9 - NGT removed - Abdomen is soft and with hypoactive BS, passing flatus & BM - Tolerating regular diet - Surgery consult, Dr. Armas, recommendations appreciated - D5 NS @ 80mL/hr - Empirically on Meropenem IV 1 gm Q8h day 9 - Promote incentive spirometer use, OOB to chair - Continue PT - PT states he would benefit from TCU Sepsis secondary to enterobacter aerogenes - ID consult, Dr. Prasad, recommendations appreciated - c/w Meropenem 1 gm IV Q8h (day ) Sinus Tachycardia- resolved - Most likely related to volume depletion and fever <Kareen Jaramillo - Last Filed: 06/24/18 19:07> Objective - Vital Signs/Intake and Output Vital Signs (last 24 hours): Temp Pulse Resp BP Pulse Ox 98.2 F 85 20 101/73 100 06/24/18 16:24 06/24/18 16:24 06/24/18 16:24 06/24/18 16:24 06/24/18 16:24 - Medications Medications: Current Medications Acetaminophen (Tylenol 650 Mg Supp) 650 mg [place] ONCE PRN PRN Reason: Fever >100.4 F Aspirin (Aspirin Chewable) 81 mg PO DAILY [facility] Last Admin: 06/24/18 09:46 Dose: 81 mg Atorvastatin Calcium (Lipitor) 40 mg PO DAILY [facility] Last Admin: 06/24/18 09:46 Dose: 40 mg Clopidogrel Bisulfate (Plavix) 75 mg PO DAILY [facility] Last Admin: 06/24/18 09:46 Dose: 75 mg Diphenhydramine HCl (Benadryl) 25 mg IVP Q6 PRN PRN Reason: Itching / Pruritus Enalaprilat (Vasotec) 2.5 mg IV Q12 [facility] Last Admin: 06/15/18 22:17 Dose: Not Given Enoxaparin Sodium (Lovenox) 40 mg SC DAILY [facility]; Protocol Last Admin: 06/24/18 09:47 Dose: 40 mg Meropenem 1 gm/ Sodium (Chloride) 100 mls @ 100 mls/hr IVPB Q8 [facility]; Protocol Last Admin: 06/24/18 17:37 Dose: 100 mls/hr Levetiracetam 500 mg/ Sodium (Chloride) 105 mls @ 210 mls/hr IVPB Q12@0330,1530 [facility] Last Admin: 06/24/18 14:41 Dose: 210 mls/hr Insulin Human Regular (Humulin R) 0 units SC Q6 [facility]; Protocol Last Admin: 06/24/18 16:00 Dose: Not Given Naloxone HCl (Narcan) 0.1 mg IVP Q2M PRN PRN Reason: Excess sedation Pantoprazole Sodium (Protonix Inj) 40 mg IVP DAILY [facility] Last Admin: 06/24/18 09:48 Dose: 40 mg - Labs Labs: 06/24/18 06:12 06/24/18 06:12 PT 13.5 Seconds (9.8-13.1) H 06/13/18 05:20 INR 1.2 06/13/18 05:20 APTT 33.6 Seconds (25.6-37.1) 06/13/18 05:20 Attending/Attestation - Attestation I have personally seen and examined this patient.: Yes I have fully participated in the care of the patient.: Yes I have reviewed all pertinent clinical information, including history, physical exam and plan: Yes Notes (Text): 1. Suspected Seizure 2. SBO sec to Adhesions s/p Adhesiolysis and Bowel Resection 3. Sepsis due to SBO with Enterobacter bacteremia 4. Abn LFT 5. Sinus Tachycardia 6. Hx of CVA ( Encephalomalacia on imaging) -pt now awake, alert, oriented x3 - tolerating diet - cont IV Meropenem x 6 more days - cont Keppra - Physical Therapy - rpt blood c/s : negative - LFTs trending down -cont statin and dual antiplatelet x 21 days then after 21 days cont only Plavix as rec by Neuro
[2018-06-24 16:24] VITALS: BP 101/73; PULSE 85; TEMP 98.2
--- NOTE | 2018-06-25 06:34 | CP.PCM.DIS ---
<Josiane Diaz - Last Filed: 06/25/18 06:38> Provider - Provider Date of Admission: 06/12/18 08:22 Attending physician: Dileep Coon MD Consults: 06/10/18 23:58 Surgical [General Surgery Consult] Stat Comment: Consulting Provider: Shaheen Armas Consulting Physician: Shaheen Armas Reason for Consult: SBO 06/14/18 14:46 Infectious Disease Consult Routine Comment: blood culture pos for gram neg bhargav, please eval Consulting Provider: Armani Prasad Consulting Physician: Armani Prasad Reason for Consult: blood culture pos for gram neg bhargav, please eval 06/19/18 08:13 Neurology Consult Routine Comment: Consulting Provider: Darryl Bay Consulting Physician: Darryl Bay Reason for Consult: AMS, suspected CVA vs seizure Time Spent in preparation of Discharge (in minutes): 20 Hospital Course - Lab Results Lab Results: Micro Results 06/17/18 05:08 Blood Blood Culture - Final NO GROWTH AFTER 5 DAYS 06/17/18 05:08 Blood Gram Stain - Final TEST NOT PERFORMED 06/17/18 05:08 Blood Blood Culture - Final NO GROWTH AFTER 5 DAYS 06/17/18 05:08 Blood Gram Stain - Final TEST NOT PERFORMED 06/17/18 20:40 Naris MRSA Culture (Admit) - Final MRSA NOT DETECTED 06/15/18 20:12 Naris MRSA Culture (Admit) - Final MRSA NOT DETECTED 06/13/18 06:00 Blood Blood Culture - Final Enterobacter Aerogenes 06/13/18 06:00 Blood Gram Stain - Final 06/14/18 10:00 Urine,Clean Catch Urine Culture - Final No Growth (<1,000 CFU/ML) Most Recent Lab Values WBC 5.7 K/uL (4.8-10.8) 06/24/18 06:12 RBC 4.09 Mil/uL (4.40-5.90) L 06/24/18 06:12 Hgb 13.1 g/dL (12.0-18.0) 06/24/18 06:12 Hct 38.5 % (35.0-51.0) 06/24/18 06:12 MCV 94.2 fl (80.0-94.0) H 06/24/18 06:12 MCH 32.0 pg (27.0-31.0) H 06/24/18 06:12 MCHC 34.0 g/dL (33.0-37.0) 06/24/18 06:12 RDW 16.6 % (11.5-14.5) H 06/24/18 06:12 Plt Count 276 K/uL (130-400) 06/24/18 06:12 MPV 9.3 fl (7.2-11.7) 06/24/18 06:12 Neut % (Auto) 73.7 % (50.0-75.0) 06/24/18 06:12 Lymph % (Auto) 15.0 % (20.0-40.0) L 06/24/18 06:12 Lake % (Auto) 9.6 % (0.0-10.0) 06/24/18 06:12 Eos % (Auto) 0.7 % (0.0-4.0) 06/24/18 06:12 Baso % (Auto) 1.0 % (0.0-2.0) 06/24/18 06:12 Neut # (Auto) 4.2 K/uL (1.8-7.0) 06/24/18 06:12 Lymph # (Auto) 0.9 K/uL (1.0-4.3) L 06/24/18 06:12 Lake # (Auto) 0.5 K/uL (0.0-0.8) 06/24/18 06:12 Eos # (Auto) 0.0 K/uL (0.0-0.7) 06/24/18 06:12 Baso # (Auto) 0.1 K/uL (0.0-0.2) 06/24/18 06:12 Neutrophils % (Manual) 87 % (42-75) H 06/19/18 05:17 Band Neutrophils % 3 % (0-2) H 06/14/18 04:30 Lymphocytes % (Manual) 7 % (20-50) L 06/19/18 05:17 Monocytes % (Manual) 6 % (0-10) 06/19/18 05:17 Basophils % (Manual) 1 % (0-2) 06/13/18 05:20 Myelocytes % 1 % (0-0) H 06/14/18 04:30 Toxic Granulation Present 06/14/18 04:30 Platelet Estimate Normal (NORMAL) 06/19/18 05:17 Large Platelets Present 06/14/18 04:30 RBC Morphology Normal (NORMAL) 06/19/18 05:17 Anisocytosis (manual) Slight 06/14/18 04:30 Tear Drop Cells Slight 06/13/18 05:20 PT 13.5 Seconds (9.8-13.1) H 06/13/18 05:20 INR 1.2 06/13/18 05:20 APTT 33.6 Seconds (25.6-37.1) 06/13/18 05:20 Sodium 134 mmol/l (132-148) 06/24/18 06:12 Potassium 4.7 MMOL/L (3.6-5.0) 06/24/18 06:12 Chloride 98 mmol/L (98-107) 06/24/18 06:12 Carbon Dioxide 28 mmol/L (22-30) 06/24/18 06:12 Anion Gap 13 (10-20) 06/24/18 06:12 BUN 17 mg/dl (9-20) 06/24/18 06:12 Creatinine 0.8 mg/dl (0.8-1.5) 06/24/18 06:12 Est GFR ( Amer) > 60 06/24/18 06:12 Est GFR (Non-Af Amer) > 60 06/24/18 06:12 POC Glucose (mg/dL) 81 mg/dL (65-110) 06/24/18 15:51 Random Glucose 85 mg/dL (75-110) 06/24/18 06:12 Hemoglobin A1c 5.2 % (4.2-6.5) 06/20/18 05:33 Lactic Acid 0.9 mmol/L (0.7-2.1) 06/19/18 07:18 Calcium 8.8 mg/dL (8.4-10.2) 06/24/18 06:12 Phosphorus 2.9 mg/dl (2.5-4.5) 06/24/18 06:12 Magnesium 2.0 MG/DL (1.6-2.3) 06/24/18 06:12 Total Bilirubin 1.7 mg/dl (0.2-1.3) H 06/24/18 06:12 AST 125 U/L (17-59) H 06/24/18 06:12 ALT 98 U/L (21-72) H 06/24/18 06:12 Alkaline Phosphatase 148 U/L (38-126) H 06/24/18 06:12 Ammonia 16 umol/L (9-33) 06/19/18 12:40 CK-MB (Mass) 3.19 ng/mL (0.0-3.38) 06/15/18 19:37 Troponin I 0.0270 ng/mL (0.00-0.120) 06/15/18 19:37 Total Protein 7.2 G/DL (6.3-8.2) 06/24/18 06:12 Albumin 3.2 g/dL (3.5-5.0) L 06/24/18 06:12 Globulin 4.0 gm/dL (2.2-3.9) H 06/24/18 06:12 Albumin/Globulin Ratio 0.8 (1.0-2.1) L 06/24/18 06:12 Triglycerides 239 mg/DL (0-149) H D 06/20/18 05:33 Cholesterol 123 mg/dL (0-199) 06/20/18 05:33 LDL Cholesterol Direct 82 mg/dL (0-129) 06/20/18 05:33 HDL Cholesterol 15 MG/DL (30-70) L 06/20/18 05:33 Lipase 49 U/L (23-300) 06/10/18 21:44 Vitamin B12 > 1000 pg/mL (239-931) H 06/20/18 05:33 25-OH Vitamin D Total < 12.8 NG/ML (30.0-100.0) L 06/20/18 05:33 Folate 4.5 ng/mL 06/20/18 05:33 TSH 3rd Generation 2.67 mIU/ML (0.46-4.68) 06/20/18 05:33 Prolactin 11.9 ng/mL (3.7-17.9) 06/19/18 09:09 Urine Color Yellow (YELLOW) 06/11/18 00:49 Urine Clarity Clear (Clear) 06/11/18 00:49 Urine pH 7.0 (5.0-8.0) 06/11/18 00:49 Ur Specific [place] 1.044 (1.003-1.030) H 06/11/18 00:49 Urine Protein Negative mg/dL (NEGATIVE) 06/11/18 00:49 Urine Glucose (UA) Neg mg/dL (NEGATIVE) 06/11/18 00:49 Urine Ketones Negative mg/dL (NEGATIVE) 06/11/18 00:49 Urine Blood Negative (NEGATIVE) 06/11/18 00:49 Urine Nitrate Negative (NEGATIVE) 06/11/18 00:49 Urine Bilirubin Negative (NEGATIVE) 06/11/18 00:49 Urine Urobilinogen 0.2-1.0 mg/dL (0.2-1.0) 06/11/18 00:49 Ur Leukocyte Esterase Neg Miladys/uL (Negative) 06/11/18 00:49 Urine RBC (Auto) 2 /hpf (0-3) 06/11/18 00:49 Urine Microscopic WBC < 1 /hpf (0-5) 06/11/18 00:49 Blood Type O POSITIVE 06/13/18 05:20 Antibody Screen Negative 06/13/18 05:20 BBK History Checked Patient has bt 06/13/18 05:20 - Hospital Course Hospital Course: 58 y/o M with a PMHx of Colon cancer and S/P colon resection presented to ED complaining of severe kylie-umbilical abdominal pain that began the night prior to presentation. Patient was found to have an SBO and sepsis 2/[address] Armas is surgeon on case for SBO - s/p exploratory laparatomy with adhesiolysis, bowel resection and primary anastomosis. NG tube removed and tolerating regular diet. After ex-lap patient develoiped AMS of unclear etiology. CT and MRI head showed no acute stroke. Suspected seizure activity with postictal state - neuro consulted, Keppra 500 mg IV Q12h, and ASA, statin for 21 day course secondary stroke prevention. Bedside EEG report revealed normal EEG. Physical therapy evaluate and treating, states he would benefit from further rehabilitation. ID consulted for Sepsis secondary to enterobacter aerogenes, Dr. Prasad, recommended Meropenem 1 gm IV Q8h x 14 days. Patient medically stable and will be transferred to [facility] for optimization - will continue IV antibiotics and rehabilitation services. Discharge Exam - Head Exam Head Exam: NORMAL INSPECTION - Eye Exam Eye Exam: Normal appearance - ENT Exam ENT Exam: Mucous Membranes Moist - Respiratory Exam Respiratory Exam: UNREMARKABLE. absent: Respiratory Distress - Cardiovascular Exam Cardiovascular Exam: REGULAR RHYTHM - GI/Abdominal Exam GI & Abdominal Exam: Soft. absent: Tenderness - Extremities Exam Extremities exam: normal inspection - Neurological Exam Neurological exam: Alert, Oriented x3 - Psychiatric Exam Psychiatric exam: Normal Affect, Normal Mood - Skin Skin Exam: Dry, Intact, Normal Color, Warm Discharge Plan - Discharge Medications Prescriptions: Aspirin [Ecotrin] 81 mg PO DAILY #30 tabec Atorvastatin [Lipitor] 40 mg PO HS #30 tab Enoxaparin [Lovenox] 40 mg SC DAILY #30 syr Meropenem [Merrem] 1 gm IV Q8 3 Days #10 vial Pantoprazole Sodium [Protonix] 40 mg PO DAILY #30 ect - Follow Up Plan Condition: FAIR Disposition: REHAB FACILITY/REHAB UNIT Instructions: Small Bowel Obstruction, Altered Mental Status (GEN) Additional Instructions: d/c to Acute Rehab Referrals: Meghana Mendoza MD [Family Provider] - <Kareen Jaramillo - Last Filed: 06/25/18 11:15> Provider - Provider Date of Admission: 06/12/18 08:22 Attending physician: Dileep Coon MD Consults: 06/10/18 23:58 Surgical [General Surgery Consult] Stat Comment: Consulting Provider: Shaheen Armas Consulting Physician: Shaheen Armas Reason for Consult: SBO 06/14/18 14:46 Infectious Disease Consult Routine Comment: blood culture pos for gram neg bhargav, please eval Consulting Provider: Armani Prasad Consulting Physician: Armani Prasad Reason for Consult: blood culture pos for gram neg bhargav, please evary 06/19/18 08:13 Neurology Consult Routine Comment: Consulting Provider: Darryl Bay Consulting Physician: Darryl Bay Reason for Consult: AMS, suspected CVA vs seizure Hospital Course - Lab Results Lab Results: Micro Results 06/17/18 05:08 Blood Blood Culture - Final NO GROWTH AFTER 5 DAYS 06/17/18 05:08 Blood Gram Stain - Final TEST NOT PERFORMED 06/17/18 05:08 Blood Blood Culture - Final NO GROWTH AFTER 5 DAYS 06/17/18 05:08 Blood Gram Stain - Final TEST NOT PERFORMED 06/17/18 20:40 Naris MRSA Culture (Admit) - Final MRSA NOT DETECTED 06/15/18 20:12 Naris MRSA Culture (Admit) - Final MRSA NOT DETECTED 06/13/18 06:00 Blood Blood Culture - Final Enterobacter Aerogenes 06/13/18 06:00 Blood Gram Stain - Final 06/14/18 10:00 Urine,Clean Catch Urine Culture - Final No Growth (<1,000 CFU/ML) Most Recent Lab Values WBC 5.7 K/uL (4.8-10.8) 06/24/18 06:12 RBC 4.09 Mil/uL (4.40-5.90) L 06/24/18 06:12 Hgb 13.1 g/dL (12.0-18.0) 06/24/18 06:12 Hct 38.5 % (35.0-51.0) 06/24/18 06:12 MCV 94.2 fl (80.0-94.0) H 06/24/18 06:12 MCH 32.0 pg (27.0-31.0) H 06/24/18 06:12 MCHC 34.0 g/dL (33.0-37.0) 06/24/18 06:12 RDW 16.6 % (11.5-14.5) H 06/24/18 06:12 Plt Count 276 K/uL (130-400) 06/24/18 06:12 MPV 9.3 fl (7.2-11.7) 06/24/18 06:12 Neut % (Auto) 73.7 % (50.0-75.0) 06/24/18 06:12 Lymph % (Auto) 15.0 % (20.0-40.0) L 06/24/18 06:12 Lake % (Auto) 9.6 % (0.0-10.0) 06/24/18 06:12 Eos % (Auto) 0.7 % (0.0-4.0) 06/24/18 06:12 Baso % (Auto) 1.0 % (0.0-2.0) 06/24/18 06:12 Neut # (Auto) 4.2 K/uL (1.8-7.0) 06/24/18 06:12 Lymph # (Auto) 0.9 K/uL (1.0-4.3) L 06/24/18 06:12 Lake # (Auto) 0.5 K/uL (0.0-0.8) 06/24/18 06:12 Eos # (Auto) 0.0 K/uL (0.0-0.7) 06/24/18 06:12 Baso # (Auto) 0.1 K/uL (0.0-0.2) 06/24/18 06:12 Neutrophils % (Manual) 87 % (42-75) H 06/19/18 05:17 Band Neutrophils % 3 % (0-2) H 06/14/18 04:30 Lymphocytes % (Manual) 7 % (20-50) L 06/19/18 05:17 Monocytes % (Manual) 6 % (0-10) 06/19/18 05:17 Basophils % (Manual) 1 % (0-2) 06/13/18 05:20 Myelocytes % 1 % (0-0) H 06/14/18 04:30 Toxic Granulation Present 06/14/18 04:30 Platelet Estimate Normal (NORMAL) 06/19/18 05:17 Large Platelets Present 06/14/18 04:30 RBC Morphology Normal (NORMAL) 06/19/18 05:17 Anisocytosis (manual) Slight 06/14/18 04:30 Tear Drop Cells Slight 06/13/18 05:20 PT 13.5 Seconds (9.8-13.1) H 06/13/18 05:20 INR 1.2 06/13/18 05:20 APTT 33.6 Seconds (25.6-37.1) 06/13/18 05:20 Sodium 134 mmol/l (132-148) 06/24/18 06:12 Potassium 4.7 MMOL/L (3.6-5.0) 06/24/18 06:12 Chloride 98 mmol/L (98-107) 06/24/18 06:12 Carbon Dioxide 28 mmol/L (22-30) 06/24/18 06:12 Anion Gap 13 (10-20) 06/24/18 06:12 BUN 17 mg/dl (9-20) 06/24/18 06:12 Creatinine 0.8 mg/dl (0.8-1.5) 06/24/18 06:12 Est GFR ( Amer) > 60 06/24/18 06:12 Est GFR (Non-Af Amer) > 60 06/24/18 06:12 POC Glucose (mg/dL) 81 mg/dL (65-110) 06/24/18 15:51 Random Glucose 85 mg/dL (75-110) 06/24/18 06:12 Hemoglobin A1c 5.2 % (4.2-6.5) 06/20/18 05:33 Lactic Acid 0.9 mmol/L (0.7-2.1) 06/19/18 07:18 Calcium 8.8 mg/dL (8.4-10.2) 06/24/18 06:12 Phosphorus 2.9 mg/dl (2.5-4.5) 06/24/18 06:12 Magnesium 2.0 MG/DL (1.6-2.3) 06/24/18 06:12 Total Bilirubin 1.7 mg/dl (0.2-1.3) H 06/24/18 06:12 AST 125 U/L (17-59) H 06/24/18 06:12 ALT 98 U/L (21-72) H 06/24/18 06:12 Alkaline Phosphatase 148 U/L (38-126) H 06/24/18 06:12 Ammonia 16 umol/L (9-33) 06/19/18 12:40 CK-MB (Mass) 3.19 ng/mL (0.0-3.38) 06/15/18 19:37 Troponin I 0.0270 ng/mL (0.00-0.120) 06/15/18 19:37 Total Protein 7.2 G/DL (6.3-8.2) 06/24/18 06:12 Albumin 3.2 g/dL (3.5-5.0) L 06/24/18 06:12 Globulin 4.0 gm/dL (2.2-3.9) H 06/24/18 06:12 Albumin/Globulin Ratio 0.8 (1.0-2.1) L 06/24/18 06:12 Triglycerides 239 mg/DL (0-149) H D 06/20/18 05:33 Cholesterol 123 mg/dL (0-199) 06/20/18 05:33 LDL Cholesterol Direct 82 mg/dL (0-129) 06/20/18 05:33 HDL Cholesterol 15 MG/DL (30-70) L 06/20/18 05:33 Lipase 49 U/L (23-300) 06/10/18 21:44 Vitamin B12 > 1000 pg/mL (239-931) H 06/20/18 05:33 25-OH Vitamin D Total < 12.8 NG/ML (30.0-100.0) L 06/20/18 05:33 Folate 4.5 ng/mL 06/20/18 05:33 TSH 3rd Generation 2.67 mIU/ML (0.46-4.68) 06/20/18 05:33 Prolactin 11.9 ng/mL (3.7-17.9) 06/19/18 09:09 Urine Color Yellow (YELLOW) 06/11/18 00:49 Urine Clarity Clear (Clear) 06/11/18 00:49 Urine pH 7.0 (5.0-8.0) 06/11/18 00:49 Ur Specific [place] 1.044 (1.003-1.030) H 06/11/18 00:49 Urine Protein Negative mg/dL (NEGATIVE) 06/11/18 00:49 Urine Glucose (UA) Neg mg/dL (NEGATIVE) 06/11/18 00:49 Urine Ketones Negative mg/dL (NEGATIVE) 06/11/18 00:49 Urine Blood Negative (NEGATIVE) 06/11/18 00:49 Urine Nitrate Negative (NEGATIVE) 06/11/18 00:49 Urine Bilirubin Negative (NEGATIVE) 06/11/18 00:49 Urine Urobilinogen 0.2-1.0 mg/dL (0.2-1.0) 06/11/18 00:49 Ur Leukocyte Esterase Neg Miladys/uL (Negative) 06/11/18 00:49 Urine RBC (Auto) 2 /hpf (0-3) 06/11/18 00:49 Urine Microscopic WBC < 1 /hpf (0-5) 06/11/18 00:49 Blood Type O POSITIVE 06/13/18 05:20 Antibody Screen Negative 06/13/18 05:20 BBK History Checked Patient has bt 06/13/18 05:20 Attending/Attestation - Attestation I have personally seen and examined this patient.: Yes I have fully participated in the care of the patient.: Yes I have reviewed all pertinent clinical information, including history, physical exam and plan: Yes Notes (Text): 1.SBO sec to Adhesions s/p Adhesiolysis and Bowel Resection 2.Sepsis due to SBO with Enterobacter bacteremia 3.Seizure 4. Abn LFT 5. Sinus Tachycardia 6. Hx of CVA ( Encephalomalacia on imaging) - tolerating Regular diet, + BM - cont IV Meropenem x 6 more days - cont Keppra - Physical Therapy, OT - rpt blood c/s : negative - LFTs trending down, H/H stable -cont statin and dual antiplatelet x 21 days then after 21 days cont only Plavix as rec by Neuro - cleared by Surgery for discharge to Acute Rehab
--- NOTE | 2018-06-28 12:24 | PQF ---
PROVIDER RESPONSE TEXT: Sepsis ( POA) REVIEWER QUERY TEXT: Present On Admission It is unclear whether a diagnosis was present on admission. Your help is needed. Please clarify the POA status of pt's diagnosis of sepsis. Such as: -- Present on admission -- Not present on admission The patient's Clinical Indicators include: Discharge Summary documented "Pt was found to have a sbo and sepsis due to enterobacter." Query created by: Treasure Ferreira on 06/26/2018 3:44 PM Electronically signed by: Kareen Jaramillo MD 06/28/2018 12:20 PM
--- NOTE | 2018-06-30 16:04 | PQF ---
PROVIDER RESPONSE TEXT: This rent was the reason why the patient was hospitalized and underwent surgery. The rent was from th e adhesive band that caused bowel obstruction. REVIEWER QUERY TEXT: Procedure Clarification Your help is needed in clarifying if small bowel rent was present at time of surgery or if rent was a complication of surgery. Query created by: Treasure Ferreira on 06/26/2018 3:40 PM Electronically signed by: Han Domínguez MD 06/30/2018 4:01 PM
== END 2018-06-24 19:44 | DRG 853 ==
LOC: H.ER 20:57 → H.ERHOLD 23:34 → UNDOADMOB 23:34 → H.TEL 06-11 01:57 → OBSVTOIN 06-12 08:22 → H.ICU/CCU 06-15 18:12 → H.TEL 06-17 15:37 → H.ICU/CCU 06-19 07:48 → H.MEDSURG1 06-23 17:53
PROVIDERS: ADMIT Internal Medicine; ATTEND Internal Medicine
PROC: 0DB80ZZ Excision of Small Intestine, Open Approach (ICD-10-PCS; 2018-06-15)
PROC: 0DN80ZZ Release Small Intestine, Open Approach (ICD-10-PCS; principal; 2018-06-15 11:00)
DX: A41.59 Other Gram-negative sepsis (principal); R40.20 Unspecified coma; K56.51 Intestinal adhesions [bands], with partial obstruction; I47.1 Supraventricular tachycardia; E78.5 Hyperlipidemia, unspecified; F17.210 Nicotine dependence, cigarettes, uncomplicated; E78.00 Pure hypercholesterolemia, unspecified; Z85.028 Personal history of other malignant neoplasm of stomach; Z85.038 Personal history of other malignant neoplasm of large intestine; R00.1 Bradycardia, unspecified; K29.70 Gastritis, unspecified, without bleeding; I10 Essential (primary) hypertension; G93.89 Other specified disorders of brain; I69.398 Other sequelae of cerebral infarction; R56.9 Unspecified convulsions; E87.6 Hypokalemia; E86.9 Volume depletion, unspecified

== ENCOUNTER 2018-06-24 13:43 | Inpatient (IN) | payer OTHER ==
[2018-06-24] MEDS ORDERED: Oxycodone/Acetaminophen 5/325 mg Tab PO PRN ×2 (21:46→21:47)
[2018-06-24] MEDS ORDERED: MEROPENEM 1 GM IV SCH (22:00)
[2018-06-25] MEDS ORDERED: Meropenem 1 GM/NS 100 ML IVPB SCH (01:00)
[2018-06-25 02:54] VITALS: PULSE 102; RESP 20; O2SAT 99
[2018-06-25 04:44] VITALS: BP 110/74; TEMP 96.9
[2018-06-25] MEDS ORDERED: Lactated Ringer's 1,000 ML IV SCH (05:45)
[2018-06-25 06:00] LABS: BASO # 0.1 K/uL (0.0-0.2); BASO % 0.4 % (0.0-2.0); HEMOGLOBIN 10.3 g/dL (12.0-18.0); LYMPH # 1.2 K/uL (1.0-4.3); MEAN CORPUSCULAR HEMOGLOBIN 31.8 pg (27.0-31.0); MEAN CORPUSCULAR HGB CONC 33.9 g/dL (33.0-37.0); MEAN PLATELET VOLUME 9.5 fl (7.2-11.7); MONO # 0.7 K/uL (0.0-0.8); MONO % 4.3 % (0.0-10.0); NEUT # 14.7 K/uL (1.8-7.0); NEUT % 88.3 % (50.0-75.0); PLATELET COUNT 457 K/uL (130-400); RBC 3.25 Mil/uL (4.40-5.90); RED CELL DISTRIBUTION WIDTH 16.4 % (11.5-14.5); WHITE BLOOD COUNT 16.7 K/uL (4.8-10.8)
[2018-06-25 06:07] LABS: INR 1.2
[2018-06-25 06:10] LABS: PARTIAL THROMBOPLASTIN TIME 32.7 Seconds (25.6-37.1)
--- NOTE | 2018-06-25 06:11 | PCM.RRT ---
<Vane Cintron - Last Filed: 06/25/18 07:40> I.Reason for WHEEL ASSEMBLER - A) Acute Change in Patient: Subjective: WHEEL ASSEMBLER Arrival time: 5:20AM WHEEL ASSEMBLER Location: [facility] WHEEL ASSEMBLER VS on arrival: HR 142, BP 82/57, O2 Sat 99%, RR 18 S: WHEEL ASSEMBLER called by RN after patient became diaphoretic, weak, and lightheaded and almost pass out while having a BM in the commode at bedside, large amount of blood was noted in the BM. The patient is a 58 YO male with PMHx of colon cancer s/p colon CA resection, with recent admission for SBO s/p exploratory laparotomy with adhesiolysis, bowel resection and primary anastomosis. Patient has h/o AMS in his last admission, was evaluated by neurology for possible CVA vs suspected seizure activity and was started on Keppra, Aspirin, Plavix and statin which the patient was currently taking. Patient was transferred to TCU for rehab yesterday 06/24/18. Patient was immediately transferred to the bed by nursing team on floor, upon arrival of WHEEL ASSEMBLER patient is noted diaphoretic, weak and c/o lightheadedness. Patient denies CP, SOB, abdominal pain at this time of encounter. O: HEENT: atraumatic, normocephalic, mucous membranes noted pale. CV: tachycardia RRR, S1S2 present RESP: Clear to auscultation bilateral Abdomen: There is a surgical incision midline abdomen well approximated with petros, mild distension noted, soft to palpation, appears nontender. EXT: no edema A/P 58 YO with PMHx of Colon CA s/p colon resection, s/p exploratory laparotomy due to SBO with small bowel resection with adhesiolysis 10 days ago and h/o possible CVA on 06/19/18, currently on Aspirin, Plavix, who suddenly became hemodynamically unstable secondary to acute GI bleeding. VS during WHEEL ASSEMBLER: 5:52 AM BP 89/49 HR 145, 5:55AM BP 91/66 HR 134 Plan and WHEEL ASSEMBLER interventions -VS monitoring -Surgical team notify and surgical manager in room -EKG stat ordered shows tachycardia with acute ST segment changes, likely secondary to demand ischemia -CBC, CMP, prolactin level -PT/INR, PTT stat -Type and cross ordered stat for 2 UNITs of blood -CXR, Abdomen XR stat -IVF LR bolus started at bedside -Meds reviewed, Plavix, ASA, Lovenox discontinued -Patient transferred to ED Case discussed with attending hospitalist. <Miguel Leo Oscar - Last Filed: 06/25/18 20:58> Plan - Assessment of Findings&Treatment Plan History as documented by resident was reviewed with patient and resident. I performed the bustos elements of exam and agree with the above findings. Diagnostics were reviewed and medical decision making and plan of care performed by me. 58 yo AAM s/p bowel resection and end-to-end anastomosis for SBO c/o TIA/CVA loaded with ASA and Plavix was transferred to TCU for further care. WHEEL ASSEMBLER was called as patient had near-syncopal episode on potty chair. Upon my assessment he was diaphoretic and hypotensive to 70/40s and tachycardic to 140s/min. Had large amount of melanotic stool in the commode. My impression was acute GI bleed. Started patient on fluid resuscitation and ordered stat blood work. Requested for emergent release of O neg blood and started him on transfusion. Ordered stat CXR and personally reviewed which did not show air under diaphragm. EKG stat was done I personally reviewed showed sinus tachy at 133/min with some non-specific ST-T abnormalities but no evidence of ongoing ischemia and unchanged when compared to prior. Surgery was called and A-line was placed by surgical manager. Accompanied him to ED and from there to the unit. Improved with treatment and HR is now down to 110/min and BP normalized and patient is feeling better. Will continue with fluid resuscitation and blood transfusion as needed and monitor hemodynamic status closely in the unit. Will hold ASA, Plavix and Lovenox. Will give IV PPI and will consult GI and reports developer. I spent total of 52 min of critical care time trying to stabilize this critically unstable patient excluding any time spent for any procedures.
[2018-06-25 06:17] LABS: ALB/GLOB RATIO 0.9 (1.0-2.1); ALBUMIN 3.1 g/dL (3.5-5.0); ALT/SGPT 106 U/L (21-72); AST/SGOT 108 U/L (17-59); BLOOD UREA NITROGEN 20 mg/dl (9-20); CALCIUM 8.6 mg/dL (8.4-10.2); GFR NON-AFRICAN AMERICAN > 60
[2018-06-25] MEDS ORDERED: Insulin Regular 100 units/ml SC SCH (07:30)
[2018-06-25] MEDS ORDERED: Enoxaparin 40 mg Syringe SC SCH (09:00)
[2018-06-25] MEDS ORDERED: Pantoprazole 40 mg EC Tab PO SCH (09:00)
[2018-06-25 09:14] LABS: LYMPHOCYTE 10 % (20-50); MONOCYTE 5 % (0-10); MYELOCYTE 1 % (0-0); NEUTROPHIL 84 % (42-75); TOTAL CELLS COUNTED 100
[2018-06-25 09:15] LABS: ANISOCYTOSIS SLIGHT; HYPOCHROMIC SLIGHT; PLATELET ESTIMATE INCREASED (NORMAL)
[2018-06-25 09:16] LABS: OVALOCYTES SLIGHT; TEARDROP CELLS SLIGHT
[2018-06-25 09:17] LABS: LARGE PLATELETS PRESENT
--- NOTE | 2018-06-25 09:24 | CARD ---
APPROVED REPORT Date of service: 06/25/2018 EKG Measurement Heart [id number] <Conclusion> Sinus tachycardia Nonspecific ST-T changes Abnormal ECG
--- NOTE | 2018-06-25 11:41 | RAD ---
Date of service: 06/25/2018 PROCEDURE: CHEST RADIOGRAPH, 1 VIEW HISTORY: active bleeding COMPARISON: 06/19/2018 FINDINGS: LUNGS: Clear. PLEURA: No pneumothorax or pleural fluid seen. CARDIOVASCULAR: No aortic atherosclerotic calcification present. Normal. OSSEOUS STRUCTURES: No significant abnormalities. VISUALIZED UPPER ABDOMEN: No subdiaphragmatic free air seen on this AP erect portable labeled film. OTHER FINDINGS: Prior nasogastric tube removed. Faint surgical petros seen in the epigastric and left upper quadrant. Correlate clinically IMPRESSION: Interval removal NG tube. No subdiaphragmatic free air noted on this exam. Postsurgical changes upper abdomen. Correlate clinically
[2018-06-25 12:28] LABS: PROLACTIN 84.2 ng/mL (3.7-17.9)
== END 2018-06-25 05:59 | disposition short-term general hospital (02) | DRG 949 ==
PROVIDERS: ADMIT Internal Medicine; ATTEND Internal Medicine
DX: Z48.815 Encounter for surgical aftercare following surgery on the digestive system (principal); K92.2 Gastrointestinal hemorrhage, unspecified; I24.8 Other forms of acute ischemic heart disease; Z85.038 Personal history of other malignant neoplasm of large intestine

== ENCOUNTER 2018-06-25 06:01 | Inpatient (IN) | payer OTHER ==
--- NOTE | 2018-06-25 07:07 | ED PDOC ---
HPI: Abdomen Time Seen by Provider: 06/25/18 06:02 Chief Complaint (Nursing): Weakness/Neurological Deficit Chief Complaint (Provider): Weakness/Neurological Deficit History Per: Patient History/Exam Limitations: no limitations Onset/Duration Of Symptoms: Days (x 1) Current Symptoms Are (Timing): Still Present Quality Of Discomfort: "Pain" Alleviating Factors: None Additional Complaint(s): 58 year old male presented to the ED from [address] [place] [address] after [employer]PER WORK[employer] was called. 10 days ago, patient was complaining of abdominal pain and found to have a small bowel obstruction. He then underwent adhesion removal and end to end anastomosis surgery. During post operative recovery, patient had a TIA and was admitted to the ICU. From ICU, patient was started on anti-coagulants. Overnight, he began complaining of blood in stool and multiple episodes of bright red stools. He then experienced a syncopal episode which was when [employer]PER WORKER was called. He was evaluated by Dr. Plata. Surgical and family practice residents all present at bedside. Labs ordered while patient was upstairs. While in ED, patient consulted and ordered for two units of blood. vice president pharmacy placed central and arterial line. Past Medical History Reviewed: Historical Data, Nursing Documentation, Vital Signs Vital Signs: Last Vital Signs Temp Pulse 120 H 06/25/18 06:05 Resp 18 06/25/18 06:05 BP 97/73 L 06/25/18 06:05 Pulse Ox 100 06/25/18 06:05 - Medical History PMH: Hypercholesterolemia Denies: Depression, HIV, Chronic Kidney Disease - Surgical History Surgical History: Appendectomy (about 25 years ago) - Family History Family History: States: Unknown Family Hx - Immunization History Hx Influenza Vaccination: Yes Hx Pneumococcal Vaccination: Yes - Home Medications Home Medications: Ambulatory Orders Medication Instructions Recorded Acetaminophen [Tylenol 325mg tab] 650 mg PO Q6 PRN 06/24/18 Acetaminophen [Tylenol] 650 mg PA ONCE PRN 06/24/18 Aspirin [Ecotrin] 81 mg PO DAILY #30 tabec 06/24/18 Atorvastatin [Lipitor] 40 mg PO HS #30 tab 06/24/18 Clopidogrel [Plavix] 75 mg PO DAILY tab 06/24/18 DiphenhydrAMINE [Benadryl] 25 mg IVP Q6 PRN 06/24/18 Enalapril Maleate [Vasotec] 2.5 mg PO Q12 06/24/18 Enoxaparin [Lovenox] 40 mg SC DAILY #30 syr 06/24/18 Insulin Human Regular [HumuLIN R] See Protocol SC Q6 06/24/18 Meropenem [Merrem] 1 gm IV Q8 3 Days #10 vial 06/24/18 Pantoprazole Sodium [Protonix] 40 mg PO DAILY #30 ect 06/24/18 levETIRAcetam [Keppra] 500 mg IVPB Q12 06/24/18 - Allergies Allergies/Adverse Reactions: Allergies Allergy/AdvReac Type Severity Reaction Status Date / Time No Known Allergies Allergy Verified 06/25/18 06:03 Review of Systems ROS Statement: Except As Marked, All Systems Reviewed And Found Negative Constitutional: Positive for: Weakness Gastrointestinal: Positive for: Hematochezia Physical Exam - Reviewed Nursing Documentation Reviewed: Yes Vital Signs Reviewed: Yes - Physical Exam Appears: Positive for: In Acute Distress Head Exam: Positive for: ATRAUMATIC, NORMAL INSPECTION, NORMOCEPHALIC Skin: Positive for: Diaphoresis (and cachectic) Eye Exam: Positive for: EOMI, Normal appearance, PERRL Neck: Positive for: Normal, Painless ROM, Supple Cardiovascular/Chest: Positive for: Tachycardia. Negative for: Gallop, Murmur, Friction Rub Respiratory: Positive for: Normal Breath Sounds. Negative for: Respiratory Distress Gastrointestinal/Abdominal: Positive for: Tenderness (diffuse). Negative for: Guarding, Rebound Extremity: Positive for: Other (arterial line placed in left brachial artery; peripheral line in right arm) Neurological/Psych: Positive for: Alert, Oriented (x 3). Negative for: Motor/Sensory Deficits - ECG O2 Sat by Pulse Oximetry: 100 (RA) Pulse Ox Interpretation: Normal - Critical Care Total Time (In Min): 30 Medical Decision Making Medical Decision Makin:03 MDM: Patient with GI bleed secondary to end to end anastomotic surgery Symptomatic anemia, HTN and tachycardia 06:25 Followed by certified surgical tech/first assistant and surgeon aircraft air conditioning mechanic. Followed by hospitalist aircraft air conditioning mechanic. GI consult placed and admitted patient to the ICU. ------ Scribe Attestation: Documented by Diamond Hernández, acting as a scribe Gissel Roque MD Provider Scribe Attestation: All medical record entries made by the Scribe were at my direction and personally dictated by me. I have reviewed the chart and agree that the record accurately reflects my personal performance of the history, physical exam, medical decision making, and the department course for this patient. I have also personally directed, reviewed, and agree with the discharge instructions and d isposition. Disposition - Clinical Impression Clinical Impression: GI bleed, Hypotension - Disposition Disposition Time: 06:26 Condition: SERIOUS
--- NOTE | 2018-06-25 07:39 | CP.PCM.CON ---
<Amandeep Quintanilla - Last Filed: 06/25/18 07:55> History of Present Illness - History of Present Illness History of Present Illness: General Surgery Consult Note for Dr. Domínguez Reason for consult: hypotension, syncope, GI bleed 58 M with PMH of gastric CA s/p resection, colon polyps, HLD, TIA, SBO, HTN presents to ED via [facility] acute rehab due to [employer] for hypotension, GI bleed and syncope. Patient was seen and evaluated in the acute rehab on the 6th floor. Upon arrival, patient was hypotension and intermittent responsive. As per nursing, patient was on toliet and had bloody maroon BM then developed vasovagal response. BP at the time was 80s/50s and HR in 140s. Patient was bolused 1L LR and labs were drawn right before being transferred to ED. After 1L patient became more awake. BP remained labile wile receiving 2nd liter so 1u PRBC was given. Arterial line was placed in the ED then patient was transferred to ICU. In ICU, 2nd 18 g large bore IV was placed. BP was stabilized 130-40s/70s. Patient continuing to receive fluids and unit of PRBC. Patient reports that he had one clot in BM last night but it was dark and felt fine. Around 2 am, he states that he develped some abd pain and had an episode of vomiting with NBNB emesis. Currently, patient denies fever/chills, cp, SOB, vertigo, lightheadedness/dizziness. Patient had ex-lap with CHUCK, SBR and primary anastomosis on 06/15. On 06/20, patient had TIA/CVA on the telemetry unit and was transferred to ICU. Since then he has been taking ASA/Plavix. Patient was transferred to floor after a few day in ICU. Yesterday afternoon, he was transferred to the acute rehab floor. PMD: Dr. Edith Mendoza PMH: gastric CA s/p resection, colon polyps, HLD, TIA, SBO, HTN PSH: billroth II (gastrojejunostomy) with entero-enterostomy, colonoscopy, surgery for ulcers, appendectomy, ex-lap with CHUCK/SBR/primary anastomosis ALL: NKDA Meds: as per EMR Social: smokes 1/2 pack/day for years (20+ pack year history), denies EtOH/illicit drug use Review of Systems - Review of Systems All systems: reviewed and no additional remarkable complaints except (as per HPI) Past Patient History - Infectious Disease Hx of Infectious Diseases: None - Past Medical History & Family History Past Medical History?: Yes - Past Social History Smoking Status: Current Some Days Smoker - CARDIAC Hx Hypercholesterolemia: Yes - PULMONARY Hx Respiratory Disorders: No - NEUROLOGICAL Hx Neurological Disorder: No - HEENT Hx HEENT Problems: No - RENAL Hx Chronic Kidney Disease: No - ENDOCRINE/METABOLIC Hx Endocrine Disorders: No - HEMATOLOGICAL/ONCOLOGICAL Hx Human Immunodeficiency Virus (HIV): No - INTEGUMENTARY Hx Dermatological Problems: No - MUSCULOSKELETAL/RHEUMATOLOGICAL Hx Musculoskeletal Disorders: No Hx Falls: No - GASTROINTESTINAL Hx Gastrointestinal Disorders: Yes Other/Comment: Colon CA - GENITOURINARY/GYNECOLOGICAL Hx Genitourinary Disorders: No - PSYCHIATRIC Hx Depression: No - SURGICAL HISTORY Hx Appendectomy: Yes (about 25 years ago) - ANESTHESIA Hx Anesthesia: Yes Hx Anesthesia Reactions: No Hx Malignant Hyperthermia: No Meds Allergies/Adverse Reactions: Allergies Allergy/AdvReac Type Severity Reaction Status Date / Time No Known Allergies Allergy Verified 06/25/18 06:03 - Medications Medications: Current Medications Atorvastatin Calcium (Lipitor) 40 mg PO HS [facility] (Meropenem [Merrem]) 1 gm IV Q8 [facility] Lactated Ringer's (Lactated Ringer's) 1,000 mls @ 125 mls/hr IV .Q8H [facility] Levetiracetam 500 mg/ Sodium (Chloride) 105 mls @ 210 mls/hr IVPB Q12 [facility] Pantoprazole Sodium (Protonix Inj) 40 mg IVP Q12H [facility] Physical Exam - Constitutional Appears: No Acute Distress - Head Exam Head Exam: ATRAUMATIC, NORMOCEPHALIC - Eye Exam Eye Exam: EOMI, Scleral icterus Pupil Exam: PERRL - ENT Exam ENT Exam: Mucous Membranes Dry - Neck Exam Neck exam: Positive for: Full Rom - Respiratory Exam Respiratory Exam: NORMAL BREATHING PATTERN - Cardiovascular Exam Cardiovascular Exam: Tachycardia - GI/Abdominal Exam GI & Abdominal Exam: Normal Bowel Sounds, Soft. absent: Distended, Firm, Guarding, Hernia, Rebound, Rigid, Tenderness Additional comments: midline incision with petros - Rectal Exam Additional comments: normal tone, dark stool, no active bleeding noted - Extremities Exam Extremities exam: Positive for: normal capillary refill, pedal pulses present Additional comments: 18 g IV lines in RUE and RLE - Back Exam Back exam: absent: CVA tenderness (L), CVA tenderness (R) - Neurological Exam Neurological exam: Alert, CN II-XII Intact, Oriented x3 - Psychiatric Exam Psychiatric exam: Normal Affect, Normal Mood - Skin Skin Exam: Dry, Intact, Warm Results - Vital Signs Recent Vital Signs: Last Vital Signs Temp 97.5 F L 06/25/18 06:55 Pulse 118 H 06/25/18 06:55 Resp 18 06/25/18 06:55 BP 137/77 06/25/18 06:55 Pulse Ox 100 06/25/18 07:23 Assessment & Plan - Assessment and Plan (Free Text) Assessment: 58 M with syncope and GI bleed Plan: -NPO, sips and chips -IVF -Transfuse PRN -Monitor for bloody BMs -Trend H/H -Hold anticoagulation and anti-platelets -Protonix Q12H -Recommend GI consult -Medical management as per ICU -Discussed with Dr. Sang Quintanilla PGY2 - Date & Time Date: 06/25/18 Time: 08:05 <Todd Reynaga - Last Filed: 06/25/18 10:49> Meds - Medications Medications: Current Medications Atorvastatin Calcium (Lipitor) 40 mg PO HS [facility] Lactated Ringer's (Lactated Ringer's) 1,000 mls @ 125 mls/hr IV .Q8H [facility] Last Admin: 06/25/18 10:04 Dose: 125 mls/hr Levetiracetam 500 mg/ Sodium (Chloride) 105 mls @ 210 mls/hr IVPB Q12 [facility] Last Admin: 06/25/18 10:09 Dose: 210 mls/hr Meropenem 1 gm/ Sodium (Chloride) 100 mls @ 100 mls/hr IVPB Q8 [facility] Last Admin: 06/25/18 10:18 Dose: 100 mls/hr Lactated Ringer's (Lactated Ringer's) 1,000 mls @ 999 mls/hr IV .Q1H1M [facility] Stop: 06/25/18 11:00 Last Admin: 06/25/18 10:05 Dose: 999 mls/hr Pantoprazole Sodium (Protonix Inj) 40 mg IVP Q12H [facility] Last Admin: 06/25/18 10:11 Dose: 40 mg Results - Vital Signs Recent Vital Signs: Last Vital Signs Temp 98.4 F 06/25/18 08:00 Pulse 117 H 06/25/18 08:00 Resp 22 06/25/18 08:00 BP 123/67 06/25/18 08:00 Pulse Ox 100 06/25/18 08:00 Assessment & Plan - Assessment and Plan (Free Text) Plan: 58yo F with Hx of Gastric Ca with gastrectomy BII reconstruction, recently underwent an exploratory laparotomy with lysis of adhesions and small bowel resections during previous admission. In TCU, pt developed an episode of bloody BM, non bilious no bloody BM and syncopal episode. Pt was transferred to ED for further evaluation. It ED pt found to be hypotensive and tachycardic. Pt was started on IV fluids and tranfused 1 Unit PRBC. Pt seen in ICU, resting comfortably without any acute complaints. Pt denies any abdominal pain but does reporting abdominal distention and burping. +Flatus no B M. gen: awake, alert, NAD HEENT: NC/AT, EOMI, PERRLA, no acute respiratory distress card: S1S2, tachycardic abd: soft, distended, NT, midline incision healing well, no peritoneal signs ext: no calf tenderness b/l 58yo M s/p recent exlap lysis of adhesion small bowel resection readmitted with GI bleed -NPO -IV fluids -NGT to LWS -repeat Labs -repeat lactate -protonix IV BID -hold all anticoagulants -transfuse PRN
--- NOTE | 2018-06-25 08:10 | PCM.PROC ---
Procedures Attestation:: I certify that I have explained the specified Operation(s) or Procedure(s), risks, benefits and reasonable alternatives to the Patient and/or other person responsible. The opportunity was given to ask questions and all questions answered - Arterial Line Left Radial Aseptic technique was employed throughout the procedure: Hand Hygiene done prior to procedure, Full sterile barriers (mask, hair cover, sterile gown, sterile gloves), Full body sterile drape, Chloraprep Antiseptic: 30 second prep for IJ or SC sites (left radial) Time Out Performed: Yes Pt. placed on Pulse Ox Monitor: Yes Central Line Prep: Chlorhexidine-Alcohol Combination Ultrasound Used for Placement: No Gauge (Size): 20 gauge Technique Used: Guide Wire Technique Secured by: Suture Post procedure dressing: Clear vapor permeable Patient Tolerated Procedure: no complications Immediate Complications: none
--- NOTE | 2018-06-25 08:52 | CP.CCUPN ---
<Sultan Mario - Last Filed: 06/25/18 13:45> CCU Subjective - Physician Review Subjective (Free Text): 06/25/18 10:00 58 year old Male with PMHx Gastric Ca with gastrectomy and recent s/p recent exploratory laparotomy with lysis of adhesions and small bowel resections on 05/24 07/11 and h/o possible CVA on 06/19/18 was on Aspirin and Plavix admitted to ICU suspected lower GI bleeding and hypotension. Patient was transferred to subacute rehab yesterday; and this morning, patient had one episode of maroon colored large BM and developed vasovagal syncope. Patient received 2 L of IV fluids and 1 units of prbc in total today. Patient had one episode of non-bloody greenish emesis after coming to ED (~400cc per nurse). Patient denies any abdominal pain, chest pain, dyspnea, fever or chills. CCU Objective - Vital Signs / Intake & Output Vital Signs (Last 4 hours): Vital Signs Temp Pulse Resp BP Pulse Ox 06/25/18 08:00 98.4 F 117 H 22 123/67 100 06/25/18 07:23 100 06/25/18 06:55 97.5 F L 118 H 18 87/51 L 95 06/25/18 06:54 98.3 F 116 H 18 137/77 98 06/25/18 06:40 97.5 F L 114 H 17 89/53 L 96 06/25/18 06:20 97.5 F L 117 H 17 97/63 L 95 06/25/18 06:05 120 H 18 97/73 L 100 Intake and Output (Last 8hrs): Intake & Output 06/24/18 06/25/18 06/25/18 22:59 06:59 14:59 Intake Total 1000 Output Total 675 Balance 325 Weight 53.07 kg Intake: Intake, Piggyback 1000 Output: Gastric Amount 400 Nares 400 Urine 275 Urine, Voided 275 - Physical Exam Head: Positive for: Atraumatic Pupils: Positive for: PERRL Extroacular Muscles: Positive for: EOMI Mouth: Positive for: Moist Mucous Membranes Neck: Positive for: Normal Range of Motion Respiratory/Chest: Positive for: Clear to Auscultation. Negative for: Respiratory Distress, Accessory Muscle Use, Wheezes, Rales Cardiovascular: Positive for: Normal S1, S2, Tachycardic Abdomen: Positive for: Distention, Normal Bowel Sounds, Other (Mid abdominal vertical incision with petros in placed. No signs of infection. ). Negative for: Tenderness, Peritoneal Signs Upper Extremity: Positive for: Normal Inspection Lower Extremity: Positive for: Normal Inspection Neurological: Positive for: Speech Normal Skin: Positive for: Normal Color Psychiatric: Positive for: Alert, Oriented x 3 - Medications Active Medications: Active Medications Generic Name Dose Route Start Last Admin Trade Name Freq PRN Reason Stop Dose Admin Atorvastatin Calcium 40 mg 06/25/18 22:00 Lipitor PO HS [facility] Lactated Ringer's 1,000 mls @ 125 mls/hr 06/25/18 06:45 Lactated Ringer's IV .Q8H [facility] Levetiracetam 500 mg/ Sodium 105 mls @ 210 mls/hr 06/25/18 09:00 Chloride IVPB Q12 [facility] Meropenem 1 gm/ Sodium 100 mls @ 100 mls/hr 06/25/18 09:00 Chloride IVPB Q8 [facility] Pantoprazole Sodium 40 mg 06/25/18 06:45 Protonix Inj IVP Q12H [facility] - Patient Studies EKG/Cardiology Studies: Cardiology / EKG Studies 06/25/18 06:03 EKG [ELECTROCARDIOGRAM] Stat Comment: Mode Of Transportation: Reason For Exam: chest pain Review of Systems - Review of Systems Review of Systems: All 12 systems reviewed and negative except as mentioned in HPI Assessment/Plan - Assessment and Plan (Free Text) Assessment: 58 year old Male with PMHx Gastric Ca with gastrectomy and s/p recent exploratory laparotomy with lysis of adhesions and small bowel resections on 06/15/18 and h/o possible CVA on 06/19/18 was on Aspirin and Plavix admitted to ICU suspected lower GI bleeding and hypotension. Plan: Hypotension likely secondary to acute blood loss anemia -BP is 143/63 with mild tachycardia -s/p 2 L LR bolus and 1 units of prbc -c/w LR at 125 cc/hr -c/w Protonix 40 mg q12 -repeat H&H is 9.0/25.8 -f/u AM labs Nausea and vomiting -Hx SBO with exploratory laparotomy with lysis of adhesions and small bowel resections on 06/15/18. -NPO, sips and chips -Zofran prn -NG tube is placed -Monitor symptoms -f/u GI consult Gram negative Sepsis --Hx positive blood cx with Enterobacter on 06/13/18 -ID on board -WBC is 15.1 with left shift -Stable BP now with slight tachycardia -c/w Meropenem 1 gm q8hr (day 12 of total 14 days) -f/u blood culture DVT prophylaxis -SCDs GI prophylaxis -on protonix Q12 Hr Patient seen, examined and plan discussed with Dr. Marek Martin, [id number] <Pastor Jara - Last Filed: 06/25/18 18:42> CCU Subjective - Physician Review Subjective (Free Text): Attestation: Patient seen and examined at the bedside with Resident Dr. Jose Martin; and I agree with his outline of plans and management documented above as discussed on AM rounds reflecting my review of all applicable clinical data, and participation in the care of the patient throughout the day in ICU; today, June 25, 2018. Mr. Hanley is well known to ICU team from previous admission 1 week ago for CVA - Seizure event, then transferred to Rehab therapy. This AM, Post [employer] to ICU from Rehab for acute episode of maroon colored BM, approx volume 300ml, not associated with any abdominal discomfort, episode of vomiting as well, with hypotension from hypovolemic shock which responded to fluid challenge. Awake and alert, oriented x 3, rec'd 1 units PRBCs as per Surgery team, and ongoing IVF hydration. Kept NPO for now. GI eval for source of bleeding: UGI tract / proximal small bowel versus LGI bleed. Hemodynamically improved after transfer to ICU with initial mgmt by Surgery team. Serial HGb assessments, checked coags: acceptable.
[2018-06-25] MEDS ORDERED: MEROPENEM 1 GM IV SCH (09:00)
--- NOTE | 2018-06-25 09:24 | CARD ---
APPROVED REPORT Date of service: 06/25/2018 EKG Measurement Heart [id number] <Conclusion> Sinus tachycardia Otherwise normal ECG
[2018-06-25] MEDS ORDERED: Chlorhexidine Gluconate 1 APPL/PKT TP ONE (09:39)
[2018-06-25] MEDS ORDERED: Lactated Ringer's 1,000 ML IV SCH (10:00)
[2018-06-25] MEDS: Lactated Ringer's 1,000 ML IV SCH ×2 (10:04→23:00)
[2018-06-25] MEDS: levETIRAcetam 500 MG in Sodium Chloride 0.9% 100 ML IVPB SCH ×2 (10:09→20:45)
[2018-06-25] MEDS: Meropenem 1 GM in Sodium Chloride 0.9% 100 ML IVPB SCH ×2 (10:18→18:01)
[2018-06-25 12:10] LABS: BASO % 0.3 % (0.0-2.0); LYMPH # 0.6 K/uL (1.0-4.3); LYMPH % 3.8 % (20.0-40.0); MEAN CELL VOLUME 91.6 fl (80.0-94.0); MEAN CORPUSCULAR HEMOGLOBIN 31.9 pg (27.0-31.0); MEAN CORPUSCULAR HGB CONC 34.9 g/dL (33.0-37.0); MEAN PLATELET VOLUME 9.7 fl (7.2-11.7); MONO # 0.9 K/uL (0.0-0.8); MONO % 6.3 % (0.0-10.0); NEUT # 13.5 K/uL (1.8-7.0); NEUT % 89.6 % (50.0-75.0); RBC 2.82 Mil/uL (4.40-5.90); RED CELL DISTRIBUTION WIDTH 15.5 % (11.5-14.5); WHITE BLOOD COUNT 15.1 K/uL (4.8-10.8)
[2018-06-25 12:16] LABS: INR 1.2; PROTHROMBIN TIME 14.1 Seconds (9.8-13.1)
[2018-06-25 12:18] LABS: PARTIAL THROMBOPLASTIN TIME 32.5 Seconds (25.6-37.1)
[2018-06-25 12:28] LABS: ALB/GLOB RATIO 0.8 (1.0-2.1); ALBUMIN 2.4 g/dL (3.5-5.0); ALT/SGPT 89 U/L (21-72); AST/SGOT 78 U/L (17-59); BLOOD UREA NITROGEN 18 mg/dl (9-20); CALCIUM 7.9 mg/dL (8.4-10.2); GFR NON-AFRICAN AMERICAN > 60
--- NOTE | 2018-06-25 12:28 | CP.PCM.HP ---
History of Present Illness - History of Present Illness History of Present Illness: Patient admitted through ED from [facility] due to syncope, bloody stool, hemoptysis and hypotension. Prior to [facility] he was admitted to ICU and treated for SBO and sepsis 2/2 to enterobacter aerogenes. SBO resolved s/p exploratory laparatomy with adhesiolysis, bowel resection and primary anastomosis. After ex-lap patient developed AMS of unclear etiology. CT and MRI head showed no acute stroke. Suspected seizure activity with postictal state - neuro consulted, Keppra 500 mg IV Q12h, ASA and statin for 21 day course for secondary stroke prevention. Bedside EEG report revealed normal EEG. Patient was medically stable and transferred to [facility], where the episode of syncope, bloody stool, hemoptysis and hypotension occurred. Upon arriving to ICU from ED he had one more episode of hemoptysis but no bloody bowel movements. Surgery placed NG tube and love. Admits to feeling weak but denies current abdominal pain, palpitations, dyspnea, hemoptysis, bloody BM and syncopal symptoms. Present on Admission - Present on Admission Any Indicators Present on Admission: No History of DVT/PE: No History of Uncontrolled Diabetes: No Review of Systems - Constitutional Constitutional: Fatigue, Malaise - Cardiovascular Cardiovascular: absent: Chest Pain - Respiratory Respiratory: As Per HPI - Gastrointestinal Gastrointestinal: As Per HPI - Hematologic/Lymphatic Hematologic: As Per HPI Past Patient History - Infectious Disease Hx of Infectious Diseases: None - Past Medical History & Family History Past Medical History?: Yes - Past Social History Smoking Status: Current Some Days Smoker - CARDIAC Hx Hypercholesterolemia: Yes - PULMONARY Hx Respiratory Disorders: No - NEUROLOGICAL Hx Neurological Disorder: No - HEENT Hx HEENT Problems: No - RENAL Hx Chronic Kidney Disease: No - ENDOCRINE/METABOLIC Hx Endocrine Disorders: No - HEMATOLOGICAL/ONCOLOGICAL Hx Human Immunodeficiency Virus (HIV): No - INTEGUMENTARY Hx Dermatological Problems: No - MUSCULOSKELETAL/RHEUMATOLOGICAL Hx Musculoskeletal Disorders: No Hx Falls: No - GASTROINTESTINAL Hx Gastrointestinal Disorders: Yes Other/Comment: Colon CA - GENITOURINARY/GYNECOLOGICAL Hx Genitourinary Disorders: No - PSYCHIATRIC Hx Depression: No - SURGICAL HISTORY Hx Appendectomy: Yes (about 25 years ago) - ANESTHESIA Hx Anesthesia: Yes Hx Anesthesia Reactions: No Hx Malignant Hyperthermia: No Meds Allergies/Adverse Reactions: Allergies Allergy/AdvReac Type Severity Reaction Status Date / Time No Known Allergies Allergy Verified 06/25/18 06:03 Physical Exam - Constitutional Appears: No Acute Distress, Cachectic - Head Exam Head Exam: NORMAL INSPECTION - ENT Exam Additional comments: NG tube in place - Respiratory Exam Respiratory Exam: NORMAL BREATHING PATTERN. absent: Respiratory Distress - Cardiovascular Exam Cardiovascular Exam: Tachycardia - GI/Abdominal Exam GI & Abdominal Exam: Soft. absent: Tenderness - Exam Additional comments: love catheter - Neurological Exam Neurological exam: Alert, Oriented x3 - Psychiatric Exam Psychiatric exam: Flat Affect - Skin Skin Exam: Pallor Results - Vital Signs Recent Vital Signs: Last Vital Signs Temp 98.4 F 06/25/18 08:00 Pulse 106 H 06/25/18 10:00 Resp 21 06/25/18 10:00 BP 137/66 06/25/18 10:00 Pulse Ox 100 06/25/18 10:00 - Labs Result Diagrams: 06/25/18 12:00 06/25/18 12:00 Labs: Laboratory Results - last 24 hr 06/25/18 06/25/18 06/25/18 12:00 12:00 12:00 WBC 15.1 H RBC 2.82 L Hgb 9.0 L Hct 25.8 L MCV 91.6 D MCH 31.9 H MCHC 34.9 RDW 15.5 H Plt Count 258 D MPV 9.7 Neut % (Auto) 89.6 H Lymph % (Auto) 3.8 L [place] % (Auto) 6.3 Eos % (Auto) 0.0 Baso % (Auto) 0.3 Neut # (Auto) 13.5 H Lymph # (Auto) 0.6 L [place] # (Auto) 0.9 H Eos # (Auto) 0.0 Baso # (Auto) 0.0 PT 14.1 H INR 1.2 APTT 32.5 Lactic Acid 0.9 Assessment & Plan - Assessment and Plan (Free Text) Assessment: 58 year old Male with PMHx Gastric Ca with gastrectomy and s/p recent exploratory laparotomy with lysis of adhesions and small bowel resections on 06/15/18 and h/o possible CVA on 06/19/18 was on Aspirin and Plavix admitted to ICU suspected lower GI bleeding and hypotension. Plan: Hypotension likely secondary to acute blood loss anemia -BP range 137-143/63-64, mild tachycardia (low 100's) -Hg/Hct 9.0/25.8 -Lactic acid repeat 0.9 (6.4 this am) -s/p 2L LR bolus and 1 units of PRBC -Fluid support: LR 125 cc/hr -Protonix 40 mg q12 -Hold ASA and plavix -Follow-up CBC -Surgical consult inputs and recommendations appreciated Hemoptysis & bloody stool -Hx SBO with exploratory laparotomy with lysis of adhesions and small bowel resections on 06/15/18. -NPO -Zofran prn -NG tube (06/25) -f/u GI consult Gram negative Sepsis -Enterobacter (blood cx 06/13/18) -ID on board, Dr Prasad -WBC is 15.1 with left shift -Meropenem 1 gm Q8H (day #12 of total 14 days) -f/u blood culture DVT prophylaxis -SCDs
--- NOTE | 2018-06-25 14:45 | CP.PCM.CON ---
<EmilyJosiane - Last Filed: 06/25/18 14:45> Review of Systems - Constitutional Constitutional: Fatigue, Weakness - EENT Eyes: absent: Change in Vision - Cardiovascular Cardiovascular: absent: Chest Pain - Respiratory Respiratory: As Per HPI - Gastrointestinal Gastrointestinal: As Per HPI - Hematologic/Lymphatic Hematologic: As Per HPI Meds Allergies/Adverse Reactions: Allergies Allergy/AdvReac Type Severity Reaction Status Date / Time No Known Allergies Allergy Verified 06/25/18 06:03 - Medications Medications: Current Medications Atorvastatin Calcium (Lipitor) 40 mg PO HS [facility] Lactated Ringer's (Lactated Ringer's) 1,000 mls @ 125 mls/hr IV .Q8H [facility] Last Admin: 06/25/18 10:04 Dose: 125 mls/hr Levetiracetam 500 mg/ Sodium (Chloride) 105 mls @ 210 mls/hr IVPB Q12 [facility] Last Admin: 06/25/18 10:09 Dose: 210 mls/hr Meropenem 1 gm/ Sodium (Chloride) 100 mls @ 100 mls/hr IVPB Q8 [facility] Last Admin: 06/25/18 10:18 Dose: 100 mls/hr Pantoprazole Sodium (Protonix Inj) 40 mg IVP Q12H [facility] Last Admin: 06/25/18 10:11 Dose: 40 mg Physical Exam - Constitutional Appears: No Acute Distress, Cachectic - Head Exam Head Exam: ATRAUMATIC - Respiratory Exam Respiratory Exam: NORMAL BREATHING PATTERN. absent: Respiratory Distress - Cardiovascular Exam Cardiovascular Exam: Tachycardia - GI/Abdominal Exam GI & Abdominal Exam: Soft. absent: Tenderness - Exam Additional comments: love catheter - Neurological Exam Neurological exam: Alert, Oriented x3 - Psychiatric Exam Psychiatric exam: Flat Affect - Skin Skin Exam: Pallor Results - Vital Signs Recent Vital Signs: Last Vital Signs Temp 98.1 F 06/25/18 12:00 Pulse 107 H 06/25/18 12:00 Resp 17 06/25/18 12:00 BP 142/64 06/25/18 12:00 Pulse Ox 100 06/25/18 12:00 - Labs Result Diagrams: 06/25/18 12:00 06/25/18 12:00 Labs: Laboratory Results - last 24 hr 06/25/18 06/25/18 06/25/18 12:00 12:00 12:00 WBC 15.1 H RBC 2.82 L Hgb 9.0 L Hct 25.8 L MCV 91.6 D MCH 31.9 H MCHC 34.9 RDW 15.5 H Plt Count 258 D MPV 9.7 Neut % (Auto) 89.6 H Lymph % (Auto) 3.8 L [place] % (Auto) 6.3 Eos % (Auto) 0.0 Baso % (Auto) 0.3 Neut # (Auto) 13.5 H Lymph # (Auto) 0.6 L [place] # (Auto) 0.9 H Eos # (Auto) 0.0 Baso # (Auto) 0.0 PT 14.1 H INR 1.2 APTT 32.5 Sodium 134 Potassium 4.3 Chloride 100 Carbon Dioxide 28 Anion Gap 10 BUN 18 Creatinine 0.8 Est GFR ( Amer) > 60 Est GFR (Non-Af Amer) > 60 Random Glucose 104 Lactic Acid Calcium 7.9 L Phosphorus 3.1 Magnesium 1.7 Total Bilirubin 1.7 H AST 78 H D ALT 89 H Alkaline Phosphatase 111 Total Protein 5.4 L Albumin 2.4 L D Globulin 3.0 Albumin/Globulin Ratio 0.8 L 06/25/18 12:00 WBC RBC Hgb Hct MCV MCH MCHC RDW Plt Count MPV Neut % (Auto) Lymph % (Auto) [place] % (Auto) Eos % (Auto) Baso % (Auto) Neut # (Auto) Lymph # (Auto) [place] # (Auto) Eos # (Auto) Baso # (Auto) PT INR APTT Sodium Potassium Chloride Carbon Dioxide Anion Gap BUN Creatinine Est GFR ( Amer) Est GFR (Non-Af Amer) Random Glucose Lactic Acid 0.9 Calcium Phosphorus Magnesium Total Bilirubin AST ALT Alkaline Phosphatase Total Protein Albumin Globulin Albumin/Globulin Ratio <Armani Prasad - Last Filed: 06/25/18 14:51> History of Present Illness - History of Present Illness History of Present Illness: Patient admitted through ED from [facility] due to syncope, bloody stool, hemoptysis and hypotension. Prior to [facility] he was admitted to ICU and treated for SBO and sepsis 2/2 to enterobacter aerogenes. SBO resolved s/p exploratory laparatomy with adhesiolysis, bowel resection and primary anastomosis. After ex-lap patient developed AMS of unclear etiology. CT and MRI head showed no acute stroke. Suspected seizure activity Patient was medically stable and transferred to [facility] then to ER upon deterioration of his condition. Eventually transferred to ICU where he experienced hemoptysis x 1 Currently awake alert with NGT in place Denies fever or chills IV antibiotics were about to be completed ( 14 day course ) Past Patient History - Infectious Disease Hx of Infectious Diseases: None - Past Medical History & Family History Past Medical History?: Yes - Past Social History Smoking Status: Current Some Days Smoker - CARDIAC Hx Hypercholesterolemia: Yes - PULMONARY Hx Respiratory Disorders: No - NEUROLOGICAL Hx Neurological Disorder: No - HEENT Hx HEENT Problems: No - RENAL Hx Chronic Kidney Disease: No - ENDOCRINE/METABOLIC Hx Endocrine Disorders: No - HEMATOLOGICAL/ONCOLOGICAL Hx Human Immunodeficiency Virus (HIV): No - INTEGUMENTARY Hx Dermatological Problems: No - MUSCULOSKELETAL/RHEUMATOLOGICAL Hx Musculoskeletal Disorders: No Hx Falls: No - GASTROINTESTINAL Hx Gastrointestinal Disorders: Yes Other/Comment: Colon CA - GENITOURINARY/GYNECOLOGICAL Hx Genitourinary Disorders: No - PSYCHIATRIC Hx Depression: No - SURGICAL HISTORY Hx Appendectomy: Yes (about 25 years ago) - ANESTHESIA Hx Anesthesia: Yes Hx Anesthesia Reactions: No Hx Malignant Hyperthermia: No Meds - Medications Medications: Current Medications Atorvastatin Calcium (Lipitor) 40 mg PO HS [facility] Lactated Ringer's (Lactated Ringer's) 1,000 mls @ 125 mls/hr IV .Q8H [facility] [place] Last Admin: 06/25/18 10:04 Dose: 125 mls/hr Levetiracetam 500 mg/ Sodium (Chloride) 105 mls @ 210 mls/hr IVPB Q12 [facility] Last Admin: 06/25/18 10:09 Dose: 210 mls/hr Meropenem 1 gm/ Sodium (Chloride) 100 mls @ 100 mls/hr IVPB Q8 [facility] [place] Last Admin: 06/25/18 10:18 Dose: 100 mls/hr Pantoprazole Sodium (Protonix Inj) 40 mg IVP Q12H [facility] [place] Last Admin: 06/25/18 10:11 Dose: 40 mg Results - Vital Signs Recent Vital Signs: Last Vital Signs Temp 98.1 F 06/25/18 12:00 Pulse 107 H 06/25/18 12:00 Resp 17 06/25/18 12:00 BP 142/64 06/25/18 12:00 Pulse Ox 100 06/25/18 12:00 - Labs Result Diagrams: 06/25/18 12:00 06/25/18 12:00 Labs: Laboratory Results - last 24 hr 06/25/18 06/25/18 06/25/18 12:00 12:00 12:00 WBC 15.1 H RBC 2.82 L Hgb 9.0 L Hct 25.8 L MCV 91.6 D MCH 31.9 H MCHC 34.9 RDW 15.5 H Plt Count 258 D MPV 9.7 Neut % (Auto) 89.6 H Lymph % (Auto) 3.8 L [place] % (Auto) 6.3 Eos % (Auto) 0.0 Baso % (Auto) 0.3 Neut # (Auto) 13.5 H Lymph # (Auto) 0.6 L [place] # (Auto) 0.9 H Eos # (Auto) 0.0 Baso # (Auto) 0.0 PT 14.1 H INR 1.2 APTT 32.5 Sodium 134 Potassium 4.3 Chloride 100 Carbon Dioxide 28 Anion Gap 10 BUN 18 Creatinine 0.8 Est GFR ( Amer) > 60 Est GFR (Non-Af Amer) > 60 Random Glucose 104 Lactic Acid Calcium 7.9 L Phosphorus 3.1 Magnesium 1.7 Total Bilirubin 1.7 H AST 78 H D ALT 89 H Alkaline Phosphatase 111 Total Protein 5.4 L Albumin 2.4 L D Globulin 3.0 Albumin/Globulin Ratio 0.8 L 06/25/18 12:00 WBC RBC Hgb Hct MCV MCH MCHC RDW Plt Count MPV Neut % (Auto) Lymph % (Auto) [place] % (Auto) Eos % (Auto) Baso % (Auto) Neut # (Auto) Lymph # (Auto) [place] # (Auto) Eos # (Auto) Baso # (Auto) PT INR APTT Sodium Potassium Chloride Carbon Dioxide Anion Gap BUN Creatinine Est GFR ( Amer) Est GFR (Non-Af Amer) Random Glucose Lactic Acid 0.9 Calcium Phosphorus Magnesium Total Bilirubin AST ALT Alkaline Phosphatase Total Protein Albumin Globulin Albumin/Globulin Ratio
[2018-06-25 19:30] LABS: BASO % 0.4 % (0.0-2.0); EOS % 0.1 % (0.0-4.0); HEMOGLOBIN 8.4 g/dL (12.0-18.0); LYMPH # 0.9 K/uL (1.0-4.3); LYMPH % 7.6 % (20.0-40.0); MEAN CELL VOLUME 91.6 fl (80.0-94.0); MEAN CORPUSCULAR HEMOGLOBIN 31.6 pg (27.0-31.0); MEAN CORPUSCULAR HGB CONC 34.5 g/dL (33.0-37.0); MEAN PLATELET VOLUME 9.3 fl (7.2-11.7); MONO # 0.8 K/uL (0.0-0.8); MONO % 7.2 % (0.0-10.0); NEUT # 9.6 K/uL (1.8-7.0); NEUT % 84.7 % (50.0-75.0); NRBC % 0.1 % (0.0-0.0); RBC 2.66 Mil/uL (4.40-5.90); WHITE BLOOD COUNT 11.4 K/uL (4.8-10.8)
--- NOTE | 2018-06-25 23:38 | CP.PCM.CON ---
History of Present Illness - History of Present Illness History of Present Illness: Patient admitted through ED from [facility] due to syncope, bloody stool, hemoptysis and hypotension. Now in ICU In May , patient was admitted to ICU and treated for SBO and sepsis 2/2 to enterobacter aerogenes. SBO resolved s/p exploratory laparatomy with lysis of adhesions , bowel resection and primary anastomosis. After ex-lap patient developed AMS of unclear etiology. CT and MRI head showed no acute stroke. Suspected seizure activity Currently awake alert with NGT in place Denies fever or chills IV antibiotics were about to be completed ( 14 day course ) PMH: gastric and colon CA s/p resections, HLD PSH: gastric and colon resection for CA, surgery for ulcers, appendectomy ALL: NKDA Meds: as per EMR Social: smokes 1/2 pack/day for years (20+ pack year history), denies EtOH/illicit drug use Review of Systems - Review of Systems All systems: reviewed and no additional remarkable complaints except - Constitutional Constitutional: As Per HPI - EENT Eyes: absent: As Per HPI, Blind Spots, Blurred Vision, Change in Vision, Decreased Night Vision, Diplopia, Discharge, Dry Eye, Exophthalmos, Floaters, Irritation, Itchy Eyes, Loss of Peripheral Vision, Pain, Photophobia, Requires Corrective Lenses, Sees Flashes, Spots in Vision, Tunnel Vision, Other Visual Disturbances, Loss of Vision, Other Ears: absent: As Per HPI, Decreased Hearing, Ear Discharge, Ear Pain, Tinnitus, Abnormal Hearing, Disequilibrium, Dizziness, Other Nose/Mouth/Throat: absent: As Per HPI, Epistaxis, Nasal Congestion, Nasal Discharge, Nasal Obstruction, Nasal Trauma, Nose Pain, Post Nasal Drip, Sinus Pain, Sinus Pressure, Bleeding Gums, Change in Voice, Dental Pain, Dry Mouth, Dysphagia, Halitosis, Hoarsness, Lip Swelling, Mouth Lesions, Mouth Pain, Odynophagia, Sore Throat, Throat Swelling, Tongue Swelling, Facial Pain, Neck Pain, Neck Mass, Other - Cardiovascular Cardiovascular: absent: As Per HPI, Acrocyanosis, Chest Pain, Chest Pain at Rest, Chest Pain with Activity, Claudication, Diaphoresis, Dyspnea, Dyspnea on Exertion, Edema, Irregular Heart Rhythm, Pain Radiating to Arm/Neck/Jaw, Leg Edema, Leg Ulcers, Lightheadedness, Orthopnea, Palpitations, Paroxysmal Nocturnal Dyspnea, Pedal Edema, Radiating Pain, Rapid Heart Rate, Slow Heart Rate, Syncope, Other - Respiratory Respiratory: absent: As Per HPI, Cough, Dyspnea, Hemoptysis, Dyspnea on Exertion, Wheezing, Snoring, Stridor, Pain on Inspiration, Chest Congestion, Excessive Mucous Production, Change in Mucous Color, Pain with Coughing, Other - Gastrointestinal Gastrointestinal: As Per HPI - Genitourinary Genitourinary: absent: As Per HPI, Change in Urinary Stream, Difficulty Urinating, Dysuria, Flank Pain, Hematuria, Pyuria, Nocturia, Urinary Incontinence, Urinary Frequency, Urinary Hesitance, Urinary Urgency, Voiding Freq/Small Amts, Freq UTI, Hx Renal/Bladder Calculi, Hx /Renal Surgery, Bladder Distension, Other - Musculoskeletal Musculoskeletal: absent: As Per HPI, Abnormal Gait, Arthralgias, Atrophy, Back Pain, Deformity, Joint Swelling, Limited Range of Motion, Loss of Height, Muscle Cramps, Muscle Weakness, Myalgias, Neck Pain, Numbness, Radiating Pain into Limb, Stiffness, Tingling, Other - Integumentary Integumentary: absent: As Per HPI, Acne, Alopecia, Bleeding Lesions, Change in Hair, Change in Nails, Change in Pigmentation, Changing Lesions, Dry Skin, Erythema, Furuncle, Hirsutism, Lesions, New Lesions, Non-Healing Lesions, Photosensitivity, Pruritus, Rash, Skin Pain, Skin Ulcer, Sores, Striae, Swe lling, Unusual Bruising, Wounds, Jaundice, Other - Neurological Neurological: As Per HPI - Endocrine Endocrine: absent: As Per HPI, Change in Body Appearance, Change in Libido, Cold Intolorance, Deepening of Voice, Excessive Sweating, Fatigue, Flushing, Heat Intolorance, Increase in Ring/Shoe/Hat Size, Palpitations, Polydipsia, Polyphagia, Polyuria, Other - Hematologic/Lymphatic Hematologic: absent: As Per HPI, Easy Bleeding, Easy Bruising, Lymphadenopathy, Other Past Patient History - Infectious Disease Hx of Infectious Diseases: None - Past Medical History & Family History Past Medical History?: Yes - Past Social History Smoking Status: Current Some Days Smoker - CARDIAC Hx Hypercholesterolemia: Yes - PULMONARY Hx Respiratory Disorders: No - NEUROLOGICAL Hx Neurological Disorder: No - HEENT Hx HEENT Problems: No - RENAL Hx Chronic Kidney Disease: No - ENDOCRINE/METABOLIC Hx Endocrine Disorders: No - HEMATOLOGICAL/ONCOLOGICAL Hx Human Immunodeficiency Virus (HIV): No - INTEGUMENTARY Hx Dermatological Problems: No - MUSCULOSKELETAL/RHEUMATOLOGICAL Hx Musculoskeletal Disorders: No Hx Falls: No - GASTROINTESTINAL Hx Gastrointestinal Disorders: Yes Other/Comment: Colon CA - GENITOURINARY/GYNECOLOGICAL Hx Genitourinary Disorders: No - PSYCHIATRIC Hx Depression: No - SURGICAL HISTORY Hx Appendectomy: Yes (about 25 years ago) - ANESTHESIA Hx Anesthesia: Yes Hx Anesthesia Reactions: No Hx Malignant Hyperthermia: No Meds Allergies/Adverse Reactions: Allergies Allergy/AdvReac Type Severity Reaction Status Date / Time No Known Allergies Allergy Verified 06/25/18 06:03 - Medications Medications: Current Medications Atorvastatin Calcium (Lipitor) 40 mg PO HS [facility] Last Admin: 06/25/18 22:40 Dose: Not Given Lactated Ringer's (Lactated Ringer's) 1,000 mls @ 125 mls/hr IV .Q8H [facility] Last Admin: 06/25/18 10:04 Dose: 125 mls/hr Levetiracetam 500 mg/ Sodium (Chloride) 105 mls @ 210 mls/hr IVPB Q12 [facility] Last Admin: 06/25/18 20:45 Dose: 210 mls/hr Meropenem 1 gm/ Sodium (Chloride) 100 mls @ 100 mls/hr IVPB Q8 [facility] Last Admin: 06/25/18 18:01 Dose: 100 mls/hr Morphine Sulfate (Morphine) 2 mg IVP Q4 PRN PRN Reason: Pain, moderate (4-7) Last Admin: 06/25/18 21:52 Dose: 2 mg Pantoprazole Sodium (Protonix Inj) 40 mg IVP Q12H [facility] Last Admin: 06/25/18 20:47 Dose: 40 mg Physical Exam - Constitutional Appears: No Acute Distress, Cachectic, Chronically Ill - Head Exam Head Exam: ATRAUMATIC, NORMAL INSPECTION, NORMOCEPHALIC (x) - Eye Exam Eye Exam: absent: Scleral icterus Pupil Exam: NORMAL ACCOMODATION - ENT Exam ENT Exam: Mucous Membranes Dry - Neck Exam Neck exam: Positive for: Normal Inspection - Respiratory Exam Respiratory Exam: Decreased Breath Sounds, Clear to Auscultation Bilateral, Prolonged Expiratory Phase - Cardiovascular Exam Cardiovascular Exam: Tachycardia, REGULAR RHYTHM, +S1, +S2 - GI/Abdominal Exam GI & Abdominal Exam: Diminished Bowel Sounds, Distended, Guarding, Soft. absent: Pulsatile Mass, Rebound, Rigid, Tenderness - Rectal Exam Rectal Exam: Deferred - Extremities Exam Extremities exam: Positive for: normal inspection - Back Exam Back exam: NORMAL INSPECTION. absent: CVA tenderness (L), CVA tenderness (R) - Neurological Exam Neurological exam: Alert, CN II-XII Intact, Oriented x3, Reflexes Normal - Psychiatric Exam Psychiatric exam: Normal Affect, Normal Mood - Skin Skin Exam: Dry, Intact, Normal Color, Warm Results - Vital Signs Recent Vital Signs: Last Vital Signs Temp 98.0 F 06/25/18 20:00 Pulse 102 H 06/25/18 21:00 Resp 13 06/25/18 21:00 BP 88/64 L 06/25/18 21:00 Pulse Ox 100 06/25/18 21:00 - Labs Result Diagrams: 06/25/18 19:00 06/25/18 12:00 Labs: Laboratory Results - last 24 hr 06/25/18 06/25/18 06/25/18 12:00 12:00 12:00 WBC 15.1 H RBC 2.82 L Hgb 9.0 L Hct 25.8 L MCV 91.6 D MCH 31.9 H MCHC 34.9 RDW 15.5 H Plt Count 258 D MPV 9.7 Neut % (Auto) 89.6 H Lymph % (Auto) 3.8 L [place] % (Auto) 6.3 Eos % (Auto) 0.0 Baso % (Auto) 0.3 Neut # (Auto) 13.5 H Lymph # (Auto) 0.6 L [place] # (Auto) 0.9 H Eos # (Auto) 0.0 Baso # (Auto) 0.0 PT 14.1 H INR 1.2 APTT 32.5 Sodium 134 Potassium 4.3 Chloride 100 Carbon Dioxide 28 Anion Gap 10 BUN 18 Creatinine 0.8 Est GFR ( Amer) > 60 Est GFR (Non-Af Amer) > 60 Random Glucose 104 Lactic Acid Calcium 7.9 L Phosphorus 3.1 Magnesium 1.7 Total Bilirubin 1.7 H AST 78 H D ALT 89 H Alkaline Phosphatase 111 Total Protein 5.4 L Albumin 2.4 L D Globulin 3.0 Albumin/Globulin Ratio 0.8 L 06/25/18 06/25/18 12:00 19:00 WBC 11.4 H RBC 2.66 L Hgb 8.4 L Hct 24.4 L MCV 91.6 MCH 31.6 H MCHC 34.5 RDW 16.0 H Plt Count 267 MPV 9.3 Neut % (Auto) 84.7 H Lymph % (Auto) 7.6 L [place] % (Auto) 7.2 Eos % (Auto) 0.1 Baso % (Auto) 0.4 Neut # (Auto) 9.6 H Lymph # (Auto) 0.9 L [place] # (Auto) 0.8 Eos # (Auto) 0.0 Baso # (Auto) 0.0 PT INR APTT Sodium Potassium Chloride Carbon Dioxide Anion Gap BUN Creatinine Est GFR ( Amer) Est GFR (Non-Af Amer) Random Glucose Lactic Acid 0.9 Calcium Phosphorus Magnesium Total Bilirubin AST ALT Alkaline Phosphatase Total Protein Albumin Globulin Albumin/Globulin Ratio Assessment & Plan (1) GI bleed Status: Acute (2) Hypotension Status: Acute (3) CVA (cerebrovascular accident) Status: Acute Priority: High (4) Enterobacter sepsis Status: Acute (5) Gastric cancer Status: Acute Priority: High (6) H/O [place] II operation Status: Acute (7) HTN (hypertension) Status: Acute - Assessment and Plan (Free Text) Assessment: no clearcut evidence of ongoing sepsis source of GI bleed to be identified' no clearcut evidence of metastatic/ recurrent CA at this time cultures to be repeated IV antibiotic renewed for now
[2018-06-26 01:09] LABS: BASO # 0.1 K/uL (0.0-0.2); BASO % 0.9 % (0.0-2.0); EOS % 0.4 % (0.0-4.0); HEMOGLOBIN 7.5 g/dL (12.0-18.0); LYMPH # 0.9 K/uL (1.0-4.3); LYMPH % 10.4 % (20.0-40.0); MEAN CELL VOLUME 91.9 fl (80.0-94.0); MEAN CORPUSCULAR HEMOGLOBIN 31.6 pg (27.0-31.0); MEAN CORPUSCULAR HGB CONC 34.4 g/dL (33.0-37.0); MEAN PLATELET VOLUME 9.5 fl (7.2-11.7); MONO # 0.8 K/uL (0.0-0.8); MONO % 8.6 % (0.0-10.0); NEUT % 79.7 % (50.0-75.0); RBC 2.37 Mil/uL (4.40-5.90); RED CELL DISTRIBUTION WIDTH 16.1 % (11.5-14.5); WHITE BLOOD COUNT 8.8 K/uL (4.8-10.8)
[2018-06-26] MEDS: Meropenem 1 GM in Sodium Chloride 0.9% 100 ML IVPB SCH ×3 (01:09→17:02)
[2018-06-26 07:19] LABS: BASO # 0.1 K/uL (0.0-0.2); BASO % 0.8 % (0.0-2.0); EOS % 0.4 % (0.0-4.0); HEMOGLOBIN 7.4 g/dL (12.0-18.0); LYMPH # 0.8 K/uL (1.0-4.3); LYMPH % 11.7 % (20.0-40.0); MEAN CELL VOLUME 92.5 fl (80.0-94.0); MEAN CORPUSCULAR HEMOGLOBIN 32.1 pg (27.0-31.0); MEAN CORPUSCULAR HGB CONC 34.7 g/dL (33.0-37.0); MEAN PLATELET VOLUME 9.3 fl (7.2-11.7); MONO # 0.7 K/uL (0.0-0.8); MONO % 9.6 % (0.0-10.0); NEUT # 5.4 K/uL (1.8-7.0); NEUT % 77.5 % (50.0-75.0); RBC 2.31 Mil/uL (4.40-5.90); WHITE BLOOD COUNT 6.9 K/uL (4.8-10.8)
[2018-06-26 07:38] LABS: ALB/GLOB RATIO 0.9 (1.0-2.1); ALBUMIN 2.4 g/dL (3.5-5.0); ALT/SGPT 68 U/L (21-72); AST/SGOT 66 U/L (17-59); BLOOD UREA NITROGEN 17 mg/dl (9-20); CALCIUM 8.1 mg/dL (8.4-10.2); GFR NON-AFRICAN AMERICAN > 60
--- NOTE | 2018-06-26 08:30 | CP.PCM.PN ---
<MerchantKyle - Last Filed: 06/26/18 08:32> Subjective - Date & Time of Evaluation Date of Evaluation: 06/26/18 Time of Evaluation: 08:22 - Subjective Subjective: Surgery Progress note Patient seen and examined at bedside. GCS 15, moving all 4 extremities. A-line stopped working yesterday and was removed. NIBP cuff MAPS between 70-80. HR 80- 90s. NGT in place 500cc dark bilious fluid. Abd soft petros in place. Amado 2270cc of clear urine. Hgb 7.5 from 8.4. will plan for transfusion 1u today. Objective - Vital Signs/Intake and Output Vital Signs (last 24 hours): Temp Pulse Resp BP Pulse Ox 97.6 F 78 14 112/60 100 06/26/18 05:00 06/26/18 07:00 06/26/18 07:00 06/26/18 07:00 06/26/18 07:00 Intake and Output: 06/26/18 06/26/18 06:59 18:59 Intake Total 1700 375 Output Total 940 100 Balance 760 275 - Medications Medications: Current Medications Atorvastatin Calcium (Lipitor) 40 mg PO HS [facility] Last Admin: 06/25/18 22:40 Dose: Not Given Lactated Ringer's (Lactated Ringer's) 1,000 mls @ 125 mls/hr IV .Q8H [facility] Last Admin: 06/25/18 23:00 Dose: 125 mls/hr Levetiracetam 500 mg/ Sodium (Chloride) 105 mls @ 210 mls/hr IVPB Q12 [facility] Last Admin: 06/25/18 20:45 Dose: 210 mls/hr Meropenem 1 gm/ Sodium (Chloride) 100 mls @ 100 mls/hr IVPB Q8 [facility] Last Admin: 06/26/18 01:09 Dose: 100 mls/hr Morphine Sulfate (Morphine) 2 mg IVP Q4 PRN PRN Reason: Pain, moderate (4-7) Last Admin: 06/25/18 21:52 Dose: 2 mg Pantoprazole Sodium (Protonix Inj) 40 mg IVP Q12H [facility] Last Admin: 06/26/18 06:38 Dose: 40 mg - Labs Labs: 06/26/18 06:57 06/26/18 06:57 PT 14.1 Seconds (9.8-13.1) H 06/25/18 12:00 INR 1.2 06/25/18 12:00 APTT 32.5 Seconds (25.6-37.1) 06/25/18 12:00 - Constitutional Appears: Non-toxic, No Acute Distress - Head Exam Head Exam: ATRAUMATIC - Eye Exam Eye Exam: EOMI. absent: Scleral icterus - ENT Exam ENT Exam: Mucous Membranes Moist - Respiratory Exam Respiratory Exam: absent: Accessory Muscle Use, Respiratory Distress - Cardiovascular Exam Cardiovascular Exam: REGULAR RHYTHM. absent: Bradycardia, Tachycardia - GI/Abdominal Exam GI & Abdominal Exam: Soft, Tenderness (mild tenderness midline, and some tend erness in right flank). absent: Distended, Firm, Guarding, Rigid - Exam Additional comments: Amado in place - Extremities Exam Extremities Exam: absent: Calf Tenderness - Neurological Exam Neurological Exam: Alert, Awake, Oriented x3 - Psychiatric Exam Psychiatric exam: Normal Affect - Skin Skin Exam: Intact, Warm Assessment and Plan - Assessment and Plan (Free Text) Assessment: 58M s/p exlap lysis of adhesion small bowel resection POD 11 readmitted with GI bleed Plan: -NPO -IV fluids -NGT to LWS -plan to transfuse 1uPRBC -protonix IV BID -hold all anticoagulants -c/s GI; all recs appreciated <Todd Reynaga - Last Filed: 06/26/18 12:01> Objective - Vital Signs/Intake and Output Vital Signs (last 24 hours): Temp Pulse Resp BP Pulse Ox 97.5 F L 80 14 116/61 100 06/26/18 08:00 06/26/18 08:00 06/26/18 08:00 06/26/18 08:00 06/26/18 08:00 Intake and Output: 06/26/18 06/26/18 06:59 18:59 Intake Total 1700 825 Output Total 940 570 Balance 760 255 - Medications Medications: Current Medications Atorvastatin Calcium (Lipitor) 40 mg PO [facility] Last Admin: 06/25/18 22:40 Dose: Not Given Lactated Ringer's (Lactated Ringer's) 1,000 mls @ 125 mls/hr IV .Q8H [facility] Last Admin: 06/26/18 08:43 Dose: 125 mls/hr Levetiracetam 500 mg/ Sodium (Chloride) 105 mls @ 210 mls/hr IVPB Q12 [facility] Last Admin: 06/26/18 08:44 Dose: 210 mls/hr Meropenem 1 gm/ Sodium (Chloride) 100 mls @ 100 mls/hr IVPB Q8 [facility] Last Admin: 06/26/18 08:36 Dose: 100 mls/hr Morphine Sulfate (Morphine) 2 mg IVP Q4 PRN PRN Reason: Pain, moderate (4-7) Last Admin: 06/25/18 21:52 Dose: 2 mg Pantoprazole Sodium (Protonix Inj) 40 mg IVP Q12H [facility] Last Admin: 06/26/18 06:38 Dose: 40 mg - Labs Labs: 06/26/18 06:57 06/26/18 06:57 PT 14.1 Seconds (9.8-13.1) H 06/25/18 12:00 INR 1.2 06/25/18 12:00 APTT 32.5 Seconds (25.6-37.1) 06/25/18 12:00 Assessment and Plan - Assessment and Plan (Free Text) Plan: pt resting comfortably, denies any nausea or vomiting. Pt NPO with NGT in place, denies any nausea or vomiting. Pt is passing flatus no BM. S/p 1 UNit pRBC. HH this am 7.5. NGT: 500cc bilious gen: awake, alert, NAD abd: soft, NT, ND, +BS, no peritoneal signs, incision healing well -cont NPO -ngt removed -IV fluids -transfuse PRBCs -monitor for bloody BMs -CT abd/pelvis -protonix -GI f/u
[2018-06-26] MEDS: Lactated Ringer's 1,000 ML IV SCH ×2 (08:43→17:01)
[2018-06-26] MEDS: levETIRAcetam 500 MG in Sodium Chloride 0.9% 100 ML IVPB SCH ×2 (08:44→20:09)
--- NOTE | 2018-06-26 10:08 | CP.CCUPN ---
CCU Subjective - Physician Review Subjective (Free Text): 06/26/18 11:52 58 year old Male with PMHx Gastric Ca with gastrectomy and recent s/p recent exploratory laparotomy with lysis of adhesions and small bowel resections on 06/15/18 and h/o possible CVA on 06/19/18 was on Aspirin and Plavix admitted to ICU suspected lower GI bleeding and hypotension. Patient seen and examined this morning. Overnight events and nursing notes reviewed. A-line was removed last night. Afebrile with stable vitals (MAP >65). NG tube draining greenish fluids 500cc total output since yesterday Amado in place ( 2270 cc output in 24 hrs) Patient currently denies any nausea, vomiting or dark/bloody BM. Reports +flatus. H&H 7.4/21.4 this morning, will transfuse 2 units per primary team. CCU Objective - Vital Signs / Intake & Output Vital Signs (Last 4 hours): Vital Signs Temp Pulse Resp BP Pulse Ox 06/26/18 08:00 97.5 F L 80 14 116/61 100 06/26/18 07:00 78 14 112/60 100 Intake and Output (Last 8hrs): Intake & Output 06/25/18 06/26/18 06/26/18 22:59 06:59 14:59 Intake Total 1075 1100 375 Output Total 960 500 100 Balance 115 600 275 Weight 54.431 kg Intake: IV 875 1000 375 Intake, Piggyback 200 100 Output: Gastric Amount 100 Nares 100 Urine 860 450 100 Urethral (Amado) 440 450 100 Urine, Voided 420 Stool 50 - Physical Exam Head: Positive for: Atraumatic Pupils: Positive for: PERRL Extroacular Muscles: Positive for: EOMI Mouth: Positive for: Moist Mucous Membranes Neck: Positive for: Normal Range of Motion Respiratory/Chest: Positive for: Clear to Auscultation. Negative for: Respiratory Distress, Accessory Muscle Use, Wheezes, Rales Cardiovascular: Positive for: Normal S1, S2, Tachycardic Abdomen: Positive for: Distention, Normal Bowel Sounds, Other (Mid abdominal vertical incision with petros in placed. No signs of infection. ). Negative for: Tenderness, Peritoneal Signs Upper Extremity: Positive for: Normal Inspection Lower Extremity: Positive for: Normal Inspection Neurological: Positive for: Speech Normal Skin: Positive for: Normal Color Psychiatric: Positive for: Alert, Oriented x 3 - Medications Active Medications: Active Medications Generic Name Dose Route Start Last Admin Trade Name Freq PRN Reason Stop Dose Admin Atorvastatin Calcium 40 mg 06/25/18 22:00 06/25/18 22:40 Lipitor PO Not Given HS [facility] Lactated Ringer's 1,000 mls @ 125 mls/hr 06/25/18 06:45 06/26/18 08:43 Lactated Ringer's IV 125 mls/hr .Q8H [facility] Administration Levetiracetam 500 mg/ Sodium 105 mls @ 210 mls/hr 06/25/18 09:00 06/26/18 08:44 Chloride IVPB 210 mls/hr Q12 [facility] Administration Meropenem 1 gm/ Sodium 100 mls @ 100 mls/hr 06/25/18 09:00 06/26/18 08:36 Chloride IVPB 100 mls/hr Q8 [facility] Administration Morphine Sulfate 2 mg 06/25/18 21:46 06/25/18 21:52 Morphine IVP 2 mg Q4 PRN Administration Pain, moderate (4-7) Pantoprazole Sodium 40 mg 06/25/18 06:45 06/26/18 06:38 Protonix Inj IVP 40 mg Q12H [facility] Administration - Patient Studies Lab Studies: Lab Studies 06/26/18 06/26/18 06/26/18 Range/Units 06:57 06:57 01:03 WBC 6.9 8.8 (4.8-10.8) K/uL RBC 2.31 L 2.37 L (4.40-5.90) Mil/uL Hgb 7.4 L 7.5 L (12.0-18.0) g/dL Hct 21.4 L 21.7 L (35.0-51.0) % MCV 92.5 91.9 (80.0-94.0) fl MCH 32.1 H 31.6 H (27.0-31.0) pg MCHC 34.7 34.4 (33.0-37.0) g/dL RDW 16.0 H 16.1 H (11.5-14.5) % Plt Count 242 247 (130-400) K/uL MPV 9.3 9.5 (7.2-11.7) fl Neut % (Auto) 77.5 H 79.7 H (50.0-75.0) % Lymph % (Auto) 11.7 L 10.4 L (20.0-40.0) % [place] % (Auto) 9.6 8.6 (0.0-10.0) % Eos % (Auto) 0.4 0.4 (0.0-4.0) % Baso % (Auto) 0.8 0.9 (0.0-2.0) % Neut # (Auto) 5.4 7.0 (1.8-7.0) K/uL Lymph # (Auto) 0.8 L 0.9 L (1.0-4.3) K/uL [place] # (Auto) 0.7 0.8 (0.0-0.8) K/uL Eos # (Auto) 0.0 0.0 (0.0-0.7) K/uL Baso # (Auto) 0.1 0.1 (0.0-0.2) K/uL PT (9.8-13.1) Seconds INR APTT (25.6-37.1) Seconds Sodium 137 (132-148) mmol/l Potassium 3.7 (3.6-5.0) MMOL/L Chloride 100 (98-107) mmol/L Carbon Dioxide 32 H (22-30) mmol/L Anion Gap 9 L (10-20) BUN 17 (9-20) mg/dl Creatinine 0.9 (0.8-1.5) mg/dl Est GFR ( Amer) > 60 Est GFR (Non-Af Amer) > 60 Random Glucose 82 (75-110) mg/dL Lactic Acid (0.7-2.1) mmol/L Calcium 8.1 L (8.4-10.2) mg/dL Phosphorus (2.5-4.5) mg/dl Magnesium (1.6-2.3) MG/DL Total Bilirubin 0.9 (0.2-1.3) mg/dl AST 66 H (17-59) U/L ALT 68 (21-72) U/L Alkaline Phosphatase 102 (38-126) U/L Total Protein 5.2 L (6.3-8.2) G/DL Albumin 2.4 L (3.5-5.0) g/dL Globulin 2.8 (2.2-3.9) gm/dL Albumin/Globulin Ratio 0.9 L (1.0-2.1) 06/25/18 06/25/18 06/25/18 Range/Units 19:00 12:00 12:00 WBC 11.4 H (4.8-10.8) K/uL RBC 2.66 L (4.40-5.90) Mil/uL Hgb 8.4 L (12.0-18.0) g/dL Hct 24.4 L (35.0-51.0) % MCV 91.6 (80.0-94.0) fl MCH 31.6 H (27.0-31.0) pg MCHC 34.5 (33.0-37.0) g/dL RDW 16.0 H (11.5-14.5) % Plt Count 267 (130-400) K/uL MPV 9.3 (7.2-11.7) fl Neut % (Auto) 84.7 H (50.0-75.0) % Lymph % (Auto) 7.6 L (20.0-40.0) % [place] % (Auto) 7.2 (0.0-10.0) % Eos % (Auto) 0.1 (0.0-4.0) % Baso % (Auto) 0.4 (0.0-2.0) % Neut # (Auto) 9.6 H (1.8-7.0) K/uL Lymph # (Auto) 0.9 L (1.0-4.3) K/uL [place] # (Auto) 0.8 (0.0-0.8) K/uL Eos # (Auto) 0.0 (0.0-0.7) K/uL Baso # (Auto) 0.0 (0.0-0.2) K/uL PT (9.8-13.1) Seconds INR APTT (25.6-37.1) Seconds Sodium 134 (132-148) mmol/l Potassium 4.3 (3.6-5.0) MMOL/L Chloride 100 (98-107) mmol/L Carbon Dioxide 28 (22-30) mmol/L Anion Gap 10 (10-20) BUN 18 (9-20) mg/dl Creatinine 0.8 (0.8-1.5) mg/dl Est GFR ( Amer) > 60 Est GFR (Non-Af Amer) > 60 Random Glucose 104 (75-110) mg/dL Lactic Acid 0.9 (0.7-2.1) mmol/L Calcium 7.9 L (8.4-10.2) mg/dL Phosphorus 3.1 (2.5-4.5) mg/dl Magnesium 1.7 (1.6-2.3) MG/DL Total Bilirubin 1.7 H (0.2-1.3) mg/dl AST 78 H D (17-59) U/L ALT 89 H (21-72) U/L Alkaline Phosphatase 111 (38-126) U/L Total Protein 5.4 L (6.3-8.2) G/DL Albumin 2.4 L D (3.5-5.0) g/dL Globulin 3.0 (2.2-3.9) gm/dL Albumin/Globulin Ratio 0.8 L (1.0-2.1) 06/25/18 06/25/18 Range/Units 12:00 12:00 WBC 15.1 H (4.8-10.8) K/uL RBC 2.82 L (4.40-5.90) Mil/uL Hgb 9.0 L (12.0-18.0) g/dL Hct 25.8 L (35.0-51.0) % MCV 91.6 D (80.0-94.0) fl MCH 31.9 H (27.0-31.0) pg MCHC 34.9 (33.0-37.0) g/dL RDW 15.5 H (11.5-14.5) % Plt Count 258 D (130-400) K/uL MPV 9.7 (7.2-11.7) fl Neut % (Auto) 89.6 H (50.0-75.0) % Lymph % (Auto) 3.8 L (20.0-40.0) % [place] % (Auto) 6.3 (0.0-10.0) % Eos % (Auto) 0.0 (0.0-4.0) % Baso % (Auto) 0.3 (0.0-2.0) % Neut # (Auto) 13.5 H (1.8-7.0) K/uL Lymph # (Auto) 0.6 L (1.0-4.3) K/uL [place] # (Auto) 0.9 H (0.0-0.8) K/uL Eos # (Auto) 0.0 (0.0-0.7) K/uL Baso # (Auto) 0.0 (0.0-0.2) K/uL PT 14.1 H (9.8-13.1) Seconds INR 1.2 APTT 32.5 (25.6-37.1) Seconds Sodium (132-148) mmol/l Potassium (3.6-5.0) MMOL/L Chloride (98-107) mmol/L Carbon Dioxide (22-30) mmol/L Anion Gap (10-20) BUN (9-20) mg/dl Creatinine (0.8-1.5) mg/dl Est GFR ( Amer) Est GFR (Non-Af Amer) Random Glucose (75-110) mg/dL Lactic Acid (0.7-2.1) mmol/L Calcium (8.4-10.2) mg/dL Phosphorus (2.5-4.5) mg/dl Magnesium (1.6-2.3) MG/DL Total Bilirubin (0.2-1.3) mg/dl AST (17-59) U/L ALT (21-72) U/L Alkaline Phosphatase (38-126) U/L Total Protein (6.3-8.2) G/DL Albumin (3.5-5.0) g/dL Globulin (2.2-3.9) gm/dL Albumin/Globulin Ratio (1.0-2.1) Laboratory Results - last 24 hr 06/25/18 06/25/18 06/25/18 12:00 12:00 12:00 WBC 15.1 H RBC 2.82 L Hgb 9.0 L Hct 25.8 L MCV 91.6 D MCH 31.9 H MCHC 34.9 RDW 15.5 H Plt Count 258 D MPV 9.7 Neut % (Auto) 89.6 H Lymph % (Auto) 3.8 L [place] % (Auto) 6.3 Eos % (Auto) 0.0 Baso % (Auto) 0.3 Neut # (Auto) 13.5 H Lymph # (Auto) 0.6 L [place] # (Auto) 0.9 H Eos # (Auto) 0.0 Baso # (Auto) 0.0 PT 14.1 H INR 1.2 APTT 32.5 Sodium 134 Potassium 4.3 Chloride 100 Carbon Dioxide 28 Anion Gap 10 BUN 18 Creatinine 0.8 Est GFR ( Amer) > 60 Est GFR (Non-Af Amer) > 60 Random Glucose 104 Lactic Acid Calcium 7.9 L Phosphorus 3.1 Magnesium 1.7 Total Bilirubin 1.7 H AST 78 H D ALT 89 H Alkaline Phosphatase 111 Total Protein 5.4 L Albumin 2.4 L D Globulin 3.0 Albumin/Globulin Ratio 0.8 L 06/25/18 06/25/18 06/26/18 12:00 19:00 01:03 WBC 11.4 H 8.8 RBC 2.66 L 2.37 L Hgb 8.4 L 7.5 L Hct 24.4 L 21.7 L MCV 91.6 91.9 MCH 31.6 H 31.6 H MCHC 34.5 34.4 RDW 16.0 H 16.1 H Plt Count 267 247 MPV 9.3 9.5 Neut % (Auto) 84.7 H 79.7 H Lymph % (Auto) 7.6 L 10.4 L [place] % (Auto) 7.2 8.6 Eos % (Auto) 0.1 0.4 Baso % (Auto) 0.4 0.9 Neut # (Auto) 9.6 H 7.0 Lymph # (Auto) 0.9 L 0.9 L [place] # (Auto) 0.8 0.8 Eos # (Auto) 0.0 0.0 Baso # (Auto) 0.0 0.1 PT INR APTT Sodium Potassium Chloride Carbon Dioxide Anion Gap BUN Creatinine Est GFR ( Amer) Est GFR (Non-Af Amer) Random Glucose Lactic Acid 0.9 Calcium Phosphorus Magnesium Total Bilirubin AST ALT Alkaline Phosphatase Total Protein Albumin Globulin Albumin/Globulin Ratio 06/26/18 06/26/18 06:57 06:57 WBC 6.9 RBC 2.31 L Hgb 7.4 L Hct 21.4 L MCV 92.5 MCH 32.1 H MCHC 34.7 RDW 16.0 H Plt Count 242 MPV 9.3 Neut % (Auto) 77.5 H Lymph % (Auto) 11.7 L [place] % (Auto) 9.6 Eos % (Auto) 0.4 Baso % (Auto) 0.8 Neut # (Auto) 5.4 Lymph # (Auto) 0.8 L [place] # (Auto) 0.7 Eos # (Auto) 0.0 Baso # (Auto) 0.1 PT INR APTT Sodium 137 Potassium 3.7 Chloride 100 Carbon Dioxide 32 H Anion Gap 9 L BUN 17 Creatinine 0.9 Est GFR ( Amer) > 60 Est GFR (Non-Af Amer) > 60 Random Glucose 82 Lactic Acid Calcium 8.1 L Phosphorus Magnesium Total Bilirubin 0.9 AST 66 H ALT 68 Alkaline Phosphatase 102 Total Protein 5.2 L Albumin 2.4 L Globulin 2.8 Albumin/Globulin Ratio 0.9 L Review of Systems - Review of Systems Review of Systems: All 12 systems reviewed and negative except as mentioned in HPI Assessment/Plan - Assessment and Plan (Free Text) Assessment: 58 year old Male with PMHx Gastric Ca with gastrectomy and s/p recent explora tory laparotomy with lysis of adhesions and small bowel resections on 06/15/18 and h/o possible CVA on 06/19/18 was on Aspirin and Plavix admitted to ICU suspected lower GI bleeding and hypotension. s/p 1 units PBRC yesterday, H&H this morning is 7.4/21.4 Plan: Acute blood loss anemia likely 2/2 Lower GI bleed -Stable vitals -H&H 7.4/21.4 this AM -c/w LR at 125 cc/hr -c/w Protonix 40 mg q12 -Transfuse 2 units PRBC -f/u CBC q12 hrs Nausea and vomiting (improved) -Hx SBO with exploratory laparotomy with lysis of adhesions and small bowel resections on 06/15/18. -NPO, sips and chips -Zofran prn -NG tube is placed,draining bilious fluids -Monitor symptoms -f/u GI consult Gram negative Sepsis --Hx positive blood cx with Enterobacter on 06/13/18 -ID on board -WBC is 6.9 improved. -c/w Meropenem 1 gm q8hr (day 13 of total 14 days) -f/u blood culture DVT prophylaxis -SCDs GI prophylaxis -on protonix Q12 Hr Patient seen, examined and plan discussed with Dr. Marek Martin, [id number]
--- NOTE | 2018-06-26 11:09 | RAD ---
Date of service: 06/26/2018 PROCEDURE: CHEST RADIOGRAPH, 1 VIEW HISTORY: r/o pleural effusion COMPARISON: 06/25/2018 FINDINGS: LUNGS: Clear. PLEURA: No pneumothorax or pleural fluid seen. CARDIOVASCULAR: No aortic atherosclerotic calcification present. Normal heart size. Nasogastric tube extends to left upper quadrant of abdomen. OSSEOUS STRUCTURES: No significant abnormalities. VISUALIZED UPPER ABDOMEN: Normal. OTHER FINDINGS: None. IMPRESSION: NG tube in grossly appropriate position.
[2018-06-26] MEDS ORDERED: Iohexol 240 (50 ml) PO ONE (11:53)
--- NOTE | 2018-06-26 13:42 | CP.PCM.PN ---
Subjective - Date & Time of Evaluation Date of Evaluation: 06/26/18 Time of Evaluation: 13:42 - Subjective Subjective: Pt seen bedside. Admits to weakness and hunger but denies vomiting, bloody stools, change in vision and dizziness. +flatus, love draining yellow urine and NG tube draining dark green fluid (no blood apparent). Objective - Vital Signs/Intake and Output Vital Signs (last 24 hours): Temp Pulse Resp BP Pulse Ox 98.0 F 81 12 120/63 100 06/26/18 12:00 06/26/18 12:00 06/26/18 12:00 06/26/18 12:40 06/26/18 12:00 Intake and Output: 06/26/18 06/26/18 06:59 18:59 Intake Total 1700 950 Output Total 940 870 Balance 760 80 - Medications Medications: Current Medications Atorvastatin Calcium (Lipitor) 40 mg PO HS [facility] Last Admin: 06/25/18 22:40 Dose: Not Given Lactated Ringer's (Lactated Ringer's) 1,000 mls @ 125 mls/hr IV .Q8H [facility] Last Admin: 06/26/18 08:43 Dose: 125 mls/hr Levetiracetam 500 mg/ Sodium (Chloride) 105 mls @ 210 mls/hr IVPB Q12 [facility] Last Admin: 06/26/18 08:44 Dose: 210 mls/hr Meropenem 1 gm/ Sodium (Chloride) 100 mls @ 100 mls/hr IVPB Q8 [facility] Last Admin: 06/26/18 08:36 Dose: 100 mls/hr Morphine Sulfate (Morphine) 2 mg IVP Q4 PRN PRN Reason: Pain, moderate (4-7) Last Admin: 06/25/18 21:52 Dose: 2 mg Pantoprazole Sodium (Protonix Inj) 40 mg IVP Q12H [facility] Last Admin: 06/26/18 06:38 Dose: 40 mg - Labs Labs: 06/26/18 06:57 06/26/18 06:57 PT 14.1 Seconds (9.8-13.1) H 06/25/18 12:00 INR 1.2 06/25/18 12:00 APTT 32.5 Seconds (25.6-37.1) 06/25/18 12:00 - Constitutional Appears: Cachectic, Chronically Ill - Head Exam Head Exam: NORMAL INSPECTION - ENT Exam ENT Exam: Mucous Membranes Dry - Respiratory Exam Respiratory Exam: NORMAL BREATHING PATTERN. absent: Respiratory Distress - Cardiovascular Exam Cardiovascular Exam: REGULAR RHYTHM - GI/Abdominal Exam GI & Abdominal Exam: Soft. absent: Tenderness - Extremities Exam Extremities Exam: absent: Pedal Edema, Tenderness - Neurological Exam Neurological Exam: Alert, Awake, Oriented x3 - Psychiatric Exam Psychiatric exam: Depressed, Normal Affect, Normal Mood - Skin Skin Exam: Dry, Intact, Warm Assessment and Plan - Assessment and Plan (Free Text) Assessment: 58 year old Male with PMHx Gastric Ca with gastrectomy and s/p recent exploratory laparotomy with lysis of adhesions and small bowel resections on 06/15/18 and h/o possible CVA on 06/19/18 was on Aspirin and Plavix admitted to ICU suspected lower GI bleeding and hypotension. Plan: Hypotension likely secondary to acute blood loss anemia -Normotensive, HR wnl -Hg/Hct 7.4/21.4 -s/p 1 units PRBC -1 unit PRBC ordered for today, as per RN will be transfused after CT -Fluid support: LR 125 cc/hr -Protonix 40 mg q12 -Hold ASA and plavix -Follow-up CBC -Surgical consult inputs and recommendations appreciated, f/u Abd & Pelvis CT Hemoptysis & bloody stool -Hx SBO with exploratory laparotomy with lysis of adhesions and small bowel re sections on 06/15/18. -NPO -Zofran prn -NG tube (06/25) - 500cc dark green output since placed -f/u GI consult -f/u Abd & Pelvis CT Gram negative Sepsis -Enterobacter (blood cx 06/13/18) -ID on board, Dr Prasad -WBC 6.9 -Meropenem 1 gm Q8H (day #13 of total 14 days) -f/u blood culture DVT prophylaxis -SCDs
[2018-06-26] MEDS ORDERED: Iohexol 300 100 ML IJ ONE (15:49)
[2018-06-26] MEDS ORDERED: Sodium Chloride 0.9% 50 ML IV ONE (15:49)
--- NOTE | 2018-06-26 16:54 | CT ---
Date of service: 06/26/2018 PROCEDURE: CT Abdomen and Pelvis with contrast HISTORY: Acute Anemia COMPARISON: 06/10/2018. TECHNIQUE: CT scan of the abdomen and pelvis was performed after administration of intravenous contrast. Oral contrast was administered. Coronal and sagittal reformatted images were obtained. Contrast dose: 95 mL Omnipaque 300 Radiation dose: Total exam DLP = 452.16 mGy-cm. This CT exam was performed using one or more of the following dose reduction techniques: Automated exposure control, adjustment of the mA and/or kV according to patient size, and/or use of iterative reconstruction technique. FINDINGS: LOWER THORAX: There is dependent atelectasis in the lung bases. Trace right and small left pleural effusions. LIVER: Normal in size with homogeneous enhancement. Fatty liver. There is a stable 11 mm simple cyst in the right posterior hepatic lobe. No ductal dilatation. GALLBLADDER AND BILE DUCTS: Well distended. No calcified gallstones, wall thickening or pericholecystic fluid. PANCREAS: Normal in size with homogeneous enhancement. No gross lesion or ductal dilatation. SPLEEN: Normal in size and appearance. ADRENALS: No discrete nodule. KIDNEYS AND URETERS: Normal in size with homogeneous enhancement. No hydronephrosis. No solid mass. There are stable few subcentimeter simple cysts in the left kidney VASCULATURE: No aortic aneurysm. There are atherosclerotic aortoiliac calcifications present. BOWEL: Again seen are postsurgical changes of partial gastrectomy and gastrojejunostomy. There also anastomotic sutures in the left upper quadrant. Are new anastomotic sutures in the right mid abdomen. There is severe dilatation of the small bowel loops leading up to the anastomotic sutures in the right mid abdomen. The distal small bowel loops are decompressed. The colon is decompressed. APPENDIX: Normal appendix. PERITONEUM: There is a 6.4 x 3.3 cm fluid collection with peripheral thin rim of enhancement in the pelvis posterior to the urinary bladder and anterior to the rectum. No free air. LYMPH NODES: There are multiple mildly enlarged mesenteric lymph nodes. BLADDER: Indwelling Amado catheter with subsequent decompression of the urinary bladder and expected intraluminal air. REPRODUCTIVE: The uterus is normal in size. BONES: No acute fracture. Within normal limits for the patient's age. OTHER FINDINGS: None. IMPRESSION: Findings are compatible with high-grade acute small bowel obstruction with the transition zone in the right mid abdomen likely at the anastomotic site. 6.4 x 3.3 cm fluid collection in the pelvis posterior to the urinary bladder and anterior to the rectum may represent postoperative fluid collection however superimposed infection cannot be excluded.
[2018-06-26] MEDS ORDERED: DiphenhydrAMINE 50 mg/ml Inj IVP ONE (23:23)
[2018-06-26] MEDS: Potassium Chl 20 mEq in D5-NS 1,000 ML IV SCH (23:40)
[2018-06-27 05:32] LABS: BASO % 0.7 % (0.0-2.0); EOS % 0.3 % (0.0-4.0); LYMPH # 0.7 K/uL (1.0-4.3); LYMPH % 10.9 % (20.0-40.0); MEAN CELL VOLUME 90.2 fl (80.0-94.0); MEAN CORPUSCULAR HGB CONC 35.5 g/dL (33.0-37.0); MEAN PLATELET VOLUME 9.3 fl (7.2-11.7); MONO # 0.6 K/uL (0.0-0.8); MONO % 8.2 % (0.0-10.0); NEUT # 5.4 K/uL (1.8-7.0); NEUT % 79.9 % (50.0-75.0); NRBC % 0.1 % (0.0-0.0); RBC 3.01 Mil/uL (4.40-5.90); RED CELL DISTRIBUTION WIDTH 15.6 % (11.5-14.5); WHITE BLOOD COUNT 6.8 K/uL (4.8-10.8)
[2018-06-27 05:40] LABS: ALB/GLOB RATIO 0.9 (1.0-2.1); ALBUMIN 2.6 g/dL (3.5-5.0); ALT/SGPT 78 U/L (21-72); AST/SGOT 80 U/L (17-59); BLOOD UREA NITROGEN 14 mg/dl (9-20); CALCIUM 8.1 mg/dL (8.4-10.2); GFR NON-AFRICAN AMERICAN > 60
[2018-06-27 06:19] LABS: HEMOGLOBIN 9.6 g/dL (12.0-18.0)
[2018-06-27] MEDS: Meropenem 1 GM in Sodium Chloride 0.9% 100 ML IVPB SCH ×2 (07:00→08:49)
--- NOTE | 2018-06-27 08:15 | CP.CCUPN ---
<Sultan Mario - Last Filed: 06/27/18 12:25> CCU Subjective - Physician Review Subjective (Free Text): 06/27/18 11:05 58 year old Male with PMHx Gastric Ca with gastrectomy and recent s/p recent exploratory laparotomy with lysis of adhesions and small bowel resections on 06/15/18 and h/o possible CVA on 06/19/18 was on Aspirin and Plavix admitted to ICU on 06/26/18 for suspected GI bleeding and hypotension. Patient received 3 units of PRBC in the last 2 days, H&H 9.6/27.1 today. Patient seen and examined this AM. Overnight events and nursing notes reviewed.. Remains afebrile with stable vitals (MAP >65). Patient had one episode of dark BM this morning and another episode of maroon colored BM at 11:00 am. Patient currently denies any nausea, vomiting, chest pain, dypsnea. Patient report some abdominal discomfort at incision site when he coughs but denies abdominal pain at rest. Reports +flatus. CCU Objective - Vital Signs / Intake & Output Vital Signs (Last 4 hours): Vital Signs Pulse Resp BP Pulse Ox 06/27/18 06:00 68 14 120/68 100 Intake and Output (Last 8hrs): Intake & Output 06/26/18 06/27/18 06/27/18 22:59 06:59 14:59 Intake Total 1175 475 Output Total 1550 1490 Balance -375 -1015 Weight 53.977 kg Intake: IV 375 Intake, Piggyback 100 Oral 700 Blood Product 0 325 Red Blood Cells Cpd As1 0 Lr Unit [id number] Red Blood Cells Cpd As1 0 325 Lr Unit [id number] Other 150 Red Blood Cells Cpd As1 150 Lr Unit [id number] Output: Urine 1350 1490 Urethral (Amado) 1350 1490 Stool 200 Other: # Bowel Movements 1 - Physical Exam Head: Positive for: Atraumatic Pupils: Positive for: PERRL Extroacular Muscles: Positive for: EOMI Mouth: Positive for: Moist Mucous Membranes Neck: Positive for: Normal Range of Motion Respiratory/Chest: Positive for: Clear to Auscultation. Negative for: Respiratory Distress, Accessory Muscle Use, Wheezes, Rales Cardiovascular: Positive for: Normal S1, S2, Tachycardic Abdomen: Positive for: Distention, Normal Bowel Sounds, Other (Mid abdominal vertical incision with petros in placed. No signs of infection. ). Negative for: Tenderness, Peritoneal Signs Upper Extremity: Positive for: Normal Inspection Lower Extremity: Positive for: Normal Inspection Neurological: Positive for: Speech Normal Skin: Positive for: Normal Color Psychiatric: Positive for: Alert, Oriented x 3 - Medications Active Medications: Active Medications Generic Name Dose Route Start Last Admin Trade Name Freq PRN Reason Stop Dose Admin Atorvastatin Calcium 40 mg 06/25/18 22:00 06/26/18 21:27 Lipitor PO Not Given HS [facility] Levetiracetam 500 mg/ Sodium 105 mls @ 210 mls/hr 06/25/18 09:00 06/26/18 20:09 Chloride IVPB 210 mls/hr Q12 [facility] Administration Meropenem 1 gm/ Sodium 100 mls @ 100 mls/hr 06/25/18 09:00 06/27/18 07:00 Chloride IVPB 100 mls/hr Q8 [facility] Administration Potassium Chloride/Dextrose/Sod Cl 1,000 mls @ 125 mls/hr 06/26/18 18:00 06/26/18 23:40 Potassium Chl 20 Meq In D5-Ns IV 06/27/18 17:57 125 mls/hr .Q8H [facility] Administration Morphine Sulfate 2 mg 06/25/18 21:46 06/26/18 20:02 Morphine IVP 2 mg Q4 PRN Administration Pain, moderate (4-7) Pantoprazole Sodium 40 mg 06/25/18 06:45 06/27/18 06:59 Protonix Inj IVP 40 mg Q12H [facility] Administration - Patient Studies Lab Studies: Microbiology Studies 06/25/18 16:58 Blood Culture - Preliminary Blood-Venous NO GROWTH AFTER 24 HOURS 06/25/18 16:58 Blood Culture - Preliminary Blood-Venous NO GROWTH AFTER 24 HOURS 06/25/18 09:30 MRSA Culture (Admit) - Final Nose MRSA NOT DETECTED Lab Studies 06/27/18 06/27/18 06/27/18 Range/Units 07:01 06:00 05:12 WBC 6.8 (4.8-10.8) K/uL RBC 3.01 L (4.40-5.90) Mil/uL Hgb 9.6 L D (12.0-18.0) g/dL Hct 27.1 L (35.0-51.0) % MCV 90.2 D (80.0-94.0) fl MCH 32.0 H (27.0-31.0) pg MCHC 35.5 (33.0-37.0) g/dL RDW 15.6 H (11.5-14.5) % Plt Count 262 (130-400) K/uL MPV 9.3 (7.2-11.7) fl Neut % (Auto) 79.9 H (50.0-75.0) % Lymph % (Auto) 10.9 L (20.0-40.0) % [place] % (Auto) 8.2 (0.0-10.0) % Eos % (Auto) 0.3 (0.0-4.0) % Baso % (Auto) 0.7 (0.0-2.0) % Neut # (Auto) 5.4 (1.8-7.0) K/uL Lymph # (Auto) 0.7 L (1.0-4.3) K/uL [place] # (Auto) 0.6 (0.0-0.8) K/uL Eos # (Auto) 0.0 (0.0-0.7) K/uL Baso # (Auto) 0.0 (0.0-0.2) K/uL Sodium (132-148) mmol/l Potassium (3.6-5.0) MMOL/L Chloride (98-107) mmol/L Carbon Dioxide (22-30) mmol/L Anion Gap (10-20) BUN (9-20) mg/dl Creatinine (0.8-1.5) mg/dl Est GFR ( Amer) Est GFR (Non-Af Amer) POC Glucose (mg/dL) 84 (65-110) mg/dL Random Glucose (75-110) mg/dL Lactic Acid (0.7-2.1) mmol/L Calcium (8.4-10.2) mg/dL Phosphorus 2.0 L (2.5-4.5) mg/dl Magnesium 2.0 (1.6-2.3) MG/DL Total Bilirubin (0.2-1.3) mg/dl AST (17-59) U/L ALT (21-72) U/L Alkaline Phosphatase (38-126) U/L Total Protein (6.3-8.2) G/DL Albumin (3.5-5.0) g/dL Globulin (2.2-3.9) gm/dL Albumin/Globulin Ratio (1.0-2.1) Procalcitonin (0.19-0.49) NG/ML Blood Type Antibody Screen Crossmatch BBK History Checked 06/27/18 06/27/18 06/26/18 Range/Units 05:12 05:10 13:30 WBC (4.8-10.8) K/uL RBC (4.40-5.90) Mil/uL Hgb (12.0-18.0) g/dL Hct (35.0-51.0) % MCV (80.0-94.0) fl MCH (27.0-31.0) pg MCHC (33.0-37.0) g/dL RDW (11.5-14.5) % Plt Count (130-400) K/uL MPV (7.2-11.7) fl Neut % (Auto) (50.0-75.0) % Lymph % (Auto) (20.0-40.0) % [place] % (Auto) (0.0-10.0) % Eos % (Auto) (0.0-4.0) % Baso % (Auto) (0.0-2.0) % Neut # (Auto) (1.8-7.0) K/uL Lymph # (Auto) (1.0-4.3) K/uL [place] # (Auto) (0.0-0.8) K/uL Eos # (Auto) (0.0-0.7) K/uL Baso # (Auto) (0.0-0.2) K/uL Sodium 136 (132-148) mmol/l Potassium 3.5 L (3.6-5.0) MMOL/L Chloride 100 (98-107) mmol/L Carbon Dioxide 31 H (22-30) mmol/L Anion Gap 9 L (10-20) BUN 14 (9-20) mg/dl Creatinine 0.8 (0.8-1.5) mg/dl Est GFR ( Amer) > 60 Est GFR (Non-Af Amer) > 60 POC Glucose (mg/dL) (65-110) mg/dL Random Glucose 68 L (75-110) mg/dL Lactic Acid 0.5 L (0.7-2.1) mmol/L Calcium 8.1 L (8.4-10.2) mg/dL Phosphorus (2.5-4.5) mg/dl Magnesium (1.6-2.3) MG/DL Total Bilirubin 1.0 (0.2-1.3) mg/dl AST 80 H D (17-59) U/L ALT 78 H (21-72) U/L Alkaline Phosphatase 110 (38-126) U/L Total Protein 5.5 L (6.3-8.2) G/DL Albumin 2.6 L (3.5-5.0) g/dL Globulin 2.9 (2.2-3.9) gm/dL Albumin/Globulin Ratio 0.9 L (1.0-2.1) Procalcitonin (0.19-0.49) NG/ML Blood Type O POSITIVE Antibody Screen Negative Crossmatch See Detail BBK History Checked Patient has bt 06/25/18 Range/Units 19:00 WBC (4.8-10.8) K/uL RBC (4.40-5.90) Mil/uL Hgb (12.0-18.0) g/dL Hct (35.0-51.0) % MCV (80.0-94.0) fl MCH (27.0-31.0) pg MCHC (33.0-37.0) g/dL RDW (11.5-14.5) % Plt Count (130-400) K/uL MPV (7.2-11.7) fl Neut % (Auto) (50.0-75.0) % Lymph % (Auto) (20.0-40.0) % [place] % (Auto) (0.0-10.0) % Eos % (Auto) (0.0-4.0) % Baso % (Auto) (0.0-2.0) % Neut # (Auto) (1.8-7.0) K/uL Lymph # (Auto) (1.0-4.3) K/uL [place] # (Auto) (0.0-0.8) K/uL Eos # (Auto) (0.0-0.7) K/uL Baso # (Auto) (0.0-0.2) K/uL Sodium (132-148) mmol/l Potassium (3.6-5.0) MMOL/L Chloride (98-107) mmol/L Carbon Dioxide (22-30) mmol/L Anion Gap (10-20) BUN (9-20) mg/dl Creatinine (0.8-1.5) mg/dl Est GFR ( Amer) Est GFR (Non-Af Amer) POC Glucose (mg/dL) (65-110) mg/dL Random Glucose (75-110) mg/dL Lactic Acid (0.7-2.1) mmol/L Calcium (8.4-10.2) mg/dL Phosphorus (2.5-4.5) mg/dl Magnesium (1.6-2.3) MG/DL Total Bilirubin (0.2-1.3) mg/dl AST (17-59) U/L ALT (21-72) U/L Alkaline Phosphatase (38-126) U/L Total Protein (6.3-8.2) G/DL Albumin (3.5-5.0) g/dL Globulin (2.2-3.9) gm/dL Albumin/Globulin Ratio (1.0-2.1) Procalcitonin 0.64 H (0.19-0.49) NG/ML Blood Type Antibody Screen Crossmatch BBK History Checked Laboratory Results - last 24 hr 06/25/18 06/26/18 06/27/18 19:00 13:30 05:10 WBC RBC Hgb Hct MCV MCH MCHC RDW Plt Count MPV Neut % (Auto) Lymph % (Auto) [place] % (Auto) Eos % (Auto) Baso % (Auto) Neut # (Auto) Lymph # (Auto) [place] # (Auto) Eos # (Auto) Baso # (Auto) Sodium Potassium Chloride Carbon Dioxide Anion Gap BUN Creatinine Est GFR ( Amer) Est GFR (Non-Af Amer) POC Glucose (mg/dL) Random Glucose Lactic Acid 0.5 L Calcium Phosphorus Magnesium Total Bilirubin AST ALT Alkaline Phosphatase Total Protein Albumin Globulin Albumin/Globulin Ratio Procalcitonin 0.64 H Blood Type O POSITIVE Antibody Screen Negative Crossmatch See Detail BBK History Checked Patient has bt 06/27/18 06/27/18 06/27/18 05:12 05:12 06:00 WBC 6.8 RBC 3.01 L Hgb 9.6 L D Hct 27.1 L MCV 90.2 D MCH 32.0 H MCHC 35.5 RDW 15.6 H Plt Count 262 MPV 9.3 Neut % (Auto) 79.9 H Lymph % (Auto) 10.9 L [place] % (Auto) 8.2 Eos % (Auto) 0.3 Baso % (Auto) 0.7 Neut # (Auto) 5.4 Lymph # (Auto) 0.7 L [place] # (Auto) 0.6 Eos # (Auto) 0.0 Baso # (Auto) 0.0 Sodium 136 Potassium 3.5 L Chloride 100 Carbon Dioxide 31 H Anion Gap 9 L BUN 14 Creatinine 0.8 Est GFR ( Amer) > 60 Est GFR (Non-Af Amer) > 60 POC Glucose (mg/dL) 84 Random Glucose 68 L Lactic Acid Calcium 8.1 L Phosphorus Magnesium Total Bilirubin 1.0 AST 80 H D ALT 78 H Alkaline Phosphatase 110 Total Protein 5.5 L Albumin 2.6 L Globulin 2.9 Albumin/Globulin Ratio 0.9 L Procalcitonin Blood Type Antibody Screen Crossmatch BBK History Checked 06/27/18 07:01 WBC RBC Hgb Hct MCV MCH MCHC RDW Plt Count MPV Neut % (Auto) Lymph % (Auto) [place] % (Auto) Eos % (Auto) Baso % (Auto) Neut # (Auto) Lymph # (Auto) [place] # (Auto) Eos # (Auto) Baso # (Auto) Sodium Potassium Chloride Carbon Dioxide Anion Gap BUN Creatinine Est GFR ( Amer) Est GFR (Non-Af Amer) POC Glucose (mg/dL) Random Glucose Lactic Acid Calcium Phosphorus 2.0 L Magnesium 2.0 Total Bilirubin AST ALT Alkaline Phosphatase Total Protein Albumin Globulin Albumin/Globulin Ratio Procalcitonin Blood Type Antibody Screen Crossmatch BBK History Checked Radiology Impressions: Radiology Impressions Chest X-Ray 06/26/18 07:38 IMPRESSION: NG tube in grossly appropriate position. Abdomen/Pelvis CT 06/26/18 11:53 IMPRESSION: Findings are compatible with high-grade acute small bowel obstruction with the transition zone in the right mid abdomen likely at the anastomotic site. 6.4 x 3.3 cm fluid collection in the pelvis posterior to the urinary bladder and anterior to the rectum may represent postoperative fluid collection however superimposed infection cannot be excluded. Review of Systems - Review of Systems Review of Systems: All 12 systems reviewed and negative except as mentioned in HPI Critical Care Progress Note - Nutrition Nutrition: Nutrition Category Date Time Status NPO Diet [DIET] Diets 06/26/18 Dinner Active Assessment/Plan - Assessment and Plan (Free Text) Assessment: 58 year old Male with PMHx Gastric Ca with gastrectomy and s/p recent exploratory laparotomy with lysis of adhesions and small bowel resections on 06/15/18 and h/o possible CVA on 06/19/18 was on Aspirin and Plavix admitted to ICU suspected lower GI bleeding and hypotension. Patient received 3 units of PRBC in the last 2 days, H&H 9.6/27.1 today with stable vitals. Plan: Acute blood loss anemia likely 2/2 Lower GI bleed -Stable vitals -H&H 9.6/27.1 this AM s/p 3 units PRBC -c/w LR at 125 cc/hr -c/w Protonix 40 mg q12 -f/u CBC q12 hrs High grade SBO on CT -CT A/P on 06/26/18: high-grade acute small bowel obstruction -Hx SBO with exploratory laparotomy with lysis of adhesions and small bowel resections on 06/15/18. -advance to clear liquid diet as per surgery recs -Monitor symptoms -GI on board Gram negative Sepsis --Hx positive blood cx with Enterobacter on 06/13/18 -ID on board -c/w Meropenem 1 gm q8hr (day 14 of total 14 days) -f/u repeat blood culture DVT prophylaxis -SCDs GI prophylaxis -on protonix Q12 Hr Patient seen, examined and plan discussed with Dr. Marek Martin, [id number] <Pastor Jara - Last Filed: 06/27/18 16:33> Critical Care Progress Note - Nutrition Nutrition: Nutrition Category Date Time Status Liquid Diet [DIET] Diets 06/27/18 Lunch Active Assessment/Plan - Assessment and Plan (Free Text) Assessment: Attestation: Patient seen and examined at the bedside with Resident Dr. Jose Martin; and I agree with his outline of plans and management documented above as discussed on AM rounds reflecting my review of all applicable clinical data, and participation in the care of the patient throughout the day in ICU; today, June 27, 2018.
[2018-06-27] MEDS: Potassium Chl 20 mEq in D5-NS 1,000 ML IV SCH ×2 (08:48→18:13)
[2018-06-27] MEDS: levETIRAcetam 500 MG in Sodium Chloride 0.9% 100 ML IVPB SCH ×2 (08:49→21:02)
--- NOTE | 2018-06-27 08:57 | CP.PCM.PN ---
<Amandeep Quintanilla - Last Filed: 06/27/18 09:08> Subjective - Date & Time of Evaluation Date of Evaluation: 06/27/18 Time of Evaluation: 07:00 - Subjective Subjective: General Surgery Note for Dr. Reynaga Patient seen and examined at bedside. GCS 15, moving all 4 extremities. Hgb 9.6 from 7.4 after 2u PRBC yesterday. Patient had melantoic bowel movement with streaks of red blood. Patient has been NPO and asking for food. Patient admits to flatus. Denies fever/chills or nausea/vomiting. Urine output has been adequate. Objective - Vital Signs/Intake and Output Vital Signs (last 24 hours): Temp Pulse Resp BP Pulse Ox 97.3 F L 68 14 120/68 100 06/27/18 02:00 06/27/18 06:00 06/27/18 06:00 06/27/18 06:00 06/27/18 06:00 Intake and Output: 06/27/18 06/27/18 06:59 18:59 Intake Total 475 200 Output Total 2090 Balance -1615 200 - Medications Medications: Current Medications Atorvastatin Calcium (Lipitor) 40 mg PO HS [facility] Last Admin: 06/26/18 21:27 Dose: Not Given Levetiracetam 500 mg/ Sodium (Chloride) 105 mls @ 210 mls/hr IVPB Q12 [facility] Last Admin: 06/27/18 08:49 Dose: 210 mls/hr Meropenem 1 gm/ Sodium (Chloride) 100 mls @ 100 mls/hr IVPB Q8 [facility] Last Admin: 06/27/18 08:49 Dose: 100 mls/hr Potassium Chloride/Dextrose/Sod Cl (Potassium Chl 20 Meq In D5-Ns) 1,000 mls @ 125 mls/hr IV .Q8H [facility] Stop: 06/27/18 17:57 Last Admin: 06/27/18 08:48 Dose: 125 mls/hr Morphine Sulfate (Morphine) 2 mg IVP Q4 PRN PRN Reason: Pain, moderate (4-7) Last Admin: 06/26/18 20:02 Dose: 2 mg Pantoprazole Sodium (Protonix Inj) 40 mg IVP Q12H [facility] Last Admin: 06/27/18 06:59 Dose: 40 mg - Labs Labs: 06/27/18 05:12 06/27/18 05:12 PT 14.1 Seconds (9.8-13.1) H 06/25/18 12:00 INR 1.2 06/25/18 12:00 APTT 32.5 Seconds (25.6-37.1) 06/25/18 12:00 - Additional Findings Additional findings: - Constitutional Appears: Non-toxic, No Acute Distress - Head Exam Head Exam: ATRAUMATIC - Eye Exam Eye Exam: EOMI. absent: Scleral icterus - ENT Exam ENT Exam: Mucous Membranes Moist - Respiratory Exam Respiratory Exam: absent: Accessory Muscle Use, Respiratory Distress - Cardiovascular Exam Cardiovascular Exam: REGULAR RHYTHM - GI/Abdominal Exam GI & Abdominal Exam: Soft, Distneded (mild), Tenderness (mild tenderness midline, and some tenderness in right flank). absent: Firm, Guarding, Rigid - Exam Additional comments: Love in place - Extremities Exam Extremities Exam: absent: Calf Tenderness - Neurological Exam Neurological Exam: Alert, Awake, Oriented x3 - Psychiatric Exam Psychiatric exam: Normal Affect - Skin Skin Exam: Intact, Warm Assessment and Plan - Assessment and Plan (Free Text) Assessment: 58M s/p exlap lysis of adhesion and small bowel resection POD #12 readmitted with GI bleed Plan: -NPO -May have sips/chips and hard candy/gum -IV fluids -f/u KUB -protonix IV BID -hold all anticoagulants and anti-platelets -f/u GI recommendations -Medical management as per ICU Amandeep Quintanilla PGY2 <Todd Reynaga - Last Filed: 06/27/18 11:25> Objective - Vital Signs/Intake and Output Vital Signs (last 24 hours): Temp Pulse Resp BP Pulse Ox 97.9 F 73 16 131/67 100 06/27/18 08:00 06/27/18 10:00 06/27/18 10:00 06/27/18 10:00 06/27/18 10:00 Intake and Output: 06/27/18 06/27/18 06:59 18:59 Intake Total 475 200 Output Total 2090 Balance -1615 200 - Medications Medications: Current Medications Atorvastatin Calcium (Lipitor) 40 mg PO HS [facility] Last Admin: 06/26/18 21:27 Dose: Not Given Levetiracetam 500 mg/ Sodium (Chloride) 105 mls @ 210 mls/hr IVPB Q12 [facility] Last Admin: 06/27/18 08:49 Dose: 210 mls/hr Meropenem 1 gm/ Sodium (Chloride) 100 mls @ 100 mls/hr IVPB Q8 [facility] Last Admin: 06/27/18 08:49 Dose: 100 mls/hr Potassium Chloride/Dextrose/Sod Cl (Potassium Chl 20 Meq In D5-Ns) 1,000 mls @ 125 mls/hr IV .Q8H [facility] Stop: 06/27/18 17:57 Last Admin: 06/27/18 08:48 Dose: 125 mls/hr Potassium Phosphate 30 mmole/ (Dextrose) 260 mls @ 84 mls/hr IV .Q3H6M [facility] Stop: 06/27/18 12:42 Morphine Sulfate (Morphine) 2 mg IVP Q4 PRN PRN Reason: Pain, moderate (4-7) Last Admin: 06/26/18 20:02 Dose: 2 mg Pantoprazole Sodium (Protonix Inj) 40 mg IVP Q12H [facility] Last Admin: 06/27/18 06:59 Dose: 40 mg - Labs Labs: 06/27/18 05:12 06/27/18 05:12 PT 14.1 Seconds (9.8-13.1) H 06/25/18 12:00 INR 1.2 06/25/18 12:00 APTT 32.5 Seconds (25.6-37.1) 06/25/18 12:00 Assessment and Plan - Assessment and Plan (Free Text) Assessment: pt seen and examined at bedside, no overnight events. Pt is resting comfortably, denies any nausea or vomiting. Pt had maroon colored BM, +flatus. Pt would like to eat. gen: awake, alert, NAD, afebrile, hemodynamically stable abd: soft, mild distention, midline incision healing well, no tenderness, no peritoneal signs -IVF -cont to monitor HH, repeat HH at 6pm -Protonix BID -hold anticoagulation -ok for clears -will continue to monitor pt clinically -lamberto love
[2018-06-27] MEDS ORDERED: Potassium Phosphate 30 MMOLE in Dextrose 5% In Water 250 ML IV ONE (09:37)
[2018-06-27] MEDS ORDERED: CALCIUM GLUCONATE IVPB ONE (09:38)
[2018-06-27] MEDS ORDERED: SODIUM CHLORIDE 0.9% IVPB ONE (09:38)
--- NOTE | 2018-06-27 09:54 | CP.PCM.PN ---
Subjective - Date & Time of Evaluation Date of Evaluation: 06/26/18 Time of Evaluation: 17:05 - Subjective Subjective: no overnight events Objective - Vital Signs/Intake and Output Vital Signs (last 24 hours): Temp Pulse Resp BP Pulse Ox 97.9 F 73 12 129/67 100 06/27/18 08:00 06/27/18 08:00 06/27/18 08:00 06/27/18 08:00 06/27/18 08:00 Intake and Output: 06/27/18 06/27/18 06:59 18:59 Intake Total 475 200 Output Total 2090 Balance -1615 200 - Medications Medications: Current Medications Atorvastatin Calcium (Lipitor) 40 mg PO HS [facility] Last Admin: 06/26/18 21:27 Dose: Not Given Levetiracetam 500 mg/ Sodium (Chloride) 105 mls @ 210 mls/hr IVPB Q12 [facility] Last Admin: 06/27/18 08:49 Dose: 210 mls/hr Meropenem 1 gm/ Sodium (Chloride) 100 mls @ 100 mls/hr IVPB Q8 [facility] [place] Last Admin: 06/27/18 08:49 Dose: 100 mls/hr Potassium Chloride/Dextrose/Sod Cl (Potassium Chl 20 Meq In D5-Ns) 1,000 mls @ 125 mls/hr IV .Q8H [facility] [place] Stop: 06/27/18 17:57 Last Admin: 06/27/18 08:48 Dose: 125 mls/hr Potassium Phosphate 30 mmole/ (Dextrose) 260 mls @ 84 mls/hr IV .Q3H6M [facility] Stop: 06/27/18 12:42 Morphine Sulfate (Morphine) 2 mg IVP Q4 PRN PRN Reason: Pain, moderate (4-7) Last Admin: 06/26/18 20:02 Dose: 2 mg Pantoprazole Sodium (Protonix Inj) 40 mg IVP Q12H [facility] [place] Last Admin: 06/27/18 06:59 Dose: 40 mg - Labs Labs: 06/27/18 05:12 06/27/18 05:12 PT 14.1 Seconds (9.8-13.1) H 06/25/18 12:00 INR 1.2 06/25/18 12:00 APTT 32.5 Seconds (25.6-37.1) 06/25/18 12:00 - Neck Exam Neck Exam: Normal Inspection - Respiratory Exam Respiratory Exam: Rhonchi, NORMAL BREATHING PATTERN - Cardiovascular Exam Cardiovascular Exam: REGULAR RHYTHM - GI/Abdominal Exam GI & Abdominal Exam: Distended, Soft, Tenderness, Normal Bowel Sounds Assessment and Plan - Assessment and Plan (Free Text) Assessment: 58 yo male with anemia CT with high grade SBO surgical input PPI IV no endoscopic intervention at this time
--- NOTE | 2018-06-27 11:35 | CP.PCM.PN ---
Subjective - Date & Time of Evaluation Date of Evaluation: 06/27/18 Time of Evaluation: 11:42 - Subjective Subjective: Pt seen and examined bedside with no new complaints. Denies nausea, vomiting, palpitations, syncope and chest pain. Admits to 1 BM this morning, non-bloody and mild tenderness at surgical site. Verbally confirmed that he understands current plan of care. Objective - Vital Signs/Intake and Output Vital Signs (last 24 hours): Temp Pulse Resp BP Pulse Ox 97.9 F 73 16 131/67 100 06/27/18 08:00 06/27/18 10:00 06/27/18 10:00 06/27/18 10:00 06/27/18 10:00 Intake and Output: 06/27/18 06/27/18 06:59 18:59 Intake Total 475 550 Output Total 2090 Balance -1615 550 - Medications Medications: Current Medications Atorvastatin Calcium (Lipitor) 40 mg PO HS [facility] Last Admin: 06/26/18 21:27 Dose: Not Given Levetiracetam 500 mg/ Sodium (Chloride) 105 mls @ 210 mls/hr IVPB Q12 [facility] Last Admin: 06/27/18 08:49 Dose: 210 mls/hr Meropenem 1 gm/ Sodium (Chloride) 100 mls @ 100 mls/hr IVPB Q8 [facility] Last Admin: 06/27/18 08:49 Dose: 100 mls/hr Potassium Chloride/Dextrose/Sod Cl (Potassium Chl 20 Meq In D5-Ns) 1,000 mls @ 125 mls/hr IV .Q8H [facility] Stop: 06/27/18 17:57 Last Admin: 06/27/18 08:48 Dose: 125 mls/hr Potassium Phosphate 30 mmole/ (Dextrose) 260 mls @ 84 mls/hr IV .Q3H6M [facility] Stop: 06/27/18 12:42 Last Admin: 06/27/18 11:09 Dose: 84 mls/hr Morphine Sulfate (Morphine) 2 mg IVP Q4 PRN PRN Reason: Pain, moderate (4-7) Last Admin: 06/26/18 20:02 Dose: 2 mg Pantoprazole Sodium (Protonix Inj) 40 mg IVP Q12H [facility] Last Admin: 06/27/18 06:59 Dose: 40 mg - Labs Labs: 06/27/18 05:12 06/27/18 05:12 PT 14.1 Seconds (9.8-13.1) H 06/25/18 12:00 INR 1.2 06/25/18 12:00 APTT 32.5 Seconds (25.6-37.1) 06/25/18 12:00 - Constitutional Appears: Non-toxic, No Acute Distress, Chronically Ill - Respiratory Exam Respiratory Exam: NORMAL BREATHING PATTERN. absent: Respiratory Distress - Cardiovascular Exam Cardiovascular Exam: +S1, +S2 - GI/Abdominal Exam GI & Abdominal Exam: Soft. absent: Distended, Guarding, Tenderness, Rebound - Neurological Exam Neurological Exam: Alert, Awake, Oriented x3 - Psychiatric Exam Psychiatric exam: Normal Affect, Normal Mood - Skin Skin Exam: Dry, Intact, Warm Assessment and Plan - Assessment and Plan (Free Text) Assessment: 58 year old Male with PMHx Gastric Ca with gastrectomy and s/p recent exploratory laparotomy with lysis of adhesions and small bowel resections on 06/15/18 and h/o possible CVA on 06/19/18 was on Aspirin and Plavix admitted to ICU suspected lower GI bleeding and hypotension. Meropenem 1 gm Q8H (day #14) CT (06/26): high-grade acute small bowel obstruction with the transition zone in the right mid abdomen likely at the anastomotic site. 6.4 x 3.3 cm fluid collection in the pelvis posterior to the urinary bladder and anterior to the rectum may represent postoperative fluid collection however superimposed infection cannot be excluded. Plan: Hypotension likely secondary to acute blood loss anemia -Normotensive, HR wnl -Hg/Hct 9.6/27.1 (s/p 2 units PRBC) -Normotensive, HR wnl -Fluid support: LR 125 cc/hr -Adequate urine, love d/c as per surgery -Protonix 40 mg q12 -Hold ASA and plavix -Follow-up CBC -Surgical consult inputs and recommendations appreciated Hemoptysis & bloody stool -Hx SBO with exploratory laparotomy with lysis of adhesions and small bowel resections on 06/15/18. -1 BM this morning, + flatus -Clear liquid diet -Zofran prn -NG tube (placed 06/25) - 200cc dark green output today -GI consult: no endoscopic intervention at this time Gram negative Sepsis -Enterobacter (blood cx 06/13/18) -ID on board, Dr Prasad -WBC 6.8 -Meropenem 1 gm Q8H (day #14) -Blood cx no growth (4/) DVT prophylaxis -SCDs
--- NOTE | 2018-06-27 12:28 | CP.PCM.PN ---
Subjective - Date & Time of Evaluation Date of Evaluation: 06/27/18 Time of Evaluation: 08:00 - Subjective Subjective: afebrile NAD source of bleeding unclear GI and surgery on board Objective - Vital Signs/Intake and Output Vital Signs (last 24 hours): Temp Pulse Resp BP Pulse Ox 97.9 F 73 16 131/67 100 06/27/18 08:00 06/27/18 10:00 06/27/18 10:00 06/27/18 10:00 06/27/18 10:00 Intake and Output: 06/27/18 06/27/18 06:59 18:59 Intake Total 475 550 Output Total 2090 1100 Balance -1615 -550 - Medications Medications: Current Medications Atorvastatin Calcium (Lipitor) 40 mg PO HS [facility] Last Admin: 06/26/18 21:27 Dose: Not Given Levetiracetam 500 mg/ Sodium (Chloride) 105 mls @ 210 mls/hr IVPB Q12 [facility] Last Admin: 06/27/18 08:49 Dose: 210 mls/hr Meropenem 1 gm/ Sodium (Chloride) 100 mls @ 100 mls/hr IVPB Q8 [facility] Last Admin: 06/27/18 08:49 Dose: 100 mls/hr Potassium Chloride/Dextrose/Sod Cl (Potassium Chl 20 Meq In D5-Ns) 1,000 mls @ 125 mls/hr IV .Q8H [facility] Stop: 06/27/18 17:57 Last Admin: 06/27/18 08:48 Dose: 125 mls/hr Potassium Phosphate 30 mmole/ (Dextrose) 260 mls @ 84 mls/hr IV .Q3H6M ONE Stop: 06/27/18 12:42 Last Admin: 06/27/18 11:09 Dose: 84 mls/hr Morphine Sulfate (Morphine) 2 mg IVP Q4 PRN PRN Reason: Pain, moderate (4-7) Last Admin: 06/26/18 20:02 Dose: 2 mg Pantoprazole Sodium (Protonix Inj) 40 mg IVP Q12H [facility] Last Admin: 06/27/18 06:59 Dose: 40 mg - Labs Labs: 06/27/18 05:12 06/27/18 05:12 PT 14.1 Seconds (9.8-13.1) H 06/25/18 12:00 INR 1.2 06/25/18 12:00 APTT 32.5 Seconds (25.6-37.1) 06/25/18 12:00 - Constitutional Appears: Cachectic, Chronically Ill - Head Exam Head Exam: NORMOCEPHALIC - Eye Exam Eye Exam: absent: Scleral icterus - ENT Exam ENT Exam: Mucous Membranes Dry - Neck Exam Neck Exam: absent: Lymphadenopathy - Respiratory Exam Respiratory Exam: Decreased Breath Sounds - Cardiovascular Exam Cardiovascular Exam: REGULAR RHYTHM - GI/Abdominal Exam GI & Abdominal Exam: Distended, Soft - Rectal Exam Rectal Exam: Deferred - Exam Exam: NORMAL INSPECTION - Extremities Exam Extremities Exam: absent: Pedal Edema - Back Exam Back Exam: absent: CVA tenderness (L), CVA tenderness (R) - Neurological Exam Neurological Exam: Alert, Awake - Psychiatric Exam Psychiatric exam: Depressed Assessment and Plan (1) GI bleed Status: Acute (2) Hypotension Status: Acute (3) CVA (cerebrovascular accident) Status: Acute (4) Enterobacter sepsis Status: Acute (5) Gastric cancer Status: Acute (6) H/O Billroth II operation Status: Acute (7) HTN (hypertension) Status: Acute - Assessment and Plan (Free Text) Assessment: repeat blood cultures neg will d/c IV antibiotics GI and surgery on board
--- NOTE | 2018-06-27 13:54 | RAD ---
Date of service: 06/27/2018 HISTORY: r/o SBO COMPARISON: Comparison made with plain film radiographs 06/18/[address] scan of the abdomen pelvis 06/26/2018. TECHNIQUE: 1 view obtained. FINDINGS: BOWEL: Multiple distended air-filled loops of small bowel in this patient with recent postoperative patient with metallic surgical skin closure petros overlying the right parasagittal mid and lower abdomen.. Findings could represent postoperative ileus or small-bowel obstruction clinical correlation recommended.. BONES: Normal. OTHER FINDINGS: None. IMPRESSION: Postoperative ileus versus obstruction.
[2018-06-27 18:00] LABS: HEMOGLOBIN 10.8 g/dL (12.0-18.0); MEAN CELL VOLUME 90.1 fl (80.0-94.0); MEAN CORPUSCULAR HEMOGLOBIN 31.2 pg (27.0-31.0); MEAN CORPUSCULAR HGB CONC 34.6 g/dL (33.0-37.0); RBC 3.45 Mil/uL (4.40-5.90); RED CELL DISTRIBUTION WIDTH 15.4 % (11.5-14.5); WHITE BLOOD COUNT 7.5 K/uL (4.8-10.8)
--- NOTE | 2018-06-27 21:36 | CP.PCM.PN ---
Subjective - Date & Time of Evaluation Date of Evaluation: 06/27/18 Time of Evaluation: 10:00 - Subjective Subjective: no overnight events Objective - Vital Signs/Intake and Output Vital Signs (last 24 hours): Temp Pulse Resp BP Pulse Ox 98.1 F 73 13 121/71 100 06/27/18 16:00 06/27/18 18:00 06/27/18 18:00 06/27/18 18:00 06/27/18 18:00 Intake and Output: 06/27/18 06/28/18 18:59 06:59 Intake Total 550 Output Total 1999 Balance -1450 - Medications Medications: Current Medications Atorvastatin Calcium (Lipitor) 40 mg PO HS [facility] Last Admin: 06/27/18 21:03 Dose: 40 mg Levetiracetam 500 mg/ Sodium (Chloride) 105 mls @ 210 mls/hr IVPB Q12 [facility] Last Admin: 06/27/18 21:02 Dose: 210 mls/hr Morphine Sulfate (Morphine) 2 mg IVP Q4 PRN PRN Reason: Pain, moderate (4-7) Last Admin: 06/27/18 21:00 Dose: 2 mg Pantoprazole Sodium (Protonix Inj) 40 mg IVP Q12H [facility] Last Admin: 06/27/18 18:13 Dose: 40 mg - Labs Labs: 06/27/18 17:39 06/27/18 05:12 PT 14.1 Seconds (9.8-13.1) H 06/25/18 12:00 INR 1.2 06/25/18 12:00 APTT 32.5 Seconds (25.6-37.1) 06/25/18 12:00 - Head Exam Head Exam: NORMOCEPHALIC - Neck Exam Neck Exam: Normal Inspection - Respiratory Exam Respiratory Exam: Clear to Ausculation Bilateral, NORMAL BREATHING PATTERN - Cardiovascular Exam Cardiovascular Exam: REGULAR RHYTHM - GI/Abdominal Exam GI & Abdominal Exam: Soft, Tenderness, Normal Bowel Sounds Assessment and Plan - Assessment and Plan (Free Text) Assessment: 58 yo male with sbo surgical input advance diet slowly hgb stable ppi
--- NOTE | 2018-06-28 03:56 | CP.PCM.PN ---
<Marques Leyva - Last Filed: 06/28/18 03:54> Subjective - Date & Time of Evaluation Date of Evaluation: 06/28/18 Time of Evaluation: 03:54 - Subjective Subjective: SURGERY NOTE FOR DR. YOUNG 58M seen and examined at bedside. Patient states pain improved, resolved. Admits to flatus and bowel movements, slightly dark in nature. No BMs overnight. Objective - Vital Signs/Intake and Output Vital Signs (last 24 hours): Temp Pulse Resp BP Pulse Ox 98.4 F 65 12 136/64 99 06/27/18 20:00 06/28/18 00:00 06/28/18 00:00 06/28/18 00:00 06/28/18 00:00 Intake and Output: 06/27/18 06/28/18 18:59 06:59 Intake Total 550 475 Output Total 2000 900 Balance -1450 -425 - Medications Medications: Current Medications Atorvastatin Calcium (Lipitor) 40 mg PO HS [facility] Last Admin: 06/27/18 21:03 Dose: 40 mg Levetiracetam 500 mg/ Sodium (Chloride) 105 mls @ 210 mls/hr IVPB Q12 [facility] Last Admin: 06/27/18 21:02 Dose: 210 mls/hr Morphine Sulfate (Morphine) 2 mg IVP Q4 PRN PRN Reason: Pain, moderate (4-7) Last Admin: 06/27/18 21:00 Dose: 2 mg Pantoprazole Sodium (Protonix Inj) 40 mg IVP Q12H [facility] Last Admin: 06/27/18 18:13 Dose: 40 mg - Labs Labs: 06/27/18 17:39 06/27/18 05:12 PT 14.1 Seconds (9.8-13.1) H 06/25/18 12:00 INR 1.2 06/25/18 12:00 APTT 32.5 Seconds (25.6-37.1) 06/25/18 12:00 - Constitutional Appears: Non-toxic, No Acute Distress - Respiratory Exam Respiratory Exam: Clear to Ausculation Bilateral, NORMAL BREATHING PATTERN - Cardiovascular Exam Cardiovascular Exam: REGULAR RHYTHM, +S1, +S2 - GI/Abdominal Exam GI & Abdominal Exam: Soft, Tenderness. absent: Distended, Firm, Guarding, Rigid, Rebound Additional comments: petros in place incision CDI - Extremities Exam Extremities Exam: absent: Pedal Edema, Tenderness - Neurological Exam Neurological Exam: Alert, Awake - Skin Skin Exam: Dry, Intact, Normal Color, Warm Assessment and Plan - Assessment and Plan (Free Text) Assessment: 58M s/p Ex-lap w/ CHUCK and SBR POD#13 Plan: -IVF -cont to monitor HH, repeat HH at 6pm -Protonix BID -hold anticoagulation -will continue to monitor pt clinically Further rec discuss with Attending Costa Leyva PGY3 <Shaheen Armas - Last Filed: 06/28/18 12:45> Objective - Vital Signs/Intake and Output Vital Signs (last 24 hours): Temp Pulse Resp BP Pulse Ox 98.8 F 87 17 117/71 97 06/28/18 12:00 06/28/18 12:00 06/28/18 12:00 06/28/18 12:00 06/28/18 10:00 Intake and Output: 06/28/18 06/28/18 06:59 18:59 Intake Total 1225 1325 Output Total 1400 900 Balance -175 425 - Medications Medications: Current Medications Atorvastatin Calcium (Lipitor) 40 mg PO HS [facility] Last Admin: 06/27/18 21:03 Dose: 40 mg Levetiracetam 500 mg/ Sodium (Chloride) 105 mls @ 210 mls/hr IVPB Q12 [facility] Last Admin: 06/28/18 08:32 Dose: 210 mls/hr Potassium Chloride/Dextrose/Sod Cl (Potassium Chl 20 Meq In D5-Ns) 1,000 mls @ 125 mls/hr IV .Q8H [facility] Stop: 06/29/18 10:32 Last Admin: 06/28/18 10:57 Dose: 125 mls/hr Morphine Sulfate (Morphine) 2 mg IVP Q4 PRN PRN Reason: Pain, moderate (4-7) Last Admin: 06/27/18 21:00 Dose: 2 mg Pantoprazole Sodium (Protonix Inj) 40 mg IVP Q12H [facility] Last Admin: 06/27/18 18:13 Dose: 40 mg - Labs Labs: 06/28/18 04:30 06/28/18 04:30 PT 14.1 Seconds (9.8-13.1) H 06/25/18 12:00 INR 1.2 06/25/18 12:00 APTT 32.5 Seconds (25.6-37.1) 06/25/18 12:00 Assessment and Plan - Assessment and Plan (Free Text) Plan: as above, appears stable, recheck HGB
[2018-06-28 06:22] LABS: HEMOGLOBIN 10.2 g/dL (12.0-18.0); MEAN CELL VOLUME 91.8 fl (80.0-94.0); MEAN CORPUSCULAR HEMOGLOBIN 31.4 pg (27.0-31.0); MEAN CORPUSCULAR HGB CONC 34.2 g/dL (33.0-37.0); RBC 3.23 Mil/uL (4.40-5.90); RED CELL DISTRIBUTION WIDTH 15.5 % (11.5-14.5); WHITE BLOOD COUNT 5.4 K/uL (4.8-10.8)
[2018-06-28 06:32] LABS: ALB/GLOB RATIO 0.9 (1.0-2.1); ALBUMIN 2.7 g/dL (3.5-5.0); ALT/SGPT 78 U/L (21-72); AST/SGOT 68 U/L (17-59); BLOOD UREA NITROGEN 8 mg/dl (9-20); CALCIUM 8.3 mg/dL (8.4-10.2); GFR NON-AFRICAN AMERICAN > 60
[2018-06-28] MEDS: levETIRAcetam 500 MG in Sodium Chloride 0.9% 100 ML IVPB SCH ×2 (08:32→20:53)
--- NOTE | 2018-06-28 08:46 | CP.CCUPN ---
CCU Subjective - Physician Review Events Since Last Encounter (Free Text): Patient awake, no distress, no fever, no vomiting, follow commands, events reviewed CCU Objective - Vital Signs / Intake & Output Vital Signs (Last 4 hours): Vital Signs Pulse Resp BP Pulse Ox 06/28/18 06:00 56 L 0 L 112/65 100 Intake and Output (Last 8hrs): Intake & Output 06/27/18 06/28/18 06/28/18 22:59 06:59 14:59 Intake Total 225 1000 125 Output Total 1400 900 400 Balance -1175 100 -275 Weight 115 lb Intake: IV 125 1000 125 Intake, Piggyback 100 Output: Urine 1400 900 400 Urine, Voided 1400 900 400 Other: # Bowel Movements 1 - Physical Exam Head: Positive for: Atraumatic Pupils: Positive for: PERRL Extroacular Muscles: Positive for: EOMI Mouth: Positive for: Moist Mucous Membranes Neck: Positive for: Normal Range of Motion Respiratory/Chest: Positive for: Clear to Auscultation. Negative for: Respiratory Distress, Accessory Muscle Use, Wheezes, Rales Cardiovascular: Positive for: Normal S1, S2, Tachycardic Abdomen: Positive for: Distention, Normal Bowel Sounds, Other (Mid abdominal vertical incision with petros in placed. No signs of infection. ). Negative for: Tenderness, Peritoneal Signs Upper Extremity: Positive for: Normal Inspection Lower Extremity: Positive for: Normal Inspection Neurological: Positive for: Speech Normal Skin: Positive for: Normal Color Psychiatric: Positive for: Alert, Oriented x 3 - Medications Active Medications: Active Medications Generic Name Dose Route Start Last Admin Trade Name Freq PRN Reason Stop Dose Admin Atorvastatin Calcium 40 mg 06/25/18 22:00 06/27/18 21:03 Lipitor PO 40 mg HS [facility] Administration Levetiracetam 500 mg/ Sodium 105 mls @ 210 mls/hr 06/25/18 09:00 06/28/18 08:32 Chloride IVPB 210 mls/hr Q12 [facility] Administration Morphine Sulfate 2 mg 06/25/18 21:46 06/27/18 21:00 Morphine IVP 2 mg Q4 PRN Administration Pain, moderate (4-7) Pantoprazole Sodium 40 mg 06/25/18 06:45 06/27/18 18:13 Protonix Inj IVP 40 mg Q12H [facility] Administration - Patient Studies Lab Studies: Microbiology Studies 06/25/18 16:58 Blood Culture - Preliminary Blood-Venous NO GROWTH AFTER 48 HOURS 06/25/18 16:58 Blood Culture - Preliminary Blood-Venous NO GROWTH AFTER 48 HOURS Lab Studies 06/28/18 06/28/18 06/27/18 Range/Units 04:30 04:30 17:39 WBC 5.4 7.5 (4.8-10.8) K/uL RBC 3.23 L 3.45 L (4.40-5.90) Mil/uL Hgb 10.2 L 10.8 L (12.0-18.0) g/dL Hct 29.7 L 31.1 L (35.0-51.0) % MCV 91.8 90.1 (80.0-94.0) fl MCH 31.4 H 31.2 H (27.0-31.0) pg MCHC 34.2 34.6 (33.0-37.0) g/dL RDW 15.5 H 15.4 H (11.5-14.5) % Plt Count 311 305 (130-400) K/uL Sodium 136 (132-148) mmol/l Potassium 3.9 (3.6-5.0) MMOL/L Chloride 99 (98-107) mmol/L Carbon Dioxide 31 H (22-30) mmol/L Anion Gap 10 (10-20) BUN 8 L (9-20) mg/dl Creatinine 0.7 L (0.8-1.5) mg/dl Est GFR ( Amer) > 60 Est GFR (Non-Af Amer) > 60 Random Glucose 106 (75-110) mg/dL Calcium 8.3 L (8.4-10.2) mg/dL Phosphorus 2.3 L (2.5-4.5) mg/dl Total Bilirubin 0.8 (0.2-1.3) mg/dl AST 68 H (17-59) U/L ALT 78 H (21-72) U/L Alkaline Phosphatase 108 (38-126) U/L Total Protein 5.9 L (6.3-8.2) G/DL Albumin 2.7 L (3.5-5.0) g/dL Globulin 3.2 (2.2-3.9) gm/dL Albumin/Globulin Ratio 0.9 L (1.0-2.1) Laboratory Results - last 24 hr 06/27/18 06/28/18 06/28/18 17:39 04:30 04:30 WBC 7.5 5.4 RBC 3.45 L 3.23 L Hgb 10.8 L 10.2 L Hct 31.1 L 29.7 L MCV 90.1 91.8 MCH 31.2 H 31.4 H MCHC 34.6 34.2 RDW 15.4 H 15.5 H Plt Count 305 311 Sodium 136 Potassium 3.9 Chloride 99 Carbon Dioxide 31 H Anion Gap 10 BUN 8 L Creatinine 0.7 L Est GFR ( Amer) > 60 Est GFR (Non-Af Amer) > 60 Random Glucose 106 Calcium 8.3 L Phosphorus 2.3 L Total Bilirubin 0.8 AST 68 H ALT 78 H Alkaline Phosphatase 108 Total Protein 5.9 L Albumin 2.7 L Globulin 3.2 Albumin/Globulin Ratio 0.9 L Radiology Impressions: Radiology Impressions Abdomen X-Ray 06/27/18 06:00 IMPRESSION: Postoperative ileus versus obstruction. Critical Care Progress Note - Nutrition Nutrition: Nutrition Category Date Time Status Liquid Diet [DIET] Diets 06/27/18 Lunch Active Assessment/Plan - Assessment and Plan (Free Text) Assessment: A/P GI bleed, anemia, SBO, sepsis, gastric ca s/p surgery - Continue meds - Transfusion as needed - Surgery follow up - GI follow up
[2018-06-28] MEDS: Potassium Chl 20 mEq in D5-NS 1,000 ML IV SCH ×2 (10:57→20:52)
--- NOTE | 2018-06-28 12:06 | CP.PCM.PN ---
Subjective - Date & Time of Evaluation Date of Evaluation: 06/28/18 Time of Evaluation: 10:15 - Subjective Subjective: Pt doing well in ICU no further GI bleed no further seizure pt is alert, oriented x 3 VS stable H/H stable will transfer out of ICU Pain controlled Objective - Vital Signs/Intake and Output Vital Signs (last 24 hours): Temp Pulse Resp BP Pulse Ox 97.6 F 72 16 120/66 97 06/28/18 08:00 06/28/18 10:00 06/28/18 10:00 06/28/18 10:00 06/28/18 10:00 Intake and Output: 06/28/18 06/28/18 06:59 18:59 Intake Total 1225 1075 Output Total 1400 900 Balance -175 175 - Medications Medications: Current Medications Atorvastatin Calcium (Lipitor) 40 mg PO HS [facility] Last Admin: 06/27/18 21:03 Dose: 40 mg Levetiracetam 500 mg/ Sodium (Chloride) 105 mls @ 210 mls/hr IVPB Q12 [facility] Last Admin: 06/28/18 08:32 Dose: 210 mls/hr Potassium Chloride/Dextrose/Sod Cl (Potassium Chl 20 Meq In D5-Ns) 1,000 mls @ 125 mls/hr IV .Q8H [facility] Stop: 06/29/18 10:32 Last Admin: 06/28/18 10:57 Dose: 125 mls/hr Morphine Sulfate (Morphine) 2 mg IVP Q4 PRN PRN Reason: Pain, moderate (4-7) Last Admin: 06/27/18 21:00 Dose: 2 mg Pantoprazole Sodium (Protonix Inj) 40 mg IVP Q12H [facility] Last Admin: 06/27/18 18:13 Dose: 40 mg - Labs Labs: 06/28/18 04:30 06/28/18 04:30 PT 14.1 Seconds (9.8-13.1) H 06/25/18 12:00 INR 1.2 06/25/18 12:00 APTT 32.5 Seconds (25.6-37.1) 06/25/18 12:00 - Constitutional Appears: Non-toxic, No Acute Distress - Head Exam Head Exam: ATRAUMATIC, NORMAL INSPECTION, NORMOCEPHALIC - Eye Exam Eye Exam: EOMI, Normal appearance, PERRL Pupil Exam: NORMAL ACCOMODATION - ENT Exam ENT Exam: Mucous Membranes Dry, Normal External Ear Exam - Neck Exam Neck Exam: Full ROM. absent: Meningismus - Respiratory Exam Respiratory Exam: NORMAL BREATHING PATTERN. absent: Respiratory Distress - Cardiovascular Exam Cardiovascular Exam: REGULAR RHYTHM, +S1, +S2 - GI/Abdominal Exam GI & Abdominal Exam: Soft, Normal Bowel Sounds. absent: Tenderness - Extremities Exam Extremities Exam: Full ROM, Normal Capillary Refill. absent: Calf Tenderness, Pedal Edema - Back Exam Back Exam: Full ROM. absent: CVA tenderness (L), CVA tenderness (R) - Neurological Exam Neurological Exam: Alert, Awake, CN II-XII Intact, Oriented x3 Neuro motor strength exam: Left Upper Extremity: 5, Right Upper Extremity: 5, Left Lower Extremity: 5, Right Lower Extremity: 5 - Psychiatric Exam Psychiatric exam: Normal Affect, Normal Mood - Skin Skin Exam: Dry, Normal Color, Warm Assessment and Plan - Assessment and Plan (Free Text) Plan: 1. High grade SBO s/p Recent Explor Lap with Adhesiolysis and bowel resection with primary anastomosis - NGT d/c - pt tolerating Clear Liquid diet , will upgrade to Full Liquid diet for lunch, + BM, good bowel sounds - Surgery following pt 2. Acute GI Bleed with Acute Blood Loss Anemia and Sinus Tachycardia -episode of GI bleed in Acute Rehab - H/H went down and pt transfused 3 units PRBC - H/H now stable, no further bleed, tachycardia and hypotension resolved - will transfer pt out of ICU to Telemetry 3. Suspected seizure disorder with recent AMS -- continue Keppra 4. Suspected recent TIA -- continue Statin . Hold ASA, Plavix , lovenox due to GI bleed
[2018-06-28 16:30] VITALS: RESP 18
[2018-06-29] MEDS: Potassium Chl 20 mEq in D5-NS 1,000 ML IV SCH (05:51)
[2018-06-29 06:29] LABS: HEMOGLOBIN 11.1 g/dL (12.0-18.0); MEAN CELL VOLUME 92.7 fl (80.0-94.0); MEAN CORPUSCULAR HEMOGLOBIN 32.1 pg (27.0-31.0); MEAN CORPUSCULAR HGB CONC 34.6 g/dL (33.0-37.0); RBC 3.47 Mil/uL (4.40-5.90); RED CELL DISTRIBUTION WIDTH 15.6 % (11.5-14.5); WHITE BLOOD COUNT 5.8 K/uL (4.8-10.8)
[2018-06-29 07:03] LABS: ALB/GLOB RATIO 0.9 (1.0-2.1); ALBUMIN 2.8 g/dL (3.5-5.0); ALT/SGPT 78 U/L (21-72); AST/SGOT 72 U/L (17-59); BLOOD UREA NITROGEN 4 mg/dl (9-20); CALCIUM 8.5 mg/dL (8.4-10.2); GFR NON-AFRICAN AMERICAN > 60
[2018-06-29] MEDS: levETIRAcetam 500 MG in Sodium Chloride 0.9% 100 ML IVPB SCH ×2 (09:56→21:41)
--- NOTE | 2018-06-29 10:44 | CP.PCM.PN ---
Subjective - Date & Time of Evaluation Date of Evaluation: 06/29/18 Time of Evaluation: 09:45 - Subjective Subjective: No fever tolerating Full liquid diet + Flatus and BM no further signs of GI bleed no CP no SOB no abd pain no further seizures Objective - Vital Signs/Intake and Output Vital Signs (last 24 hours): Temp Pulse Resp BP Pulse Ox 98.2 F 61 18 121/71 100 06/29/18 08:15 06/29/18 08:15 06/29/18 08:15 06/29/18 08:15 06/29/18 08:15 Intake and Output: 06/29/18 06/29/18 06:59 18:59 Intake Total 730 Output Total 250 Balance 480 - Medications Medications: Current Medications Atorvastatin Calcium (Lipitor) 40 mg PO HS [facility] Last Admin: 06/28/18 22:00 Dose: 40 mg Levetiracetam 500 mg/ Sodium (Chloride) 105 mls @ 210 mls/hr IVPB Q12 [facility] Last Admin: 06/29/18 09:56 Dose: 210 mls/hr Morphine Sulfate (Morphine) 2 mg IVP Q4 PRN PRN Reason: Pain, moderate (4-7) Last Admin: 06/29/18 04:02 Dose: 2 mg Pantoprazole Sodium (Protonix Inj) 40 mg IVP Q12H [facility] Last Admin: 06/29/18 05:59 Dose: 40 mg - Labs Labs: 06/29/18 04:30 06/29/18 04:30 PT 14.1 Seconds (9.8-13.1) H 06/25/18 12:00 INR 1.2 06/25/18 12:00 APTT 32.5 Seconds (25.6-37.1) 06/25/18 12:00 - Constitutional Appears: Non-toxic, No Acute Distress - Head Exam Head Exam: ATRAUMATIC, NORMAL INSPECTION, NORMOCEPHALIC - Eye Exam Eye Exam: EOMI, Normal appearance, PERRL Pupil Exam: NORMAL ACCOMODATION - ENT Exam ENT Exam: Mucous Membranes Dry, Normal External Ear Exam - Neck Exam Neck Exam: Full ROM. absent: Meningismus - Respiratory Exam Respiratory Exam: NORMAL BREATHING PATTERN. absent: Respiratory Distress - Cardiovascular Exam Cardiovascular Exam: REGULAR RHYTHM, +S1, +S2 - GI/Abdominal Exam GI & Abdominal Exam: Soft, Normal Bowel Sounds. absent: Tenderness - Extremities Exam Extremities Exam: Full ROM, Normal Capillary Refill. absent: Calf Tenderness, Pedal Edema - Back Exam Back Exam: Full ROM. absent: CVA tenderness (L), CVA tenderness (R) - Neurological Exam Neurological Exam: Alert, Awake, CN II-XII Intact, Oriented x3 Neuro motor strength exam: Left Upper Extremity: 5, Right Upper Extremity: 5, Left Lower Extremity: 5, Right Lower Extremity: 5 - Psychiatric Exam Psychiatric exam: Normal Affect, Normal Mood - Skin Skin Exam: Dry, Normal Color, Warm Assessment and Plan - Assessment and Plan (Free Text) Plan: 1. High grade SBO s/p Recent Explor Lap with Adhesiolysis and bowel resection with primary anastomosis - NGT d/c - pt tolerating Full Liquid diet , + BM, good bowel sounds , will upgrade to Soft, [place] diet for dinner - Surgery following pt- Otilio d/c today - Meropenem d/c by Dr Prasad 2. Acute GI Bleed with Acute Blood Loss Anemia and Sinus Tachycardia -episode of GI bleed in Acute Rehab - H/H went down and pt transfused 3 units PRBC - H/H now stable, no further bleed, tachycardia and hypotension resolved - off antiplatelet and anticoag due to the bleed - GI consulted - no Endoscopic intervention - cont PPI 3. Suspected seizure disorder with recent AMS -- continue Keppra 4. Suspected recent TIA -- continue Statin . Hold ASA, Plavix , lovenox due to GI bleed 5. Deconditioning - plan to d/c pt to Rehab if pt tolerates Regular diet
--- NOTE | 2018-06-29 12:12 | CP.PCM.PN ---
Subjective - Date & Time of Evaluation Date of Evaluation: 06/29/18 Time of Evaluation: 09:00 - Subjective Subjective: General Surgery Note for Dr. Armas Patient seen and examined at bedside. No acute event overnight. patient tolerating diet. he is having non-bloody BMs. Denies n/v and fever/chills. Patient is requesting more food since he has been tolerating liquids. Objective - Vital Signs/Intake and Output Vital Signs (last 24 hours): Temp Pulse Resp BP Pulse Ox 98.2 F 61 18 121/71 100 06/29/18 08:15 06/29/18 08:15 06/29/18 08:15 06/29/18 08:15 06/29/18 08:15 Intake and Output: 06/29/18 06/29/18 06:59 18:59 Intake Total 730 Output Total 250 Balance 480 - Medications Medications: Current Medications Atorvastatin Calcium (Lipitor) 40 mg PO HS [facility] Last Admin: 06/28/18 22:00 Dose: 40 mg Levetiracetam 500 mg/ Sodium (Chloride) 105 mls @ 210 mls/hr IVPB Q12 [facility] Last Admin: 06/29/18 09:56 Dose: 210 mls/hr Morphine Sulfate (Morphine) 2 mg IVP Q4 PRN PRN Reason: Pain, moderate (4-7) Last Admin: 06/29/18 04:02 Dose: 2 mg Pantoprazole Sodium (Protonix Inj) 40 mg IVP Q12H [facility] Last Admin: 06/29/18 05:59 Dose: 40 mg - Labs Labs: 06/29/18 04:30 06/29/18 04:30 PT 14.1 Seconds (9.8-13.1) H 06/25/18 12:00 INR 1.2 06/25/18 12:00 APTT 32.5 Seconds (25.6-37.1) 06/25/18 12:00 - Constitutional Appears: No Acute Distress - Head Exam Head Exam: ATRAUMATIC, NORMOCEPHALIC - Eye Exam Eye Exam: EOMI, Normal appearance Pupil Exam: PERRL - ENT Exam ENT Exam: Mucous Membranes Moist - Respiratory Exam Respiratory Exam: NORMAL BREATHING PATTERN - Cardiovascular Exam Cardiovascular Exam: REGULAR RHYTHM - GI/Abdominal Exam GI & Abdominal Exam: Soft, Normal Bowel Sounds. absent: Distended, Firm, Guarding, Rigid, Tenderness, Rebound - Extremities Exam Extremities Exam: Normal Capillary Refill - Back Exam Back Exam: absent: CVA tenderness (L), CVA tenderness (R) - Neurological Exam Neurological Exam: Alert, Awake, Oriented x3 - Psychiatric Exam Psychiatric exam: Normal Affect, Normal Mood - Skin Skin Exam: Dry, Intact, Normal Color, Warm Assessment and Plan - Assessment and Plan (Free Text) Assessment: 58M s/p Ex-lap w/ CHUCK and SBR POD#14 Plan: -Possibly advance diet today -Monitor hgb -Will remove petros -Protonix -hold anticoagulation/antiplatets -will continue to monitor clinically -Further recommendations as per Dr. Pawel Quintanilla PGY2
--- NOTE | 2018-06-29 15:15 | CP.PCM.PN ---
Subjective - Date & Time of Evaluation Date of Evaluation: 06/29/18 Time of Evaluation: 07:00 - Subjective Subjective: events noted afebrile off antibiotics Objective - Vital Signs/Intake and Output Vital Signs (last 24 hours): Temp Pulse Resp BP Pulse Ox 97.5 F L 75 18 106/71 100 06/29/18 12:14 06/29/18 12:14 06/29/18 12:14 06/29/18 12:14 06/29/18 12:14 Intake and Output: 06/29/18 06/29/18 06:59 18:59 Intake Total 730 Output Total 250 Balance 480 - Medications Medications: Current Medications Atorvastatin Calcium (Lipitor) 40 mg PO HS [facility] Last Admin: 06/28/18 22:00 Dose: 40 mg Levetiracetam 500 mg/ Sodium (Chloride) 105 mls @ 210 mls/hr IVPB Q12 [facility] Last Admin: 06/29/18 09:56 Dose: 210 mls/hr Morphine Sulfate (Morphine) 2 mg IVP Q4 PRN PRN Reason: Pain, moderate (4-7) Last Admin: 06/29/18 12:59 Dose: 2 mg Pantoprazole Sodium (Protonix Inj) 40 mg IVP Q12H [facility] Last Admin: 06/29/18 05:59 Dose: 40 mg - Labs Labs: 06/29/18 04:30 06/29/18 04:30 PT 14.1 Seconds (9.8-13.1) H 06/25/18 12:00 INR 1.2 06/25/18 12:00 APTT 32.5 Seconds (25.6-37.1) 06/25/18 12:00 - Constitutional Appears: Non-toxic, No Acute Distress, Cachectic, Chronically Ill - Head Exam Head Exam: ATRAUMATIC, NORMAL INSPECTION, NORMOCEPHALIC - Eye Exam Eye Exam: EOMI, Normal appearance, PERRL Pupil Exam: NORMAL ACCOMODATION, PERRL - ENT Exam ENT Exam: Mucous Membranes Moist, Normal Exam - Neck Exam Neck Exam: Full ROM, Normal Inspection. absent: Lymphadenopathy - Respiratory Exam Respiratory Exam: Clear to Ausculation Bilateral, NORMAL BREATHING PATTERN - Cardiovascular Exam Cardiovascular Exam: REGULAR RHYTHM, +S1, +S2. absent: Murmur - GI/Abdominal Exam GI & Abdominal Exam: Distended, Soft, Normal Bowel Sounds. absent: Rigid, Tenderness, Mass, Organomegaly - Rectal Exam Rectal Exam: Deferred - Exam Exam: NORMAL INSPECTION - Extremities Exam Extremities Exam: Full ROM, Normal Capillary Refill, Normal Inspection. absent: Joint Swelling, Pedal Edema - Back Exam Back Exam: NORMAL INSPECTION - Neurological Exam Neurological Exam: Alert, Awake, CN II-XII Intact, Normal Gait, Oriented x3 - Psychiatric Exam Psychiatric exam: Normal Affect, Normal Mood - Skin Skin Exam: Dry, Intact, Normal Color, Warm Assessment and Plan (1) GI bleed Status: Acute (2) Hypotension Status: Acute (3) CVA (cerebrovascular accident) Status: Acute (4) Enterobacter sepsis Status: Acute (5) Gastric cancer Status: Acute (6) H/O Billroth II operation Status: Acute (7) HTN (hypertension) Status: Acute - Assessment and Plan (Free Text) Assessment: s/p SBO / lysis of adhesions / GIB / sepsis completed 14 days IV rx diet advanced
[2018-06-30 05:40] LABS: HEMOGLOBIN 11.2 g/dL (12.0-18.0); MEAN CORPUSCULAR HEMOGLOBIN 31.8 pg (27.0-31.0); MEAN CORPUSCULAR HGB CONC 34.5 g/dL (33.0-37.0); RBC 3.52 Mil/uL (4.40-5.90); RED CELL DISTRIBUTION WIDTH 15.2 % (11.5-14.5)
[2018-06-30 06:24] LABS: ALB/GLOB RATIO 0.9 (1.0-2.1); ALBUMIN 2.9 g/dL (3.5-5.0); ALT/SGPT 73 U/L (21-72); AST/SGOT 57 U/L (17-59); BLOOD UREA NITROGEN 6 mg/dl (9-20); CALCIUM 8.7 mg/dL (8.4-10.2); GFR NON-AFRICAN AMERICAN > 60
[2018-06-30 06:35] LABS: WHITE BLOOD COUNT 8.9 K/uL (4.8-10.8)
--- NOTE | 2018-06-30 08:51 | CON ---
DATE: 06/25/2018 REFERRING DOCTOR: . REASON FOR CONSULTATION: Melena and black stools. HISTORY OF PRESENT ILLNESS: This is a pleasant 58-year-old male who comes in with history of esophagus CA, status post gastrectomy who was admitted for SBO and recently had an exploratory laparotomy, lysis of adhesion, small bowel resection. Now comes in especially for melena and black stools a week or so after his surgery. The patient states he feels better. He is passing gas above and below. No further output on his drains. Currently lying in bed comfortable with mild abdominal discomfort. PAST MEDICAL HISTORY: As above. SURGICAL HISTORY: As above. MEDICATIONS: Have been reviewed. REVIEW OF SYSTEMS: All other systems have been reviewed and negative apart from the HPI. PHYSICAL EXAMINATION: VITAL SIGNS: Here in the hospital grossly unremarkable. GENERAL: This is a pleasant elderly-appearing male, lying in bed comfortably, in no apparent distress. HEENT: Head: Normocephalic and atraumatic. Eyes: Pupils equally reactive to light bilaterally. No conjunctival pallor or icterus. NECK: Supple. Normal range of motion. No lymphadenopathy appreciated. LUNGS: Coarse breath sounds bilaterally. HEART: S1 and S2. Regular rate and rhythm. No murmur appreciated. ABDOMEN: Soft, nontender. Bowel sounds present. No rebound. No guarding. There is some discomfort. RECTAL: Deferred. EXTREMITIES: Pulses felt bilaterally. SKIN: Warm, dry and intact. NEUROLOGIC: A and O x3. LABORATORY DATA: Labs and radiology have been reviewed. WBC 7.5, hemoglobin 8.4, hematocrit 24.4, platelets count 267. INR 1.2, total bili 1.7, AST and ALT 78 and 89. ASSESSMENT AND PLAN: This is a 58-year-old male, status post bowel resection now with black stools, hypertension and anemia. Intensive care unit level care. Sepsis protocol. Pressor support. CAT scan pending. N.p.o. Surgical consult appreciated. Intravenous proton pump inhibitors. Thank you for the consult. Harshad Colon MD/ PhD cc: [facility] # [id number]
--- NOTE | 2018-06-30 09:20 | CP.PCM.PN ---
<Daljit Mccain - Last Filed: 06/30/18 09:21> Subjective - Date & Time of Evaluation Date of Evaluation: 06/30/18 Time of Evaluation: 06:15 - Subjective Subjective: Patient seen and examined. No complaints. No acute events over night. Ambulating. Objective - Vital Signs/Intake and Output Vital Signs (last 24 hours): Temp Pulse Resp BP Pulse Ox 98.5 F 83 18 117/70 100 06/30/18 08:02 06/30/18 08:02 06/30/18 08:02 06/30/18 08:02 06/30/18 08:02 - Medications Medications: Current Medications Atorvastatin Calcium (Lipitor) 40 mg PO HS [facility] Last Admin: 06/29/18 21:41 Dose: 40 mg Levetiracetam 500 mg/ Sodium (Chloride) 105 mls @ 210 mls/hr IVPB Q12 [facility] Last Admin: 06/29/18 21:41 Dose: 210 mls/hr Morphine Sulfate (Morphine) 2 mg IVP Q4 PRN PRN Reason: Pain, moderate (4-7) Last Admin: 06/30/18 00:37 Dose: 2 mg Pantoprazole Sodium (Protonix Inj) 40 mg IVP Q12H [facility] Last Admin: 06/30/18 06:31 Dose: 40 mg - Labs Labs: 06/30/18 05:19 06/30/18 05:19 PT 14.1 Seconds (9.8-13.1) H 06/25/18 12:00 INR 1.2 06/25/18 12:00 APTT 32.5 Seconds (25.6-37.1) 06/25/18 12:00 - Constitutional Appears: No Acute Distress - Head Exam Head Exam: NORMOCEPHALIC - Eye Exam Eye Exam: EOMI, Normal appearance - ENT Exam ENT Exam: Mucous Membranes Moist - Respiratory Exam Respiratory Exam: NORMAL BREATHING PATTERN - Cardiovascular Exam Cardiovascular Exam: +S1, +S2 - GI/Abdominal Exam GI & Abdominal Exam: Soft. absent: Tenderness - Neurological Exam Neurological Exam: Alert, Awake - Skin Skin Exam: Dry, Intact, Warm Assessment and Plan - Assessment and Plan (Free Text) Assessment: 58M s/p Ex-lap w/ CHUCK and SBR POD#15 Plan: -C/w bland diet -Hgb stable -petros d/c'ed -Protonix -hold anticoagulation/antiplatets -will continue to monitor clinically -Further recommendations as per Dr. Pawel Oreilly PGY3 <Han Domínguez - Last Filed: 06/30/18 13:57> Subjective - Date & Time of Evaluation Time of Evaluation: 11:45 - Subjective Subjective: Patient was seen and examined at the bedside. Agree with resident's note above. Objective - Vital Signs/Intake and Output Vital Signs (last 24 hours): Temp Pulse Resp BP Pulse Ox 99.1 F 75 18 114/72 99 06/30/18 12:04 06/30/18 12:04 06/30/18 12:04 06/30/18 12:04 06/30/18 12:04 Intake and Output: 06/30/18 06/30/18 06:59 18:59 Intake Total 340 Output Total 100 Balance 240 - Medications Medications: Current Medications Atorvastatin Calcium (Lipitor) 40 mg PO HS [facility] Last Admin: 06/29/18 21:41 Dose: 40 mg Levetiracetam 500 mg/ Sodium (Chloride) 105 mls @ 210 mls/hr IVPB Q12 [facility] Last Admin: 06/30/18 10:01 Dose: 210 mls/hr Morphine Sulfate (Morphine) 2 mg IVP Q4 PRN PRN Reason: Pain, moderate (4-7) Last Admin: 06/30/18 10:02 Dose: 2 mg Pantoprazole Sodium (Protonix Inj) 40 mg IVP Q12H [facility] Last Admin: 06/30/18 06:31 Dose: 40 mg - Labs Labs: 06/30/18 05:19 06/30/18 05:19 PT 14.1 Seconds (9.8-13.1) H 06/25/18 12:00 INR 1.2 06/25/18 12:00 APTT 32.5 Seconds (25.6-37.1) 06/25/18 12:00 - GI/Abdominal Exam Additional comments: soft, mild kylie-incisional tenderness, ND, BS+, no rebound, no guarding, incision clean, healing well, no erythema, no drainage Assessment and Plan - Assessment and Plan (Free Text) Plan: - Repeat labs in am - Will follow
[2018-06-30] MEDS: levETIRAcetam 500 MG in Sodium Chloride 0.9% 100 ML IVPB SCH (10:01)
--- NOTE | 2018-06-30 12:24 | CP.PCM.PN ---
Subjective - Date & Time of Evaluation Date of Evaluation: 06/30/18 Time of Evaluation: 08:00 - Subjective Subjective: improving afeb nad Objective - Vital Signs/Intake and Output Vital Signs (last 24 hours): Temp Pulse Resp BP Pulse Ox 99.1 F 75 18 114/72 99 06/30/18 12:04 06/30/18 12:04 06/30/18 12:04 06/30/18 12:04 06/30/18 12:04 Intake and Output: 06/30/18 06/30/18 06:59 18:59 Intake Total 340 Output Total 100 Balance 240 - Medications Medications: Current Medications Atorvastatin Calcium (Lipitor) 40 mg PO HS [facility] Last Admin: 06/29/18 21:41 Dose: 40 mg Levetiracetam 500 mg/ Sodium (Chloride) 105 mls @ 210 mls/hr IVPB Q12 [facility] Last Admin: 06/30/18 10:01 Dose: 210 mls/hr Morphine Sulfate (Morphine) 2 mg IVP Q4 PRN PRN Reason: Pain, moderate (4-7) Last Admin: 06/30/18 10:02 Dose: 2 mg Pantoprazole Sodium (Protonix Inj) 40 mg IVP Q12H [facility] Last Admin: 06/30/18 06:31 Dose: 40 mg - Labs Labs: 06/30/18 05:19 06/30/18 05:19 PT 14.1 Seconds (9.8-13.1) H 06/25/18 12:00 INR 1.2 06/25/18 12:00 APTT 32.5 Seconds (25.6-37.1) 06/25/18 12:00 - Constitutional Appears: Non-toxic, Cachectic, Chronically Ill - Head Exam Head Exam: NORMOCEPHALIC - Eye Exam Eye Exam: absent: Scleral icterus - ENT Exam ENT Exam: Mucous Membranes Dry - Neck Exam Neck Exam: absent: Lymphadenopathy - Respiratory Exam Respiratory Exam: Decreased Breath Sounds - Cardiovascular Exam Cardiovascular Exam: REGULAR RHYTHM - GI/Abdominal Exam GI & Abdominal Exam: Distended - Rectal Exam Rectal Exam: Deferred - Exam Exam: NORMAL INSPECTION - Extremities Exam Extremities Exam: absent: Pedal Edema Assessment and Plan (1) GI bleed Status: Acute (2) Hypotension Status: Acute (3) CVA (cerebrovascular accident) Status: Acute (4) Enterobacter sepsis Status: Acute (5) Gastric cancer Status: Acute (6) H/O Billroth II operation Status: Acute (7) HTN (hypertension) Status: Acute - Assessment and Plan (Free Text) Assessment: s/p SBO for TCU
--- NOTE | 2018-06-30 14:26 | CP.PCM.DIS ---
Provider - Provider Date of Admission: 06/25/18 06:26 Attending physician: Miguel Leo MD Consults: 06/25/18 06:05 Surgery [General Surgery Consult] Stat Comment: Consulting Provider: Getachew Stovall Consulting Physician: Getachew Stovlal Reason for Consult: GI bleed s/p surgery 06/25/18 06:06 Gastroenterology Consult Stat Comment: Consulting Provider: Harshad Colon Consulting Physician: Harshad Colon Reason for Consult: GI bleed requiring transfusion. s/p end to end anastomosis sx 06/25/18 07:36 Infectious Disease Consult Routine Comment: Consulting Provider: Armani Prasad Consulting Physician: Armani Prasad Reason for Consult: GI bleed on Meropenem Time Spent in preparation of Discharge (in minutes): 20 Hospital Course - Lab Results Lab Results: Micro Results 06/28/18 18:49 Naris MRSA Culture (Admit) - Final MRSA NOT DETECTED 06/25/18 16:58 Blood-Venous Blood Culture - Preliminary NO GROWTH AFTER 4 DAYS 06/25/18 16:58 Blood-Venous Blood Culture - Preliminary NO GROWTH AFTER 4 DAYS 06/25/18 09:30 Nose MRSA Culture (Admit) - Final MRSA NOT DETECTED Most Recent Lab Values WBC 8.9 K/uL (4.8-10.8) D 06/30/18 05:19 RBC 3.52 Mil/uL (4.40-5.90) L 06/30/18 05:19 Hgb 11.2 g/dL (12.0-18.0) L 06/30/18 05:19 Hct 32.4 % (35.0-51.0) L 06/30/18 05:19 MCV 92.0 fl (80.0-94.0) 06/30/18 05:19 MCH 31.8 pg (27.0-31.0) H 06/30/18 05:19 MCHC 34.5 g/dL (33.0-37.0) 06/30/18 05:19 RDW 15.2 % (11.5-14.5) H 06/30/18 05:19 Plt Count 425 K/uL (130-400) H 06/30/18 05:19 MPV 9.3 fl (7.2-11.7) 06/27/18 05:12 Neut % (Auto) 79.9 % (50.0-75.0) H 06/27/18 05:12 Lymph % (Auto) 10.9 % (20.0-40.0) L 06/27/18 05:12 Avery % (Auto) 8.2 % (0.0-10.0) 06/27/18 05:12 Eos % (Auto) 0.3 % (0.0-4.0) 06/27/18 05:12 Baso % (Auto) 0.7 % (0.0-2.0) 06/27/18 05:12 Neut # (Auto) 5.4 K/uL (1.8-7.0) 06/27/18 05:12 Lymph # (Auto) 0.7 K/uL (1.0-4.3) L 06/27/18 05:12 Avery # (Auto) 0.6 K/uL (0.0-0.8) 06/27/18 05:12 Eos # (Auto) 0.0 K/uL (0.0-0.7) 06/27/18 05:12 Baso # (Auto) 0.0 K/uL (0.0-0.2) 06/27/18 05:12 PT 14.1 Seconds (9.8-13.1) H 06/25/18 12:00 INR 1.2 06/25/18 12:00 APTT 32.5 Seconds (25.6-37.1) 06/25/18 12:00 Sodium 133 mmol/l (132-148) 06/30/18 05:19 Potassium 3.9 MMOL/L (3.6-5.0) 06/30/18 05:19 Chloride 99 mmol/L (98-107) 06/30/18 05:19 Carbon Dioxide 29 mmol/L (22-30) 06/30/18 05:19 Anion Gap 9 (10-20) L 06/30/18 05:19 BUN 6 mg/dl (9-20) L 06/30/18 05:19 Creatinine 0.8 mg/dl (0.8-1.5) 06/30/18 05:19 Est GFR ( Amer) > 60 06/30/18 05:19 Est GFR (Non-Af Amer) > 60 06/30/18 05:19 POC Glucose (mg/dL) 84 mg/dL (65-110) 06/27/18 06:00 Random Glucose 84 mg/dL (75-110) 06/30/18 05:19 Lactic Acid 0.5 mmol/L (0.7-2.1) L 06/27/18 05:10 Calcium 8.7 mg/dL (8.4-10.2) 06/30/18 05:19 Phosphorus 2.3 mg/dl (2.5-4.5) L 06/28/18 04:30 Magnesium 2.0 MG/DL (1.6-2.3) 06/27/18 07:01 Total Bilirubin 1.0 mg/dl (0.2-1.3) 06/30/18 05:19 AST 57 U/L (17-59) 06/30/18 05:19 ALT 73 U/L (21-72) H 06/30/18 05:19 Alkaline Phosphatase 131 U/L (38-126) H D 06/30/18 05:19 Total Protein 6.1 G/DL (6.3-8.2) L 06/30/18 05:19 Albumin 2.9 g/dL (3.5-5.0) L 06/30/18 05:19 Globulin 3.3 gm/dL (2.2-3.9) 06/30/18 05:19 Albumin/Globulin Ratio 0.9 (1.0-2.1) L 06/30/18 05:19 Procalcitonin 0.64 NG/ML (0.19-0.49) H 06/25/18 19:00 Blood Type O POSITIVE 06/26/18 13:30 Antibody Screen Negative 06/26/18 13:30 Crossmatch See Detail 06/26/18 13:30 BBK History Checked Patient has bt 06/26/18 13:30 - Hospital Course Hospital Course: 58 y/o male with PMH Gastric Ca s/p gastrectomy, was admitted recently with SBO ,underwent exploratory laparotomy with lysis of adhesions,small bowel resection and primary anastomosis on 06/15/18. He developed rectal bleed with hypotension on 06/24 after transfer to acute rehab with Hgb 7.4 and was admitted back to ICU for GI bleed and responded well to IVF.ASA Plavix and Lovenox were held and he was transfused total 2 unit PRBC with Hgb today 11 Surgery , Id and Gi were consulted . Meropenem initially was continued due to GI bleed and since there was not clear if patient had a source of infecvtion and discontinued once infection was ruled out CT abdomen and pelvis did showed high degree SBO so patient was kept NPO, NGt was introduced , given IVF and pain management His SBo resolved conservatively and at present he is tolerating PO intake , having regular bowel movements and has had no other bleeding episodes since 06/24 He is hemodynamically stable Will discharge patient back to acute rehab for continuation of physical therapy Dx 1. High grade SBO -resolved .Abdomen soft, passing flatus and having BM, tolerating dioet 2.Rectal bleed of unclear source with hypotension and Sinus Tachycardia --No more rectal bleed , hypotension and tachycardia resolved 3.Acute blood loss anemia--received 2 unit PRBC transfusion . Repeat CBC in AM 4.s/p recent exploratory laparatomy with adhesion lysis , intestinal resection and primary anastomosis--surgical incision healing well and petros removed Surgery on board following Meropenem discontinued 5.Suspected seizure disorder with recent AMS -- continue Keppra 6.Suspected recent TIA-- continue Statin . Hold ASA, Plavix , lovenox due to GI bleed Discharge Exam - Head Exam Head Exam: ATRAUMATIC, NORMOCEPHALIC - Eye Exam Eye Exam: EOMI, PERRL Pupil Exam: NORMAL ACCOMODATION - ENT Exam ENT Exam: Normal Exam - Neck Exam Neck exam: Full Rom, Normal Inspection - Respiratory Exam Respiratory Exam: Clear to PA & Lateral, NORMAL BREATHING PATTERN. absent: Rhonchi, Wheezes, Respiratory Distress - Cardiovascular Exam Cardiovascular Exam: REGULAR RHYTHM, RRR, +S1, +S2. absent: JVD - GI/Abdominal Exam GI & Abdominal Exam: Normal Bowel Sounds, Soft. absent: Distended, Guarding, Rebound, Tenderness - Rectal Exam Rectal Exam: Deferred - Extremities Exam Extremities exam: normal capillary refill, normal inspection, pedal pulses present - Neurological Exam Neurological exam: Alert, CN II-XII Intact, Oriented x3 - Psychiatric Exam Psychiatric exam: Normal Affect, Normal Mood - Skin Skin Exam: Dry, Normal Color, Warm Discharge Plan - Discharge Medications Prescriptions: Levetiracetam [Keppra] 500 mg PO Q12 #60 tablet Pantoprazole Sodium [Protonix] 40 mg PO DAILY #30 ect - Follow Up Plan Condition: STABLE Disposition: REHAB FACILITY/REHAB UNIT Patient education suggested?: Yes Additional Instructions: Follow up witb hospitalist service
[2018-06-30 15:54] VITALS: BP 105/67; PULSE 99; TEMP 98.7; O2SAT 98
--- NOTE | 2018-07-02 13:25 | PQF ---
PROVIDER RESPONSE TEXT: Patient had sepsis which resolved REVIEWER QUERY TEXT: Rule Out Sepsis Clarification Rule out Sepsis is documented in the Medical Record. Please clarify whether: -- Patient has sepsis - Please document confirmed, suspected or probable causative organism - Please document confirmed, suspected or probable localized infection - Please clarify if sepsis is related to a device - Please clarify if sepsis was present on admission -- Sepsis was ruled out (include corresponding diagnosis for patient?s clinical picture and treatment ) -- Patient had sepsis which is resolved -- Other, please specify The patient's Clinical Indicators include: DOCUMENTATION IN RECORD OF ENTEROBACTER SEPSIS. PLEASE CONFIRM IF SEPSIS WAS RULED IN OR OUT. Query created by: Kesha Machado on 07/02/2018 12:50 PM Electronically signed by: 07/02/2018 1:22 PM
--- NOTE | 2018-07-03 10:26 | CP.PCM.PN ---
Subjective - Date & Time of Evaluation Date of Evaluation: 06/30/18 Time of Evaluation: 16:00 - Subjective Subjective: no overnight events Objective - Vital Signs/Intake and Output Vital Signs (last 24 hours): Temp Pulse Resp BP Pulse Ox 98.7 F 99 H 18 105/67 98 06/30/18 15:53 06/30/18 15:53 06/30/18 15:53 06/30/18 15:53 06/30/18 15:53 - Labs Labs: 06/30/18 05:19 06/30/18 05:19 PT 14.1 Seconds (9.8-13.1) H 06/25/18 12:00 INR 1.2 06/25/18 12:00 APTT 32.5 Seconds (25.6-37.1) 06/25/18 12:00 - Neck Exam Neck Exam: Normal Inspection - Respiratory Exam Respiratory Exam: Clear to Ausculation Bilateral, NORMAL BREATHING PATTERN - Cardiovascular Exam Cardiovascular Exam: REGULAR RHYTHM - GI/Abdominal Exam GI & Abdominal Exam: Soft, Normal Bowel Sounds Assessment and Plan - Assessment and Plan (Free Text) Assessment: 58 yo male with SBO sbo resolving melena stopped hgb stable outpatient egd/colon as indicated
== END 2018-06-30 17:45 | DRG 377 ==
LOC: H.ER 06:01 → H.ERHOLD 06:26 → H.ICU/CCU 06:49 → H.TEL 06-28 14:11
PROVIDERS: ADMIT Internal Medicine; ATTEND Internal Medicine
PROC: 03HY32Z Insertion of Monitoring Device into Upper Artery, Percutaneous Approach (ICD-10-PCS; 2018-06-25)
PROC: 30233N1 Transfusion of Nonautologous Red Blood Cells into Peripheral Vein, Percutaneous Approach (ICD-10-PCS; principal; 2018-06-26)
DX: K92.1 Melena (principal); R57.1 Hypovolemic shock; D62 Acute posthemorrhagic anemia; K56.609 Unspecified intestinal obstruction, unspecified as to partial versus complete obstruction; R04.2 Hemoptysis; I95.9 Hypotension, unspecified; R00.0 Tachycardia, unspecified; I10 Essential (primary) hypertension; Z85.038 Personal history of other malignant neoplasm of large intestine; Z85.028 Personal history of other malignant neoplasm of stomach; Z85.01 Personal history of malignant neoplasm of esophagus; Z86.010 Personal history of colon polyps; Z90.3 Acquired absence of stomach [part of]; Z90.49 Acquired absence of other specified parts of digestive tract; E78.5 Hyperlipidemia, unspecified; E78.00 Pure hypercholesterolemia, unspecified; F17.210 Nicotine dependence, cigarettes, uncomplicated; Z86.73 Personal history of transient ischemic attack (TIA), and cerebral infarction without residual deficits; Z79.02 Long term (current) use of antithrombotics/antiplatelets; Z79.82 Long term (current) use of aspirin

== ENCOUNTER 2018-06-30 12:34 | Inpatient (IN) | payer OTHER ==
[2018-07-01 06:09] VITALS: BMI 18.7
[2018-07-01 06:19] LABS: HEMOGLOBIN 10.4 g/dL (12.0-18.0); MEAN CELL VOLUME 92.3 fl (80.0-94.0); MEAN CORPUSCULAR HEMOGLOBIN 31.7 pg (27.0-31.0); MEAN CORPUSCULAR HGB CONC 34.4 g/dL (33.0-37.0); RBC 3.27 Mil/uL (4.40-5.90); RED CELL DISTRIBUTION WIDTH 15.2 % (11.5-14.5)
[2018-07-01 06:21] LABS: WHITE BLOOD COUNT 4.8 K/uL (4.8-10.8)
[2018-07-01 06:28] LABS: BLOOD UREA NITROGEN 12 mg/dl (9-20); CALCIUM 8.1 mg/dL (8.4-10.2); GFR NON-AFRICAN AMERICAN > 60
[2018-07-01] MEDS: Pantoprazole 40 mg EC Tab PO SCH (08:49)
--- NOTE | 2018-07-01 13:07 | CP.PCM.HP ---
History of Present Illness - History of Present Illness History of Present Illness: 58 y/o male with PMH of Gastric Ca s/p gastrectomy, was admitted recently with SBO, underwent exploratory laparotomy with lysis of adhesions, small bowel resection and primary anastomosis on 06/15/18. He developed rectal bleed with hypotension on 06/24 after transfer to acute rehab (Hgb 7.4) and was admitted back to ICU for GI bleed and responded well to IVF. ASA, Plavix and Lovenox were held and he was transfused total 2 unit PRBC with (Hgb 11). Surgery, ID and GI were consulted. Meropenem from previous admission (14 day source rec by ID) initially was continued due to GI bleed and since there was not clear if patient had a source of infection and discontinued once infection was ruled out. CT abdomen and pelvis did showed high degree SBO so patient was kept NPO, NGT was introduced, he was put on IVF and pain management. His SBO resolved conservatively. PO intake tolerated and having regular BM without bleeding. Admitted to [facility] for continuation of physical therapy. Present on Admission - Present on Admission Any Indicators Present on Admission: No History of DVT/PE: No History of Uncontrolled Diabetes: No Past Patient History - Infectious Disease Hx of Infectious Diseases: None - Past Medical History & Family History Past Medical History?: Yes - Past Social History Smoking Status: 1/2 pack a - CARDIAC Hx Cardiac Disorders: Yes Hx Hypercholesterolemia: Yes Hx Hypertension: Yes - PULMONARY Hx Respiratory Disorders: No - NEUROLOGICAL Hx Seizures: Yes - HEENT Hx HEENT Problems: No - RENAL Hx Chronic Kidney Disease: No - ENDOCRINE/METABOLIC Hx Endocrine Disorders: No - HEMATOLOGICAL/ONCOLOGICAL Hx AIDS: No Hx Human Immunodeficiency Virus (HIV): No - INTEGUMENTARY Hx Dermatological Problems: No - MUSCULOSKELETAL/RHEUMATOLOGICAL Hx Falls: No - GASTROINTESTINAL Other/Comment: - Colon CA. - GI bleed (blood transfusion of PRBC 06/26/2018) - GENITOURINARY/GYNECOLOGICAL Hx Genitourinary Disorders: No - PSYCHIATRIC Hx Substance Use: No - SURGICAL HISTORY Hx Appendectomy: Yes (About 25 years ago) Other/Comment: - 06/15/2018: Exploratory laparotomy with lysis of adhesions, small bowel resection and primary anastomosis - ANESTHESIA Hx Anesthesia: Yes Hx Anesthesia Reactions: No Hx Malignant Hyperthermia: No Has any member of the family had a problem w/ anesthesia?: No Meds Allergies/Adverse Reactions: Allergies Allergy/AdvReac Type Severity Reaction Status Date / Time No Known Allergies Allergy Verified 06/30/18 18:06 Physical Exam - Constitutional Appears: Cachectic, Chronically Ill - Head Exam Head Exam: NORMAL INSPECTION - Respiratory Exam Respiratory Exam: NORMAL BREATHING PATTERN. absent: Respiratory Distress - Cardiovascular Exam Cardiovascular Exam: REGULAR RHYTHM - GI/Abdominal Exam GI & Abdominal Exam: Soft. absent: Tenderness - Neurological Exam Neurological exam: Alert, Oriented x3 - Psychiatric Exam Psychiatric exam: Normal Affect, Normal Mood - Skin Skin Exam: Dry, Intact, Normal Color, Warm Results - Vital Signs Recent Vital Signs: Last Vital Signs Temp 97.2 F L 07/01/18 09:09 Pulse 83 07/01/18 09:09 Resp 18 07/01/18 09:09 BP 99/59 L 07/01/18 09:09 Pulse Ox 100 07/01/18 07:53 - Labs Result Diagrams: 07/01/18 06:05 07/01/18 06:05 Labs: Laboratory Results - last 24 hr 07/01/18 07/01/18 07/01/18 05:59 06:05 06:05 WBC 4.8 RBC 3.27 L Hgb 10.4 L Hct 30.2 L MCV 92.3 MCH 31.7 H MCHC 34.4 RDW 15.2 H Plt Count 409 H Sodium 132 Potassium 3.8 Chloride 95 L Carbon Dioxide 29 Anion Gap 12 BUN 12 Creatinine 1.0 Est GFR ( Amer) > 60 Est GFR (Non-Af Amer) > 60 POC Glucose (mg/dL) 80 Random Glucose 72 L Calcium 8.1 L Procalcitonin 07/01/18 06:05 WBC RBC Hgb Hct MCV MCH MCHC RDW Plt Count Sodium Potassium Chloride Carbon Dioxide Anion Gap BUN Creatinine Est GFR ( Amer) Est GFR (Non-Af Amer) POC Glucose (mg/dL) Random Glucose Calcium Procalcitonin 0.22 Assessment & Plan - Assessment and Plan (Free Text) Plan: 1. High grade SBO -resolved, passing flatus and having BM, tolerating diet 2.Rectal bleed of unclear source with hypotension and Sinus Tachycardia -resolved, no bleeding since 06/24 3.Acute blood loss anemia -s/p 2 unit PRBC transfusion -Hg/Hct 10.4/30.2 4.s/p recent exploratory laparatomy with adhesion lysis , intestinal resection and primary anastomosis -Healing appropriately 5.Suspected seizure disorder with recent AMS -C/W Keppra 6.Suspected recent TIA -C/W Statin -Hold ASA, Plavix , lovenox due to GI bleed
--- NOTE | 2018-07-01 13:12 | PCM.PSYTMC ---
Acute Rehab Team Conference - - Vital Signs: Vital Signs (Last 8 Hours): Vital Signs 07/01/18 07/01/18 07:53 09:09 Temperature 97.2 F L 97.2 F L Pulse Rate 83 83 Respiratory 18 18 Rate Blood Pressure 99/59 L 99/59 L O2 Sat by Pulse 100 Oximetry Pain: 0 - Precautions: Precautions: Fall Prevention, Cardiac/Pulmonary - Medications/Other Issues: Comment: Marilee. Ultram 50 mg p.o TID pain level 4-7. Ultram 100 mg p.o Q6 hrs for pain level 8-10 - Consults: Comment: Dr. Colon GI hx of bloody stoo. Dr. Jones Surgeon explor lap 06/15/18. Dr. Osmar Ramirez D - Skin: Incision Site: Mid abdominal area Dressing Status: Clean, Dry, Intact Incision: Healing Well, No Drainage Noted, No Odor Incision Line Treatment: Surgical incision open to air healing well. - Toileting: Toileting: Supervision - Bladder Management: Bladder Pattern: Normal Voiding Method: Toilet, Urinal Bladder Management: Supervision - Transfers: Transfers: Minimal Assistance - ADL's: ADL's: Minimal Assistance - Pain Management: Other Intervention:: Ultram 50 mg. p.o TID for pain level 4-7. Ultram 100 mg p.o every 6 hrs for pain level 8-10 - Patient/Family Teaching: Other Intervention:: Safe transfer. Pain mgt. Signs/symptoms of infection. Smoking cessation - Goals/Time Frame: Comment: Next Team Conference - Provider: Registered Nurse:: Alyssa Oconnell Occupational Therapy - ADL/IADL Self Feeding: Supervision Grooming: Supervision Bathing-Upper Ext: Supervision Bathing-Lower Ext: Contact Guard Dressing-Upper Ext: Supervision Homemaking: Contact Guard Nutrition - Current Diet Current Diet/Supplement/Feedings: 2 gm Na, Heart Healthy, Soft diet - Appetite Percent Meal Consumed: 25-49% - Assessment/Goals/Time Frame Assessments/Goals/Time Frame: Intital assessment due on 07/02/2018 Case Management - Psychosocial Assessment Support Systems: Haily Torre (spouse) - [phone] Psychological Interventions/Needs: Patient is AAO and able to verbalize needs. Discharge Concerns: Patient is deconditioned and was previously independent. Patient/Family Meeting: CM met with patient and rehab team. Intervention/Goal/Outcome: 1. Goal: Mod I/intermittent supervision 2. Plan: home with VNS vs. outpatient PT pending progress 3. discuss DME needs 4. f/u appts 4. emotional support - Discharge Plan Discharge Plan: Home with significant other/family - Provider Provider: Elmira Starr License Number: [id number] Rehabilitation Plan - Treatment Plan Treatment Plan: Physical Therapy, Occupational Therapy, Dietary, Patient/Family Education
--- NOTE | 2018-07-01 13:40 | PCM.CPAPS ---
History of Present Illness - History of Present Illness History of Present Illness: Dr Boyd PMR consultation on Gautam Hanley, born 1960 who has been admitted to [facility] for acute inpatient rehabilitation following ex-lap for SBO and lysis of adhesions. He initially had partial gastrectomy with billroth II 05/26/[address] Gibbs. Margins were clear as was the frozen section. 0/14 Lymph nodes. Post op had BRBPR and had PRBC. Stable now. Poor appetite. Review of Systems - Constitutional Constitutional: absent: Anorexia, Chills - EENT Eyes: absent: Blurred Vision, Change in Vision Ears: absent: Ear Discharge, Ear Pain Nose/Mouth/Throat: absent: Nasal Congestion - Cardiovascular Cardiovascular: absent: Chest Pain, Chest Pain at Rest - Respiratory Respiratory: absent: Cough, Dyspnea, Hemoptysis - Gastrointestinal Gastrointestinal: absent: Bloating, Vomiting - Integumentary Integumentary: absent: Bleeding Lesions - Neurological Neurological: absent: Abnormal Movements, Dizziness Past Patient History - Infectious Disease Hx of Infectious Diseases: None - Past Medical History & Family History Past Medical History?: Yes - Past Social History Smoking Status: 1/2 pack a Alcohol: None Drugs: Denies Home Situation {Lives}: With Family - CARDIAC Hx Cardiac Disorders: Yes Hx Hypercholesterolemia: Yes Hx Hypertension: Yes - PULMONARY Hx Respiratory Disorders: No - NEUROLOGICAL Hx Seizures: Yes - HEENT Hx HEENT Problems: No - RENAL Hx Chronic Kidney Disease: No - ENDOCRINE/METABOLIC Hx Endocrine Disorders: No - HEMATOLOGICAL/ONCOLOGICAL Hx AIDS: No Hx Human Immunodeficiency Virus (HIV): No - INTEGUMENTARY Hx Dermatological Problems: No - MUSCULOSKELETAL/RHEUMATOLOGICAL Hx Falls: No - GASTROINTESTINAL Other/Comment: - Colon CA. - GI bleed (blood transfusion of PRBC 06/26/2018) - GENITOURINARY/GYNECOLOGICAL Hx Genitourinary Disorders: No - PSYCHIATRIC Hx Substance Use: No - SURGICAL HISTORY Hx Appendectomy: Yes (About 25 years ago) Other/Comment: - 06/15/2018: Exploratory laparotomy with lysis of adhesions, small bowel resection and primary anastomosis - ANESTHESIA Hx Anesthesia: Yes Hx Anesthesia Reactions: No Hx Malignant Hyperthermia: No Has any member of the family had a problem w/ anesthesia?: No Meds Allergies/Adverse Reactions: Allergies Allergy/AdvReac Type Severity Reaction Status Date / Time No Known Allergies Allergy Verified 06/30/18 18:06 - Medications Medications: Current Medications Acetaminophen (Tylenol 325mg Tab) 650 mg PO Q6 PRN PRN Reason: Pain, Mild (1-3) Acetaminophen (Tylenol 325mg Tab) 650 mg PO Q6 PRN PRN Reason: Fever >100.4 F Atorvastatin Calcium (Lipitor) 40 mg PO HS [facility] Last Admin: 06/30/18 21:57 Dose: 40 mg Levetiracetam (Keppra) 500 mg PO Q12 [facility] Last Admin: 07/01/18 08:48 Dose: 500 mg Ondansetron HCl (Zofran Inj) 4 mg IVP Q6 PRN PRN Reason: Nausea/Vomiting Pantoprazole Sodium (Protonix Ec Tab) 40 mg PO DAILY [facility] Last Admin: 07/01/18 08:49 Dose: 40 mg Tramadol HCl (Ultram) 100 mg PO Q6 PRN PRN Reason: Pain, severe (8-10) Tramadol HCl (Ultram) 50 mg PO TID PRN PRN Reason: Pain, moderate (4-7) Last Admin: 07/01/18 09:52 Dose: 50 mg Physical Exam - Constitutional Appears: Non-toxic - Head Exam Head Exam: ATRAUMATIC, NORMAL INSPECTION. absent: NORMOCEPHALIC (temporal wasting) - Eye Exam Eye Exam: EOMI - ENT Exam ENT Exam: Mucous Membranes Moist - Respiratory Exam Respiratory Exam: NORMAL BREATHING PATTERN - Cardiovascular Exam Cardiovascular Exam: REGULAR RHYTHM - GI/Abdominal Exam GI & Abdominal Exam: Distended. absent: Firm (incision line CDI and well approximated) - Extremities Exam Extremities exam: Negative for: calf tenderness - Neurological Exam Neurological exam: Alert, CN II-XII Intact, Oriented x3 - Psychiatric Exam Psychiatric exam: Normal Affect, Normal Mood - Skin Skin Exam: Warm Results - Vital Signs Recent Vital Signs: Last Vital Signs Temp 97.2 F L 07/01/18 09:09 Pulse 83 07/01/18 09:09 Resp 18 07/01/18 09:09 BP 99/59 L 07/01/18 09:09 Pulse Ox 100 07/01/18 07:53 - Labs Result Diagrams: 07/01/18 06:05 07/01/18 06:05 Labs: Laboratory Results - last 24 hr 07/01/18 07/01/18 07/01/18 05:59 06:05 06:05 WBC 4.8 RBC 3.27 L Hgb 10.4 L Hct 30.2 L MCV 92.3 MCH 31.7 H MCHC 34.4 RDW 15.2 H Plt Count 409 H Sodium 132 Potassium 3.8 Chloride 95 L Carbon Dioxide 29 Anion Gap 12 BUN 12 Creatinine 1.0 Est GFR ( Amer) > 60 Est GFR (Non-Af Amer) > 60 POC Glucose (mg/dL) 80 Random Glucose 72 L Calcium 8.1 L Procalcitonin 07/01/18 06:05 WBC RBC Hgb Hct MCV MCH MCHC RDW Plt Count Sodium Potassium Chloride Carbon Dioxide Anion Gap BUN Creatinine Est GFR ( Amer) Est GFR (Non-Af Amer) POC Glucose (mg/dL) Random Glucose Calcium Procalcitonin 0.22 Assessment & Plan - Assessment and Plan (Free Text) Assessment: SBO with ex-lap and lysis of adhesions PT/OT to continue to help increase functional independence Team conference for d/c planning Pain: controlled Vascular: no evidence of DVT GI: No evidence of constipation or diarrhea Patient is an excellent acute rehabilitation candidate and will have focused pain management, wound care, PT, OT and recreational therapy to help facilitate a safe and appropriate d/c plan - Functional Status Prior to Admission: Independent Current Status: needs assistance with ADLs and ambulation Impairment Code: 16
--- NOTE | 2018-07-01 13:46 | PCM.OPOC ---
Physiatry Overall Plan of Care - Overall Plan of Care Estimated Length of Stay in Weeks: 2 Rehab Impairment: Mobility, Gait, Balance Etiologic Diagnosis: Other Rehab/Medical Prognosis: Fair - Anticipated Interventions Physical Therapy:: Yes Number of Hours: 1.5 Number of times per week: 6 Number of Week(s) Duration: 2 Occupational Therapy:: Yes Number of Hours: 1.5 Number of times per week: 6 Number of Week(s) Duration: 2 Speech Therapy:: No Recreational Therapy:: Yes Number of Hours: 1 Number of times per week: 5 Number of Week(s) Duration: 2 - Therapy Goals Bed Mobility: Supervision Ambulation: Supervision Functional Positional Changes:: Supervision - Functional Status Prior to Admission: independent Current Status: needs assistance with ADLs - Functional Outcomes Functional Outcomes: to be assessed - Discharge Plan Identification of Barriers to Discharge: Home Situation Discharge Destination: Home
[2018-07-02] MEDS: Pantoprazole 40 mg EC Tab PO SCH (08:18)
--- NOTE | 2018-07-02 11:42 | CP.PCM.CON ---
History of Present Illness - History of Present Illness History of Present Illness: General Surgery consult note for Dr. Reynaga Patient is a 58 M with PMH Gastric ca s/p gastrectomy initially admitted to [facility] for SBO, s/p CHUCK and SBR with primary anastamosis 06/15/18. After inital transfer to REhab unit patient developed GI bleed and was returned to the ICU. imaging revealed continues SBO which resolved with conservative management. Patient now in rehab facility again and recovering well. Denies abdominal pain, n/v, f/c, stool changes and endorses flatus/ BM (nonbloody). No further complaints at this time. PMD: Dr. Edith Mendoza PMH: gastric CA s/p resection, colon polyps, HLD, TIA, SBO, HTN PSH: billroth II (gastrojejunostomy) with entero-enterostomy, colonoscopy, surgery for ulcers, appendectomy, ex-lap with CHUCK/SBR/primary anastomosis ALL: NKDA Meds: as per EMR Social: smokes 1/2 pack/day for years (20+ pack year history), denies EtOH/illicit drug use Review of Systems - Review of Systems All systems: reviewed and no additional remarkable complaints except (as per HPI) Past Patient History - Infectious Disease Hx of Infectious Diseases: None - Past Medical History & Family History Past Medical History?: Yes - Past Social History Smoking Status: 1/2 pack a Alcohol: None Drugs: Denies Home Situation {Lives}: With Family - CARDIAC Hx Cardiac Disorders: Yes Hx Hypercholesterolemia: Yes Hx Hypertension: Yes - PULMONARY Hx Respiratory Disorders: No - NEUROLOGICAL Hx Seizures: Yes - HEENT Hx HEENT Problems: No - RENAL Hx Chronic Kidney Disease: No - ENDOCRINE/METABOLIC Hx Endocrine Disorders: No - HEMATOLOGICAL/ONCOLOGICAL Hx AIDS: No Hx Human Immunodeficiency Virus (HIV): No - INTEGUMENTARY Hx Dermatological Problems: No - MUSCULOSKELETAL/RHEUMATOLOGICAL Hx Falls: No - GASTROINTESTINAL Other/Comment: - Colon CA. - GI bleed (blood transfusion of PRBC 06/26/2018) - GENITOURINARY/GYNECOLOGICAL Hx Genitourinary Disorders: No - PSYCHIATRIC Hx Substance Use: No - SURGICAL HISTORY Hx Appendectomy: Yes (About 25 years ago) Other/Comment: - 06/15/2018: Exploratory laparotomy with lysis of adhesions, small bowel resection and primary anastomosis - ANESTHESIA Hx Anesthesia: Yes Hx Anesthesia Reactions: No Hx Malignant Hyperthermia: No Has any member of the family had a problem w/ anesthesia?: No Meds Allergies/Adverse Reactions: Allergies Allergy/AdvReac Type Severity Reaction Status Date / Time No Known Allergies Allergy Verified 06/30/18 18:06 - Medications Medications: Current Medications Acetaminophen (Tylenol 325mg Tab) 650 mg PO Q6 PRN PRN Reason: Pain, Mild (1-3) Acetaminophen (Tylenol 325mg Tab) 650 mg PO Q6 PRN PRN Reason: Fever >100.4 F Atorvastatin Calcium (Lipitor) 40 mg PO HS [facility] Last Admin: 07/01/18 21:04 Dose: 40 mg Levetiracetam (Keppra) 500 mg PO Q12 [facility] Last Admin: 07/02/18 08:18 Dose: 500 mg Ondansetron HCl (Zofran Inj) 4 mg IVP Q6 PRN PRN Reason: Nausea/Vomiting Pantoprazole Sodium (Protonix Ec Tab) 40 mg PO DAILY [facility] Last Admin: 07/02/18 08:18 Dose: 40 mg Tramadol HCl (Ultram) 100 mg PO Q6 PRN PRN Reason: Pain, severe (8-10) Last Admin: 07/01/18 20:11 Dose: 100 mg Tramadol HCl (Ultram) 50 mg PO TID PRN PRN Reason: Pain, moderate (4-7) Last Admin: 07/02/18 00:06 Dose: 50 mg Physical Exam - Constitutional Appears: Well, Non-toxic, No Acute Distress - Head Exam Head Exam: ATRAUMATIC, NORMOCEPHALIC - Eye Exam Eye Exam: EOMI - ENT Exam ENT Exam: Mucous Membranes Moist - Respiratory Exam Respiratory Exam: NORMAL BREATHING PATTERN - Cardiovascular Exam Cardiovascular Exam: REGULAR RHYTHM - GI/Abdominal Exam GI & Abdominal Exam: Soft. absent: Guarding, Hernia, Tenderness - Extremities Exam Extremities exam: Negative for: calf tenderness, pedal edema - Neurological Exam Neurological exam: Alert, Oriented x3 - Psychiatric Exam Psychiatric exam: Normal Affect, Normal Mood - Skin Skin Exam: Dry, Intact, Normal Color, Warm Additional comments: incisions cdi Results - Vital Signs Recent Vital Signs: Last Vital Signs Temp 97.3 F L 07/02/18 07:44 Pulse 70 07/02/18 07:44 Resp 18 07/02/18 07:44 BP 103/63 07/02/18 07:44 Pulse Ox 100 07/02/18 07:44 - Labs Result Diagrams: 07/01/18 06:05 07/01/18 06:05 Labs: Laboratory Results - last 24 hr 07/01/18 07/02/18 06:05 05:51 POC Glucose (mg/dL) 85 Procalcitonin 0.22 Assessment & Plan - Assessment and Plan (Free Text) Assessment: 58 yr old male s/p CHUCK with SBR and primary anastamosis Plan: - patient clear from surgical standpoint - please follow up in office upon discharge - further recs per Dr. Ronnell Houston, PGY 1
--- NOTE | 2018-07-02 13:26 | CP.PCM.PN ---
Subjective - Date & Time of Evaluation Date of Evaluation: 07/02/18 Time of Evaluation: 13:00 - Subjective Subjective: Pt seen and examined feels better tolerated PO diet had BM , no blood minimal abd discomfort denies CP no SOB Participated with Physical therapy this am Pt asked me to complete disability paperwork Objective - Vital Signs/Intake and Output Vital Signs (last 24 hours): Temp Pulse Resp BP Pulse Ox 97.3 F L 74 18 110/68 100 07/02/18 07:44 07/02/18 11:00 07/02/18 07:44 07/02/18 11:00 07/02/18 11:00 - Medications Medications: Current Medications Acetaminophen (Tylenol 325mg Tab) 650 mg PO Q6 PRN PRN Reason: Pain, Mild (1-3) Acetaminophen (Tylenol 325mg Tab) 650 mg PO Q6 PRN PRN Reason: Fever >100.4 F Atorvastatin Calcium (Lipitor) 40 mg PO HS [facility] Last Admin: 07/01/18 21:04 Dose: 40 mg Levetiracetam (Keppra) 500 mg PO Q12 [facility] Last Admin: 07/02/18 08:18 Dose: 500 mg Ondansetron HCl (Zofran Inj) 4 mg IVP Q6 PRN PRN Reason: Nausea/Vomiting Pantoprazole Sodium (Protonix Ec Tab) 40 mg PO DAILY [facility] Last Admin: 07/02/18 08:18 Dose: 40 mg Tramadol HCl (Ultram) 100 mg PO Q6 PRN PRN Reason: Pain, severe (8-10) Last Admin: 07/01/18 20:11 Dose: 100 mg Tramadol HCl (Ultram) 50 mg PO TID PRN PRN Reason: Pain, moderate (4-7) Last Admin: 07/02/18 00:06 Dose: 50 mg - Labs Labs: 07/01/18 06:05 07/01/18 06:05 - Constitutional Appears: Well, Non-toxic, No Acute Distress - Head Exam Head Exam: ATRAUMATIC, NORMAL INSPECTION, NORMOCEPHALIC - Eye Exam Eye Exam: EOMI, Normal appearance Pupil Exam: NORMAL ACCOMODATION - ENT Exam ENT Exam: Mucous Membranes Moist, Normal External Ear Exam - Neck Exam Neck Exam: Full ROM. absent: Meningismus - Respiratory Exam Respiratory Exam: NORMAL BREATHING PATTERN. absent: Respiratory Distress - Cardiovascular Exam Cardiovascular Exam: REGULAR RHYTHM, +S1, +S2 - GI/Abdominal Exam GI & Abdominal Exam: Distended, Soft, Normal Bowel Sounds - Extremities Exam Extremities Exam: Full ROM, Normal Capillary Refill. absent: Calf Tenderness, Pedal Edema - Back Exam Back Exam: Full ROM. absent: CVA tenderness (L), CVA tenderness (R) - Neurological Exam Neurological Exam: Alert, Awake, Oriented x3 Neuro motor strength exam: Left Upper Extremity: 5, Right Upper Extremity: 5, Left Lower Extremity: 5, Right Lower Extremity: 5 - Psychiatric Exam Psychiatric exam: Normal Affect, Normal Mood - Skin Skin Exam: Dry, Normal Color, Warm Assessment and Plan - Assessment and Plan (Free Text) Plan: 1. High grade SBO s/p Recent Explor Lap with Adhesiolysis and bowel resection with primary anastomosis - pt tolerating Regular diet , + BM, good bowel sounds 2. Acute GI Bleed with Acute Blood Loss Anemia and Sinus Tachycardia -episode of GI bleed - H/H went down and pt transfused 3 units PRBC - H/H now stable, no further bleed, tachycardia and hypotension resolved - off antiplatelet and anticoag due to the bleed - GI consulted - no Endoscopic intervention - cont PPI 3. Suspected seizure disorder with recent AMS -- continue Keppra 4. Suspected recent TIA -- continue Statin . Hold ASA, Plavix , lovenox due to GI bleed 5. Physical Deconditioning - Physical and occupational therapy
--- NOTE | 2018-07-02 13:48 | CP.PCM.CON ---
History of Present Illness - History of Present Illness History of Present Illness: Admitted to [facility]hab from [facility] s/p GI bleed and severe generalized weakness Recently completed 14 days IV rx for sepsis ( gram neg ) In May , patient was admitted to ICU and treated for SBO and sepsis 2/2 to enterobacter aerogenes. SBO resolved s/p exploratory laparatomy with lysis of adhesions , bowel resection and primary anastomosis. After ex-lap patient developed AMS of unclear etiology. CT and MRI head showed no acute stroke. Suspected seizure activity Currently awake alert with Denies fever or chills IV antibiotics were completed ( 14 day course ) PMH: gastric and colon CA s/p resections, HLD PSH: gastric and colon resection for CA, surgery for ulcers, appendectomy ALL: NKDA Meds: as per EMR Social: smokes 1/2 pack/day for years (20+ pack year history), denies EtOH/illicit drug use Review of Systems - Review of Systems All systems: reviewed and no additional remarkable complaints except - Constitutional Constitutional: As Per HPI - EENT Eyes: absent: As Per HPI, Blind Spots, Blurred Vision, Change in Vision, Decreased Night Vision, Diplopia, Discharge, Dry Eye, Exophthalmos, Floaters, Irritation, Itchy Eyes, Loss of Peripheral Vision, Pain, Photophobia, Requires Corrective Lenses, Sees Flashes, Spots in Vision, Tunnel Vision, Other Visual Di sturbances, Loss of Vision, Other Ears: absent: As Per HPI, Decreased Hearing, Ear Discharge, Ear Pain, Tinnitus, Abnormal Hearing, Disequilibrium, Dizziness, Other Nose/Mouth/Throat: absent: As Per HPI, Epistaxis, Nasal Congestion, Nasal Discharge, Nasal Obstruction, Nasal Trauma, Nose Pain, Post Nasal Drip, Sinus Pain, Sinus Pressure, Bleeding Gums, Change in Voice, Dental Pain, Dry Mouth, Dysphagia, Halitosis, Hoarsness, Lip Swelling, Mouth Lesions, Mouth Pain, Odynophagia, Sore Throat, Throat Swelling, Tongue Swelling, Facial Pain, Neck Pain, Neck Mass, Other - Cardiovascular Cardiovascular: absent: As Per HPI, Acrocyanosis, Chest Pain, Chest Pain at Rest, Chest Pain with Activity, Claudication, Diaphoresis, Dyspnea, Dyspnea on Exertion, Edema, Irregular Heart Rhythm, Pain Radiating to Arm/Neck/Jaw, Leg Edema, Leg Ulcers, Lightheadedness, Orthopnea, Palpitations, Paroxysmal Nocturnal Dyspnea, Pedal Edema, Radiating Pain, Rapid Heart Rate, Slow Heart Rate, Syncope, Other - Respiratory Respiratory: absent: As Per HPI, Cough, Dyspnea, Hemoptysis, Dyspnea on Exertion, Wheezing, Snoring, Stridor, Pain on Inspiration, Chest Congestion, Excessive Mucous Production, Change in Mucous Color, Pain with Coughing, Other - Gastrointestinal Gastrointestinal: As Per HPI - Genitourinary Genitourinary: absent: As Per HPI, Change in Urinary Stream, Difficulty Urinating, Dysuria, Flank Pain, Hematuria, Pyuria, Nocturia, Urinary Incontinence, Urinary Frequency, Urinary Hesitance, Urinary Urgency, Voiding Freq/Small Amts, Freq UTI, Hx Renal/Bladder Calculi, Hx /Renal Surgery, Bladder Distension, Other - Musculoskeletal Musculoskeletal: absent: As Per HPI, Abnormal Gait, Arthralgias, Atrophy, Back Pain, Deformity, Joint Swelling, Limited Range of Motion, Loss of Height, Muscle Cramps, Muscle Weakness, Myalgias, Neck Pain, Numbness, Radiating Pain into Limb, Stiffness, Tingling, Other - Integumentary Integumentary: absent: As Per HPI, Acne, Alopecia, Bleeding Lesions, Change in Hair, Change in Nails, Change in Pigmentation, Changing Lesions, Dry Skin, Erythema, Furuncle, Hirsutism, Lesions, New Lesions, Non-Healing Lesions, Photosensitivity, Pruritus, Rash, Skin Pain, Skin Ulcer, Sores, Striae, Swelling, Unusual Bruising, Wounds, Jaundice, Other - Neurological Neurological: As Per HPI - Endocrine Endocrine: absent: As Per HPI, Change in Body Appearance, Change in Libido, Cold Intolorance, Deepening of Voice, Excessive Sweating, Fatigue, Flushing, Heat Intolorance, Increase in Ring/Shoe/Hat Size, Palpitations, Polydipsia, Polyphagia, Polyuria, Other - Hematologic/Lymphatic Hematologic: absent: As Per HPI, Easy Bleeding, Easy Bruising, Lymphadenopathy, Other Past Patient History - Infectious Disease Hx of Infectious Diseases: None - Past Medical History & Family History Past Medical History?: Yes - Past Social History Smoking Status: 1/2 pack a Alcohol: None Drugs: Denies Home Situation {Lives}: With Family - CARDIAC Hx Cardiac Disorders: Yes Hx Hypercholesterolemia: Yes Hx Hypertension: Yes - PULMONARY Hx Respiratory Disorders: No - NEUROLOGICAL Hx Seizures: Yes - HEENT Hx HEENT Problems: No - RENAL Hx Chronic Kidney Disease: No - ENDOCRINE/METABOLIC Hx Endocrine Disorders: No - HEMATOLOGICAL/ONCOLOGICAL Hx AIDS: No Hx Human Immunodeficiency Virus (HIV): No - INTEGUMENTARY Hx Dermatological Problems: No - MUSCULOSKELETAL/RHEUMATOLOGICAL Hx Falls: No - GASTROINTESTINAL Other/Comment: - Colon CA. - GI bleed (blood transfusion of PRBC 06/26/2018) - GENITOURINARY/GYNECOLOGICAL Hx Genitourinary Disorders: No - PSYCHIATRIC Hx Substance Use: No - SURGICAL HISTORY Hx Appendectomy: Yes (About 25 years ago) Other/Comment: - 06/15/2018: Exploratory laparotomy with lysis of adhesions, small bowel resection and primary anastomosis - ANESTHESIA Hx Anesthesia: Yes Hx Anesthesia Reactions: No Hx Malignant Hyperthermia: No Has any member of the family had a problem w/ anesthesia?: No Meds Allergies/Adverse Reactions: Allergies Allergy/AdvReac Type Severity Reaction Status Date / Time No Known Allergies Allergy Verified 06/30/18 18:06 - Medications Medications: Current Medications Acetaminophen (Tylenol 325mg Tab) 650 mg PO Q6 PRN PRN Reason: Pain, Mild (1-3) Acetaminophen (Tylenol 325mg Tab) 650 mg PO Q6 PRN PRN Reason: Fever >100.4 F Atorvastatin Calcium (Lipitor) 40 mg PO HS [facility] Last Admin: 07/01/18 21:04 Dose: 40 mg Levetiracetam (Keppra) 500 mg PO Q12 [facility] Last Admin: 07/02/18 08:18 Dose: 500 mg Ondansetron HCl (Zofran Inj) 4 mg IVP Q6 PRN PRN Reason: Nausea/Vomiting Pantoprazole Sodium (Protonix Ec Tab) 40 mg PO DAILY [facility] Last Admin: 07/02/18 08:18 Dose: 40 mg Tramadol HCl (Ultram) 100 mg PO Q6 PRN PRN Reason: Pain, severe (8-10) Last Admin: 07/01/18 20:11 Dose: 100 mg Tramadol HCl (Ultram) 50 mg PO TID PRN PRN Reason: Pain, moderate (4-7) Last Admin: 07/02/18 00:06 Dose: 50 mg Physical Exam - Constitutional Appears: No Acute Distress, Cachectic, Chronically Ill - Head Exam Head Exam: ATRAUMATIC, NORMAL INSPECTION, NORMOCEPHALIC - Eye Exam Eye Exam: EOMI, Normal appearance, PERRL Pupil Exam: NORMAL ACCOMODATION, PERRL - ENT Exam ENT Exam: Mucous Membranes Moist, Normal Exam - Neck Exam Neck exam: Positive for: Normal Inspection - Respiratory Exam Respiratory Exam: Clear to Auscultation Bilateral, NORMAL BREATHING PATTERN - Cardiovascular Exam Cardiovascular Exam: REGULAR RHYTHM - GI/Abdominal Exam GI & Abdominal Exam: Diminished Bowel Sounds, Distended, Guarding, Soft. absent: Normal Bowel Sounds, Tenderness - Rectal Exam Rectal Exam: NORMAL INSPECTION - Exam Exam: Circumcision, NORMAL INSPECTION External exam: NORMAL EXTERNAL EXAM Speculum exam: NORMAL SPECULUM EXAM Bimanual exam: NORMAL BIMANUAL EXAM - Extremities Exam Extremities exam: Positive for: normal inspection - Back Exam Back exam: NORMAL INSPECTION - Neurological Exam Neurological exam: Alert, CN II-XII Intact, Normal Gait, Oriented x3, Reflexes Normal - Psychiatric Exam Psychiatric exam: Normal Affect, Normal Mood - Skin Skin Exam: Dry, Intact, Normal Color, Warm Results - Vital Signs Recent Vital Signs: Last Vital Signs Temp 97.3 F L 07/02/18 07:44 Pulse 74 07/02/18 11:00 Resp 18 07/02/18 07:44 BP 110/68 07/02/18 11:00 Pulse Ox 100 07/02/18 11:00 - Labs Result Diagrams: 07/01/18 06:05 07/01/18 06:05 Labs: Laboratory Results - last 24 hr 07/02/18 05:51 POC Glucose (mg/dL) 85 Assessment & Plan (1) Acute blood loss anemia Status: Acute (2) Enterobacter sepsis Status: Acute (3) Gastric cancer Status: Acute Priority: High (4) SBO (small bowel obstruction) Status: Acute - Assessment and Plan (Free Text) Plan: Admitted to rehab from [facility] s/p GI bleed and severe generalized weakness Recently completed 14 days IV rx for sepsis ( gram neg ) In May , patient was admitted to ICU and treated for SBO and sepsis 2/2 to enterobacter aerogenes. SBO resolved s/p exploratory laparatomy with lysis of adhesions , bowel resection and primary anastomosis. After ex-lap patient developed AMS of unclear etiology. CT and MRI head showed no acute stroke. Suspected seizure activity Currently awake alert with Denies fever or chills IV antibiotics were completed ( 14 day course )
[2018-07-03] MEDS: Pantoprazole 40 mg EC Tab PO SCH (09:00)
--- NOTE | 2018-07-03 15:56 | RAD ---
Date of service: 07/03/2018 HISTORY: pain, early satiety COMPARISON: 06/27/2018 abdominal series. 06/26/2018 CT abdomen and pelvis. TECHNIQUE: 1 view obtained. FINDINGS: BOWEL: Distention of proximal small bowel disproportionate to that seen distally. Similar more pronounced findings identified on the prior study. BONES: Normal. OTHER FINDINGS: Extensive postoperative changes/surgical clips again identified. IMPRESSION: Persistent proximal small bowel dilatation improved compared to the prior study.
[2018-07-03] MEDS ORDERED: Lactulose 10 gm/15 ml Syrup PO ONE (16:19)
--- NOTE | 2018-07-03 17:34 | CP.PCM.PN ---
Subjective - Date & Time of Evaluation Date of Evaluation: 07/03/18 Time of Evaluation: 17:33 - Subjective Subjective: Patient seen in the room continued abdominal pain no emesis made NPO now very thin pending work up continues Objective - Vital Signs/Intake and Output Vital Signs (last 24 hours): Temp Pulse Resp BP Pulse Ox 98.2 F 86 20 125/80 96 07/03/18 07:00 07/03/18 14:45 07/03/18 14:45 07/03/18 14:45 07/03/18 14:45 - Medications Medications: Current Medications Acetaminophen (Tylenol 325mg Tab) 650 mg PO Q6 PRN PRN Reason: Pain, Mild (1-3) Acetaminophen (Tylenol 325mg Tab) 650 mg PO Q6 PRN PRN Reason: Fever >100.4 F Atorvastatin Calcium (Lipitor) 40 mg PO HS [facility] Last Admin: 07/02/18 21:04 Dose: 40 mg Levetiracetam (Keppra) 500 mg PO Q12 [facility] Last Admin: 07/03/18 09:00 Dose: 500 mg Ondansetron HCl (Zofran Inj) 4 mg IVP Q6 PRN PRN Reason: Nausea/Vomiting Pantoprazole Sodium (Protonix Ec Tab) 40 mg PO DAILY [facility] Last Admin: 07/03/18 09:00 Dose: 40 mg Tramadol HCl (Ultram) 100 mg PO Q6 PRN PRN Reason: Pain, severe (8-10) Last Admin: 07/01/18 20:11 Dose: 100 mg Tramadol HCl (Ultram) 50 mg PO TID PRN PRN Reason: Pain, moderate (4-7) Last Admin: 07/03/18 09:31 Dose: 50 mg - Labs Labs: 07/01/18 06:05 07/01/18 06:05
[2018-07-04] MEDS ORDERED: Dextrose 50% SYRINGE Inj (50 ml) IVP ONE (06:40)
[2018-07-04 07:08] LABS: HEMOGLOBIN 11.7 g/dL (12.0-18.0); MEAN CELL VOLUME 92.8 fl (80.0-94.0); MEAN CORPUSCULAR HEMOGLOBIN 31.3 pg (27.0-31.0); MEAN CORPUSCULAR HGB CONC 33.7 g/dL (33.0-37.0); RBC 3.74 Mil/uL (4.40-5.90); RED CELL DISTRIBUTION WIDTH 15.6 % (11.5-14.5); WHITE BLOOD COUNT 6.6 K/uL (4.8-10.8)
[2018-07-04 07:26] LABS: BLOOD UREA NITROGEN 12 mg/dl (9-20); CALCIUM 9.1 mg/dL (8.4-10.2); GFR NON-AFRICAN AMERICAN > 60
[2018-07-04] MEDS ORDERED: Lactated Ringer's 1,000 ML IV SCH (07:30)
[2018-07-04] MEDS: Pantoprazole 40 mg EC Tab PO SCH (08:51)
--- NOTE | 2018-07-04 11:21 | CP.PCM.PN ---
Subjective - Date & Time of Evaluation Date of Evaluation: 07/04/18 Time of Evaluation: 11:19 - Subjective Subjective: had lower abdominal pain yesterday, improved today flat plate showed improved dilated small bowel +lactulose with large BM this AM Objective - Vital Signs/Intake and Output Vital Signs (last 24 hours): Temp Pulse Resp BP Pulse Ox 98 F 66 99 H 108/65 99 07/04/18 08:41 07/04/18 10:33 07/04/18 10:33 07/04/18 08:41 07/04/18 08:41 - Medications Medications: Current Medications Acetaminophen (Tylenol 325mg Tab) 650 mg PO Q6 PRN PRN Reason: Pain, Mild (1-3) Acetaminophen (Tylenol 325mg Tab) 650 mg PO Q6 PRN PRN Reason: Fever >100.4 F Atorvastatin Calcium (Lipitor) 40 mg PO HS [facility] Last Admin: 07/03/18 21:07 Dose: 40 mg Lactated Ringer's (Lactated Ringer's) 1,000 mls @ 80 mls/hr IV .[id number] [facility] Last Admin: 07/04/18 08:50 Dose: 80 mls/hr Lactulose (Enulose) 20 gm PO DAILY [facility] Levetiracetam (Keppra) 500 mg PO Q12 [facility] Last Admin: 07/04/18 08:51 Dose: 500 mg Ondansetron HCl (Zofran Inj) 4 mg IVP Q6 PRN PRN Reason: Nausea/Vomiting Pantoprazole Sodium (Protonix Ec Tab) 40 mg PO DAILY [facility] Last Admin: 07/04/18 08:51 Dose: 40 mg Tramadol HCl (Ultram) 100 mg PO Q6 PRN PRN Reason: Pain, severe (8-10) Last Admin: 07/03/18 18:50 Dose: 100 mg Tramadol HCl (Ultram) 50 mg PO TID PRN PRN Reason: Pain, moderate (4-7) Last Admin: 07/04/18 04:24 Dose: 50 mg - Labs Labs: 07/04/18 06:50 07/04/18 06:50 - Constitutional Appears: Non-toxic, No Acute Distress - Head Exam Head Exam: ATRAUMATIC, NORMOCEPHALIC - Eye Exam Eye Exam: EOMI, Normal appearance - ENT Exam ENT Exam: Mucous Membranes Moist, Normal Oropharynx - Respiratory Exam Respiratory Exam: Clear to Ausculation Bilateral, NORMAL BREATHING PATTERN - Cardiovascular Exam Cardiovascular Exam: RRR, +S1, +S2 - GI/Abdominal Exam GI & Abdominal Exam: Soft, Normal Bowel Sounds. absent: Distended, Guarding, Rigid, Tenderness - Extremities Exam Extremities Exam: Full ROM, Normal Capillary Refill, Normal Inspection - Neurological Exam Neurological Exam: Alert, Awake, Oriented x3 - Psychiatric Exam Psychiatric exam: Normal Affect, Normal Mood - Skin Skin Exam: Dry, Normal Color Assessment and Plan - Assessment and Plan (Free Text) Plan: 1. High grade SBO s/p Recent Explor Lap with Adhesiolysis and bowel resection with primary anastomosis - pt tolerating gi soft diet, + BM this AM, good bowel sounds 2. Acute GI Bleed with Acute Blood Loss Anemia and Sinus Tachycardia -episode of GI bleed - H/H went down and pt transfused 3 units PRBC - H/H now stable, no further bleed, tachycardia and hypotension resolved - off antiplatelet and anticoag due to the bleed - GI consulted - no Endoscopic intervention - cont PPI 3. Suspected seizure disorder with recent AMS -- continue Keppra 4. Suspected recent TIA -- continue Statin . Hold ASA, Plavix , lovenox due to GI bleed 5. Physical Deconditioning - Physical and occupational therapy
--- NOTE | 2018-07-04 12:24 | CP.PCM.PN ---
Subjective - Date & Time of Evaluation Date of Evaluation: 07/04/18 Time of Evaluation: 12:23 - Subjective Subjective: tolerating diet Objective - Vital Signs/Intake and Output Vital Signs (last 24 hours): Temp Pulse Resp BP Pulse Ox 98 F 66 99 H 108/65 99 07/04/18 08:41 07/04/18 10:33 07/04/18 10:33 07/04/18 08:41 07/04/18 08:41 - Medications Medications: Current Medications Acetaminophen (Tylenol 325mg Tab) 650 mg PO Q6 PRN PRN Reason: Pain, Mild (1-3) Acetaminophen (Tylenol 325mg Tab) 650 mg PO Q6 PRN PRN Reason: Fever >100.4 F Atorvastatin Calcium (Lipitor) 40 mg PO HS [facility] Last Admin: 07/03/18 21:07 Dose: 40 mg Lactated Ringer's (Lactated Ringer's) 1,000 mls @ 80 mls/hr IV .[id number] [facility] Last Admin: 07/04/18 08:50 Dose: 80 mls/hr Lactulose (Enulose) 20 gm PO DAILY [facility] Levetiracetam (Keppra) 500 mg PO Q12 [facility] Last Admin: 07/04/18 08:51 Dose: 500 mg Ondansetron HCl (Zofran Inj) 4 mg IVP Q6 PRN PRN Reason: Nausea/Vomiting Pantoprazole Sodium (Protonix Ec Tab) 40 mg PO DAILY [facility] Last Admin: 07/04/18 08:51 Dose: 40 mg Tramadol HCl (Ultram) 100 mg PO Q6 PRN PRN Reason: Pain, severe (8-10) Last Admin: 07/03/18 18:50 Dose: 100 mg Tramadol HCl (Ultram) 50 mg PO TID PRN PRN Reason: Pain, moderate (4-7) Last Admin: 07/04/18 04:24 Dose: 50 mg - Labs Labs: 07/04/18 06:50 07/04/18 06:50 - Head Exam Head Exam: NORMOCEPHALIC - Neck Exam Neck Exam: Normal Inspection - Respiratory Exam Respiratory Exam: Clear to Ausculation Bilateral - Cardiovascular Exam Cardiovascular Exam: REGULAR RHYTHM - GI/Abdominal Exam GI & Abdominal Exam: Soft, Normal Bowel Sounds Assessment and Plan - Assessment and Plan (Free Text) Assessment: 58 yo male with sbo sbo resolving tolerating diet lactulose prn
[2018-07-05] MEDS ORDERED: Simethicone 80 mg Chewtab PO PRN (06:40)
[2018-07-05] MEDS: Pantoprazole 40 mg EC Tab PO SCH (08:52)
[2018-07-06] MEDS: Pantoprazole 40 mg EC Tab PO SCH (08:10)
[2018-07-07] MEDS: Pantoprazole 40 mg EC Tab PO SCH (08:28)
--- NOTE | 2018-07-07 14:27 | CP.PCM.PN ---
Subjective - Date & Time of Evaluation Date of Evaluation: 07/07/18 Time of Evaluation: 14:27 - Subjective Subjective: doing well no complaints hd stable nad Objective - Vital Signs/Intake and Output Vital Signs (last 24 hours): Temp Pulse Resp BP Pulse Ox 98.2 F 63 17 105/69 99 07/07/18 08:31 07/07/18 08:31 07/07/18 08:31 07/07/18 08:31 07/07/18 08:31 - Medications Medications: Current Medications Acetaminophen (Tylenol 325mg Tab) 650 mg PO Q6 PRN PRN Reason: Pain, Mild (1-3) Acetaminophen (Tylenol 325mg Tab) 650 mg PO Q6 PRN PRN Reason: Fever >100.4 F Atorvastatin Calcium (Lipitor) 40 mg PO HS [facility] Last Admin: 07/06/18 21:02 Dose: 40 mg Lactulose (Enulose) 20 gm PO DAILY PRN PRN Reason: for Constipation Last Admin: 07/07/18 04:34 Dose: 20 gm Levetiracetam (Keppra) 500 mg PO Q12 [facility] Last Admin: 07/07/18 08:28 Dose: 500 mg Ondansetron HCl (Zofran Inj) 4 mg IVP Q6 PRN PRN Reason: Nausea/Vomiting Pantoprazole Sodium (Protonix Ec Tab) 40 mg PO DAILY [facility] Last Admin: 07/07/18 08:28 Dose: 40 mg Simethicone (Mylicon Chew Tab) 80 mg PO Q8 PRN PRN Reason: Flatulence Last Admin: 07/05/18 06:56 Dose: 80 mg Tramadol HCl (Ultram) 100 mg PO Q6 PRN PRN Reason: Pain, severe (8-10) Last Admin: 07/03/18 18:50 Dose: 100 mg Tramadol HCl (Ultram) 50 mg PO Q6 PRN PRN Reason: Pain, moderate (4-7) Last Admin: 07/06/18 21:20 Dose: 50 mg - Labs Labs: 07/04/18 06:50 07/04/18 06:50 - Constitutional Appears: Well, Non-toxic, No Acute Distress - Head Exam Head Exam: ATRAUMATIC, NORMOCEPHALIC - Eye Exam Eye Exam: EOMI, Normal appearance, PERRL - ENT Exam ENT Exam: Mucous Membranes Moist, Normal External Ear Exam, Normal Oropharynx - Respiratory Exam Respiratory Exam: Clear to Ausculation Bilateral, NORMAL BREATHING PATTERN - Cardiovascular Exam Cardiovascular Exam: RRR, +S1, +S2 - GI/Abdominal Exam GI & Abdominal Exam: Soft, Normal Bowel Sounds. absent: Tenderness - Extremities Exam Extremities Exam: Full ROM, Normal Capillary Refill - Back Exam Back Exam: absent: CVA tenderness (L), CVA tenderness (R) - Neurological Exam Neurological Exam: Alert, Awake - Psychiatric Exam Psychiatric exam: Normal Affect, Normal Mood - Skin Skin Exam: Dry, Warm Assessment and Plan - Assessment and Plan (Free Text) Plan: 1. High grade SBO s/p Recent Explor Lap with Adhesiolysis and bowel resection with primary anastomosis - pt tolerating gi soft diet, + BM this AM, good bowel sounds 2. Acute GI Bleed with Acute Blood Loss Anemia and Sinus Tachycardia -episode of GI bleed - H/H went down and pt transfused 3 units PRBC - H/H now stable, no further bleed, tachycardia and hypotension resolved - off antiplatelet and anticoag due to the bleed - GI consulted - no Endoscopic intervention - cont PPI 3. Suspected seizure disorder with recent AMS -- continue Keppra 4. Suspected recent TIA -- continue Statin . Hold ASA, Plavix , lovenox due to GI bleed 5. Physical Deconditioning - Physical and occupational therapy
[2018-07-08] MEDS: Pantoprazole 40 mg EC Tab PO SCH (08:31)
--- NOTE | 2018-07-08 13:14 | PCM.PSYTMC ---
Acute Rehab Team Conference - - Vital Signs: Vital Signs (Last 8 Hours): Vital Signs 07/08/18 07/08/18 07:56 08:00 Temperature 97.9 F 97.9 F Pulse Rate 60 60 Respiratory 18 18 Rate Blood Pressure 100/60 100/60 O2 Sat by Pulse 100 Oximetry Pain: 0 - Precautions: Precautions: Fall Prevention - Medications/Other Issues: Comment: -Occassional complaints of abdominal pain - on Tylenol and Ultram PRN. -Constipation - on Lactulose. -Marilee for seizure prevention - Consults: Comment: Dr. Boyd - Physiatry. Dr. Domínguez - Surgery. Dr. Colon - GI. Dr. Prasad - ID - Skin: Incision Site: Abdomen Dressing Status: Clean, Dry, Intact Incision: Healing Well, Well Approximated Incision Line Treatment: Open to air - Toileting: Toileting: Contact Guard - Bladder Management: Bladder Pattern: Normal Voiding Method: Toilet, Urinal Bladder Management: Contact Guard - Transfers: Transfers: Contact Guard - ADL's: ADL's: Contact Guard - Pain Management: Other Intervention:: -Ultram and Tylenol PRN for pain - Patient/Family Teaching: Other Intervention:: -Patient needs reinforcements on diet changes, medication, and safety - Goals/Time Frame: Comment: -Keep patient safe, follow MD recommended diet, and well informed of his diagnosis and medication. - Provider: Registered Nurse:: Sahla Bal Physical Therapy - Bed Mobility Bed Mobility: Supervision, Verbal Cues Comment: CS. pt states he does not have pain/discomfort during bed mob despite not performing log rolling technique - Transfers Wheelchair to Mat: Supervision, Verbal Cues Sit to Stand: Supervision, Verbal Cues Comment: CS - Ambulation Level of Assistance: Supervision, Verbal Cues Distance (ft.): 200 Assistive Devices: N/A Comment: w/o AD. 200x 2, 100' x 2, 150' x2, 175' x 1, 50' x 2 CS. premorbid B toe out but B heels w/ narrow RICH, slightly incr'd lateral sway. Occ lateral instability, sandy when negotiating obstacles and close quarters - Stair Negotiation Stairs: Level of Assistance: Supervision, Verbal Cues Stairs: Assistive Devices: Left Handrail Comment: 1 flight 8 in steps CS. asc step through. desc step to - Standing Balance Static Stand: Supervision Comment: unsupported - Pain Pain (assessed during therapy session): 1 Alleviating Techniques: Medication, Relaxation Techniques, Exercise Comment: abdominal discomfort - Insight/Carryover Insight/Carryover: Good - Patient/Family Education Comment: dx related topics, posture, activity pacing, balance. DBE, benefits of being OOB, fxnl mob, HEP, POC, PT goals, team conf, safety, pain mgmt - Assessment/Plan Assessment: 58 yo male admitted to [facility] acute rehab for comprehensive rehab s/p SBO w/ ex lap and CHUCK. Pt requires CS for all fxnl and ambulatory tasks. Pt's greatest deficits are his impaired dynamic standing balance and activity tolerance. Cont'd skilled PT recommended to maximize fxnl mob, balance, activity tolerance and safety awareness. - Goals Timeframe: 2 weeks Goals: score at least 22/24 on DGI indiciating improvement in balance with reduced fall risk. 1 flight 8 inch with single rail with modified independence, step through. 1000 feet on all surfaces without device with indep. all trans fers without device with independence including sit to/from stand, car transfers and stand pivot. perform all bed/mat mobility with independence including supine to/from sit and rolling - Provider Physical Therapist:: Nina Miles License Number:: [id number] Occupational Therapy - Arousal/Attention/Orientation Level of Consciousness: Awake, Alert Patient Orientation: Person, Place, Time, Appropriate to Age, Appropriate to Situation - ADL/IADL Self Feeding: Modified Independent Grooming: Supervision, Verbal Cues, Set-up Help Dressing-Upper Ext: Independent, Set-up Help Dressing-Lower Ext: Supervision, Verbal Cues, Set-up Help - Sitting Balance Static Sitting: Independent without upper extremity support Dynamic Sitting: Reaches across midline, Reaches out of base of support, Reaches within base of support, Requires supervision Comment: seated unsupported - Transfers Wheelchair to Bed Transfers: Supervision, Verbal Cues, Set-up Help Toilet Transfers: Supervision, Verbal Cues, Set-up Help Comment: shower transfers: TBA - Wheelchair Management Level of Assistance: Not Applicable - Upper Extremity Status Right Upper Extremity Comment: AROM is WNLS, strength 4/5 Left Upper Extremity Comment: AROM is WNLS, strength 4/5 - Pain Pain (assessed during therapy session): 0 - Insight/Carryover Insight/Carryover: Good - Patient/Family Education Comment: -ongoingfor adls, transfers/mobility, therex, balance/endurance tasks uisng adaptive/compensatory strategies. -energy conservation/work simplication, pacing self. -review importance of sitting up in chair during day time; pt tends to return to bed after therapy session--needs reinforcements. -educated on uses/applications of commode, shower chair with back for bathroom safety. - DME uses/application--commode, shower chair with back - Assessment/Plan Assessment: Pt is a 58 year old male with dx: small bowel obstruction s/p lap/small bowel resection. Precautions: falls, cardiac. Pt limited by impaired overall strength, impaired endurance/activity tolerance, impaired standng balance/tolerance, impaired knowledge of adaptive/compensatory strategies---which impact on function in self care, transfers/mobility and Iadls. Pt will continue skilled OT to maxmize overall function in self care, transfers/mobility using adaptive/comepensatory strategies for safe transition home with proper DMEs prn. Pt demonstrates slow progress in functional activities. Pt currently Supervision level overall for adls, transfers & mobility. Will further assess need for commode, shower chair with back. *Goal: Mod I for adls, transfers/mobility and Iadls - Goals Timeframe: 5 days Comment: *Mod I for adls, transfers and mobility/kitchen tasks using compensatory strategies prn - Provider Occupational Therapist:: Tamela Ledesma License Number: [id number] Recreational Therapy - Participation Participation: Monitors His/Her Own Leisure Time - Attendance Attendance: Daily - Activities Leisure Activities: Television - Socialization Level of Socialization: Initiates/interacts freely with care givers and peer - Diversional Time Diversional Time: watching television, watching sports - Assessment Assessment/Plan: Pt was oriented to benefits and purpose of participating in recreation therapy sessions throughout stay on unit. Pt would benefit from recreation therapy sessions for diversion and to improve activity tolerance level. Will encourage pt to participate in sessions throughout stay on unit. Problems Currently Limiting Participation: decrease leisure awareness level, discomfort, decrease activity tolerance level Goals and Time Frame: Pt will be able to identify two positive outcomes from one leisure involvement activity during group or 1:1 recreational therapy session daily. - Provider Therapist: Teetee Moran Nutrition - Current Diet Current Diet/Supplement/Feedings: Low fiber heart healthy soft ensure plus 8 ounces 2 per day(700 kcal. and 26 grams of protein) - Appetite Percent Meal Consumed: 50-74% - Assessment/Goals/Time Frame Assessments/Goals/Time Frame: Pt at high nutritional risk. goals: 1: Consume >75% of meals. (partially met, continue). 2: Deter further wt loss. (Continue). Follow-up due on 07/09/2018 - Provider Provider: Sonali Robles Case Management - Psychosocial Assessment Support Systems: Haily Torre (spouse) - [phone] Psychological Interventions/Needs: Patient is alert and oriented x3 and able to verbalize needs. Patient is motivated for therapy Patient/Family Meeting: CM met with patient and rehab team Intervention/Goal/Outcome: 1. Goal: Modified independence. 2. Plan: Home with outpatient PT? 3. solidify PMD in community prior to discharge. 4. DME needs to be determined. 5. f/u appts. 6. continued emotional support. 7. continued stay auth, LAD: 07/07- voice message left for RN NIKHIL Quarles on determination. 8. temporary disability paperwork completed and returned to HR. 9. tentative discharge date: 07/11/2018 pending insurance auth. - Discharge Plan Discharge Plan: Home with significant other/family - Provider Provider: Livan Wilson License Number: [id number] Rehabilitation Plan - Treatment Plan Treatment Plan: Physical Therapy, Occupational Therapy, Dietary, Pain Management, Patient/Family Education - Discharge Plan Estimated Date of Discharge: 07/11/18 Discharge to: Home
--- NOTE | 2018-07-08 13:15 | CP.PCM.PN ---
Subjective - Date & Time of Evaluation Date of Evaluation: 07/08/18 Time of Evaluation: 13:15 - Subjective Subjective: Gautam Hanley, born 1960 who has been admitted to [facility] for acute inpatient rehabilitation following ex-lap for SBO and lysis of adhesions. He initially had partial gastrectomy with billroth II 05/26/[address] Gibbs. Margins were clear as was the frozen section. 0/14 Lymph nodes. Post op had BRBPR and had PRBC. Stable now. Abdominal pain has improved. Increased endurance and function. Doing well in therapies Objective - Vital Signs/Intake and Output Vital Signs (last 24 hours): Temp Pulse Resp BP Pulse Ox 97.9 F 60 18 100/60 100 07/08/18 08:00 07/08/18 08:00 07/08/18 08:00 07/08/18 08:00 07/08/18 08:00 Intake and Output: 07/08/18 07/08/18 06:59 18:59 Intake Total 480 Output Total 450 Balance 30 - Medications Medications: Current Medications Acetaminophen (Tylenol 325mg Tab) 650 mg PO Q6 PRN PRN Reason: Pain, Mild (1-3) Last Admin: 07/07/18 20:00 Dose: 650 mg Acetaminophen (Tylenol 325mg Tab) 650 mg PO Q6 PRN PRN Reason: Fever >100.4 F Atorvastatin Calcium (Lipitor) 40 mg PO HS [facility] Last Admin: 07/07/18 21:07 Dose: 40 mg Lactulose (Enulose) 20 gm PO DAILY PRN PRN Reason: for Constipation Last Admin: 07/07/18 18:05 Dose: 20 gm Levetiracetam (Keppra) 500 mg PO Q12 [facility] Last Admin: 07/08/18 08:31 Dose: 500 mg Ondansetron HCl (Zofran Tab) 4 mg PO Q6 PRN PRN Reason: Nausea/Vomiting Pantoprazole Sodium (Protonix Ec Tab) 40 mg PO DAILY [facility] Last Admin: 07/08/18 08:31 Dose: 40 mg Simethicone (Mylicon Chew Tab) 80 mg PO Q8 PRN PRN Reason: Flatulence Last Admin: 07/05/18 06:56 Dose: 80 mg Tramadol HCl (Ultram) 100 mg PO Q6 PRN PRN Reason: Pain, severe (8-10) Last Admin: 07/08/18 05:56 Dose: 100 mg Tramadol HCl (Ultram) 50 mg PO Q6 PRN PRN Reason: Pain, moderate (4-7) Last Admin: 07/06/18 21:20 Dose: 50 mg - Labs Labs: 07/04/18 06:50 07/04/18 06:50 - Constitutional Appears: Non-toxic, No Acute Distress (still quite thin) - Head Exam Head Exam: NORMOCEPHALIC (aside from temporal wasting and loss of other fat pad areas) - Eye Exam Eye Exam: EOMI - ENT Exam ENT Exam: Mucous Membranes Moist - Respiratory Exam Respiratory Exam: NORMAL BREATHING PATTERN - Cardiovascular Exam Cardiovascular Exam: REGULAR RHYTHM - GI/Abdominal Exam GI & Abdominal Exam: Distended, Normal Bowel Sounds. absent: Guarding - Extremities Exam Extremities Exam: absent: Calf Tenderness - Neurological Exam Neurological Exam: Alert Neuro motor strength exam: Left Upper Extremity: 5, Right Upper Extremity: 5, Left Lower Extremity: 5, Right Lower Extremity: 5 - Psychiatric Exam Psychiatric exam: Normal Affect, Normal Mood - Skin Skin Exam: Warm Assessment and Plan - Assessment and Plan (Free Text) Assessment: Patient remains an excellent acute rehab candidate and ELOS 07/11/18 has had an initial rough time in therapies and just starting to really make gains still weak Pain controlled GI stable had a BM with lactulose Resp no distress
[2018-07-09] MEDS: Pantoprazole 40 mg EC Tab PO SCH (08:13)
--- NOTE | 2018-07-09 13:53 | CP.PCM.PN ---
Subjective - Date & Time of Evaluation Date of Evaluation: 07/09/18 Time of Evaluation: 12:00 - Subjective Subjective: Patient seen and examined in acute rehab. Feeling better . Hemodynamically stable, afebrile Participating with PT Tolerating PO intake and having regular bowel movements With minimal serous drainage from lower portion of surgical wound No acute issues overnight Objective - Vital Signs/Intake and Output Vital Signs (last 24 hours): Temp Pulse Resp BP Pulse Ox 97.5 F L 56 L 18 111/64 100 07/09/18 07:49 07/09/18 07:49 07/09/18 07:49 07/09/18 07:49 07/09/18 07:49 - Medications Medications: Current Medications Acetaminophen (Tylenol 325mg Tab) 650 mg PO Q6 PRN PRN Reason: Pain, Mild (1-3) Last Admin: 07/08/18 16:41 Dose: 650 mg Acetaminophen (Tylenol 325mg Tab) 650 mg PO Q6 PRN PRN Reason: Fever >100.4 F Atorvastatin Calcium (Lipitor) 40 mg PO HS [facility] Last Admin: 07/08/18 21:14 Dose: 40 mg Lactulose (Enulose) 20 gm PO DAILY PRN PRN Reason: for Constipation Last Admin: 07/07/18 18:05 Dose: 20 gm Levetiracetam (Keppra) 500 mg PO Q12 [facility] Last Admin: 07/09/18 08:13 Dose: 500 mg Ondansetron HCl (Zofran Tab) 4 mg PO Q6 PRN PRN Reason: Nausea/Vomiting Pantoprazole Sodium (Protonix Ec Tab) 40 mg PO DAILY [facility] Last Admin: 07/09/18 08:13 Dose: 40 mg Simethicone (Mylicon Chew Tab) 80 mg PO Q8 PRN PRN Reason: Flatulence Last Admin: 07/05/18 06:56 Dose: 80 mg Tramadol HCl (Ultram) 100 mg PO Q6 PRN PRN Reason: Pain, severe (8-10) Last Admin: 07/08/18 21:17 Dose: 100 mg Tramadol HCl (Ultram) 50 mg PO Q6 PRN PRN Reason: Pain, moderate (4-7) Last Admin: 07/06/18 21:20 Dose: 50 mg - Labs Labs: 07/04/18 06:50 07/04/18 06:50 - Constitutional Appears: Non-toxic, No Acute Distress - Head Exam Head Exam: ATRAUMATIC, NORMAL INSPECTION, NORMOCEPHALIC - Eye Exam Eye Exam: EOMI, Normal appearance, PERRL Pupil Exam: NORMAL ACCOMODATION - ENT Exam ENT Exam: Mucous Membranes Moist, Normal Exam - Neck Exam Neck Exam: Full ROM, Normal Inspection - Respiratory Exam Respiratory Exam: Clear to Ausculation Bilateral, NORMAL BREATHING PATTERN. absent: Rhonchi, Wheezes - Cardiovascular Exam Cardiovascular Exam: REGULAR RHYTHM, RRR, +S1, +S2. absent: JVD - GI/Abdominal Exam GI & Abdominal Exam: Soft, Normal Bowel Sounds. absent: Distended, Guarding, Rebound Additional comments: midline surgical scar well healed minimal serous drainage from lower portion of surgical wound petros have been removed - Rectal Exam Rectal Exam: Deferred - Extremities Exam Extremities Exam: Full ROM, Normal Capillary Refill, Normal Inspection. absent: Pedal Edema - Back Exam Back Exam: NORMAL INSPECTION - Neurological Exam Neurological Exam: Alert, Awake, CN II-XII Intact, Normal Gait, Oriented x3 - Psychiatric Exam Psychiatric exam: Normal Affect - Skin Skin Exam: Dry, Warm Assessment and Plan - Assessment and Plan (Free Text) Assessment: 58 y/o male with PMH Gastric Ca s/p gastrectomy, was admitted recently with SBO ,underwent exploratory laparotomy with lysis of adhesions,small bowel resection and primary anastomosis on 06/15/18. He developed rectal bleed with hypotension on 06/24 after transfer to acute rehab with Hgb 7.4 and was admitted back to ICU for GI bleed and responded well to IVF.ASA Plavix and Lovenox were held and he was transfused total 2 unit PRBC with Hgb now stable. Surgery , ID and GI were consulted . CT abdomen and pelvis showed high degree SBO so patient was treated conservativ citlalli until SBO resolved. He was discharged back to acute rehab for physical therapy and doing well Participating with PT. plan for d/c home on Saturday 02/10 1. Deconditioning participating with PT in acute rehab and doing well plan gerardo/c 07/11 2.Recent high grade SBO /s/p recent exploratory laparatomy with adhesion lysis , intestinal resection and primary anastomosis Abdomen soft, passing flatus ,having regular BM, tolerating diet [place] removed and surgical incision has healed well with minimal serous drainage from lower portion of incision . dry dressing 3.Rectal bleed of unclear source with hypotension and Sinus Tachycardia No more rectal bleed hypotension and tachycardia resolved 4.Acute blood loss anemia received 2 unit PRBC transfusion Hgb stable 5.Suspected seizure disorder with recent AMS continue Keppra 6.Suspected recent TIA- continue Statin . Hold ASA, Plavix , lovenox due to GI bleed Dispo : d/c home 07/11
--- NOTE | 2018-07-09 18:53 | CP.PCM.PN ---
Subjective - Date & Time of Evaluation Date of Evaluation: 07/09/18 Time of Evaluation: 18:53 - Subjective Subjective: Patient seen in the room doing much better denies sob/cp no abdominal pain continue current care d/c set for 07/11/18 Objective - Vital Signs/Intake and Output Vital Signs (last 24 hours): Temp Pulse Resp BP Pulse Ox 97.5 F L 56 L 18 111/64 100 07/09/18 07:49 07/09/18 07:49 07/09/18 07:49 07/09/18 07:49 07/09/18 07:49 - Medications Medications: Current Medications Acetaminophen (Tylenol 325mg Tab) 650 mg PO Q6 PRN PRN Reason: Pain, Mild (1-3) Last Admin: 07/09/18 18:46 Dose: 650 mg Acetaminophen (Tylenol 325mg Tab) 650 mg PO Q6 PRN PRN Reason: Fever >100.4 F Atorvastatin Calcium (Lipitor) 40 mg PO [facility] Last Admin: 07/08/18 21:14 Dose: 40 mg Lactulose (Enulose) 20 gm PO DAILY PRN PRN Reason: for Constipation Last Admin: 07/07/18 18:05 Dose: 20 gm Levetiracetam (Keppra) 500 mg PO Q12 [facility] Last Admin: 07/09/18 08:13 Dose: 500 mg Ondansetron HCl (Zofran Tab) 4 mg PO Q6 PRN PRN Reason: Nausea/Vomiting Pantoprazole Sodium (Protonix Ec Tab) 40 mg PO DAILY [facility] Last Admin: 07/09/18 08:13 Dose: 40 mg Simethicone (Mylicon Chew Tab) 80 mg PO Q8 PRN PRN Reason: Flatulence Last Admin: 07/05/18 06:56 Dose: 80 mg Tramadol HCl (Ultram) 100 mg PO Q6 PRN PRN Reason: Pain, severe (8-10) Last Admin: 07/08/18 21:17 Dose: 100 mg Tramadol HCl (Ultram) 50 mg PO Q6 PRN PRN Reason: Pain, moderate (4-7) Last Admin: 07/06/18 21:20 Dose: 50 mg - Labs Labs: 07/04/18 06:50 07/04/18 06:50
[2018-07-10] MEDS: Pantoprazole 40 mg EC Tab PO SCH (08:59)
[2018-07-10] MEDS: Bacitracin OINT 15GM TOP SCH (20:24)
[2018-07-10 22:57] VITALS: O2SAT 99
[2018-07-11] MEDS: Bacitracin OINT 15GM TOP SCH (08:34)
[2018-07-11] MEDS: Pantoprazole 40 mg EC Tab PO SCH (08:34)
--- NOTE | 2018-07-11 11:37 | CP.PCM.DIS ---
Provider - Provider Date of Admission: 06/30/18 18:03 Attending physician: Noe Mendez MD Consults: 06/30/18 18:50 Physician Consult Routine Comment: Consulting Provider: Herman Boyd Consulting Physician: Herman oByd Reason for Consult: Acute rehab 06/30/18 18:51 Gastroenterology Consult Routine Comment: Consulting Provider: Harshad Colon Consulting Physician: Harshad Colon Reason for Consult: GI bleed General Surgery Consult Routine Comment: Consulting Provider: Han Domínguez Consulting Physician: Han Domínguez Reason for Consult: GI bleed, s/p surgery Infectious Disease Consult Routine Comment: Consulting Provider: Armani Prasad Consulting Physician: Armani Prasad Reason for Consult: GI bleed on Lauren 06/30/18 19:22 Case Management Referral Routine Comment: Physician Instructions: Reason For Exam: discharge planning Reason for Referral: Discharge Planning 07/01/18 08:00 Social Work Referral Routine Comment: discharge planning Physician Instructions: Reason For Exam: D/C planning, smoking cessation referral Time Spent in preparation of Discharge (in minutes): 25 Diagnosis - Discharge Diagnosis (1) SBO (small bowel obstruction) Status: Acute Comment: post adhesiolysis and small bowel resection. tolerating oral intake with regular BM (2) Seizure Status: Acute Comment: continue Keppra (3) CVA (cerebrovascular accident) Status: Chronic Priority: High Comment: continue statin. continue hold on ASA, Plavix and Lovenox because of recent GI bleed Hospital Course - Lab Results Lab Results: Most Recent Lab Values WBC 6.6 K/uL (4.8-10.8) 07/04/18 06:50 RBC 3.74 Mil/uL (4.40-5.90) L 07/04/18 06:50 Hgb 11.7 g/dL (12.0-18.0) L 07/04/18 06:50 Hct 34.7 % (35.0-51.0) L 07/04/18 06:50 MCV 92.8 fl (80.0-94.0) 07/04/18 06:50 MCH 31.3 pg (27.0-31.0) H 07/04/18 06:50 MCHC 33.7 g/dL (33.0-37.0) 07/04/18 06:50 RDW 15.6 % (11.5-14.5) H 07/04/18 06:50 Plt Count 474 K/uL (130-400) H 07/04/18 06:50 Sodium 134 mmol/l (132-148) 07/04/18 06:50 Potassium 3.8 MMOL/L (3.6-5.0) 07/04/18 06:50 Chloride 95 mmol/L (98-107) L 07/04/18 06:50 Carbon Dioxide 30 mmol/L (22-30) 07/04/18 06:50 Anion Gap 13 (10-20) 07/04/18 06:50 BUN 12 mg/dl (9-20) 07/04/18 06:50 Creatinine 1.0 mg/dl (0.8-1.5) 07/04/18 06:50 Est GFR ( Amer) > 60 07/04/18 06:50 Est GFR (Non-Af Amer) > 60 07/04/18 06:50 POC Glucose (mg/dL) 88 mg/dL (65-110) 07/08/18 05:49 Random Glucose 54 mg/dL (75-110) L 07/04/18 06:50 Calcium 9.1 mg/dL (8.4-10.2) 07/04/18 06:50 Procalcitonin 0.22 NG/ML (0.19-0.49) 07/01/18 06:05 - Hospital Course Hospital Course: 58 yo male with history of Gastric Ca post-gastrectomy was admitted because of SBO. He underwent explore laparotomy with adhesiolysis and small bowel resection and primary anastomosis. Post op was complicated with GI bleed and hypotension and had to be managed in ICU. He was transferred to Acute Rehab when he was hemodynamically stable but had another episode of GI bleed with hypotension and was transferred back to ICU. He received 2 units of PRBC and all anti-coagulants and anti-platelets were held. CT of the abdomen/pelvis showed high degree SBO. Patient was treated conservatively and was sent back to Acute Rehab when he became stable and continued his PT/OT. Patient did well and now is ready for discharged. Discharge Exam - Head Exam Head Exam: ATRAUMATIC, NORMAL INSPECTION, NORMOCEPHALIC - Eye Exam Eye Exam: absent: Scleral icterus - ENT Exam ENT Exam: Mucous Membranes Moist - Respiratory Exam Respiratory Exam: absent: Rales, Rhonchi, Wheezes, Respiratory Distress - Cardiovascular Exam Cardiovascular Exam: REGULAR RHYTHM, +S1, +S2 - GI/Abdominal Exam GI & Abdominal Exam: Soft. absent: Tenderness - Rectal Exam Rectal Exam: Deferred - Neurological Exam Neurological exam: Alert, Oriented x3 - Psychiatric Exam Psychiatric exam: Normal Affect - Skin Skin Exam: Dry, Intact Discharge Plan - Discharge Medications Prescriptions: Atorvastatin [Lipitor] 40 mg PO HS #30 tab levETIRAcetam [Keppra] 500 mg PO Q12 #60 tab traMADol [Ultram] 50 mg PO Q6 PRN #20 tab PRN Reason: Pain, Moderate (4-7) - Follow Up Plan Condition: GOOD Disposition: HOME/ ROUTINE Instructions: Preventing Falls in the Older Adult, Seizures, Adult (DC), Small Bowel Obstruction (DC)
[2018-07-11 12:10] VITALS: BP 135/76; PULSE 74; RESP 18; TEMP 97.2
== END 2018-07-11 14:20 | disposition home or self-care (01) | DRG 389 ==
DX: K56.609 Unspecified intestinal obstruction, unspecified as to partial versus complete obstruction (principal); D62 Acute posthemorrhagic anemia; C16.9 Malignant neoplasm of stomach, unspecified; K92.2 Gastrointestinal hemorrhage, unspecified; E78.5 Hyperlipidemia, unspecified; Z86.010 Personal history of colon polyps; Z86.73 Personal history of transient ischemic attack (TIA), and cerebral infarction without residual deficits; Z90.3 Acquired absence of stomach [part of]; F17.210 Nicotine dependence, cigarettes, uncomplicated; I95.9 Hypotension, unspecified; I10 Essential (primary) hypertension; E78.00 Pure hypercholesterolemia, unspecified; R56.9 Unspecified convulsions